=== PATIENT | male | born 1945 | race Caucasian/White ===

== ENCOUNTER 2016-06-10 09:08 | Inpatient (IN) | payer MEDICARE ==
[~2016-06-10] VITALS: Ht 172.7 cm; Wt 71.7 kg
[~2016-06-10 09:08] MED LIST: ADVAIR HFA [SP]12 GM INH; ASPIRIN 81 MG E81 MG PO; ATROVENT 0.02%2.5 ML UPD; DILT-CD180 MG PO; DUONEB 2.5-0.5 M3 ML UPD; ELAVIL25 MG PO; HYDROCODONE-APA1 TAB PO; IBUPROFEN600 MG PO; IMDUR30 MG PO; KLOR-CON 88 MEQ PO; LASIX20 MG PO; LEVAQUIN750 MG PO; LISINOPRIL5 MG PO; MEDROL DOSE PACK4 MG PO; MUCINEX600 MG PO; PERCOCET 5-3251 TAB PO; PLAVIX75 MG PO; PROAIR HFA8.5 GM INH; PROVENTIL HFA6.7 GM INH; SPIRIVA18 MCG INH; STERAPRED DS 1210 MG PO; SYMBICORT 16010.2 GM INH; XANAX0.25 MG OR; XANAX0.25 MG PO; XOPENEX 1.1.25 MG/3 UPD; ZOCOR20 MG PO
[2016-06-10 09:48] LABS: BASOPHILS 0.2 % (0.0-2.0); HEMATOCRIT 53.2 % (42.0-54.0); HEMOGLOBIN 17.9 g/dL (13.5-17.5); IMMATURE GRANULOCYTES 0.1 % (0-5); LYMPHOCYTES 17.3 % (15-50); MCH 31.1 pg (26.0-34.0); MCHC 33.6 g/dL (31.0-37.0); MCV 92.5 fL (80.0-100.0); MEAN PLATELET VOLUME 9.5 fL (7.4-10.4); MONOCYTES 11.4 % (2-11); PLATELET COUNT 178 10x3/uL (130-400); RBC 5.75 10x6/uL (4.20-6.10); RDW 12.9 % (11.5-14.5); WBC 8.1 10x3/uL (4.8-10.8)
[2016-06-10 10:04] LABS: ALBUMIN 3.7 g/dL (3.4-5.0); ALKALINE PHOSPHATASE 56 U/L (46-116); ALT (SGPT) 24 U/L (10-68); BILIRUBIN - TOTAL 0.54 mg/dL (0.2-1.3); CALC OSMOLALITY 272 mosm/kg (275-300); CALCIUM 8.7 mg/dL (8.5-10.1); CARBON DIOXIDE 29.2 mmol/L (21.0-32.0); CHLORIDE - SERUM 98 mmol/L (98-107); CREATININE - SERUM 0.7 mg/dL (0.6-1.3); GLUCOSE 184 mg/dL (74-106); POTASSIUM - SERUM 4.8 mmol/L (3.5-5.1); PROTEIN - SERUM 7.4 g/dL (6.4-8.2); SODIUM 135 mmol/L (136-145); UREA NITROGEN 7 mg/dL (7-18); eGFR NON AFRICAN AMERICAN > 90 mL/min (90-120)
[2016-06-10] MEDS ORDERED: LEVAQUIN750 MG PO (12:23)
[2016-06-10] MEDS ORDERED: ATROVENT HFA12.9 GM INH (12:24)
[2016-06-10] MEDS ORDERED: POT CHLORIDE TAB 8ME PO (12:26)
[2016-06-10] MEDS ORDERED: BREO ELLIPTA 11 EACH INH (12:28)
[2016-06-10] MEDS ORDERED: ELAVIL25 MG PO (12:30)
[2016-06-10] MEDS ORDERED: FUROSEMIDE20 MG PO (12:30)
--- NOTE | 2016-06-10 12:30 | NUR ---
PATIENT IN ROOM WITH NO COMPLAINTS AT THIS TIME. IV INTACT. ANTIBIOTIC INFUSING. SITTING UP IN BED EATING. FAMILY AT BEDSIDE. ERIC;L LIGHT WITHIN REACH.
[2016-06-10 12:49] VITALS: BP 115/59
[2016-06-10 13:18] VITALS: BP 115/59; BMI 24.0
--- NOTE | 2016-06-10 15:00 | NUR ---
PATIENT SITTING UP IN CHAIR AT THIS TIME WITH NO COMPLAINTS OR DISTRESS. IV INTACT. O2 ON. FAMILY AT BEDSIDE. CALL LIGHT WITHIN REACH.
[2016-06-10 16:37] VITALS: BP 149/54
--- NOTE | 2016-06-10 18:55 | NUR ---
PATIENT SITTING UP IN BED WITH IV INTACT. NO COMPLAINTS AT THIS TIME. O2 ON. CALL LIGHT WITHIN REACH. FAMILY AT BEDSIDE.
--- NOTE | 2016-06-10 19:15 | NUR ---
PT SITTING UP IN BED VISITING WITH FAMILY MEMBERS. DENIES ANY NEEDS AT THIS TIME. BED IN LOWEST POSITION, CALL LIGHT IN REACH. ASSESSMENT PER FLOWSHEET.
[2016-06-10 20:00] VITALS: BP 154/67
[2016-06-11] VITALS: BP 106/50
--- NOTE | 2016-06-11 01:08 | NUR ---
PT RESTING QUIETLY WITH EYES CLOSED, BREATHING EVEN AND UNLAORED ON 2L NC. BED IN LOWEST POSITION, CALL LIGHT IN REACH.
[2016-06-11 04:00] VITALS: BP 124/71
--- NOTE | 2016-06-11 04:06 | NUR ---
PATIENT SLEEPING ON HIS SIDE. NO VISIBLE SIGNS OF DISTRESS. PATIENT'S BED IN THE LOWEST POSITION AND CALL LIGHT WITHIN REACH.
--- NOTE | 2016-06-11 05:03 | NUR ---
PULSE OX 89-90%. RT AWARE. ABG'S SHOW O2 CONCENTRATION 87%. PT ON 2L NC. NO VISABLE S/S OF DISTRESS NOTED. PT REPORTS THAT HE FEELS NORMAL AND MAINTAINS ON 2LNC AT HOME. WILL CONTINUE TO MONITOR.
[2016-06-11 06:04] LABS: BASOPHILS 0 % (0.0-2.0); EOSINOPHILS 0 % (0-7); HEMATOCRIT 51.7 % (42.0-54.0); HEMOGLOBIN 17.6 g/dL (13.5-17.5); IMMATURE GRANULOCYTES 0.7 % (0-5); MCH 31.7 pg (26.0-34.0); MEAN PLATELET VOLUME 9.9 fL (7.4-10.4); NEUTROPHILS 79.3 % (40-80); RBC 5.56 10x6/uL (4.20-6.10); RDW 12.8 % (11.5-14.5)
[2016-06-11 06:11] LABS: PLATELET COUNT 133 10x3/uL (130-400); WBC 5.8 10x3/uL (4.8-10.8)
[2016-06-11 06:31] LABS: ALBUMIN 3.7 g/dL (3.4-5.0); ALKALINE PHOSPHATASE 55 U/L (46-116); ALT (SGPT) 22 U/L (10-68); BILIRUBIN - TOTAL 0.24 mg/dL (0.2-1.3); CALCIUM 8.7 mg/dL (8.5-10.1); CARBON DIOXIDE 27.6 mmol/L (21.0-32.0); CHLORIDE - SERUM 100 mmol/L (98-107); PROTEIN - SERUM 7.2 g/dL (6.4-8.2); SODIUM 137 mmol/L (136-145)
[2016-06-11 06:33] LABS: CALC OSMOLALITY 281 mosm/kg (275-300); GLUCOSE 262 mg/dL (74-106); POTASSIUM - SERUM 3.7 mmol/L (3.5-5.1); UREA NITROGEN 11 mg/dL (7-18); eGFR NON AFRICAN AMERICAN 79 mL/min (90-120)
[2016-06-11 08:28] VITALS: BP 146/78
--- NOTE | 2016-06-11 09:00 | NUR ---
ASSESSMEN TPER FLOW SHEET.PT WITHOUT DISTRESS.DENIES NEEDS.CALL LIGHT IN REACH
[2016-06-11 09:08] VITALS: Ht 172.7 cm; Wt 71.7 kg
[2016-06-11 12:00] VITALS: BP 109/62
--- NOTE | 2016-06-11 12:30 | NUR ---
UP IN CHAIR,WITHOUT DISTRESS.CONT TO MONITOR FOR NEEDS
--- NOTE | 2016-06-11 13:49 | NUR ---
RESTING WITHOUT DISTRESS.
[2016-06-11 16:03] VITALS: BP 94/59
--- NOTE | 2016-06-11 17:03 | NUR ---
LYING IN BED,WITHOUT DISTRESS.CALL LIGHT IN REACH
--- NOTE | 2016-06-11 19:30 | NUR ---
PT UP TO CHAIR AT BEDSIDE. AAOX4. BREATHING EVEN AND UNLABORED ON 2L NC. DENIES ANY PAIN OR NEEDS AT THIS TIME. RT AT BEDSIDE TO ADMINISTER BREATHING TX. BED IN LOWEST POSITION, CALL LIGHT IN REACH, ASSESSMENT PER FLOWSHEET.
[2016-06-11 20:00] VITALS: BP 110/52
--- NOTE | 2016-06-11 23:28 | NUR ---
CT CALLED AND WILL BE COMING TO GET PT FOR SCANS IN AM. HE IS NPO UNTIL AFTER THE SCAN.
[2016-06-12] VITALS: BP 107/57; BP 165/84
[2016-06-12 04:00] VITALS: BP 109/59
--- NOTE | 2016-06-12 04:58 | NUR ---
PATIENT SLEEPING IN SEMI-FOWLERS POSITION. NO VISUAL SIGNS OF DISTRESS. PATIENT'S BED IN LOWEST POSITION AND CALL LIGHT WITHIN REACH.
[2016-06-12 05:46] LABS: BASOPHILS 0 % (0.0-2.0); EOSINOPHILS 0 % (0-7); HEMATOCRIT 47.4 % (42.0-54.0); IMMATURE GRANULOCYTES 0.2 % (0-5); MCH 30.9 pg (26.0-34.0); MCHC 33.8 g/dL (31.0-37.0); MCV 91.7 fL (80.0-100.0); MEAN PLATELET VOLUME 9.7 fL (7.4-10.4); MONOCYTES 6.3 % (2-11); NEUTROPHILS 86.5 % (40-80); RBC 5.17 10x6/uL (4.20-6.10); RDW 12.9 % (11.5-14.5)
[2016-06-12 05:54] LABS: PLATELET COUNT 181 10x3/uL (130-400); WBC 14.8 10x3/uL (4.8-10.8)
[2016-06-12 06:12] LABS: ALBUMIN 3.3 g/dL (3.4-5.0); ALKALINE PHOSPHATASE 53 U/L (46-116); ALT (SGPT) 22 U/L (10-68); CALC OSMOLALITY 280 mosm/kg (275-300); CALCIUM 8.4 mg/dL (8.5-10.1); CARBON DIOXIDE 27.9 mmol/L (21.0-32.0); CHLORIDE - SERUM 99 mmol/L (98-107); CREATININE - SERUM 0.9 mg/dL (0.6-1.3); GLUCOSE 287 mg/dL (74-106); POTASSIUM - SERUM 3.8 mmol/L (3.5-5.1); PROTEIN - SERUM 6.7 g/dL (6.4-8.2); SODIUM 135 mmol/L (136-145); eGFR NON AFRICAN AMERICAN 89 mL/min (90-120)
[2016-06-12 06:13] LABS: UREA NITROGEN 16 mg/dL (7-18)
--- NOTE | 2016-06-12 07:20 | NUR ---
ASSESSMENT PER FLOW SHEET.PT WITHOUT DISTRESS.CALL LIGHT IN REACH
[2016-06-12 09:00] VITALS: BP 135/80
[2016-06-12 12:45] VITALS: BP 141/63
--- NOTE | 2016-06-12 14:19 | NUR ---
REMAINS WITHOUT NEEDS,WITHOUT DISTRESS.LARGE BM BROWN IN COLOR.MONITOR
[2016-06-12 16:28] VITALS: BP 132/61
[2016-06-12 19:00] VITALS: BP 105/69
--- NOTE | 2016-06-12 20:50 | NUR ---
PATIENT SITTING UP IN CHAIR IN ROOM. NO SIGNS OF DISTRESS NOTED. SCHEDULED MEDICATIONS GIVEN ORDERED. DENIES ANY NEEDS AT THIS TIME. BED LOW. CALL LIGHT IN REACH
--- NOTE | 2016-06-12 23:12 | NUR ---
PT LAYING IN BED NO DISTRESS OBSERVED CALL LIGHT IN REACH SRX2 BED LOW AND LOCKED WILL MONITOR
[2016-06-13 04:00] VITALS: BP 139/83
[2016-06-13 05:38] LABS: BASOPHILS 0.1 % (0.0-2.0); EOSINOPHILS 0 % (0-7); HEMATOCRIT 46.7 % (42.0-54.0); HEMOGLOBIN 15.6 g/dL (13.5-17.5); IMMATURE GRANULOCYTES 0.3 % (0-5); LYMPHOCYTES 10.9 % (15-50); MCH 30.4 pg (26.0-34.0); MCHC 33.4 g/dL (31.0-37.0); MEAN PLATELET VOLUME 9.8 fL (7.4-10.4); MONOCYTES 9.8 % (2-11); NEUTROPHILS 78.9 % (40-80); PLATELET COUNT 180 10x3/uL (130-400); RBC 5.13 10x6/uL (4.20-6.10); RDW 12.8 % (11.5-14.5); WBC 13.4 10x3/uL (4.8-10.8)
[2016-06-13 06:15] LABS: ALKALINE PHOSPHATASE 47 U/L (46-116); ALT (SGPT) 22 U/L (10-68); CALC OSMOLALITY 281 mosm/kg (275-300); CALCIUM 8.3 mg/dL (8.5-10.1); CARBON DIOXIDE 28.7 mmol/L (21.0-32.0); CHLORIDE - SERUM 101 mmol/L (98-107); CREATININE - SERUM 0.7 mg/dL (0.6-1.3); GLUCOSE 215 mg/dL (74-106); POTASSIUM - SERUM 3.7 mmol/L (3.5-5.1); SODIUM 137 mmol/L (136-145); UREA NITROGEN 18 mg/dL (7-18); eGFR NON AFRICAN AMERICAN > 90 mL/min (90-120)
[2016-06-13 08:59] VITALS: BP 141/71
--- NOTE | 2016-06-13 12:31 | NUR ---
NUTRITION MONITORING & EVAL CHART REVIEWED. PT VISIT. TOLERATING REG DIET. 75% INTAKE MEALS. WILL CONTINUE TO HONOR FOOD PREFERENCES. MONITOR PT PROGRESS. RD FOLLOWING
[2016-06-13 12:32] VITALS: BP 133/70
[2016-06-13 15:49] LABS: CKMB 4.4 U/L (0.0-3.6); CREATINE KINASE 203 UL (21-232)
[2016-06-13 15:52] LABS: TROPONIN-I 0.309 ng/mL (0.000-0.060)
--- NOTE | 2016-06-13 15:54 | NUR ---
CALL TO MED 2 SPOKE WITH FRANK.SHE WILL HAVE CALL ME BACK. ELEVATED TROPONIN OF 0.309
--- NOTE | 2016-06-13 15:57 | NUR ---
ON UNIT TROPIN REPORTED TO HER
[2016-06-13 16:08] VITALS: BP 136/62
--- NOTE | 2016-06-13 16:38 | NUR ---
Patient Name: YUMIKO PADILLA Admission Status: ER Accout number: [id number] Admission Date: 06-10-2016 : 1945 Admission Diagnosis: Attending: JACKIE Current LOS: 3 Anticipated DC Date: 06-17-2016 Planned Disposition: Home Primary Insurance: MEDICARE A & B Discharge Planning Comments: CM MET WITH PATIENTS DAUGHTER (TWAN) AND SON (BHUMIKA) REGARDING DISCHARGE NEEDS AND PLANS. PATIENTS BROTHER WAS AT BEDSIDE. PATIENT LIVES ALONE AND HAS 4 STEPS W/RAILS TO ENTER HOME AND NO STAIRS INSIDE. PATIENT IS INDEPENDENT AT HOME AND HAS OXYGEN AT 2L, NEBULIZER, AND PORTABLE SUPPLIE BY [employer] [facility]. PATIENTS PCP IS DR. BENÍTEZ AND PHARMACY IS [facility]. PATIENT HAS NEVER HAD HOME HEALTH AND IS OPEN TO HAVE THEM IF NEEDED AT DISCHARGE. CM WILL CONTINUE TO FOLLOW PATIENT WITH D/C NEEDS AND PLANS. PCP DR. BENÍTEZ [facility] [employer] [phone] BHUMIKA (SON) [phone] TWAN (DAUGHTER) [phone] Incident Handler: Loida Adrian Is the patient Alert and Oriented? Yes 0 * How many steps to enter\exit or inside your home? 4 W/RAILS 0 * PCP DR. BENÍTEZ 0 * Pharmacy [employer] [facility] 0 * Preadmission Environment Home Alone 0 * ADLs Independent 0 * Equipment Nebulizer Oxygen 0 * Other Equipment PORTABLE O2 SUPPLIED BY [employer] 0 * List name and contact numbers for known caregivers / representatives who currently or will assist patient after discharge: BHUMIKA (SON) [phone] TWAN HENRIQUEZ ([phone]) 0 * Community resources currently utilized None 0 * Additional services required to return to the preadmission environment? Yes 0 * Can the patient safely return to the preadmission environment? Yes 0 * Has this patient been hospitalized within the prior 30 days at any hospital? No 0 Grand Total: 0
--- NOTE | 2016-06-13 19:03 | NUR ---
REMAINS WITHOIUT PAIN.FAMILY AT BEDSIDE.DR. CHAVEZ HAS BEEN HERE TO SEE PT.CONT PLAN OF CARE
--- NOTE | 2016-06-13 20:00 | NUR ---
ASSESSMENT PER FLOWSHEET. IV PATENT LEFT FOREARM SALINE LOCKED AFTER ANTIBIOTIC. TELM. SHOWS SR WITH BIGEMINAL PVC'S HR=82 PER OVERSIZE LOAD PILOT ESCORT. FAMILY MEMBERS AT BEDSIDE.
[2016-06-13 21:00] VITALS: BP 158/88
--- NOTE | 2016-06-13 21:00 | NUR ---
UP WITH HELP TO BSC VOIDS AND HAD A SOFT FORMED BROWN STOOL ASSISTED BACK TO BED SR UP X2 CALL LIGHT WITHIN REACH CONTINUOUS O2 SAT ON. SHOWS 93-95% ON O2 2L/M PER NC. DENIES PAIN OR DISCOMFORT.
--- NOTE | 2016-06-13 21:30 | NUR ---
MEDS GIVEN PER JUL. HXMU=633. REGULAR INSULIN 4 UNITS GIVEN SUBC PER S/S.
--- NOTE | 2016-06-13 21:30 | NUR ---
LAB HERE TO SECOND SET OF CE. RT HERE TO DO SECOND ECG. IN SERIES.
[2016-06-13 22:34] LABS: CKMB 3.8 U/L (0.0-3.6); CREATINE KINASE 214 UL (21-232)
[2016-06-13 22:36] LABS: TROPONIN-I 0.273 ng/mL (0.000-0.060)
[2016-06-14] VITALS (7 sets, daily range): BP systolic 110–147; BP diastolic 65–87
--- NOTE | 2016-06-14 | NUR ---
EYES CLOSED RESPIRATIONS WITH EASE AND UNLABORED DAUGHTER AT BEDSIDE. O2 SAT READING=94%
--- NOTE | 2016-06-14 02:03 | NUR ---
EYES CLOSED RESPIRATIONS WITH EASE AND UNLABORED. NO VOICED COMPLAINTS.
--- NOTE | 2016-06-14 03:45 | NUR ---
UI SOFTWARE ENGINEER HERE BLOOD DRAWN RESTING QUIETLY DENIES PAIN OR DISCOMFORT.
[2016-06-14 04:33] LABS: BASOPHILS 0 % (0.0-2.0); EOSINOPHILS 0 % (0-7); HEMATOCRIT 48.1 % (42.0-54.0); HEMOGLOBIN 16.2 g/dL (13.5-17.5); IMMATURE GRANULOCYTES 0.4 % (0-5); LYMPHOCYTES 11.8 % (15-50); MCH 30.9 pg (26.0-34.0); MCHC 33.7 g/dL (31.0-37.0); MCV 91.8 fL (80.0-100.0); MEAN PLATELET VOLUME 9.9 fL (7.4-10.4); MONOCYTES 8.4 % (2-11); NEUTROPHILS 79.4 % (40-80); PLATELET COUNT 177 10x3/uL (130-400); RBC 5.24 10x6/uL (4.20-6.10); RDW 12.9 % (11.5-14.5); WBC 12.7 10x3/uL (4.8-10.8)
[2016-06-14 05:05] LABS: ALKALINE PHOSPHATASE 44 U/L (46-116); ALT (SGPT) 27 U/L (10-68); CALC OSMOLALITY 281 mosm/kg (275-300); CALCIUM 8.5 mg/dL (8.5-10.1); CARBON DIOXIDE 29.3 mmol/L (21.0-32.0); CHLORIDE - SERUM 101 mmol/L (98-107); CKMB 2.7 U/L (0.0-3.6); CREATINE KINASE 138 UL (21-232); CREATININE - SERUM 0.7 mg/dL (0.6-1.3); GLUCOSE 239 mg/dL (74-106); PROTEIN - SERUM 5.7 g/dL (6.4-8.2); SODIUM 136 mmol/L (136-145); UREA NITROGEN 18 mg/dL (7-18); eGFR NON AFRICAN AMERICAN > 90 mL/min (90-120)
[2016-06-14 05:09] LABS: POTASSIUM - SERUM 4.5 mmol/L (3.5-5.1); TROPONIN-I 0.121 ng/mL (0.000-0.060)
--- NOTE | 2016-06-14 17:28 | NUR ---
STATUS REMAINS UNCHGD AT PRESENT.
--- NOTE | 2016-06-14 21:32 | NUR ---
PATIENT RESTING IN BED. SEVERAL FAMILY MEMBERS PRESENT. NO SIGNS OF DISTRESS NOTED. SCHEDULED MEDICATION GIVEN. DENIES ANY NEEDS AT THIS TIME. BED LOW. CALL LIGHT IN REACH.
--- NOTE | 2016-06-15 04:41 | NUR ---
EYES CLOSED RESPIRATIONS WITH EASE AND UNLABORED. O2 ON SR UP X2 CALL LIGHT WITHIN REACH.
[2016-06-15 05:03] VITALS: BP 142/96
[2016-06-15 05:33] LABS: BASOPHILS 0.1 % (0.0-2.0); EOSINOPHILS 0 % (0-7); HEMATOCRIT 47.7 % (42.0-54.0); HEMOGLOBIN 16.1 g/dL (13.5-17.5); IMMATURE GRANULOCYTES 0.4 % (0-5); LYMPHOCYTES 14.7 % (15-50); MCH 30.6 pg (26.0-34.0); MCHC 33.8 g/dL (31.0-37.0); MCV 90.7 fL (80.0-100.0); MEAN PLATELET VOLUME 9.9 fL (7.4-10.4); MONOCYTES 8.7 % (2-11); NEUTROPHILS 76.1 % (40-80); PLATELET COUNT 185 10x3/uL (130-400); RBC 5.26 10x6/uL (4.20-6.10); RDW 12.7 % (11.5-14.5); WBC 10.9 10x3/uL (4.8-10.8)
[2016-06-15 05:43] LABS: ALBUMIN 2.9 g/dL (3.4-5.0); ALKALINE PHOSPHATASE 45 U/L (46-116); ALT (SGPT) 28 U/L (10-68); CALC OSMOLALITY 276 mosm/kg (275-300); CALCIUM 8.2 mg/dL (8.5-10.1); CARBON DIOXIDE 28.6 mmol/L (21.0-32.0); CHLORIDE - SERUM 101 mmol/L (98-107); CREATININE - SERUM 0.7 mg/dL (0.6-1.3); POTASSIUM - SERUM 4.6 mmol/L (3.5-5.1); PROTEIN - SERUM 5.5 g/dL (6.4-8.2); SODIUM 136 mmol/L (136-145); UREA NITROGEN 17 mg/dL (7-18); eGFR NON AFRICAN AMERICAN > 90 mL/min (90-120)
[2016-06-15 05:52] LABS: GLUCOSE 158 mg/dL (74-106)
--- NOTE | 2016-06-15 08:18 | NUR ---
AWAKE AND ALERT. ORIENTED X3. NO C/O PAIN AT THIS TIME. LUNGS HAVE CRACKLES AND WHEEZES THROUGHOUT LUNG DEVINE. PRODUCTIVE COUGH NOTED. SKIN IS INTACT WITHOUT REDNESS. SL TO LEFT FOREARM IS PATENT WITHOUT REDNESS AT INSERTION SITE. SITTING UP IN BED EATING BREAKFAST. REPORTS LARGE NORMAL STOOL THIS AM. DENIES NEEDS.
[2016-06-15 08:29] VITALS: BP 157/70
--- NOTE | 2016-06-15 08:33 | NUR ---
CM REASSESSMENT NOTE: PATIENT HAS DECIDED ON [facility] AND HAS SIGNED THE [facility] FORM. CM WILL CONTINUE TO FOLLOW PATIENT WITH D/C NEEDS AND PLANS.
--- NOTE | 2016-06-15 09:30 | NUR ---
UP TO CHAIR AT BEDSIDE WITH MIN ASSIST. NO C/O AT THIS TIME.
[2016-06-15 11:08] VITALS: BP 148/84
--- NOTE | 2016-06-15 12:00 | NUR ---
LUNCH SERVED IN ROOM. FEEDS SELF. FSBS 214. GIVEN 8 UNITS REGULAR SUBQ PER SS.
--- NOTE | 2016-06-15 15:00 | NUR ---
RESTING QUIETLY IN BED. VISITORS AT BEDSIDE. DENIES NEEDS.
[2016-06-15 16:45] VITALS: BP 117/70
--- NOTE | 2016-06-15 17:00 | NUR ---
FSBS 122. NO COVERAGE
--- NOTE | 2016-06-15 18:56 | NUR ---
ATE MOST OF SUPPER. FAMILY IN ROOM. NO CHANGES NOTED. DENIES NEEDS.
--- NOTE | 2016-06-15 19:15 | NUR ---
BEDSIDE REPORT RECEIVED AND CARE OF PT ASSUMED. PT SITTING UP IN BED VISITNG WITH FAMILY MEMBERS. OV IN USE VIA NC AT 2L. TELEMETRY IN PLACE AND READING 72 SR AT THIS ASSESSMENT. WILL MONITOR CLOSLEY FOR NEEDS. CALL LIGHT WITHIN REACH.
[2016-06-15 20:50] VITALS: BP 123/79
--- NOTE | 2016-06-15 21:31 | NUR ---
HS MEDICATIONS GIVEN. FSBS 225 AT THIS CHECK REQUIRING COVERAGE WITH 8 UNITS INSULIN PER SLIDING SCALE. WILL CONTINUE TO MONITOR FOR NEEDS.
--- NOTE | 2016-06-15 21:40 | NUR ---
HS SNACK GIVEN: JOSE CRACKERS AND APPLESAUCE. WILL CONTINUE TO MONITOR FOR NEEDS. FAMILY MEMBERS ARE AT BEDSIDE.
[2016-06-15 23:00] VITALS: BP 106/57
--- NOTE | 2016-06-16 01:25 | NUR ---
PT SLEEPING ON RIGHT SIDE WITH UNLABORED BREATHING. O2 IN USE VIA NC AT 2L. WILL CONTINUE TO MONITOR FOR NEEDS.
[2016-06-16 05:00] VITALS: BP 151/86
[2016-06-16 05:27] LABS: BASOPHILS 0.1 % (0.0-2.0); EOSINOPHILS 0 % (0-7); HEMATOCRIT 49.5 % (42.0-54.0); HEMOGLOBIN 16.8 g/dL (13.5-17.5); IMMATURE GRANULOCYTES 0.5 % (0-5); LYMPHOCYTES 11.4 % (15-50); MCH 31.1 pg (26.0-34.0); MCHC 33.9 g/dL (31.0-37.0); MCV 91.5 fL (80.0-100.0); MEAN PLATELET VOLUME 9.6 fL (7.4-10.4); MONOCYTES 7.2 % (2-11); NEUTROPHILS 80.8 % (40-80); PLATELET COUNT 199 10x3/uL (130-400); RBC 5.41 10x6/uL (4.20-6.10); RDW 12.6 % (11.5-14.5); WBC 9.9 10x3/uL (4.8-10.8)
[2016-06-16 05:52] LABS: ALBUMIN 3.2 g/dL (3.4-5.0); ALKALINE PHOSPHATASE 39 U/L (46-116); ALT (SGPT) 29 U/L (10-68); BILIRUBIN - TOTAL 0.45 mg/dL (0.2-1.3); CARBON DIOXIDE 31.8 mmol/L (21.0-32.0); CHLORIDE - SERUM 101 mmol/L (98-107); CREATININE - SERUM 0.7 mg/dL (0.6-1.3); PROTEIN - SERUM 5.7 g/dL (6.4-8.2); SODIUM 137 mmol/L (136-145); UREA NITROGEN 19 mg/dL (7-18); eGFR NON AFRICAN AMERICAN > 90 mL/min (90-120)
[2016-06-16 05:59] LABS: CALC OSMOLALITY 281 mosm/kg (275-300); GLUCOSE 207 mg/dL (74-106); POTASSIUM - SERUM 5.3 mmol/L (3.5-5.1)
[2016-06-16 07:53] VITALS: BP 135/74
--- NOTE | 2016-06-16 08:11 | NUR ---
AWAKE AND ALERT. ORIENTED X3. NO C/O THIS AM. LUNGS ARE DIMINISHED THROUGHOUT AND SOME CRACKLES NOTED. SKIN IS INTACT WITHOUT REDNESS. SITTING UP ON SIDE OF BED EATING BREAKFAST. SL TO LEFT FOREARM PATENT WITHOUT REDNESS AT INSERTION SITE. DENIES NEEDS.
--- NOTE | 2016-06-16 10:00 | NUR ---
AMBULATED IN HALLWAY WITH PT. SOB NOTED WITH EXERTION.
[2016-06-16 11:59] VITALS: BP 115/69
--- NOTE | 2016-06-16 12:00 | NUR ---
FSBS 273. GIVEN 10 UNITS REGULAR SUBQ PER SS.
--- NOTE | 2016-06-16 13:59 | CN ---
PATIENT NAME:YUMIKO PADILLA MEDICAL RECORD: [id number] : [birth year] LOCATION:D.[id number] ADMIT DATE: 06/10/16 ACCOUNT: [id number] CONSULTING PHYSICIAN: PEPE CHAVEZ MD REFERRING PHYSICIAN: DEANA TRAN MD DATE OF CONSULTATION: 06/13/2016 DIAGNOSES: 1. Non-Q-wave myocardial infarction. 2. Frequent premature ventricular contractions -- dysrhythmia. 3. Chronic obstructive pulmonary disease. 4. Bilateral pneumonia. 5. Coronary artery disease. 6. Hypertension. 7. Diabetes. HISTORY OF PRESENT ILLNESS: This is a gentleman who presents with respiratory distress, bilateral pneumonia, found to have frequent PVCs, as well has ruled in for a non-Q-wave myocardial infarction. His EKG is with frequent PVCs in a bigeminal pattern; otherwise, only nonspecific ST-T abnormalities, no acute ST-T changes. He is not having chest pain or chest discomfort. PHYSICAL EXAMINATION: GENERAL APPEARANCE: Well-nourished, well-developed, appears stated age. Level of distress, comfortable. PSYCHIATRIC: Mental status, alert, normal affect. Orientation, oriented to time, place and person. EYES: Lids and conjunctiva, noninjected. No discharge, no pallor. ENT: Lips, teeth, gums, normal dentition. Oropharynx, no cyanosis, no pallor. NECK: Carotid arteries, bilateral normal upstroke, no bruits, no thrills. JUGULAR VEINS: No jugular venous pressure or distention. CERVICAL LYMPH NODES: Nontender, nonenlarged. THYROID: Not enlarged. Nontender. No nodules. LUNGS: Respiratory effort, unlabored. CHEST: Normal curvature. No thoracic deformity. No chest wall tenderness. Percussion, resonant. Auscultation, clear. No wheezes, no rales, no rhonchi. CARDIOVASCULAR: Precordial exam, nondisplaced. No heaves or pericardial thrills. Rate and rhythm, regular. Heart sounds, normal S1, normal S2. No S3, no gallop, no rub. Systolic murmur, not heard. Diastolic murmur, not heard. EXTREMITIES: No cyanosis, no edema. Peripheral pulses, full and equal in all extremities, except as noted. No bruits appreciated. ABDOMEN: Soft, nondistended. Normal aorta. No bruit. Nontender. No masses. Liver, nontender, no hepatomegaly. Spleen, nontender, no splenomegaly. MUSCULOSKELETAL: No joint tenderness. No joint swelling. No erythema. NEUROLOGICAL: Normal gait, normal strength, normal tone. SKIN: Warm and dry. REVIEW OF SYSTEMS: The patient reports easy bruising but reports no swollen glands. The patient reports no fever, no night sweats, no significant weight gain, no significant weight loss. No significant exercise tolerance. The patient reports no dry eyes, no irritation, no vision change. Patient reports no difficulty hearing and no ear pain. Patient reports no frequent nose bleeds or nose and sinus problems. Patient reports on arm pain on exertion. No shortness of breath while lying down. No history of heart murmur. Patient CONSULT REPORT [id number] YUMIKO PADILLA reports no cough, no wheezing or coughing up blood. Patient reports no abdominal pain, no vomiting. Normal appetite. No diarrhea and not vomiting blood. No nausea and no constipation. Patient reports no incontinence. No difficulty urinating. No hematuria. No increased frequency. Patient reports no muscle aches. No weakness, no arthralgias, no back pain. No swelling of the extremities. Patient reports no abnormal mole, no jaundice, no rashes. Reports no loss of consciousness. No weakness and no numbness. No seizures, dizziness, or headaches. The patient reports no depression, no sleep disturbance, feeling safe in a relationship and no alcohol abuse. Patient reports on fatigue. Reports no runny nose or sinus pressure. No itching, no hives and no frequent sneezing. OVERALL IMPRESSION: Non-Q-wave myocardial infarction with frequent premature ventricular contractions. We will start him on Bystolic 5 mg b.i.d. as well as aspirin and Plavix. At this time, his respiratory status is too poor to undergo cardiac catheterization. We will follow him with medical management, perform cardiac catheterization in the future if his respiratory status improves. TRANSINT:[id number] Voice Confirmation ID: [id number] DOCUMENT ID: [id number] PEPE CHAVEZ MD at 1359 CC: [id number] DICTATION DATE: 06/13/16 174 PLANT OPERATOR CONTROL ROOM OPERATOR: 06/13/16 0073 [place] [address]
[2016-06-16 16:14] VITALS: BP 108/64
--- NOTE | 2016-06-16 17:00 | NUR ---
FSBS 102. NO COVERAGE REQUIRED.
--- NOTE | 2016-06-16 18:09 | NUR ---
ATE ALL OF SUPPER. VISITORS AT BEDSIDE. NO CHANGES NOTED. DENIES NEEDS.
[2016-06-16 21:03] VITALS: BP 116/68
--- NOTE | 2016-06-16 22:04 | NUR ---
PATIENT SLEEPING ON RIGHT SIDE. BED IN LOWEST LOCKED POSITION, HOB ELEVATED, CALL LIGHT WITHIN REACH. NO NEEDS NOTED AT THIS TIME.
[2016-06-17] VITALS: BP 113/73
--- NOTE | 2016-06-17 02:03 | NUR ---
PATIENT SIDE SLEEPING. NO VISUAL SIGNS OF DISTRESS. PATIENT'S BED IN LOWEST POSITION AND CALL LIGHT WITHIN REACH.
[2016-06-17 04:00] VITALS: BP 112/67
[2016-06-17 05:11] LABS: BASOPHILS 0 % (0.0-2.0); EOSINOPHILS 0 % (0-7); HEMATOCRIT 48.5 % (42.0-54.0); HEMOGLOBIN 16.4 g/dL (13.5-17.5); IMMATURE GRANULOCYTES 0.5 % (0-5); LYMPHOCYTES 8.7 % (15-50); MCH 30.9 pg (26.0-34.0); MCHC 33.8 g/dL (31.0-37.0); MCV 91.3 fL (80.0-100.0); MEAN PLATELET VOLUME 9.6 fL (7.4-10.4); MONOCYTES 8.6 % (2-11); NEUTROPHILS 82.2 % (40-80); PLATELET COUNT 198 10x3/uL (130-400); RBC 5.31 10x6/uL (4.20-6.10); RDW 12.6 % (11.5-14.5); WBC 12.1 10x3/uL (4.8-10.8)
[2016-06-17 05:32] LABS: ALKALINE PHOSPHATASE 38 U/L (46-116); ALT (SGPT) 29 U/L (10-68); BILIRUBIN - TOTAL 0.47 mg/dL (0.2-1.3); CALC OSMOLALITY 280 mosm/kg (275-300); CALCIUM 8.6 mg/dL (8.5-10.1); CARBON DIOXIDE 33.9 mmol/L (21.0-32.0); CHLORIDE - SERUM 101 mmol/L (98-107); CREATININE - SERUM 0.7 mg/dL (0.6-1.3); GLUCOSE 194 mg/dL (74-106); POTASSIUM - SERUM 4.7 mmol/L (3.5-5.1); PROTEIN - SERUM 5.6 g/dL (6.4-8.2); SODIUM 137 mmol/L (136-145); UREA NITROGEN 17 mg/dL (7-18); eGFR NON AFRICAN AMERICAN > 90 mL/min (90-120)
[2016-06-17 08:44] VITALS: BP 129/70
--- NOTE | 2016-06-17 09:10 | NUR ---
PATIENT SITTING UP IN CHAIR AT BEDSIDE. RESPIRATIONS EVEN AND UNLABORED. CALL LIGHT IN REACH.
[2016-06-17] MEDS ORDERED: NICODERM C1 PATCH .1 TRANSDERM (11:19)
[2016-06-17] MEDS ORDERED: SINGULAIR10 MG PO (11:20)
[2016-06-17] MEDS ORDERED: MUCINEX DM ER1 EAC1 PO (11:20)
[2016-06-17] MEDS ORDERED: TESSALON PERLE100 MG PO (11:20)
[2016-06-17] MEDS ORDERED: FLORAJEN3 CAPS460 MG PO (11:21)
[2016-06-17] MEDS ORDERED: DALIRESP500 MCG PO (11:21)
[2016-06-17] MEDS ORDERED: PROTONIX40 MG PO (11:21)
[2016-06-17] MEDS ORDERED: ASPIRIN81 MG PO (11:22)
[2016-06-17] MEDS ORDERED: BYSTOLIC5 MG PO (11:22)
[2016-06-17] MEDS ORDERED: PREDNISONE10 MG PO (11:23)
[2016-06-17 12:02] VITALS: BP 138/73
--- NOTE | 2016-06-17 12:55 | NUR ---
CM REASSESSMENT NOTE: PATIENT IS DISCHARGING TODAY WITH [facility]. PATIENTS DAUGHTER (TWAN) IS DRIVING HIM TO HER HOME WHERE HE WILL BE STAYING. [facility] IS AWARE OF THIS AND DAUGHTERS PHONE NUMBER WAS CALLED TO TM. CM TRIED CALLING DAUGHTER BUT THERE WAS NO ANSWER-WILL GET ADDRESS WHEN SHE ARRIVES AT HOSPITAL. PATIENT DID NOT KNOW HER ADDRESS.
--- NOTE | 2016-06-17 13:35 | NUR ---
PATIENT LAYING SEMI FOWLERS IN BED. REMOVED SALINE LOCK FROM LEFT FORARM, PT TOLERATED WELL. BED LOCKED AND IN LOWEST POSITION, INSTRUCTED TO CALL IF NEEDED ANYTHING. VERBALIZED UNDERSTANDING.
--- NOTE | 2016-06-17 14:41 | NUR ---
PATIENT LAYING IN BED IN SEMI FOLWERS RESTING. REQUESTED ICE WATER. DENIED ANY PAIN. RESPIRATIONS EVEN AND UNLABORED. INTRUCTED TO CALL IF NEEDED ANYTHING. VERBALIZED UNDERSTANDING.
--- NOTE | 2016-06-17 16:00 | NUR ---
PATIENT WAS WALKING AROUND ROUND PUTTING THINGS AWAY TO BE DISCHARGED. GOT HIM BAGS FOR HIS BELONGINGS AND HELPED HIM PUT HIS THINGS AWAY.
--- NOTE | 2016-06-17 16:23 | NUR ---
PATIENT D/C HOME WITH DAUGHTER. TRANSFERRED DOWNSTAIRS VIA WHEELCHAIR WITH STAFF. D/C TEACHING PROVIDED. STATES UNDERSTANDING.
--- NOTE | 2016-07-01 08:46 | EC ---
PATIENT:YUMIKO PADILLA DATE OF SERVICE: 06/10/16 SEX: M MEDICAL RECORD: [id number] DATE OF : [birth year] LOCATION:D.MS [id number] AGE OF PATIENT: 70 ADMISSION DATE: 06/10/16 REFERRING PHYSICIAN: INTERPRETING PHYSICIAN: PEPE GONZALEZ MD ECHOCARDIOGRAM REPORT ECHO CHARGES 4 ECHO COMPLETE CLINICAL DIAGNOSIS: SOB HX CAD/STENTS/HTN ECHOCARDIOGRAPHIC MEASUREMENTS (adult normal given) AC root (d.<3.7cm) 4.3 LV Septum d (<1.2 cm> 1.4 Valve Excursion 2.2 LV Septum (systole) 1.5 Left Atria (s.<4.0cm> 3.2 LVPW d(<1.2cm) 1.3 RV (d.<2.3cm) 3.3 LVPW (sytole) 1.6 LV diastole(<5.6CM) 4.7 MV E-F(>70mm/sec) LV systole 3.6 LVOT Diameter 1.6 MV exc.(>10mm) Est.ejection fraction (50-75%) Pericardial Effusion N DOPPLER: LVIT A 92.0 E 84.0 LA RVSP 22 LVOT 102 AOP1/2T Asc. Ao 151 RVOT RA PA AV Gradient Peak 9.10 AV Mean 4.61 AV Area 1.3 MV Gradient Peak 4.09 MV Mean 1.8 MV Area COMMENTS: Mrp Controller: Noble LEON Credit Card Clerk:Kayla Gonzalez TAPE# pacs DATE OF SERVICE: 06/14/2016 Echocardiogram FINDINGS: 1. Left ventricular chamber size is within normal limits. Left ventricular systolic function is normal. Overall ejection fraction estimated at 55%. 2. Left atrium is within normal limits at 3.2 cm. Right atrium and right ventricular chamber sizes are mildly dilated. 3. Valvular structures have normal structure and motion. ECHOCARDIOGRAM REPORT [id number] YUMIKO PADILLA 4. Doppler interrogation reveals mild aortic insufficiency, mild mitral regurgitation, mild tricuspid regurgitation, no other valvular insufficiency or stenosis. Pulmonary systolic pressure is normal, estimated 22 mmHg. 5. No evidence of pericardial effusion or left ventricular thrombus. TRANSINT:[id number] Voice Confirmation ID: [id number] DOCUMENT ID: [id number] 06/20/2016 Edited to correct date of service, [email or web address]. PEPE GONZALEZ MD at 0846 CC: [id number] DICTATION DATE: 06/15/16 0927 COLLECTION TELLER: 06/15/16 1403 DIS IN 06/17/16 [id number] [place] [address]
== END 2016-06-17 16:24 | disposition home health service (06) | DRG 189 ==
LOC: D.ER 09:08 → D.MS 11:18
PROVIDERS: Emergency Medicine; ADMIT Family Medicine
DX: J96.22 Acute and chronic respiratory failure with hypercapnia (principal); I21.4 Non-ST elevation (NSTEMI) myocardial infarction; J18.9 Pneumonia, unspecified organism; J44.0 Chronic obstructive pulmonary disease with (acute) lower respiratory infection; F17.203 Nicotine dependence unspecified, with withdrawal; J44.1 Chronic obstructive pulmonary disease with (acute) exacerbation; J98.11 Atelectasis; J96.21 Acute and chronic respiratory failure with hypoxia; Z99.81 Dependence on supplemental oxygen; I11.0 Hypertensive heart disease with heart failure; I50.9 Heart failure, unspecified; I25.10 Atherosclerotic heart disease of native coronary artery without angina pectoris; Z95.5 Presence of coronary angioplasty implant and graft; I49.9 Cardiac arrhythmia, unspecified; E11.9 Type 2 diabetes mellitus without complications

== ENCOUNTER 2016-07-14 17:03 | Observation (INO) | payer MEDICARE ==
[~2016-07-14] VITALS: Ht 172.7 cm; Wt 67.0 kg
--- NOTE | ~2016-07-14 | HEMODYNAMI ---
PATIENT:YUMIKO PADILLA MEDICAL RECORD: [id number] : [birth year] [id number] ADMISSION DATE: 07/14/16 Generatedon:07/15/201613:57 Patient name: YUMIKO PADILLA Patient #: [id number] : 1945 Date of study: 07/15/2016 Page: Of Hemodynamic Procedure Report Patient Data Patient Demographics Procedure consent was obtained First Name: YUMIKO Gender: Male Last Name: VALERIE : 1945 Middle Initial: D Age: 70 year(s) Patient #: [id number] Race: SSN: [id number] Additional ID: [id number] Contact details [address]: [address] [place] [address] TRAIL State: [place] City: [place] Zip code: [address] Past Medical History History of disease Date Diagnosis Comments CAD Allergies Allergen Reaction Date Comments Reported Penicillins 08/25/2014 Admission Admission Data Admission Date: 07/14/2016 Admission Time: 20:07 Arrival Date: 07/14/2016 Arrival Time: 20:07 Admit Source: Other Insurance Payor: Medicare Room #: D.2114 Height (in.): 68 BSA: 1.81 (m2) Height (cm.): 172.72 BMI: 22.81 (kg/m2) Weight (lbs.): 150 Weight (kg.): 68.04 Lab Results Lab Result Date: 07/15/2016 Lab Result Time: 0:00 Biochemistry Name Units Result Min Max BUN mg/dl 7 --(*---)-- 7 18 Creatinine mg/dl 0.6 --(*---)-- 0.6 1.3 CBC Name Units Result Min Max Hemoglobin g/dl 14.3 --(*---)-- 13.5 17.5 Procedure Procedure Types Cath Procedure Diagnostic Procedure LHC LHC w/Coronaries Procedure Description Procedure Date Procedure Date: 07/15/2016 Procedure Start Time: 13:42 Procedure End Time: 13:54 Procedure Staff Name Function Saw Galaviz MD Performing Physician Ashley Streeter RT Scrub Alfreda Mckinley RN Nurse Alicia Mendez RT Monitor Indication Angina Procedure Data Cath Procedure Fluoroscopy Diagnostic fluoroscopy Total fluoroscopy Time: 1.7 time: 1.7 min min Diagnostic fluoroscopy Total fluoroscopy dose: dose: 208.27 mGy 208.27 mGy Contrast Material Contrast Material Type Amount (ml) Isovue 370 69 Entry Location Entry Primary Successful Side Size Upsize Upsize Entry Closure Succes sful Closure Location (Fr) 1 (Fr) 2 (Fr) Remarks Device Remarks Femoral Right 5 Fr Exoseal artery Estimated blood loss: 5 ml Diagnostic catheters Device Type Used For End Catheter Placement Cordis 5Fr JL 4.0 Left Coronary Catheter (MP) Angiography Diagnostic Infinity 5Fr Left Coronary JL 5 catheter Angiography Cordis 5Fr 3DRC Catheter Right Coronary (MP) Angiography Cordis 5Fr Pigtail Multi-vessel Catheter (MP) Angiography Procedure Complications No complications Procedure Medications Medication Administration Route Dosage Fentanyl I.V. 50 mcg Versed I.V. 1 mg Fentanyl I.V. 25 mcg Versed I.V. 0.5 mg Oxygen NC 2 l/min Heparin Flush Bag added to field 2 bags (1000units/500ml NS) Lidocaine 2% added to field 20 Fentanyl I.V. 25 mcg Versed I.V. 0.5 mg Hemodynamics Rest BSA: 1.81 (m2) HGB: 14.3 (g/dl) O2 Consumption: Estimated: 246.16 (ml/min) O2 Co nsumption indexed: Estimated:136 (ml/min/m) Heart Rate: 0 (bpm) Pressure Samples Time Site Value (mmHg) Purpose Heart Use Rate(bpm) 13:50 LV 144/18,26 Snapshot 82 13:51 AO 145/82(101) Pullback 82 Gradients Valve Time Site Site 2 Mean SEP/DFP Peak To Heart Use 1 (mmHg) (sec/min) Peak Rate (mmHg) (bpm) Aortic 13:51 LV AO 20 19 82 145/82(101) Calculations Valve P-P Mean Valve Index Valve Source Name Gradient Area Flow (cm2) Aortic 20 20 Snapshots Pre Cath Intra NCS Post Cath Vital Signs Time Heart Resp SPO2 NIBP (mmHg) Rhythm Pain Sedation Rate (ipm) (%) Status Level (bpm) 13:32:39 73 21 94 138/83(117) NSR 0 (11) 10(A) , No pain 13:36:53 74 24 95 143/78(114) NSR 0 (11) 9(A) , No pain 13:41:12 76 20 93 138/77(112) NSR 0 (11) 9(A) , No pain 13:45:26 81 24 93 137/82(116) NSR 0 (11) 9(A) , No pain 13:49:40 82 18 92 138/82(114) NSR 0 (11) 9(A) , No pain 13:53:56 82 16 94 133/79(112) NSR 0 (11) 9(A) , No pain Medications Time Medication Route Dose Verified Delivered Reason Notes Effec tiveness by by 13:21:07 Lidocaine 2% added 20ml Alfreda Alfreda used for to vial Mckinley Cmkinley procedure field RN RN 13:21:52 Oxygen NC 2 Alfreda Alfreda used for l/min Mckinley Mckinley flying teacher RN 13:21:59 Heparin Flush added 2 Alfreda Alfreda used for Bag to bags Mckinley Mckinley procedure (1000units/500ml field RN RN NS) 13:41:48 Fentanyl I.V. 50 Alfreda Alfreda for mcg Mckinley Mckinley sedation RN RN 13:41:53 Versed I.V. 1 mg Alfreda Alfreda for Mckinley Mckinley sedation RN RN 13:44:38 Fentanyl I.V. 25 Alfreda Alfreda for mcg Mckinley Mckinley sedation RN RN 13:44:43 Versed I.V. 0.5 Alfreda Alfreda for mg Mckinley Mckinley sedation RN RN 13:46:52 Fentanyl I.V. 25 Alfreda Alfreda for mcg Mckinley Mckinley sedation RN RN 13:46:57 Versed I.V. 0.5 Alfreda Alfreda for mg Mckinley Mckinley sedation RN geophysics scientist Log Time Note 13:20:43 Informed consent obtained and on chart 13:20:48 Diagnostic Cath Status : Elective 13:20:56 Ashley Streeter RT(R) sent for patient. Start room use. 13:21:06 Indication : Angina 13:21:07 Lidocaine 2% 20ml vial added to field was given by Alfreda Mckinley RN; used for procedure; 13:21:11 Admit Source: Other 13::17 Arrival Date: 07/14/2016 8:07:00 PM 13::26 Insurance Payor : Medicare 13::52 Oxygen 2 l/min NC was given by Alfreda Mckinley RN; used for procedure; 13::59 Heparin Flush Bag (1000units/500ml NS) 2 bags added to field was given by Alfreda Mckinley RN; used for procedure; 13:: Lab Result : Creatinine 0.6 mg/dl 13:: Lab Result : Hemoglobin 14.3 g/dl 13:: Lab Result : BUN 7 mg/dl 13:23:01 Time tracking: Regular hours 13:23:05 Plan of Care:Hemodynamics will remain stable., Cardiac rhythm will remain stable., Comfort level will be maintained., Respiratory function will remain adequate., Patient/ family verbilizes understanding of procedure., Procedure tolerated without complication., Recovers from procedure without complications.. 13:23:10 Patient received from Med II to CCL 3 Alert and oriented. Tansferred to table in Supine position. 13:23:11 Warm blankets applied, and oren hugger turned on for patient comfort. 13:23:11 Correct patient and procedure confirmed by team. 13:23:12 ECG and BP/O2 sat monitors applied to patient. 13:24:59 Is the patient allergic to Iodine/contrast media? No. 13:25:03 Was the patient premedicated? No 13:25:04 Is patient on blood thinner?Yes 13:25:07 ACC The patient was administered the following blood thiners within the last 24 hours: ACCAspirin, ACCPlavix 13:25:09 Patient diabetic? Yes. 13:25:11 If diabetic: On Metformin? Yes 13:25:17 If on Metformin: Last Dose? 07/14/2016 13:25:24 Previous problem with sedation/anesthesia? No ? 13:25:28 Snore? Unknown 13:25:30 Sleep apnea? No 13:25:37 Dentures? Yes ? 13:25:43 Patient pain scale 0/10 ?. 13:26:09 IV patent on arrival in left hand with 0.9% NaCl at [facility]. 13:26:14 Lab results completed and on chart. 13:26:19 Right Radial & Right Groin area was prepped with chlora-prep and draped in sterile fashion 13::24 Alarms reviewed by R. N. 13::25 Sharps counted by scrub and verified by R.N. 13:26:25 Physician paged 13:27:27 H&P Date Dictated: 07/15/2016 Within 30 days and on chart.. 13:27:29 Pre-procedure instructions explained to patient. 13:27:30 Pre-op teaching completed and patient verbalized understanding. 13:27:32 Family in waiting room. 13:27:36 Vital chart was started 13:27:56 Baseline sample Acquired. 13:28:01 Rhythm: sinus rhythm 13:28:03 Full Disclosure recording started 13:33:14 Physician arrived 13:33:14 --------ALL STOP TIME OUT------ 13:33:14 Final Timeout: patient, procedure, and site verified with staff and physician. All members of the team are in agreement. 13:33:16 Right groin site verified by team. 13:33:19 Physical assessment completed. ASA score P 2 - A patient with mild systemic disease as per Saw Galaviz MD. 13:33:22 Sedation plan: IV Moderate Sedation Versed, Fentanyl 13:34:02 Use device set Femoral Dx 13:34:03 Acist Syringe opened to sterile field. 13:34:03 Bag Decanter opened to sterile field. 13:34:04 Medline Cath Pack opened to sterile field. 13:34:04 Terumo 5Fr [place] Sheath opened to sterile field. 13:34:05 St Ty 260cm J .035 wire opened to sterile field. 13:34:06 Acist Hand Control opened to sterile field. 13:34:06 Acist Manifold opened to sterile field. 13:34:07 Diagnostic Infinity 5Fr Multipack catheter opened to sterile field. 13:34:07 Tegaderm 4 x 4 opened to sterile field. 13:37:51 Patient Height : 172.72 inches 13:37:56 Patient Weight : 68.04 lbs 13:39:22 Baseline sample Acquired. 13:39:55 Procedure started. 13:41:48 Fentanyl 50 mcg I.V. was given by Alfreda Mckinley RN; for sedation; 13:41:53 Versed 1 mg I.V. was given by Alfreda Mckinley RN; for sedation; 13:42:02 Local anesthetic to right femoral artery with Lidocaine 2% by Saw Galaviz MD.INITIAL ACCESS ONLY 13:43:35 Zero performed for pressure channel P1 13:44:10 A 5 Fr sheath was inserted into the Right Femoral artery 13:44:18 A Cordis 5Fr JL 4.0 Catheter (MP) was advanced over the wire and used for Left Coronary Angiography. 13:44:38 Fentanyl 25 mcg I.V. was given by Alfreda Mckinley RN; for sedation; 13:44:43 Versed 0.5 mg I.V. was given by Alfreda Mckinley RN; for sedation; 13:45:01 LCA angiography performed. 13:45:05 Injector settings: Ml/sec: 3, Volume: 6, 13:45:11 Catheter removed. 13:45:58 A Diagnostic Infinity 5Fr JL 5 catheter was advanced over the wire and used for Left Coronary Angiography. 13:46:47 LCA angiography performed. 13:46:49 Injector settings: Ml/sec: 3, Volume: 6, 13:46:52 Fentanyl 25 mcg I.V. was given by Alfreda Mckinley RN; for sedation; 13:46:57 Versed 0.5 mg I.V. was given by Alfreda Mckinley RN; for sedation; 13:48:24 Catheter removed. 13:48:31 A Cordis 5Fr 3DRC Catheter (MP) was advanced over the wire and used for Right Coronary Angiography. 13:48:35 RCA angiography performed. 13:48:39 Injector settings: Ml/sec: 3, Volume: 6, 13:49:51 Catheter removed. 13:50:07 A Cordis 5Fr Pigtail Catheter (MP) was advanced over the wire and used for Multi-vessel Angiography. 13:51:01 LV hemodynamics recorded. 13:51:03 LV gram done using SALCIDO 13:51:07 EF : 55 % 13:51:47 Catheter removed. 13:52:10 Cordis 5Fr Exoseal opened to sterile field. 13:52:49 Sheath removed intact; hemostasis achieved with Exoseal to the Right Femoral artery. 13:52:57 Procedure ended.(Physican Out) 13:53:20 Fluoroscopy time 01.70 minutes. 13:53:29 Flurop Dose total: 208.27 13:53:29 Fluoroscopy dose: 208.27 mGy 13:53:47 Contrast amount:Isovue 370 69ml. 13:53:48 Sharps counted by scrub and verified by R.N. 13:53:49 Insertion/operative site no bleeding no hematoma. 13:53:52 Post-op/insertion site Right Femoral artery dressed using a 4 x 4 and Tegaderm. 13:53:54 Post right femoral artery:stable 13:53:56 Post Procedure Pulses reassessed and unchanged 13:54:01 Post procedure rhythm: sinus rhythm 13:54:04 Estimated blood loss: 5 ml 13:54:05 Post procedure instruction explained to patient.Patient verbalizes understanding. 13:54:06 Patient needs reinforcement of post procedure teaching. 13:54:21 Procedure and supply charges have been captured, reviewed, submitted and are correct. 13:54:33 Procedure Complication : No complications 13:54:36 Vital chart was stopped 13:54:36 See physician's report for complete and final results. 13:54:40 Report given to [facility]. 13:54:42 Patient transfered to [facility] with Stretcher. 13:54:44 Procedure ended. 13:54:44 Full Disclosure recording stopped 13:54:48 End room use (Document Last) Device Usage Item Name Manufacture Quantity Catalog Hospital Part Current Minimal Lo t# / Number Charge Number Stock Stock Serial# Code Acist Acist 1 65660 189615 788134 646515 20 Syringe [employer] Inc Bag Microtek 1 2002S 170789 90884 141385 5 [employer] Medline Cardinal 1 [id number] 559126 41441 685000 5 Cath Pack Health Terumo 5Fr Terumo 1 WAT415 010829 141398 293529 [address] St Ty 1 847718 071410 320063 703962 30 260cm J .035 wire Acist Hand Acist 1 44021 756970 930609 348080 5 Control [employer] Inc Acist Acist 1 87299 458616 891368 598352 5 Manifold [employer] Inc Diagnostic Cardinal 1 [id number] 213034 33222 389486 30 Emailage 5Fr Multipack catheter Tegaderm 4 3M 1 1626W 357778 145109 623127 5 x 4 Cordis 5Fr Cardinal 1 776688 5 JL 4.0 Health Catheter (MP) Diagnostic Cardinal 1 [id number] 707463 624737 633268 5 Infinity Health 5Fr JL 5 catheter Cordis 5Fr Cardinal 1 102594 5 3DRC Health Catheter (MP) Cordis 5Fr Cardinal 1 444408 5 Pigtail Health Catheter (MP) Cordis 5Fr Cardinal 1 EX500 311709 529724 608593 10 [facility] Signature Audit [place] Stage Time Signature Unsigned Intra-Procedure 07/15/2016 Alicia Mendez 1:57:18 PM RT(R) Signatures Monitor : Alicia Mendez RT Signature : Date : Time : [id number] [place] [address]
[~2016-07-14 17:03] MED LIST changes: +ASPIRIN81 MG PO; +ATROVENT HFA12.9 GM INH; +BREO ELLIPTA 11 EACH INH; +BYSTOLIC5 MG PO; +DALIRESP500 MCG PO; +FLORAJEN3 CAPS460 MG PO; +FUROSEMIDE20 MG PO; +MUCINEX DM ER1 EAC1 PO; +NICODERM C1 PATCH .1 TRANSDERM; +POT CHLORIDE TAB 8ME PO; +PREDNISONE10 MG PO; +PROTONIX40 MG PO; +SINGULAIR10 MG PO; +TESSALON PERLE100 MG PO
[2016-07-14 18:11] LABS: BASOPHILS 0.2 % (0.0-2.0); EOSINOPHILS 0.4 % (0-7); HEMATOCRIT 42.4 % (42.0-54.0); HEMOGLOBIN 14.3 g/dL (13.5-17.5); IMMATURE GRANULOCYTES 0.5 % (0-5); LYMPHOCYTES 13.2 % (15-50); MCH 30.5 pg (26.0-34.0); MCHC 33.7 g/dL (31.0-37.0); MCV 90.4 fL (80.0-100.0); MEAN PLATELET VOLUME 8.8 fL (7.4-10.4); MONOCYTES 5.8 % (2-11); NEUTROPHILS 79.9 % (40-80); RBC 4.69 10x6/uL (4.20-6.10); RDW 13.1 % (11.5-14.5); WBC 11.7 10x3/uL (4.8-10.8)
[2016-07-14 18:14] LABS: PLATELET COUNT 271 10x3/uL (130-400)
[2016-07-14 18:27] LABS: ALBUMIN 3.2 g/dL (3.4-5.0); ALKALINE PHOSPHATASE 48 U/L (46-116); ALT (SGPT) 27 U/L (10-68); BILIRUBIN - TOTAL 0.27 mg/dL (0.2-1.3); CALC OSMOLALITY 277 mosm/kg (275-300); CALCIUM 9.1 mg/dL (8.5-10.1); CARBON DIOXIDE 27.4 mmol/L (21.0-32.0); CHLORIDE - SERUM 100 mmol/L (98-107); CREATININE - SERUM 0.7 mg/dL (0.6-1.3); GLUCOSE 194 mg/dL (74-106); PROTEIN - SERUM 6.7 g/dL (6.4-8.2); SODIUM 137 mmol/L (136-145); UREA NITROGEN 9 mg/dL (7-18); eGFR NON AFRICAN AMERICAN > 90 mL/min (90-120)
[2016-07-14 18:33] LABS: PRO BNP 135 pg/mL (0-125)
[2016-07-14 19:10] LABS: CHOL - HDL RATIO 5.1 ratio (2.3-4.9); CHOLESTEROL, TOTAL 152 mg/dL (0-200); CKMB 0.9 U/L (0.0-3.6); CREATINE KINASE 29 UL (21-232); HDL CHOLESTEROL 30 mg/dL (32-96); LDL CHOLESTEROL 102 mg/dL (0-100); LDL-HDL RATIO 3.4 ratio (1.5-3.5); TRIGLYCERIDE 103 mg/dL (30-200)
[2016-07-14 19:12] LABS: TROPONIN-I < 0.017 ng/mL (0.000-0.060)
[2016-07-14 20:00] VITALS: BP 109/62
--- NOTE | 2016-07-14 20:41 | NUR ---
REPORT RECEIVED FROM CAROLYN GRANT.
--- NOTE | 2016-07-14 21:11 | NUR ---
ARRIVED TO FLOOR VIA STRETCHER, ACCOMPANIED BY HOSPITAL STAFF AND FAMILY. ORIENTED TO UNIT AND PLACED ON TELEMETRY 76 SR. PLAN OF CARE DISCUSSED, CALL LIGHT IN REACH. WILL CONTINUE TO MONITOR. SEE NURSE ASSESSMENT.
[2016-07-14 22:59] VITALS: BP 109/62; BMI 22.5
[2016-07-15] VITALS: BP 103/70
--- NOTE | 2016-07-15 03:35 | NUR ---
TECHNOLOGY DEVELOPMENT INTERN AT BEDSIDE TO OBTAIN VITALS, CALL LIGHT IN REACH. WILL CONTINUE WITH PLAN OF CARE.
[2016-07-15 04:00] VITALS: BP 126/77
--- NOTE | 2016-07-15 06:41 | NUR ---
NO CHANGES FROM PREVIOUS ASSESSMENT, NO CHEST PAIN NOTED THROUGHOUT THE NIGHT.
[2016-07-15 08:53] LABS: BASOPHILS 0.1 % (0.0-2.0); EOSINOPHILS 1.2 % (0-7); HEMATOCRIT 42.2 % (42.0-54.0); IMMATURE GRANULOCYTES 0.2 % (0-5); LYMPHOCYTES 27.9 % (15-50); MCH 30.1 pg (26.0-34.0); MCHC 33.2 g/dL (31.0-37.0); MCV 90.8 fL (80.0-100.0); MEAN PLATELET VOLUME 8.6 fL (7.4-10.4); MONOCYTES 10.6 % (2-11); PLATELET COUNT 242 10x3/uL (130-400); RBC 4.65 10x6/uL (4.20-6.10); RDW 13.2 % (11.5-14.5)
[2016-07-15 08:56] LABS: WBC 8.1 10x3/uL (4.8-10.8)
[2016-07-15 09:05] LABS: CALC OSMOLALITY 277 mosm/kg (275-300); CALCIUM 9.1 mg/dL (8.5-10.1); CARBON DIOXIDE 31.7 mmol/L (21.0-32.0); CHLORIDE - SERUM 104 mmol/L (98-107); CREATININE - SERUM 0.6 mg/dL (0.6-1.3); POTASSIUM - SERUM 3.9 mmol/L (3.5-5.1); SODIUM 140 mmol/L (136-145); UREA NITROGEN 7 mg/dL (7-18); eGFR NON AFRICAN AMERICAN > 90 mL/min (90-120)
[2016-07-15 09:08] LABS: GLUCOSE 110 mg/dL (74-106)
[2016-07-15 09:09] VITALS: BP 108/68
--- NOTE | 2016-07-15 09:24 | NUR ---
TELEMETRY SR. CONSENTS SIGNED FOR [facility]. CLEAR LIQ TORDERED. WILL CONT. PLAN OF CARE.
--- NOTE | 2016-07-15 11:22 | NUR ---
RATIONALE FOR SCD'S EXPLAINED. REFUSED SCD'S AT THIS TIME
[2016-07-15 12:38] VITALS: BP 119/70
[2016-07-15 13:12] VITALS: Ht 172.7 cm; Wt 67.0 kg
--- NOTE | 2016-07-15 13:17 | NUR ---
PRE-OPS GIVEN. TO PARTS COUNTER CLERK BY BED.
--- NOTE | 2016-07-15 14:26 | NUR ---
BACK FROM SENIOR CLINICAL RESEARCH ASSOCIATE. VS WNL. RIGHT GROIN STABLE WITHOUT BLEEDING OR HEMATOMA NOTED. WILL MONITOR.
--- NOTE | 2016-07-15 15:18 | NUR ---
Patient Name: YUMIKO PADILLA Admission Status: ER Accout number: [id number] Admission Date: 07-14-2016 : 1945 Admission Diagnosis: Attending: LUIS Current LOS: 1 Anticipated DC Date: Planned Disposition: HOME WITH HOME HEALTH Primary Insurance: MEDICARE A & B PLANNED EXTERNAL PROVIDER: [employer] Discharge Planning Comments: CM RECEIVED CALL FROM DEBBIE OF [employer] [facility] WHO ADVISED PT IS ACTIVE WITH [employer] [facility]. CM TO CALL [employer], , IF PT IS ADMITTED INPATIENT OR DISCHARGED HOME. CM TO FOLLOW AND ASSIST IF NEEDED. [place] Operator: Matt Harman
[2016-07-15 15:45] VITALS: BP 122/82
--- NOTE | 2016-07-15 16:00 | NUR ---
BED REST UP. GROIN STABLE.
--- NOTE | 2016-07-15 17:07 | NUR ---
IV AND TELEMETRY DCD. DC PLANS GIVEN. UNDERSTANDING VOICED. ESCORTED TO CAR BY W/C.
--- NOTE | 2016-07-20 12:18 | OP ---
PATIENT NAME: YUMIKO PADILLA MEDICAL RECORD: [id number] :[birth year] LOCATION:D.M2 D.2114 ADMISSION DATE:07/14/16 SURGEON: GRACE MOORE MD DATE OF OPERATION: 07/15/2016 PROCEDURE: Left heart catheterization, selective coronary angiography, right femoral artery approach. CATHETERS: A 5-Korean sheath, 5/4 left and right Elvira, 5/4 pig. The procedure was well tolerated and the patient returned to the beckwith, sheath removed. ExoSeal device placed. FINDINGS: Left ventriculography in the 30-degree SALCIDO view shows anterior as well as inferior apical hypokinesis. Overall LV function, however, preserved 50%. CORONARY ANATOMY: Left main: Left main is free of disease. LAD: Area of previous stenting is widely patent with no evidence of progression of capitan grande band disease. CIRCUMFLEX: Smallest vessel, free of disease. RIGHT CORONARY ARTERY: Area of previous stenting is widely patent with no evidence of restenosis and no significant progression of capitan grande band disease. TRANSINT:[id number] Voice Confirmation ID: [id number] DOCUMENT ID: [id number] GRACE MOORE MD at 1218 CC: [id number] DICTATION DATE: 07/15/16 1359 NUCLEAR PLANT CONSTRUCTION WORKER: 07/15/161952 DIS IN 07/15/16 [id number] [place] [address]
== END 2016-07-15 17:08 | disposition home or self-care (01) ==
LOC: D.ER 17:03 → D.M2 20:07 → OBSVTIME 21:09 → D.M2 07-15 17:08
PROVIDERS: Emergency Medicine; Internal Medicine Interventional Cardiology; ADMIT Family Medicine Adult Medicine
DX: I22.2 Subsequent non-ST elevation (NSTEMI) myocardial infarction (principal); I21.4 Non-ST elevation (NSTEMI) myocardial infarction; I25.10 Atherosclerotic heart disease of native coronary artery without angina pectoris; Z95.5 Presence of coronary angioplasty implant and graft; J44.9 Chronic obstructive pulmonary disease, unspecified; I11.0 Hypertensive heart disease with heart failure; I50.9 Heart failure, unspecified; E78.5 Hyperlipidemia, unspecified; Z86.73 Personal history of transient ischemic attack (TIA), and cerebral infarction without residual deficits; Z72.0 Tobacco use

== ENCOUNTER 2016-08-02 17:21 | Inpatient (IN) | payer MEDICARE ==
[~2016-08-02] VITALS: Ht 172.7 cm; Wt 69.1 kg
--- NOTE | ~2016-08-02 | HEMODYNAMI ---
PATIENT:YUMIKO PADILLA MEDICAL RECORD: [id number] : 49 LOCATION:[facility] ADMISSION DATE: 08/02/16 Generatedon:08/02/201619:35 Patient name: YUMIKO PADILLA Patient #: [id number] : 1945 Date of study: 08/02/2016 Page: Of Hemodynamic Procedure Report Patient Data Patient Demographics Procedure consent was obtained First Name: YUMIKO Gender: Male Last Name: VALERIE : 1945 Middle Initial: D Age: 70 year(s) Patient #: [id number] Race: SSN: [id number] Additional ID: [id number] Contact details [address]: [address] [place] [address] TRAIL State: [place] City: [place] Zip code: [address] Past Medical History History of disease Date Diagnosis Comments CAD Allergies Allergen Reaction Date Comments Reported Penicillins 08/25/2014 Other allergy 08/02/2016 [facility] Admission Admission Data Admission Date: 08/02/2016 Admission Time: 17:21 Procedure Procedure Types Cath Procedure Diagnostic Procedure [facility] w/Coronaries PCI Procedure Coronary Stent Initial Miscellaneous Procedures Moderate Sedation up to 15 minutes Procedure Description Procedure Date Procedure Date: 08/02/2016 Procedure Start Time: 19:02 Procedure End Time: 19:26 Procedure Staff Name Function Raul Gonzalez MD Performing Physician Melanie Chin RT Scrub Harvey Turpin RN Nurse Dmitri Trent RT Monitor Procedure Data Cath Procedure Fluoroscopy Diagnostic fluoroscopy Total fluoroscopy Time: 3 time: 3 min min Diagnostic fluoroscopy Total fluoroscopy dose: 300 dose: 300 mGy mGy Contrast Material Contrast Material Type Amount (ml) Isovue 300 64 Entry Location Entry Primary Successful Side Size Upsize Upsize Entry Closure Succes sful Closure Location (Fr) 1 (Fr) 2 (Fr) Remarks Device Remarks Femoral Right 6 Fr Exoseal artery Short Estimated blood loss: 10 ml Diagnostic catheters Device Type Used For End Catheter Placement Diagnostic Infinity 5Fr Procedure Pigtail catheter Procedure Complications No complications Procedure Medications Medication Administration Route Dosage Oxygen NC 2 l/min Heparin Flush Bag added to field 2 bags (1000units/500ml NS) 0.9% NaCl I.V. 100 ml/hr Plavix P.O. 75 mg Fentanyl I.V. 50 mcg Versed I.V. 1 mg Heparin Bolus I.V. 5000 units Integrilin (Bolus I.V. 6.2 ml 2mg/ml) Fentanyl I.V. 50 mcg Versed I.V. 1 mg Integrilin Drip I.V. drip 11 ml/hr (75mg/100ml) Hemodynamics Rest Heart Rate: 77 (bpm) Snapshots Pre Cath Intra NCS Post Cath Vital Signs Time Heart Resp SPO2 etCO2 [id number] NIBP (mmHg) Rhythm Pain Sedation Rate (ipm) (%) (mmHg) (mmHg) Status Level (bpm) 18:57:13 77 29 96 0 0 126/81(105) NSR 0 (11) 10(A) , No pain 19:01:21 75 29 96 0 0 126/73(107) NSR 0 (11) 10(A) , No pain 19:05:31 77 25 93 0 0 114/71(95) NSR 0 (11) 10(A) , No pain 19:09:37 75 26 94 0 0 120/71(99) NSR 0 (11) 10(A) , No pain 19:13:40 74 25 96 0 0 125/77(98) NSR 0 (11) 10(A) , No pain 19:17:48 73 22 96 0 0 118/71(94) NSR 0 (11) 10(A) , No pain 19:20:05 74 24 96 0 0 114/72(100) NSR 0 (11) 10(A) , No pain 19:27:46 74 22 96 0 0 112/76(89) NSR 0 (11) 10(A) , No pain Medications Time Medication Route Dose Verified Delivered Reason Notes Effectiveness by by 18:59:17 Oxygen NC 2 Harvey Gabriel Per physician l/min Papi Turpin RN RN 18:59:26 Heparin Flush added 2 Harvey Gabriel used for Bag to bags Papi Turpin finishing technician (1000units/500ml field RN NS) 18:59:36 0.9% NaCl I.V. 100 Harvey Harvey Per physician ml/hr Papi Turpin RN RN 18:59:45 Plavix P.O. 75 mg Harvey Harvey for Papi Turpin RN antiplatelet RN therapy 19:03:42 Fentanyl I.V. 50 Harvey Harvey for sedation mcg Papi Turpin RN RN 19:03:48 Versed I.V. 1 mg Harvey Harvey for sedation Papi Turpin RN RN 19:03:57 Integrilin I.V. 6.2 Harvey Harvey for wasted (Bolus 2mg/ml) ml Papi uTrpin RN antiplatelet 3.8mL of RN therapy integrilin bolus 19:03:58 Heparin Bolus I.V. 5000 Harvey Gabriel for units Papi Turpin RN anticoagulation RN 19:07:21 Fentanyl I.V. 50 Harvey Harvey for sedation mcg Papi Turpin RN RN 19:07:24 Versed I.V. 1 mg Harvey Gabriel for sedation Papi Turpin RN RN 19:19:17 Integrilin Drip I.V. 11 Harvey Gabriel for (75mg/100ml) drip ml/hr Papi Turpin RN antiplatelet RN therapy Procedure Log Time Note 18:43:08 Diagnostic Cath Status : Emergency 18:43:41 Harvey Turpin RN sent for patient. Start room use. 18:43:42 Time tracking: Regular hours 18:43:46 Plan of Care:Hemodynamics will remain stable., Cardiac rhythm will remain stable., Comfort level will be maintained., Respiratory function will remain adequate., Patient/ family verbilizes understanding of procedure., Procedure tolerated without complication., Recovers from procedure without complications.. 18:51:50 Patient arrives emergently. 18:52:03 Patient received from ED to CCL 1 Alert and oriented. Tansferred to table in Supine position. 18:52:04 Warm blankets applied, and oren hugger turned on for patient comfort. 18:52:04 Correct patient and procedure confirmed by team. 18:52:06 Signed procedure consent form obtained from patient. 18:52:07 ECG and BP/O2 sat monitors applied to patient. 18:52:28 H&P Date Dictated: 08/02/2016 ER History on chart., New H&P dictated by physician.. 18:56:05 Vital chart was started 18:58:57 Pre-procedure instructions explained to patient. 18:58:57 Pre-op teaching completed and patient verbalized understanding. 18:58:59 Family in waiting room. 18:59:02 Patient NPO since Lunch. 18:59:09 Patient allergic to Other allergyPCN 18:59:11 Is the patient allergic to Iodine/contrast media? No. 18:59:12 Is patient on blood thinner?Yes 18:59:14 ACC The patient was administered the following blood thiners within the last 24 hours: ACCPlavix 18:59:16 Patient diabetic? No. 18:59:17 Oxygen 2 l/min NC was administered by Harvey Turpin RN; Per physician; 18:59:19 Previous problem with sedation/anesthesia? No ? 18:59:19 Snore? Yes 18:59:21 Sleep apnea? No 18:59:22 Deviated septum? No 18:59:22 Opens mouth fully? Yes 18:59:26 Heparin Flush Bag (1000units/500ml NS) 2 bags added to field was administered by Harvey Turpin RN; used for procedure; 18:59:26 Airway obstruction? Yes copd 18:59:36 0.9% NaCl 100 ml/hr I.V. was administered by Harvey Turpin RN; Per physician; 18:59:45 Plavix 75 mg P.O. was administered by Harvey Turpin RN; for antiplatelet therapy; 19:02:08 Patient pain scale 0/10 ?. 19:02:11 IV patent on arrival in left antecubital with 0.9% NaCl at [facility]. 19:02:14 Lab results completed and on chart. 19:02:17 Right groin area was prepped with chlora-prep and draped in sterile fashion 19:02:18 Alarms reviewed by R. N. 19:02:18 Sharps counted by scrub and verified by R.N. 19:02:19 --------ALL STOP TIME OUT------ 19:02:20 Final Timeout: patient, procedure, and site verified with staff and physician. All members of the team are in agreement. 19:02:22 Right groin site verified by team. 19:02:25 Physical assessment completed. ASA score P 2 - A patient with mild systemic disease as per Raul Gonzalez MD. 19:02:30 Sedation plan: IV Moderate Sedation Versed, Fentanyl 19:02:36 Use device set Femoral PCI 19:02:37 Tegaderm 4 x 4 opened to sterile field. 19:02:38 Merit BasixCompak Inflation Kit opened to sterile field. 19:02:39 Acist Manifold opened to sterile field. 19:02:40 Acist Syringe opened to sterile field. 19:02:40 Acist Hand Control opened to sterile field. 19:02:40 Bag Decanter opened to sterile field. 19:02:41 Medline Cath Pack opened to sterile field. 19:02:41 Terumo 6Fr [place] Sheath opened to sterile field. 19:02:41 St Ty 260cm J .035 wire opened to sterile field. 19:02:45 Procedure started. 19:02:45 Full Disclosure recording started 19:02:47 Local anesthetic to right femoral artery with Lidocaine 2% by Raul Gonzalez MD.INITIAL ACCESS ONLY 19:02:55 A 6 Fr Short sheath was inserted into the Right Femoral artery 19:03:17 SkyTechtronic Launcher 6Fr AR 2.0 guide catheter opened to sterile field. 19:03:20 6 Fr ar 2 guide catheter was inserted over the wire 19:03:27 Terumo 6Fr [place] Sheath opened to sterile field. 19:03:30 RCA angiography performed. 19:03:31 Lezama Whisper J 300cm 0.014 guide wire opened to sterile field. 19:03:42 Fentanyl 50 mcg I.V. was administered by Harvey Turpin RN; for sedation; 19:03:43 Zero performed for pressure channel P1 19:03:48 Versed 1 mg I.V. was administered by Harvey Turpin RN; for sedation; 19:03:54 Baseline sample Acquired. 19:03:57 Integrilin (Bolus 2mg/ml) 6.2 ml I.V. was administered by Harvey Turpin RN; for antiplatelet therapy; wasted 3.8mL of integrilin bolus 19:03:58 Heparin Bolus 5000 units I.V. was administered by Harvey Turpin RN; for anticoagulation; 19:03:59 Rhythm: sinus rhythm , w/ ST elevation 19:05:55 whisper wire advanced. 19:05:56 Wire advanced across lesion. 19:06:22 Inflation number: 1 A [place] eTukTuk [place] 2.5 X 20 balloon was prepped and advanced across the Mid RCA, then inflated to 9 CANDICE for 0:10 (min:sec). 19:06:39 Balloon removed over the wire. 19:07:21 Fentanyl 50 mcg I.V. was administered by Harvey Turpin RN; for sedation; 19:07:24 Versed 1 mg I.V. was administered by Harvey Turpin RN; for sedation; 19:08:17 Inflation Number: 2 A SkyTechtronic Integrity 3.0 X 15 stent was prepped and advanced across the Mid RCA. The stent was deployed at 17 CANDICE for 0:10 (min:sec). 19:08:33 Stent catheter was removed intact over wire. 19:08:51 Wire removed. 19:08:52 Guide catheter removed. 19:09:20 Cordis 6FR XBLAD 3.5 guide catheter opened to sterile field. 19:09:38 6 Fr xblad 3.5 guide catheter was inserted over the wire 19:09:56 LCA angiography performed. 19:11:11 Catheter removed. 19:11:21 A Diagnostic Infinity 5Fr Pigtail catheter was advanced over the wire and used for Procedure. 19:11:26 LV angiography performed. 19:11:27 LV gram done using SALCIDO 19:11:29 Injector settings: Ml/sec: 10, Volume: 20, 19:11:46 EF : 55 % 19:12:24 Catheter removed. 19:13:05 Cordis 6Fr Exoseal opened to sterile field. 19:13:12 Sheath removed intact; hemostasis achieved with Exoseal to the Right Femoral artery. 19:13:14 Procedure ended.(Physican Out) 19:14:29 Fluoroscopy time 03.00 minutes. 19:14:33 Fluoroscopy dose: 300 mGy 19:14:33 Flurop Dose total: 300 19:14:38 Contrast amount:Isovue 300 64ml. 19:14:40 Sharps counted by scrub and verified by R.N. 19:14:43 Insertion/operative site no bleeding no hematoma. 19:14:47 Post-op/insertion site Right Femoral artery dressed using a 4 x 4 and Tegaderm. 19:15:04 Post right femoral artery:stable, soft, clean and dry 19:15:07 Post Procedure Pulses reassessed and unchanged 19:15:09 Post-procedure physical assessment completed. ASA score P 2 - A patient with mild systemic disease as per Raul Gonzalez MD. 19:15:14 Post procedure rhythm: sinus rhythm 19:15:16 Estimated blood loss: 10 ml 19:15:19 Post procedure instruction explained to patient.Patient verbalizes understanding. 19:15:19 Patient needs reinforcement of post procedure teaching. 19:17:26 Procedure type changed to Cath procedure, Diagnostic procedure, LHC, LHC w/Coronaries, PCI procedure, Coronary Stent Initial, Miscellaneous Procedures, Moderate Sedation up to 15 minutes 19:18:48 Procedure and supply charges have been captured, reviewed, submitted and are correct. 19:18:50 Procedure Complication : No complications 19:19:17 Integrilin Drip (75mg/100ml) 11 ml/hr I.V. drip was administered by Harvey Turpin RN; for antiplatelet therapy; 19:26:33 See physician's report for complete and final results. 19:26:36 Report given to CVICU. 19:26:39 Patient transfered to CVICU with Stretcher. 19:26:40 Procedure ended. 19:26:40 Full Disclosure recording stopped 19:26:43 End room use (Document Last) Intervention Summary Intervention Notes Time ActionType Lesion and Equipment Action# Pressure Duration Attributes Used 19:06:22 Inflate Mid RCA [place] 1 9 00:10 balloon Sci [place] 2.5 X 20 balloon 19:08:17 Place stent Mid RCA Medtronic 2 17 00:10 Integrity 3.0 X 15 stent Device Usage Item Name Manufacture Quantity Catalog Number Hospital Part Current [facility] Lot# / Charge Number Stock Stock Serial# Code Tegaderm 4 1 [id number] [id number] 965019 033737 5 x 4 Merit Merit 1 [id number] 271966 649934 160546 15 BasixCompak Medical Inflation Kit Acist Acist 1 68649 472247 074559 256020 5 Manifold Medical Systems Inc Acist Acist 1 84840 508696 090363 391045 20 Syringe Medical Systems Inc Acist Hand Acist 1 62934 268575 450384 906433 5 Control Medical Systems Inc Bag Microtek 1 2002S 480435 79480 027960 5 Aero Glass. Medline Cardinal 1 [id number] 412619 77147 667324 5 Cath Pack Health Terumo 6Fr Terumo 2 [id number] 237761 985845 729851 [address] St Ty 1 043668 015970 038401 076352 30 260cm J .035 wire Medtronic Medtronic 1 [id number] 325537 23679 760244 1 Launcher 6Fr AR 2.0 guide catheter Lezama Lezama 1 [id number] 063212 022145 811824 5 Whisper J Vascular 300cm 0.014 guide wire [place] Sci [place] 1 [id number] 609371 169784 647172 1 [id number] New Planet Technologies 2.5 X 20 balloon Medtronic Medtronic 1 [id number] 500094 651744 720287 9 [id number] Integrity 3.0 X 15 stent Cordis 6FR Cardinal 1 [id number] 563156 872037 389300 10 XBLAD 3.5 Health guide catheter Diagnostic Cardinal 1 [id number] 212557 661549 105325 5 Luminator Technology Group 5Fr Pigtail catheter Cordis 6Fr Cardinal 1 EX600 452954 074478 361080 10 Moto Europa Signature Audit [place] Stage Time Signature Unsigned Intra-Procedure 08/02/2016 Dmitri Trent 7:35:56 PM RT(R) Signatures Monitor : Dmitri Trent RT Signature : Date : Time : [place] [id number] [facility] [place] [address]
[2016-08-02 18:02] LABS: BASOPHILS 0.2 % (0.0-2.0); EOSINOPHILS 1.2 % (0-7); HEMATOCRIT 43.4 % (42.0-54.0); HEMOGLOBIN 14.6 g/dL (13.5-17.5); IMMATURE GRANULOCYTES 0.4 % (0-5); LYMPHOCYTES 25.4 % (15-50); MCH 30.4 pg (26.0-34.0); MCHC 33.6 g/dL (31.0-37.0); MCV 90.4 fL (80.0-100.0); MEAN PLATELET VOLUME 9.1 fL (7.4-10.4); MONOCYTES 13.6 % (2-11); NEUTROPHILS 59.2 % (40-80); PLATELET COUNT 226 10x3/uL (130-400); RDW 13.1 % (11.5-14.5); WBC 13.5 10x3/uL (4.8-10.8)
[2016-08-02 18:12] LABS: ALBUMIN 3.5 g/dL (3.4-5.0); ALKALINE PHOSPHATASE 56 U/L (46-116); ALT (SGPT) 19 U/L (10-68); BILIRUBIN - TOTAL 0.64 mg/dL (0.2-1.3); CALC OSMOLALITY 273 mosm/kg (275-300); CALCIUM 9.1 mg/dL (8.5-10.1); CARBON DIOXIDE 27.2 mmol/L (21.0-32.0); CHLORIDE - SERUM 98 mmol/L (98-107); CREATININE - SERUM 0.9 mg/dL (0.6-1.3); POTASSIUM - SERUM 3.6 mmol/L (3.5-5.1); PROTEIN - SERUM 7.3 g/dL (6.4-8.2); SODIUM 135 mmol/L (136-145); UREA NITROGEN 5 mg/dL (7-18); eGFR NON AFRICAN AMERICAN 89 mL/min (90-120)
[2016-08-02 18:22] LABS: GLUCOSE 232 mg/dL (74-106)
[2016-08-02 18:24] LABS: CKMB 0.4 U/L (0.0-3.6); CREATINE KINASE 30 UL (21-232)
[2016-08-02 18:28] LABS: TROPONIN-I < 0.017 ng/mL (0.000-0.060)
[2016-08-02 19:17] LABS: CHOL - HDL RATIO 2.6 ratio (2.3-4.9); LDL-HDL RATIO 1.3 ratio (1.5-3.5)
[2016-08-02 19:57] VITALS: BP 115/69; Ht 172.7 cm; Wt 69.1 kg
[2016-08-02 20:00] VITALS: BP 113/67; BP 115/69
--- NOTE | 2016-08-02 20:00 | NUR ---
Received patient from bolt labeler via stretcher to CV07, Initial assessment completed per flowsheet. Patient AO x4. Eyes PERRLA @ 3mm with brisk response, sclera white. S1/S2 noted with patient NSR on telemetry, rhythmic and regular with ST elevation noted. Breathing is even and unlabored on 2L via NC, lung sounds clear bilateral upper with diminished lower. Abdomen soft and round, bowel sounds hypoactive x4. Cath site R groin, dressing CDI soft with no bleeding noted. Full ROM upper extremities with limited lower due to cath, all pulses palpable with cap refill <3 sec. Patient family at bedside, all questions answered to family satisfaction. Patient denies pain or other needs at this time, all VSS and will continue to monitor.
[2016-08-02 21:00] VITALS: BP 108/68
--- NOTE | 2016-08-02 21:00 | NUR ---
Patient family at bedside for visitation, HS meds given without difficulty. Patient denies pain or other needs at this time, all VSS and will continue to monitor.
[2016-08-02 22:00] VITALS: BP 109/70
[2016-08-02 23:00] VITALS: BP 110/69
--- NOTE | 2016-08-02 23:00 | NUR ---
Reassessment completed per flowsheet, patient resting in bed with eyes closed. Patient NSR on telemetry with HR 77, rhythmic and regular with ST elevation noted. Breathing is even and unlabored on 2L via NC, O2 sat 97%. Cath dressing CDI, soft with no bleeding noted at site. All pulses palpable, Cap refill <3 sec all extremities. Patient denies pain or other needs at this time, all VSS and will continue to monitor.
[2016-08-03] VITALS (8 sets, daily range): BP systolic 107–143; BP diastolic 61–83
--- NOTE | 2016-08-03 01:00 | NUR ---
Patient repositioned for comfort, Cath dressing CDI. All pulses palpable, patient denies pain or other needs at this time. All VSS and will continue to monitor.
--- NOTE | 2016-08-03 03:00 | NUR ---
Reassessment completed per flowsheet, patient resting in bed with eyes closed. Patient NSR on telemetry, rhythmic and regular with ST elevation noted. Breathing is even and unlabored on 2L via NC, O2 sat 93%. Cath dressing CDI, soft with no bleeding noted. All pulses palpable with cap refill <3 sec all extremities. Patient denies pain or other needs at this time, all VSS and will continue to monitor.
--- NOTE | 2016-08-03 07:00 | NUR ---
REC'D REPORT AND RESUMED CARE, VSS, AAO, DENIES PAIN, ASSESSMENT COMPLETE PER FLOWSHEET, NO NEEDS AT THIS TIME
--- NOTE | 2016-08-03 08:00 | NUR ---
BREAKFAST TO BEDSIDE, INDEPENDENT WITH SET UP AND EATING
--- NOTE | 2016-08-03 09:48 | NUR ---
AM MEDS GIVEN PER MAR FLOWSHEET, HELD IMDUR 30 MG, AND BYSTOLIC 5 MG, SBP 105
--- NOTE | 2016-08-03 09:56 | NUR ---
SPOKE WITH LASHONDA AND ORION IN CASE MANAGEMENT CONCERNING DISCHARGE HOME. ORION STATES SHE IS WORKING ON THIS PT FOR DISCHARGE AND WILL BE OVER TO SEE PT SHORTLY. ASSISTED ALYSSA GRANT WITH DISCHARGE PAPERWORK. CLAY TO REVIEW ALL DC PAPERWORK AND INSTRUCTIONS WITH PT AND FAMILY PRIOR TO DISCHARGE.
--- NOTE | 2016-08-03 10:26 | NUR ---
DISCHARGE INSTRUCTIONS EXPLAINED, NEW SCRIPT GIVEN, FAMILY AT BEDSIDE, STATUS UPDATED, VOICES NO NEEDS AT THIS TIME, LEFT WRIST PIV DC'D WITH CATHETER INTACT, GAUZE DRESSING APPLIED,
--- NOTE | 2016-08-03 11:21 | NUR ---
Patient Name: YUMIKO PADILLA Admission Status: ER Accout number: [id number] Admission Date: 08-02-2016 : 1945 Admission Diagnosis: Attending: ESAU Current LOS: 1 Anticipated DC Date: 08-04-2016 Planned Disposition: Home with Home Health--[facility] Primary Insurance: MEDICARE Is the patient Alert and Oriented? Yes * How many steps to enter\exit or inside your home? FOUR * PCP DR BENÍTEZ * Pharmacy [facility] * Preadmission Environment Home with Family * ADLs Independent * Equipment Nebulizer Other Oxygen Rolling Walker Shower Chair Wheelchair * Other Equipment PT HAS HOME AND PORTABLE OXYGEN ALSO HAS GRAB BARS IN SHOWER AND BY TOILET DME PROVIDER [facility] * List name and contact numbers for known caregivers / representatives who currently or will assist patient after discharge: ANN [place], DTR, CELL BHUMIKA PADILLA, SON, * Community resources currently utilized Home Health * Please name any agencies selected above. [employer] [phone] * Additional services required to return to the preadmission environment? No * Can the patient safely return to the preadmission environment? Yes * Has this patient been hospitalized within the prior 30 days at any hospital? No Discharge Planning Comments: CM MET WITH PATIENT TO ASSESS DC PLAN/NEEDS. PT STATED HE NORMALLY LIVES AT HOME ALONE, BUT WILL DISCHARGE TO HIS DAUGHTER'S HOME TODAY. STATED HE IS CURRENTLY GETTING HH SERVICES WITH [facility] AND WOULD LIKE TO RESUME HH SERVICES AT [place]. STATED HE HAS ALL NEEDED DME EQUIPMENT AT HOME AND THAT HE HAS HIS PORTABLE OXYGEN HERE FOR DC. HIS FAMILY WILL DRIVE HIM HOME TODAY AND IS AT BEDSIDE. HE VOICED NO DME NEEDS. CM PLACED CALL TO [facility] AND SPOKE TO SAIGE TO INFORM OF DC AND RESUMPTION OF HH SERVICES. MARYAM ALSO VERIFIED THAT [facility] HAD ADDRESS TO PT'S DAUGHTER'S HOUSE WHERE HE WILL DC TO FOR HH SERVICES. CM FAXED CLINICAL INFO TO [facility] FOR RESUMPTION OF SERVICES. IMM SIGNED AND PLACED IN CHART. Ore Buyer: Kaykay Serrano RN, MARYAM
--- NOTE | 2016-08-03 11:35 | NUR ---
DISCHARGED VIA WHEELCHAIR TO PERSONAL VEHICLE WITH FAMILY MEMBERS
--- NOTE | 2016-08-04 08:41 | DS ---
PATIENT:YUMIKO PADILLA :[birth year] MEDICAL RECORD: [id number] DISCHARGE SUMMARY ADMISSION DATE: 08/02/16 DISCHARGE DATE: 08/03/16 DISCHARGE DIAGNOSES: 1. Acute inferior myocardial infarction. 2. PTCA stent RCA. 3. Chronic obstructive pulmonary disease. 4. Smoking history. 5. Hypertension. 6. Hyperlipidemia. HOSPITAL COURSE: Mr. Padilla presented with an acute inferior myocardial infarction. He underwent emergent cardiac catheterization, PTCA stent of the RCA, had an uneventful postop course with no dysrhythmias, no further chest pain. He was discharged home to continue his beta-wendy, which is Bystolic. Continue his statin, which is Zocor. Continue his aspirin and Plavix. We will follow up with [facility] in 1 month. TRANSINT:[id number] Voice Confirmation ID: [id number] DOCUMENT ID: [id number] PEPE CHAVEZ MD at 0841 CC: [id number] DICTATION DATE: 08/03/16 0932 DIRECTOR SAFETY: 08/04/16 0157 DIS IN 08/03/16 [facility] [address] [place] [address]
--- NOTE | 2016-08-04 08:41 | OP ---
PATIENT NAME: YUMIKO PADILLA MEDICAL RECORD: [id number] :[birth year] LOCATION:[id number] ADMISSION DATE:08/02/16 SURGEON: PEPE CHAVEZ MD DATE OF OPERATION: 08/02/2016 PROCEDURES: 1. PTCA stent RCA. 2. Left heart catheterization. 3. Selective coronary angiography. 4. Left ventriculogram. INDICATION: Acute inferior myocardial infarction. PROCEDURE IN DETAIL: After informed consent was obtained and after detailed explanation of risks, benefits as well as alternative therapies, the patient with angiogram and angioplasty. The right femoral area was prepped and draped in normal sterile fashion. The right femoral artery was cannulated via modified Seldinger technique with placement of 6-Divehi sheath. All catheters exchanged through this sheath. FINDINGS: The left ventriculogram was performed in the standard 30-degree SALCIDO view, reveals good cardiac wall motion throughout all segments including the inferior segments. Ejection fraction is 60%. SELECTIVE CORONARY ANGIOGRAPHY: 1. Left main showed no significant angiographic disease. 2. Left anterior descending has moderate irregularities, but no flow-limiting stenosis. 3. Left circumflex shows moderate irregularities, but no flow-limiting stenosis. 4. Right coronary has approximately 70% to 80% stenosis after the previously placed stent in the mid vessel, there is flow through the right coronary artery; however, he is patent free now, most likely this is the area of the acute inferior myocardial infarction, we stented this with 3.0 x 15 Integrity stent. Result was 0% residual stenosis. OVERALL IMPRESSION: Successful percutaneous transluminal coronary angioplasty stent of the right coronary artery going from 70% to 80% initial stenosis to 0% residual. TRANSINT:[id number] Voice Confirmation ID: [id number] DOCUMENT ID: [id number] PEPE CHAVEZ MD at 0841 CC: [id number] DICTATION DATE: 08/02/161918 CONSUMER EDUCATOR: 08/02/16 2333 DIS IN 08/03/[address] [facility] [address] [place] [address]
--- NOTE | 2016-08-04 08:41 | HP ---
PATIENT: YUMIKO PADILLA MEDICAL RECORD: [id number] ACCOUNT: [id number] LOCATION:[facility].CV07 : [birth year] ADMISSION DATE: 08/02/16 HISTORY AND PHYSICAL EXAMINATION ADMITTING DIAGNOSES: 1. ST elevation inferior myocardial infarction, acute. 2. Coronary artery disease. 3. Previous percutaneous transluminal coronary angioplasty stent. 4. Hypertension. 5. Hyperlipidemia. HISTORY OF PRESENT ILLNESS: Mr. Padilla presents with chest pain, severe onset today. He has ST elevation inferiorly. He has previous stents in the RCA. He underwent cardiac catheterization July 15 that revealed moderate disease of the LAD and RCA, no intervention was done at that time. PHYSICAL EXAMINATION: GENERAL APPEARANCE: Well-nourished, well-developed, appears stated age. Level of distress, comfortable. PSYCHIATRIC: Mental status, alert, normal affect. Orientation, oriented to time, place and person. EYES: Lids and conjunctiva, noninjected. No discharge, no pallor. ENT: Lips, teeth, gums, normal dentition. Oropharynx, no cyanosis, no pallor. NECK: Carotid arteries, bilateral normal upstroke, no bruits, no thrills. JUGULAR VEINS: No jugular venous pressure or distention. CERVICAL LYMPH NODES: Nontender, nonenlarged. THYROID: Not enlarged. Nontender. No nodules. LUNGS: Respiratory effort, unlabored. CHEST: Normal curvature. No thoracic deformity. No chest wall tenderness. Percussion, resonant. Auscultation, clear. No wheezes, no rales, no rhonchi. CARDIOVASCULAR: Precordial exam, nondisplaced. No heaves or pericardial thrills. Rate and rhythm, regular. Heart sounds, normal S1, normal S2. No S3, no gallop, no rub. Systolic murmur, not heard. Diastolic murmur, not heard. EXTREMITIES: No cyanosis, no edema. Peripheral pulses, full and equal in all extremities, except as noted. No bruits appreciated. ABDOMEN: Soft, nondistended. Normal aorta. No bruit. Nontender. No masses. Liver, nontender, no hepatomegaly. Spleen, nontender, no splenomegaly. MUSCULOSKELETAL: No joint tenderness. No joint swelling. No erythema. NEUROLOGICAL: Normal gait, normal strength, normal tone. SKIN: Warm and dry. REVIEW OF SYSTEMS: The patient reports easy bruising but reports no swollen glands. The patient reports no fever, no night sweats, no significant weight gain, no significant weight loss. No significant exercise tolerance. The patient reports no dry eyes, no irritation, no vision change. Patient reports no difficulty hearing and no ear pain. Patient reports no frequent nose bleeds or nose and sinus problems. Patient reports on arm pain on exertion. No shortness of breath while lying down. No history of heart murmur. Patient reports no cough, no wheezing or coughing up blood. Patient reports no abdominal pain, no vomiting. Normal appetite. No diarrhea and not vomiting blood. No nausea and no constipation. Patient reports no incontinence. No difficulty urinating. No hematuria. No increased frequency. Patient reports no muscle aches. No weakness, no arthralgias, no back pain. No swelling of the extremities. Patient reports no abnormal mole, no jaundice, no rashes. Reports HISTORY AND PHYSICAL [id number] YUMIKO PADILLA no loss of consciousness. No weakness and no numbness. No seizures, dizziness, or headaches. The patient reports no depression, no sleep disturbance, feeling safe in a relationship and no alcohol abuse. Patient reports on fatigue. Reports no runny nose or sinus pressure. No itching, no hives, and no frequent sneezing. OVERALL IMPRESSION: ST segment elevation myocardial infarction. At this time, we will proceed with cardiac catheterization. Further care depends upon findings of the catheterization. TRANSINT:[id number] Voice Confirmation ID: [id number] DOCUMENT ID: [id number] PEPE CHAVEZ MD at 0841 CC: [id number] DICTATION DATE: 08/02/161858 CLASSROOM TEACHER: 08/02/161910 DIS IN 08/03/16 [facility] [address] [place] [address]
== END 2016-08-03 11:25 | disposition home health service (06) | DRG 249 ==
LOC: D.ER 17:21 → D.CATH 17:21 → EDSTATUS 18:54 → D.CVICU 19:40 → D.CATH 19:41 → D.CVICU 08-03 00:23
PROVIDERS: Emergency Medicine; ADMIT Internal Medicine Interventional Cardiology
PROC: B2111ZZ Fluoroscopy of Multiple Coronary Arteries using Low Osmolar Contrast (ICD-10-PCS; 2016-08-02)
PROC: B2151ZZ Fluoroscopy of Left Heart using Low Osmolar Contrast (ICD-10-PCS; 2016-08-02)
PROC: 02703DZ Dilation of Coronary Artery, One Artery with Intraluminal Device, Percutaneous Approach (ICD-10-PCS; principal; 2016-08-02 19:00)
PROC: 4A023N7 Measurement of Cardiac Sampling and Pressure, Left Heart, Percutaneous Approach (ICD-10-PCS; 2016-08-02 19:00)
DX: I21.19 ST elevation (STEMI) myocardial infarction involving other coronary artery of inferior wall (principal); I25.10 Atherosclerotic heart disease of native coronary artery without angina pectoris; Z95.5 Presence of coronary angioplasty implant and graft; J44.9 Chronic obstructive pulmonary disease, unspecified; I10 Essential (primary) hypertension; E78.5 Hyperlipidemia, unspecified; Z87.891 Personal history of nicotine dependence

== ENCOUNTER → 2016-08-23 08:39 | Outpatient (CLI) | payer MEDICARE ==
[2016-08-02 19:57] VITALS: BMI 23.4
== END | disposition home or self-care (01) ==
LOC: D.RT 08:39
DX: J44.9 Chronic obstructive pulmonary disease, unspecified (principal)

== ENCOUNTER 2017-01-17 15:13 | Inpatient (IN) | payer MEDICARE ==
[~2017-01-17] VITALS: Ht 172.7 cm; Wt 70.3 kg
[~2017-01-17 15:13] MED LIST changes: -POT CHLORIDE TAB 8ME PO; +POTASSIUM CHLOR8 ME1 PO
[2017-01-17 16:09] LABS: BASOPHILS 0.2 % (0-2); EOSINOPHILS 1.5 % (0-7); HEMATOCRIT 43.6 % (42.0-54.0); HEMOGLOBIN 14.7 g/dL (13.5-17.5); IMMATURE GRANULOCYTES 0.3 % (0-5); MCH 30.6 pg (26.0-34.0); MCHC 33.7 g/dL (31.0-37.0); MCV 90.8 fL (80.0-100.0); MEAN PLATELET VOLUME 9.3 fL (7.4-10.4); MONOCYTES 10.4 % (2-11); NEUTROPHILS 71.6 % (40-80); PLATELET COUNT 230 10x3/uL (130-400); RDW 13.2 % (11.5-14.5); WBC 11.1 10x3/uL (4.8-10.8)
[2017-01-17 16:28] LABS: ALBUMIN 3.4 g/dL (3.4-5.0); ALKALINE PHOSPHATASE 63 U/L (46-116); ALT (SGPT) 19 U/L (10-68); BILIRUBIN - TOTAL 0.19 mg/dL (0.2-1.3); CALC OSMOLALITY 275 mosm/kg (275-300); CALCIUM 8.8 mg/dL (8.5-10.1); CARBON DIOXIDE 28.7 mmol/L (21.0-32.0); CHLORIDE - SERUM 99 mmol/L (98-107); CREATININE - SERUM 0.8 mg/dL (0.6-1.3); POTASSIUM - SERUM 4.1 mmol/L (3.5-5.1); PROTEIN - SERUM 6.9 g/dL (6.4-8.2); SODIUM 136 mmol/L (136-145); UREA NITROGEN 13 mg/dL (7-18); eGFR NON AFRICAN AMERICAN > 90 mL/min (90-120)
[2017-01-17 16:32] LABS: GLUCOSE 179 mg/dL (74-106)
[2017-01-17 16:37] LABS: PRO BNP 76 pg/mL (0-125)
[2017-01-17 16:42] LABS: TROPONIN-I < 0.017 ng/mL (0.000-0.060)
--- NOTE | 2017-01-17 19:30 | NUR ---
REC'D TO ROOM 2214 PER WC FROM ER DEPT. A 71 Y/O W/M PER SERVICES. /JEYSON WITH DX COPD/LL PNEUMONIA. ALLERGY=PCN, BIAXIN. SALINE LOCK PATENT RT ARM. SITE CLEAR. FAMILY MEMBERS AT BEDSIDE. ASSESSMENT PER ADMIT PACKET. O2 ON 2L/M PER NC.
[2017-01-17 20:00] VITALS: BP 109/48
[2017-01-17] MEDS ORDERED: VALIUM 2 MG TAB2 MG PO (21:04)
[2017-01-17] MEDS ORDERED: GLUCOPHAGE500 MG PO (21:05)
--- NOTE | 2017-01-17 21:45 | NUR ---
MED LIST VERIFIED WITH PT'S DAUGHTER WHO NORMALLY GIVES HIS MEDS. NOTIFIED LUCITA CABEZAS. ORDERS REC'D. MEDS RESUMED.
[2017-01-17] MEDS ORDERED: BYSTOLIC5 MG PO (22:55)
[2017-01-17 23:46] VITALS: BP 109/63; BMI 23.6
--- NOTE | 2017-01-18 | NUR ---
BEDISDE UPDRAFT TX GIVEN PER RT TECH.
--- NOTE | 2017-01-18 03:00 | NUR ---
EYES CLOSED RESPIRATIONS WITH EASE AND UNLABORED.
[2017-01-18 04:00] VITALS: BP 120/80
--- NOTE | 2017-01-18 04:47 | NUR ---
NO CHANGES IN ASSESSMENT.
--- NOTE | 2017-01-18 07:48 | NUR ---
BLOOD SUGAR CHECKED AT THIS TIME. OXYGEN ON 2L VIA NC WITH RESPIRATIONS EVEN AND NON LABORED. DAUGHTER AT BEDSIDE. WILL CONTINUE WITH PLAN OF CARE.
[2017-01-18 08:19] LABS: BASOPHILS 0.1 % (0-2); EOSINOPHILS 0 % (0-7); HEMATOCRIT 46.2 % (42.0-54.0); HEMOGLOBIN 15.6 g/dL (13.5-17.5); IMMATURE GRANULOCYTES 0.2 % (0-5); LYMPHOCYTES 13.6 % (15-50); MCH 30.4 pg (26.0-34.0); MCHC 33.8 g/dL (31.0-37.0); MCV 90.1 fL (80.0-100.0); MEAN PLATELET VOLUME 8.8 fL (7.4-10.4); MONOCYTES 11.4 % (2-11); NEUTROPHILS 74.7 % (40-80); PLATELET COUNT 218 10x3/uL (130-400); RBC 5.13 10x6/uL (4.20-6.10); RDW 13.1 % (11.5-14.5); WBC 10.2 10x3/uL (4.8-10.8)
[2017-01-18 08:37] LABS: ALBUMIN 3.5 g/dL (3.4-5.0); ALKALINE PHOSPHATASE 60 U/L (46-116); ALT (SGPT) 18 U/L (10-68); BILIRUBIN - TOTAL 0.22 mg/dL (0.2-1.3); CALC OSMOLALITY 277 mosm/kg (275-300); CALCIUM 9.3 mg/dL (8.5-10.1); CARBON DIOXIDE 28.7 mmol/L (21.0-32.0); CHLORIDE - SERUM 100 mmol/L (98-107); CREATININE - SERUM 0.9 mg/dL (0.6-1.3); GLUCOSE 153 mg/dL (74-106); POTASSIUM - SERUM 4.1 mmol/L (3.5-5.1); PROTEIN - SERUM 7.3 g/dL (6.4-8.2); SODIUM 138 mmol/L (136-145); UREA NITROGEN 11 mg/dL (7-18); eGFR NON AFRICAN AMERICAN 89 mL/min (90-120)
[2017-01-18 08:38] VITALS: BP 145/76
--- NOTE | 2017-01-18 10:19 | NUR ---
SCHEDULED PROTONIX AND NICOTINE PATCH APPLIED TO LEFT ARM PER ORDERS. DENIES NEEDS OR PAIN AT THIS TIME. WILL CONTINUE WITH PLAN OF CARE.
[2017-01-18 12:07] VITALS: Ht 172.7 cm; Wt 70.3 kg
[2017-01-18 12:47] VITALS: BP 132/68
--- NOTE | 2017-01-18 13:54 | NUR ---
Patient Name: YUMIKO PADILLA Admission Status: ER Accout number: [id number] Admission Date: 01-17-2017 : 1945 Admission Diagnosis: Attending: STEPHANIE QUIÑONES Current LOS: 1 Anticipated DC Date: Planned Disposition: Home Primary Insurance: MEDICARE A & B Discharge Planning Comments: CM met with patient and daughter to assess discharge planning needs. Patient lives independently at home and plans to return there. Patients daughter (Sonali) helps him with his medicines. Amanda (other daughter) will be the one to drive him home when discharge comes. Patient and family states it is safe for him to return home. Neither thought they he would need HH or PT at home. Patient has a glucometer, home o2 from [facility] [employer], walker, wheelchair, shower chair, elevated toilet seat, nebulizer at home and a ramp to enter in home. CM will continue to follow and assist with discharge planning needs. PCP: Jeyson [facility] [employer] [place] Sonali (daughter) [phone] Amanda (Daughter) [phone] Home Care Manager Rn: Sveta Powell * Is the patient Alert and Oriented? Yes 0 * How many steps to enter\exit or inside your home? ramp 0 * PCP JEYSON 0 * [facility] * Preadmission Environment Home Alone 0 * ADLs Independent 0 * Equipment Elevated [place] Seat Glucometer Oxygen Rolling Walker Shower Chair Walker Wheelchair 0 * List name and contact numbers for known caregivers / representatives who currently or will assist patient after discharge: SONALI (DAUGHTER) [phone] AMANDA (DAUGHTER) [phone] * Community resources currently utilized None 0 * Please name any agencies selected above. [facility] [employer] [facility] 0 * Additional services required to return to the preadmission environment? No 0 * Can the patient safely return to the preadmission environment? Yes 0 * Has this patient been hospitalized within the prior 30 days at any hospital? No 0 Grand Total: 0
--- NOTE | 2017-01-18 13:58 | NUR ---
SITTING UP IN BED AT THIS TIME. OXYGEN REMAINS ON 2L VIA NC. VISITORS AT BEDSIDE AND CALL LIGHT IN REACH, WILL CONTINUE WITH PLAN OF CARE.
[2017-01-18 16:24] VITALS: BP 107/71
[2017-01-18 19:00] VITALS: BP 115/73
--- NOTE | 2017-01-19 02:00 | NUR ---
PT IN BED WITH NO DISTRESS. RESPIRATIONS ARE EVEN AND UNLABORED. SIDE RAILS X 2. BED IS LOW. CALL LIGHT IS WITHIN REACH.
[2017-01-19 04:00] VITALS: BP 140/96
[2017-01-19 05:48] LABS: BASOPHILS 0.3 % (0-2); EOSINOPHILS 2.3 % (0-7); HEMATOCRIT 45.3 % (42.0-54.0); HEMOGLOBIN 14.9 g/dL (13.5-17.5); IMMATURE GRANULOCYTES 0.1 % (0-5); LYMPHOCYTES 30.1 % (15-50); MCH 30.2 pg (26.0-34.0); MCHC 32.9 g/dL (31.0-37.0); MCV 91.9 fL (80.0-100.0); MEAN PLATELET VOLUME 9.1 fL (7.4-10.4); NEUTROPHILS 53.2 % (40-80); PLATELET COUNT 233 10x3/uL (130-400); RBC 4.93 10x6/uL (4.20-6.10); RDW 13.5 % (11.5-14.5); WBC 9.9 10x3/uL (4.8-10.8)
[2017-01-19 06:07] LABS: ALBUMIN 3.1 g/dL (3.4-5.0); ALKALINE PHOSPHATASE 53 U/L (46-116); ALT (SGPT) 19 U/L (10-68); BILIRUBIN - TOTAL 0.18 mg/dL (0.2-1.3); CALCIUM 8.6 mg/dL (8.5-10.1); CARBON DIOXIDE 29.7 mmol/L (21.0-32.0); CHLORIDE - SERUM 102 mmol/L (98-107); CREATININE - SERUM 0.8 mg/dL (0.6-1.3); POTASSIUM - SERUM 3.8 mmol/L (3.5-5.1); PROTEIN - SERUM 6.5 g/dL (6.4-8.2); SODIUM 139 mmol/L (136-145); eGFR NON AFRICAN AMERICAN > 90 mL/min (90-120)
[2017-01-19 06:11] LABS: CALC OSMOLALITY 278 mosm/kg (275-300); GLUCOSE 104 mg/dL (74-106); UREA NITROGEN 14 mg/dL (7-18)
--- NOTE | 2017-01-19 07:56 | NUR ---
REC'D IN BED AWAKE AND ALERT. RESP EVEN AND UNLABORED NO DISTRESS NOTED HAS O2 IN USE VIA 2 L/M. CAN EXPRESS NEEDS AND WANTS. NO C/O NOTED OR VOICED AT THIS TIME. ASSESSMENT COMPLETED. C/L IN REACH AT BEDSIDE.
[2017-01-19 08:29] VITALS: BP 145/80
[2017-01-19 11:43] VITALS: BP 128/80
--- NOTE | 2017-01-19 15:53 | NUR ---
NO CHANGES NOTED AT THIS TIME. CONTINUE TO BE RESTING WELL. NO C/O NOTE OR VOICED. AT BEDSIDE. C/L IN REACH AT BEDSIDE.
[2017-01-19 15:54] VITALS: BP 133/68
[2017-01-19 20:00] VITALS: BP 157/78
[2017-01-20 00:17] VITALS: BP 99/66
[2017-01-20 04:00] VITALS: BP 120/64
--- NOTE | 2017-01-20 05:05 | NUR ---
ASSESSED, NO DISTRESS NOTED, GOOD RESPIRATIONS. FAMILY IS AT THE BEDSIDE. AND BOTH ARE ASLEEP. THE BED IS LOW, RAILS UP X'S 2 WITH THE CALL LIGHT AT HAND.
[2017-01-20 05:28] LABS: BASOPHILS 0 % (0-2); EOSINOPHILS 0 % (0-7); HEMATOCRIT 45.1 % (42.0-54.0); HEMOGLOBIN 14.9 g/dL (13.5-17.5); IMMATURE GRANULOCYTES 0.3 % (0-5); LYMPHOCYTES 10.6 % (15-50); MCV 90.9 fL (80.0-100.0); MEAN PLATELET VOLUME 8.9 fL (7.4-10.4); MONOCYTES 7.5 % (2-11); NEUTROPHILS 81.6 % (40-80); PLATELET COUNT 238 10x3/uL (130-400); RBC 4.96 10x6/uL (4.20-6.10); RDW 13.1 % (11.5-14.5); WBC 11.5 10x3/uL (4.8-10.8)
[2017-01-20 05:50] LABS: ALBUMIN 3.3 g/dL (3.4-5.0); CALC OSMOLALITY 278 mosm/kg (275-300); CALCIUM 9.1 mg/dL (8.5-10.1); CARBON DIOXIDE 29.2 mmol/L (21.0-32.0); CHLORIDE - SERUM 100 mmol/L (98-107); CREATININE - SERUM 0.8 mg/dL (0.6-1.3); POTASSIUM - SERUM 4.3 mmol/L (3.5-5.1); SODIUM 136 mmol/L (136-145); UREA NITROGEN 15 mg/dL (7-18); eGFR NON AFRICAN AMERICAN > 90 mL/min (90-120)
[2017-01-20 05:54] LABS: GLUCOSE 204 mg/dL (74-106)
[2017-01-20 06:32] LABS: ALKALINE PHOSPHATASE 62 U/L (46-116); BILIRUBIN - TOTAL 0.21 mg/dL (0.2-1.3); PROTEIN - SERUM 6.7 g/dL (6.4-8.2)
[2017-01-20 06:35] LABS: ALT (SGPT) 25 U/L (10-68)
--- NOTE | 2017-01-20 07:10 | NUR ---
REPORT RECEIVED FROM SENIOR IT RECRUITER NURSE. CALL LIGHT IN REACH.
--- NOTE | 2017-01-20 07:45 | NUR ---
PATIENT ALERT IN BED WITH FAMILY PRESENT. NO SIGNS OF DISTRESS NOTED. SIDE RAILS UP X2. BED IN LOW POSITION. CALL LIGHT IN REACH.
[2017-01-20 08:33] VITALS: BP 144/92
--- NOTE | 2017-01-20 09:30 | NUR ---
ASSESSMENT COMPLETED. AM MEDS ADMINISTERED. REFUSES SCDs. INCENTIVE SPIROMETER GIVEN TO PATIENT AND EXPLAINED USE WITH RETURN DEMONSTRATION. DAUGHTER IN ROOM. CALL LIGHT IN REACH. PASSWORD REVIEWED. WILL CONTINUE WITH PLAN OF CARE.
--- NOTE | 2017-01-20 09:41 | NUR ---
SPUTUM CUP GIVEN TO PATIENT FOR SAMPLE.
--- NOTE | 2017-01-20 11:10 | NUR ---
NUTRITION F/U CHART REVIEWED. PT VISIT. TOLERATING ADA DIET WITH 100% INTAKE BREAKFAST. WILL CONTINUE TO PROVIDE DIET, MONITOR PO INTAKE. RD FOLLOWING
--- NOTE | 2017-01-20 11:13 | NUR ---
ALINA PO. CEFEPIME IVPB. CALL LIGHT IN REACH.
[2017-01-20 12:48] VITALS: BP 178/81
[2017-01-20 17:18] VITALS: BP 139/75
[2017-01-20 20:00] VITALS: BP 147/68
[2017-01-21] VITALS: BP 144/80
[2017-01-21 04:00] VITALS: BP 127/55
[2017-01-21 04:50] LABS: BASOPHILS 0 % (0-2); EOSINOPHILS 0 % (0-7); HEMATOCRIT 44.5 % (42.0-54.0); HEMOGLOBIN 14.8 g/dL (13.5-17.5); IMMATURE GRANULOCYTES 0.2 % (0-5); LYMPHOCYTES 10.4 % (15-50); MCH 30.3 pg (26.0-34.0); MCHC 33.3 g/dL (31.0-37.0); MCV 91.2 fL (80.0-100.0); MONOCYTES 6.6 % (2-11); NEUTROPHILS 82.8 % (40-80); PLATELET COUNT 250 10x3/uL (130-400); RBC 4.88 10x6/uL (4.20-6.10); RDW 13.3 % (11.5-14.5); WBC 12.5 10x3/uL (4.8-10.8)
[2017-01-21 05:07] LABS: ALBUMIN 3.1 g/dL (3.4-5.0); ALKALINE PHOSPHATASE 57 U/L (46-116); ALT (SGPT) 22 U/L (10-68); BILIRUBIN - TOTAL 0.24 mg/dL (0.2-1.3); CALC OSMOLALITY 282 mosm/kg (275-300); CALCIUM 8.9 mg/dL (8.5-10.1); CHLORIDE - SERUM 102 mmol/L (98-107); CREATININE - SERUM 0.8 mg/dL (0.6-1.3); GLUCOSE 211 mg/dL (74-106); POTASSIUM - SERUM 4.5 mmol/L (3.5-5.1); PROTEIN - SERUM 6.3 g/dL (6.4-8.2); SODIUM 138 mmol/L (136-145); UREA NITROGEN 16 mg/dL (7-18); eGFR NON AFRICAN AMERICAN > 90 mL/min (90-120)
--- NOTE | 2017-01-21 07:15 | NUR ---
REPORT RECEIVED FROM SAUSAGE COOKER NURSE. CALL LIGHT IN REACH.
--- NOTE | 2017-01-21 09:00 | NUR ---
ASSESSMENT COMPLETED. REFUSES SCDs. CALL LIGHT IN REACH. WILL CONTINUE WITH PLAN OF CARE.
[2017-01-21 09:45] VITALS: BP 157/89
--- NOTE | 2017-01-21 11:02 | NUR ---
SITTING UP AT BEDSIDE WITH RESPIRATIONS EVEN AND NON LABORED. OXYGEN ON 2L VIA NC. DENIES NEEDS AT PRESENT TIME. IV TO RIGHT HAND PATENT. CALL LIGHT IN REACH, WILL CONTINUE WITH PLAN OF CARE.
--- NOTE | 2017-01-21 11:18 | NUR ---
AM MEDS ADMINISTERED. CALL LIGHT IN REACH
--- NOTE | 2017-01-21 12:06 | NUR ---
VIBRAMCYIN IVPB. FSBS 191. HUMALOG 2 UNITS SUBQ TO LEFT ARM. CALL LIGHT IN REACH.
[2017-01-21 13:04] VITALS: BP 160/88
--- NOTE | 2017-01-21 14:30 | NUR ---
RESPIRATORY THERAPY IN ROOM TO DO BREATHING TREATMENT. DAUGHTER AT BEDSIDE. CALL LIGHT IN REACH.
--- NOTE | 2017-01-21 15:20 | NUR ---
NO DISTRESS NOTED OR NEEDS VOICED. CALL LIGHT IN REACH.
[2017-01-21 16:32] VITALS: BP 143/77
--- NOTE | 2017-01-21 17:03 | NUR ---
MACO PAYAN PO 4 UNITS SUBQ TO LEFT ARM D/T FSBS OF 217. DAUGHTER IN ROOM. CALL LIGHT IN REACH.
--- NOTE | 2017-01-21 18:03 | NUR ---
CEFEPIME IVPB. NO CHANGES IN INITIAL ASSESSMENT. CALL LIGHT IN REACH. WILL CONTINUE WITH PLAN OF CARE.
[2017-01-21 20:00] VITALS: BP 154/80
[2017-01-22] VITALS: BP 119/63
[2017-01-22 04:00] VITALS: BP 140/74
[2017-01-22 05:21] LABS: BASOPHILS 0.2 % (0-2); EOSINOPHILS 0.5 % (0-7); HEMATOCRIT 43.6 % (42.0-54.0); HEMOGLOBIN 14.5 g/dL (13.5-17.5); IMMATURE GRANULOCYTES 0.4 % (0-5); LYMPHOCYTES 26.3 % (15-50); MCH 30.3 pg (26.0-34.0); MCHC 33.3 g/dL (31.0-37.0); MEAN PLATELET VOLUME 8.9 fL (7.4-10.4); MONOCYTES 12.3 % (2-11); NEUTROPHILS 60.3 % (40-80); PLATELET COUNT 247 10x3/uL (130-400); RBC 4.79 10x6/uL (4.20-6.10); RDW 13.3 % (11.5-14.5); WBC 12.9 10x3/uL (4.8-10.8)
[2017-01-22 05:44] LABS: ALKALINE PHOSPHATASE 48 U/L (46-116); BILIRUBIN - TOTAL 0.22 mg/dL (0.2-1.3); CALCIUM 8.5 mg/dL (8.5-10.1); CARBON DIOXIDE 30.8 mmol/L (21.0-32.0); CHLORIDE - SERUM 102 mmol/L (98-107); CREATININE - SERUM 0.7 mg/dL (0.6-1.3); PROTEIN - SERUM 5.9 g/dL (6.4-8.2); SODIUM 140 mmol/L (136-145); UREA NITROGEN 15 mg/dL (7-18); eGFR NON AFRICAN AMERICAN > 90 mL/min (90-120)
[2017-01-22 05:45] LABS: ALT (SGPT) 29 U/L (10-68); CALC OSMOLALITY 279 mosm/kg (275-300); GLUCOSE 100 mg/dL (74-106); POTASSIUM - SERUM 3.6 mmol/L (3.5-5.1)
--- NOTE | 2017-01-22 07:30 | NUR ---
RECIEVED PT DURING WALKING ROUNDS, PT SITTING UP IN CHAIR WITH NO COMPLAINTS OF PAIN OR DISCOMFORT AT THIS TIME. ASSESSMENT DONE PER FLOWSHEET. BED IN LOW POSITION AND CALL LIGHT WITHIN REACH. WILL CONTINUE TO MONITOR.
[2017-01-22 09:42] VITALS: BP 164/65
[2017-01-22 11:55] VITALS: BP 144/93
[2017-01-22] MEDS ORDERED: OMNICEF300 MG PO (12:43)
[2017-01-22] MEDS ORDERED: VIBRAMYCIN 100100 MG PO (12:43)
[2017-01-22] MEDS ORDERED: PREDNISONE20 MG PO (12:44)
[2017-01-22] MEDS ORDERED: FLUTICASONE PRO16 GM NASAL (12:44)
[2017-01-22] MEDS ORDERED: PULMICORT0.5 MG/21 UPD (12:44)
[2017-01-22] MEDS ORDERED: FLORAJEN3 CAPS460 MG PO (12:44)
[2017-01-22] MEDS ORDERED: PREDNISONE10 MG PO (14:35)
--- NOTE | 2017-01-22 15:47 | NUR ---
MEDICATION GIVEN TO PT PER CASE MANAGEMENT FOR EVENING DOSE. IV REMOVED, CATH INTACT. DISCHARGE INSTRUCTIONS AND PT DISCHARGED VIA WHEELCHAIR TO HOME WITH A FAMILY MEMBER.
== END 2017-01-22 15:49 | disposition home or self-care (01) | DRG 189 ==
LOC: D.ER 15:13 → D.MS 18:21
PROVIDERS: Physician Assistant; ADMIT Family Medicine Adult Medicine
DX: J96.21 Acute and chronic respiratory failure with hypoxia (principal); J18.1 Lobar pneumonia, unspecified organism; J44.0 Chronic obstructive pulmonary disease with (acute) lower respiratory infection; I13.0 Hypertensive heart and chronic kidney disease with heart failure and stage 1 through stage 4 chronic kidney disease, or unspecified chronic kidney disease; N18.4 Chronic kidney disease, stage 4 (severe); I50.32 Chronic diastolic (congestive) heart failure; F17.203 Nicotine dependence unspecified, with withdrawal; J44.1 Chronic obstructive pulmonary disease with (acute) exacerbation; E78.5 Hyperlipidemia, unspecified; F32.9 Major depressive disorder, single episode, unspecified

== ENCOUNTER 2017-05-13 15:06 | Emergency (ER) | payer MEDICARE ==
[2017-01-18 12:07] VITALS: BMI 23.5
[~2017-05-13 15:06] MED LIST changes: +FLUTICASONE PRO16 GM NASAL; +GLUCOPHAGE500 MG PO; +OMNICEF300 MG PO; +PREDNISONE20 MG PO; +PULMICORT0.5 MG/21 UPD; +VALIUM 2 MG TAB2 MG PO; +VIBRAMYCIN 100100 MG PO
[2017-05-13 16:14] LABS: BASOPHILS 0.3 % (0-2); EOSINOPHILS 1.8 % (0-7); HEMOGLOBIN 15.5 g/dL (13.5-17.5); IMMATURE GRANULOCYTES 0.2 % (0-5); LYMPHOCYTES 23.6 % (15-50); MCH 30.9 pg (26.0-34.0); MCHC 33.7 g/dL (31.0-37.0); MCV 91.6 fL (80.0-100.0); MEAN PLATELET VOLUME 9.1 fL (7.4-10.4); MONOCYTES 9.3 % (2-11); NEUTROPHILS 64.8 % (40-80); PLATELET COUNT 230 10x3/uL (130-400); RBC 5.02 10x6/uL (4.20-6.10); WBC 12.8 10x3/uL (4.8-10.8)
[2017-05-13 16:33] LABS: ALBUMIN 3.9 g/dL (3.4-5.0); ALKALINE PHOSPHATASE 66 U/L (46-116); ALT (SGPT) 20 U/L (10-68); BILIRUBIN - TOTAL 0.22 mg/dL (0.2-1.3); CALC OSMOLALITY 279 mosm/kg (275-300); CALCIUM 9.7 mg/dL (8.5-10.1); CARBON DIOXIDE 32.6 mmol/L (21.0-32.0); CHLORIDE - SERUM 100 mmol/L (98-107); CREATININE - SERUM 0.9 mg/dL (0.6-1.3); GLUCOSE 138 mg/dL (74-106); POTASSIUM - SERUM 3.8 mmol/L (3.5-5.1); PROTEIN - SERUM 7.1 g/dL (6.4-8.2); SODIUM 140 mmol/L (136-145); UREA NITROGEN 10 mg/dL (7-18); eGFR NON AFRICAN AMERICAN 89 mL/min (90-120)
== END 2017-05-13 18:17 | disposition home or self-care (01) ==
LOC: D.ER 15:06
PROVIDERS: Emergency Medicine
DX: J20.9 Acute bronchitis, unspecified (principal); J44.9 Chronic obstructive pulmonary disease, unspecified; I50.9 Heart failure, unspecified; I25.10 Atherosclerotic heart disease of native coronary artery without angina pectoris; F17.200 Nicotine dependence, unspecified, uncomplicated

== ENCOUNTER 2018-06-03 09:58 | Inpatient (IN) | payer MEDICARE, MEDICAID ==
[~2018-06-03] VITALS: Ht 172.7 cm; Wt 75.9 kg
[2018-06-03] MEDS ORDERED: ZYRTEC10 MG PO (10:19)
[2018-06-03] MEDS ORDERED: VALIUM 2 MG TAB2 MG PO (10:20)
[2018-06-03] MEDS ORDERED: PLAVIX75 MG PO (10:20)
[2018-06-03] MEDS ORDERED: MUCUS RELIEF400 MG PO (10:21)
[2018-06-03] MEDS ORDERED: GLIMEPIRIDE4 MG PO (10:21)
[2018-06-03] MEDS ORDERED: BREO ELLIPTA 11 EACH INH (10:21)
[2018-06-03] MEDS ORDERED: FUROSEMIDE20 MG PO (10:21)
[2018-06-03] MEDS ORDERED: ATROVENT 0.02%2.5 ML UPD (10:22)
[2018-06-03] MEDS ORDERED: GLUCOPHAGE500 MG PO (10:22)
[2018-06-03] MEDS ORDERED: ISOSORBIDE MONO30 M1 PO (10:22)
[2018-06-03] MEDS ORDERED: LISINOPRIL5 MG PO (10:22)
[2018-06-03] MEDS ORDERED: PROTONIX40 MG PO (10:23)
[2018-06-03] MEDS ORDERED: SINGULAIR10 MG PO (10:23)
[2018-06-03] MEDS ORDERED: BYSTOLIC10 MG PO ×2 (10:23→13:45)
[2018-06-03] MEDS ORDERED: KLOR-CON8 MEQ PO (10:24)
[2018-06-03] MEDS ORDERED: ZOCOR20 MG PO (10:24)
[2018-06-03] MEDS ORDERED: DALIRESP500 MCG PO ×2 (10:24→13:45)
[2018-06-03 10:41] LABS: BASOPHILS 0.3 % (0-2); EOSINOPHILS 1.4 % (0-7); HEMOGLOBIN 14.4 g/dL (13.5-17.5); IMMATURE GRANULOCYTES 0.4 % (0-5); LYMPHOCYTES 15.5 % (15-50); MCH 28.2 pg (26.0-34.0); MCV 88.2 fL (80.0-100.0); MEAN PLATELET VOLUME 9.1 fL (7.4-10.4); MONOCYTES 8.7 % (2-11); NEUTROPHILS 73.7 % (40-80); PLATELET COUNT 237 10x3/uL (130-400); RDW 14.1 % (11.5-14.5); WBC 15.1 10x3/uL (4.8-10.8)
[2018-06-03 10:49] LABS: APTT 26.7 SECONDS (22.8-39.4); INR 0.99 (0.85-1.17); PROTIME 12.6 SECONDS (11.6-15.0)
[2018-06-03 10:53] LABS: ALBUMIN 3.5 g/dL (3.4-5.0); ALKALINE PHOSPHATASE 56 U/L (46-116); ALT (SGPT) 19 U/L (10-68); BILIRUBIN - TOTAL 0.33 mg/dL (0.2-1.3); CALC OSMOLALITY 277 mosm/kg (275-300); CALCIUM 8.7 mg/dL (8.5-10.1); CARBON DIOXIDE 29.9 mmol/L (21.0-32.0); CHLORIDE - SERUM 101 mmol/L (98-107); CREATININE - SERUM 0.9 mg/dL (0.6-1.3); GLUCOSE 152 mg/dL (74-106); POTASSIUM - SERUM 4.2 mmol/L (3.5-5.1); PROTEIN - SERUM 7.1 g/dL (6.4-8.2); SODIUM 138 mmol/L (136-145); UREA NITROGEN 10 mg/dL (7-18); eGFR NON AFRICAN AMERICAN 89 mL/min (90-120)
[2018-06-03 11:04] LABS: CREATINE KINASE 90 UL (21-232); PRO BNP 91 pg/mL (0-125)
[2018-06-03 11:05] LABS: TROPONIN-I < 0.017 ng/mL (0.000-0.060)
[2018-06-03 11:48] VITALS: BP 114/61
--- NOTE | 2018-06-03 11:49 | NUR ---
PATIENT SITTING ON THE SIDE OF THE BED DUE TO COUGHING UP PHLEM. HE IS AWAKE AND ALERT, COLOR WNL FOR RACE. RESPIRATIONS EVEN AND UNLABORED. BLANKET GIVEN. UPDATED ON PLAN OF CARE AND DELAYS IN CARE. WILL CONTINUE TO MONITOR.
--- NOTE | 2018-06-03 13:50 | NUR ---
PT RECIEVED TO FLOOR VIA STRETCHER. DAUGHTER AT BEDSIDE. PT C/O L CHEST CHEST PAIN THAT RADIATES TOWARDS BACK. HX COPD. SEE ASSESSMENT FLOWSHEET FOR FURTHER DETAILS.
[2018-06-03 15:53] VITALS: BP 117/62; Ht 172.7 cm; Wt 75.9 kg
[2018-06-03 16:00] VITALS: BP 133/65
--- NOTE | 2018-06-03 19:55 | NUR ---
PATIENT RESTING IN BED AND DENIES NEEDS AT THIS TIME. NO S/S OF DISTRESS. BED IN LOWEST POSITION AND CALL LIGHT WITHIN REACH. ENCOURAGED THE PATIENT TO CALL IF HE HAS NEEDS. WILL CONTINUE TO MONITOR.
[2018-06-03 20:00] VITALS: BP 119/59
--- NOTE | 2018-06-03 23:45 | NUR ---
CALLED FOR HEART MONITOR, NO MONITOR AVAILABLE AT THIS TIME. PATIENT ADDED TO WAIT LIST.
[2018-06-04 04:00] VITALS: BP 145/80
[2018-06-04 04:51] LABS: BASOPHILS 0.1 % (0-2); EOSINOPHILS 0 % (0-7); HEMOGLOBIN 13.6 g/dL (13.5-17.5); IMMATURE GRANULOCYTES 0.4 % (0-5); LYMPHOCYTES 11.8 % (15-50); MCH 27.7 pg (26.0-34.0); MCHC 31.6 g/dL (31.0-37.0); MCV 87.6 fL (80.0-100.0); MEAN PLATELET VOLUME 9.7 fL (7.4-10.4); MONOCYTES 3.6 % (2-11); NEUTROPHILS 84.1 % (40-80); PLATELET COUNT 254 10x3/uL (130-400); RBC 4.91 10x6/uL (4.20-6.10); RDW 14.2 % (11.5-14.5)
[2018-06-04 05:00] LABS: WBC 10.5 10x3/uL (4.8-10.8)
[2018-06-04 05:14] LABS: ALBUMIN 3.3 g/dL (3.4-5.0); ALKALINE PHOSPHATASE 51 U/L (46-116); ALT (SGPT) 19 U/L (10-68); BILIRUBIN - TOTAL 0.19 mg/dL (0.2-1.3); CALCIUM 8.5 mg/dL (8.5-10.1); CARBON DIOXIDE 27.4 mmol/L (21.0-32.0); CHLORIDE - SERUM 102 mmol/L (98-107); CREATININE - SERUM 0.9 mg/dL (0.6-1.3); MAGNESIUM - SERUM 2.1 mg/dL (1.8-2.4); POTASSIUM - SERUM 4.2 mmol/L (3.5-5.1); PROTEIN - SERUM 6.9 g/dL (6.4-8.2); SODIUM 140 mmol/L (136-145); eGFR NON AFRICAN AMERICAN 89 mL/min (90-120)
[2018-06-04 05:15] LABS: CALC OSMOLALITY 286 mosm/kg (275-300); GLUCOSE 217 mg/dL (74-106); UREA NITROGEN 14 mg/dL (7-18)
[2018-06-04 08:53] VITALS: BP 143/84
--- NOTE | 2018-06-04 09:25 | NUR ---
PATIENT IN BED WITH EYES CLOSED RESTING QUIETLY AT THIS TIME. IV INTACT. NO COMPLAINTS, CALL LIGHT WITHIN REACH.
[2018-06-04 13:25] VITALS: BP 108/87
[2018-06-04 17:26] VITALS: BP 144/76
[2018-06-04 20:00] VITALS: BP 148/66
[2018-06-05 04:00] VITALS: BP 153/88
[2018-06-05 04:51] LABS: BASOPHILS 0 % (0-2); EOSINOPHILS 0 % (0-7); HEMATOCRIT 41.5 % (42.0-54.0); HEMOGLOBIN 13.1 g/dL (13.5-17.5); IMMATURE GRANULOCYTES 0.3 % (0-5); LYMPHOCYTES 7.3 % (15-50); MCH 27.8 pg (26.0-34.0); MCHC 31.6 g/dL (31.0-37.0); MCV 87.9 fL (80.0-100.0); MEAN PLATELET VOLUME 9.6 fL (7.4-10.4); MONOCYTES 6.9 % (2-11); NEUTROPHILS 85.5 % (40-80); PLATELET COUNT 250 10x3/uL (130-400); RBC 4.72 10x6/uL (4.20-6.10); RDW 14.3 % (11.5-14.5)
[2018-06-05 05:03] LABS: WBC 17.9 10x3/uL (4.8-10.8)
[2018-06-05 05:23] LABS: ALBUMIN 3.2 g/dL (3.4-5.0); ALKALINE PHOSPHATASE 49 U/L (46-116); ALT (SGPT) 21 U/L (10-68); CALC OSMOLALITY 284 mosm/kg (275-300); CARBON DIOXIDE 28.1 mmol/L (21.0-32.0); CHLORIDE - SERUM 100 mmol/L (98-107); GLUCOSE 231 mg/dL (74-106); MAGNESIUM - SERUM 2.2 mg/dL (1.8-2.4); POTASSIUM - SERUM 4.4 mmol/L (3.5-5.1); PROTEIN - SERUM 6.7 g/dL (6.4-8.2); SODIUM 137 mmol/L (136-145); UREA NITROGEN 24 mg/dL (7-18); eGFR NON AFRICAN AMERICAN 78 mL/min (90-120)
--- NOTE | 2018-06-05 08:01 | NUR ---
PT ALERT X 4. INSPIRATORY WHEEZE TO LEFT LOWER LOBE, 2L O2 PER NC. IV TO RIGHT FOREARM, PATENT, DRESSING CLEAN DRY AND INTACT. PT STATES NO PAIN AT THIS TIME. BED LOW, CALL LIGHT IN REACH. NO OTHER NEEDS AT THIS TIME.
[2018-06-05 08:37] VITALS: BP 150/86
[2018-06-05 11:58] VITALS: BP 140/80
[2018-06-05 12:15] VITALS: BP 117/56
[2018-06-05 12:42] LABS: APPEARANCE CLEAR (CLEAR); BILIRUBIN NEGATIVE (NEGATIVE); COLOR YELLOW (YELLOW); GLUCOSE 1000 mg/dL (NEGATIVE); KETONE NEGATIVE (NEGATIVE); NITRITE NEGATIVE (NEGATIVE); PROTEIN NEGATIVE (NEGATIVE); SPECIFIC GRAVITY 1.015 (1.005-1.020); UROBILINOGEN NORMAL (NORMAL)
--- NOTE | 2018-06-05 14:54 | MORECARE ---
CASE MANAGEMENT DISCHARGE SUMMARY PATIENT: YUMIKO PADILLA UNIT: [id number] ADM DATE: 06/03/18 AGE: 72 : [birth year] SEX: M ROOM/BED: D.2205 AUTHOR: DRU YAO PHYSICIAN: REFERRING PHYSICIAN: SOHAN DARLING MD DATE OF SERVICE: 06/05/18 Discharge Plan Patient Name: YUMIKO PADILLA [facility] [facility] 1945 Planned Disposition: Home Anticipated Discharge Date: Discharge Date: Expected LOS: Initial Reviewer: [email or web address] Initial Review Date: 06/03/2018 Generated: 06/05/18 3:54 pm DCPIA - Discharge Planning Initial Assessment Updated by [email or web address]: Sveta Powell on 06/05/18 2:52 pm * Is the patient Alert and Oriented? Yes * How many steps to enter\exit or inside your home? 4 with lugo * PCP Esteban * Pharmacy [facility] 1 * Preadmission Environment Home with Family * ADLs Independent * Equipment Cane Nebulizer Oxygen * Other Equipment Portable O2 * List name and contact numbers for known caregivers / representatives who currently or will assist patient after discharge: Sonali [phone] * Verbal permission to speak to the caregivers and representatives has been obtained from the patient. N/A * Community resources currently utilized None * Additional services required to return to the preadmission environment? No * Can the patient safely return to the preadmission environment? Yes * Has this patient been hospitalized within the prior 30 days at any hospital? No Patient Name: YUMIKO PADILLA Page [id number] at 1454 All edits/amendments must be made on the electronic document DICTATION DATE: 06/05/18 145 JIGGER MACHINE OPERATOR: DELIA 06/05/18 145 RPT#: [id number] DC DATE: STATUS: ADM IN [facility] [address] [place] [address] END OF REPORT
--- NOTE | 2018-06-05 15:04 | MORECARE ---
CASE MANAGEMENT DISCHARGE SUMMARY PATIENT: YUMIKO PADILLA UNIT: [id number] ADM DATE: 06/03/18 AGE: 72 : [birth year] SEX: M ROOM/BED: D.2205 AUTHOR: NAJMA,DOC PHYSICIAN: REFERRING PHYSICIAN: SOHAN DARLING MD DATE OF SERVICE: 06/05/18 Discharge Plan Patient Name: YUMIKO PADILLA Facility: [facility]:[place] : 1945 Planned Disposition: Home Anticipated Discharge Date: Discharge Date: Expected LOS: Initial Reviewer: [email or web address] Initial Review Date: 06/03/2018 Generated: 06/05/18 4:04 pm Comments DCP- Discharge Planning Updated by [email or web address]: Sveta Powell on 06/05/18 1:[address] Patient Name: YUMIKO PADILLA Admission Status: ER Accout number: [id number] Admission Date: 06-03-2018 : 1945 Admission Diagnosis: Attending: SOHAN DARLING Current LOS: 2 Anticipated DC Date: Planned Disposition: Home Primary Insurance: [employer] MEDICARE ADV Discharge Planning Comments: CM met with patient to assess discharge planning needs. Patient lives independently at home where his granddaughter lives behind him if he needs something. He stated that when he is not feeling well he will go stay with his daughter who also lives close. He has home O2 with portability, Nebulizer, cane and walker at home. He gets his home O2 from [facility]. He stated that his daughter will be the one to drive him home. He has 4 steps to his home with a rail. He feels safe to go home. He does not want home health at this time, because he can go stay with his daughter if he needs too. CM will continue to follow and assist with DC planning as needed Drum Drier Operator: Sveta Powell DCPIA - Discharge Planning Initial Assessment Updated by [email or web address]: Sveta Powell on 06/05/18 2:52 pm * Is the patient Alert and Oriented? Yes * How many steps to enter\exit or inside your home? 4 with lugo * PCP Esteban * Pharmacy [facility] 1 * Preadmission Environment Home with Family * ADLs Independent * Equipment Cane Nebulizer Oxygen * Other Equipment Portable O2 * List name and contact numbers for known caregivers / representatives who currently or will assist patient after discharge: Sonali [phone] * Verbal permission to speak to the caregivers and representatives has been obtained from the patient. N/A * Community resources currently utilized None * Additional services required to return to the preadmission environment? No * Can the patient safely return to the preadmission environment? Yes * Has this patient been hospitalized within the prior 30 days at any hospital? No Last DP export: 06/05/18 1:54 p Patient Name: YUMIKO PADILLA Page [id number] at 1504 All edits/amendments must be made on the electronic document DICTATION DATE: 06/05/181503 SANDBLAST OPERATOR: DELIA 06/05/181503 RPT#: [id number] DC DATE: STATUS: ADM IN [facility] [address] [place] [address] END OF REPORT
[2018-06-05 17:25] VITALS: BP 123/75
[2018-06-05 20:00] VITALS: BP 131/71
--- NOTE | 2018-06-05 20:00 | NUR ---
PT SITTING UP IN BED, NO SIGNS OF DISTRESS. ALERT AND ORIENTED. PT STATES NO NEEDS OR COMPLAINTS AT THIS TIME. BS 276, GAVE INSULIN ORDERED. IV RIGHT FA SL. NO REDNESS OR SWELLING AT INSERTION SITE, DRESSING CDI. REFUSES SCDS. CL IN REACH, WILL CONTINUE TO MONITOR
[2018-06-06 04:00] VITALS: BP 150/83
[2018-06-06 05:18] LABS: BASOPHILS 0.1 % (0-2); EOSINOPHILS 0 % (0-7); HEMATOCRIT 40.8 % (42.0-54.0); HEMOGLOBIN 12.9 g/dL (13.5-17.5); IMMATURE GRANULOCYTES 0.3 % (0-5); LYMPHOCYTES 9.6 % (15-50); MCH 27.9 pg (26.0-34.0); MCHC 31.6 g/dL (31.0-37.0); MCV 88.1 fL (80.0-100.0); MEAN PLATELET VOLUME 9.4 fL (7.4-10.4); MONOCYTES 6.4 % (2-11); NEUTROPHILS 83.6 % (40-80); PLATELET COUNT 263 10x3/uL (130-400); RBC 4.63 10x6/uL (4.20-6.10); RDW 14.3 % (11.5-14.5); WBC 14.5 10x3/uL (4.8-10.8)
[2018-06-06 05:42] LABS: ALBUMIN 3.1 g/dL (3.4-5.0); ALKALINE PHOSPHATASE 44 U/L (46-116); ALT (SGPT) 20 U/L (10-68); BILIRUBIN - TOTAL 0.22 mg/dL (0.2-1.3); CALCIUM 8.5 mg/dL (8.5-10.1); CARBON DIOXIDE 30.8 mmol/L (21.0-32.0); CHLORIDE - SERUM 103 mmol/L (98-107); CREATININE - SERUM 0.9 mg/dL (0.6-1.3); MAGNESIUM - SERUM 2.3 mg/dL (1.8-2.4); POTASSIUM - SERUM 4.7 mmol/L (3.5-5.1); PROTEIN - SERUM 6.3 g/dL (6.4-8.2); SODIUM 139 mmol/L (136-145); UREA NITROGEN 21 mg/dL (7-18); eGFR NON AFRICAN AMERICAN 89 mL/min (90-120)
[2018-06-06 05:43] LABS: CALC OSMOLALITY 285 mosm/kg (275-300); GLUCOSE 183 mg/dL (74-106)
--- NOTE | 2018-06-06 07:15 | NUR ---
MORNING ASSESSMENT COMPLETE. SEE ASSESSMENT FLOWSHEET FOR FURTHER DETAILS. PT LYING IN BED AAO X4 TO PERSON, PLACE, TIME AND SITUATION. PT SATS WITHIN NORMAL RANGE ON 2L O2 PER NC. R FA SL- C/D/I; PATENT. DENIES NEEDS AT THIS TIME. CL IN REACH.
[2018-06-06 08:30] VITALS: BP 165/85
[2018-06-06] MEDS ORDERED: LEVAQUIN750 MG PO (11:30)
[2018-06-06] MEDS ORDERED: PREDNISONE10 MG PO (11:35)
--- NOTE | 2018-06-06 12:55 | MORECARE ---
CASE MANAGEMENT DISCHARGE SUMMARY PATIENT: YUMIKO PADILLA UNIT: [id number] ADM DATE: 06/03/18 AGE: 72 : 47 SEX: M ROOM/BED: D.2205 AUTHOR: [email or web address] PHYSICIAN: REFERRING PHYSICIAN: SOHAN DARLING MD DATE OF SERVICE: 06/06/18 Discharge Plan Patient Name: YUMIKO PADILLA Facility: [facility]:[place] : 1945 Planned Disposition: Home Anticipated Discharge Date: Discharge Date: Expected LOS: Initial Reviewer: [email or web address] Initial Review Date: 06/03/2018 Generated: 06/06/18 1:55 pm Comments DCP- Discharge Planning Updated by [email or web address]: Sveta Powell on 06/06/18 11:[address] Patient discharging home today, denies any needs like HH. 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 IMM served and explained. CM to follow and assist as needed DCP- Discharge Planning Updated by [email or web address]: Sveta Powell on 06/05/18 1:[address] Patient Name: YUMIKO PADILLA Admission Status: ER Accout number: [id number] Admission Date: 06-03-2018 : 1945 Admission Diagnosis: Attending: SOHAN DARLING Current LOS: 2 Anticipated DC Date: Planned Disposition: Home Primary Insurance: WE[employer] MEDICARE ADV Discharge Planning Comments: CM met with patient to assess discharge planning needs. Patient lives independently at home where his granddaughter lives behind him if he needs something. He stated that when he is not feeling well he will go stay with his daughter who also lives close. He has home O2 with portability, Nebulizer, cane and walker at home. He gets his home O2 from [facility]. He stated that his daughter will be the one to drive him home. He has 4 steps to his home with a rail. He feels safe to go home. He does not want home health at this time, because he can go stay with his daughter if he needs too. CM will continue to follow and assist with DC planning as needed Backup Engineer: Sveta Powell DCPIA - Discharge Planning Initial Assessment Updated by [email or web address]: Sveta Powell on 06/05/18 2:52 pm * Is the patient Alert and Oriented? Yes * How many steps to enter\exit or inside your home? 4 with lugo * PCP Esteban * Pharmacy [facility] 1 * Preadmission Environment Home with Family * ADLs Independent * Equipment Cane Nebulizer Oxygen * Other Equipment Portable O2 * List name and contact numbers for known caregivers / representatives who currently or will assist patient after discharge: Sonali [phone] * Verbal permission to speak to the caregivers and representatives has been obtained from the patient. N/A * Community resources currently utilized None * Additional services required to return to the preadmission environment? No * Can the patient safely return to the preadmission environment? Yes * Has this patient been hospitalized within the prior 30 days at any hospital? No Coverage Notice Reviewer: [email or web address] - Sveta Powell Notice Issued Date-Time: 06/06/2018 12:45 Notice Type: IM Discharge Notice Notice Delivered To: Patient Relationship to Patient: Window Unit Air Conditioning Mechanic Name: Delivery Method: HAND - Hand Delivered Maddison Days: Prior Verbal Notification: Recipient Understood Notice: Yes Recipient Signature: Yes Med Rec Note Co-signed by Attending: Coverage Notice Comment: Last DP export: 06/05/18 2:04 p Patient Name: YUMIKO PADILLA Page [id number] at 1255 All edits/amendments must be made on the electronic document DICTATION DATE: 06/06/18 1254 IRONING PLEATER: DELIA 06/06/18 1254 RPT#: [id number] DC DATE: STATUS: ADM IN [facility] [address] [place] [address] END OF REPORT
[2018-06-06 13:02] VITALS: BP 115/63
--- NOTE | 2018-06-11 09:59 | MORECARE ---
CASE MANAGEMENT DISCHARGE SUMMARY PATIENT: YUMIKO PADILLA UNIT: [id number] ADM DATE: 06/03/18 AGE: 72 : [birth year] SEX: M ROOM/BED: D.2205 AUTHOR: NAJMADOC PHYSICIAN: REFERRING PHYSICIAN: SOHAN DARLING MD DATE OF SERVICE: 06/11/18 Discharge Plan Patient Name: YUMIKO PADILLA Facility: [facility]:[place] : 1945 Planned Disposition: Home Anticipated Discharge Date: Discharge Date: 06/06/2018 Expected LOS: 0 Initial Reviewer: [email or web address] Initial Review Date: 06/03/2018 Generated: 06/11/18 10:59 am Comments DCP- Discharge Planning Updated by [email or web address]: Sveta Powell on 06/06/18 11:[address] Patient discharging home today, denies any needs like HH. 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 IMM served and explained. CM to follow and assist as needed DCP- Discharge Planning Updated by [email or web address]: Sveta Powell on 06/05/18 1:[address] Patient Name: YUMIKO PADILLA Admission Status: ER Accout number: [id number] Admission Date: 06-03-2018 : 1945 Admission Diagnosis: Attending: SOHAN DARLING Current LOS: 2 Anticipated DC Date: Planned Disposition: Home Primary Insurance: [employer] ADV Discharge Planning Comments: CM met with patient to assess discharge planning needs. Patient lives independently at home where his granddaughter lives behind him if he needs something. He stated that when he is not feeling well he will go stay with his daughter who also lives close. He has home O2 with portability, Nebulizer, cane and walker at home. He gets his home O2 from [facility] in [facility]. He stated that his daughter will be the one to drive him home. He has 4 steps to his home with a rail. He feels safe to go home. He does not want home health at this time, because he can go stay with his daughter if he needs too. CM will continue to follow and assist with DC planning as needed Gut Puller: Sveta Powell DCPIA - Discharge Planning Initial Assessment Updated by [email or web address]: Sveta Powell on 06/05/18 2:52 pm * Is the patient Alert and Oriented? Yes * How many steps to enter\exit or inside your home? 4 with lugo * PCP Esteban * Pharmacy [facility] * Preadmission Environment Home with Family * ADLs Independent * Equipment Cane Nebulizer Oxygen * Other Equipment Portable O2 * List name and contact numbers for known caregivers / representatives who currently or will assist patient after discharge: Sonali [phone] * Verbal permission to speak to the caregivers and representatives has been obtained from the patient. N/A * Community resources currently utilized None * Additional services required to return to the preadmission environment? No * Can the patient safely return to the preadmission environment? Yes * Has this patient been hospitalized within the prior 30 days at any hospital? No Coverage Notice Reviewer: [email or web address] - Sveta Powell Notice Issued Date-Time: 06/06/2018 12:45 Notice Type: IM Discharge Notice Notice Delivered To: Patient Relationship to Patient: Nutritional Services Host Name: Delivery Method: HAND - Hand Delivered Maddison Days: Prior Verbal Notification: Recipient Understood Notice: Yes Recipient Signature: Yes Med Rec Note Co-signed by Attending: Coverage Notice Comment: Last DP export: 06/06/18 11:55 a Patient Name: YUMIKO PADILLA Page 51630 at 0959 All edits/amendments must be made on the electronic document DICTATION DATE: 06/11/18958 FIRER PORTABLE BOILER: DELIA 06/11/18958 RPT#: [id number] DC DATE:06/06/18 STATUS: DIS IN [facility] [address] [place] [address] END OF REPORT
== END 2018-06-06 17:11 | disposition home or self-care (01) | DRG 202 ==
LOC: D.ER 09:58 → D.EDHOLD 12:24 → D.MS 12:24
PROVIDERS: Family Medicine; ADMIT Internal Medicine Nephrology
DX: J20.9 Acute bronchitis, unspecified (principal); J44.1 Chronic obstructive pulmonary disease with (acute) exacerbation; I50.32 Chronic diastolic (congestive) heart failure; F17.213 Nicotine dependence, cigarettes, with withdrawal; J96.11 Chronic respiratory failure with hypoxia; J44.0 Chronic obstructive pulmonary disease with (acute) lower respiratory infection; I11.0 Hypertensive heart disease with heart failure; E11.9 Type 2 diabetes mellitus without complications

== ENCOUNTER 2018-07-15 09:20 | Inpatient (IN) | payer MEDICARE, MEDICAID ==
[~2018-07-15] VITALS: Ht 172.7 cm; Wt 73.9 kg
--- NOTE | ~2018-07-15 | HEMODYNAMI ---
PATIENT:YUMIKO PADILLA MEDICAL RECORD: [id number] : [birth year] [id number] ADMISSION DATE: 07/15/18 Generatedon:07/16/201814:44 Patient name: YUMIKO PADILLA Patient #: [id number] : 1945 Date of study: 07/16/2018 Page: Of Hemodynamic Procedure Report Patient Data Patient Demographics Procedure consent was obtained First Name: YUMIKO Gender: Male Last Name: VALERIE : 1945 [facility] Initial: D Age: 72 year(s) Patient #: [id number] Race: SSN: [id number] Additional ID: [id number] Contact details Address: [address] [place] [address] TRAIL State: [place] City: [place] Zip code: [address] Past Medical History History of disease Date Diagnosis Comments CAD Allergies Allergen Reaction Date Comments Reported Penicillins 08/25/2014 Other allergy 08/02/2016 [facility] Admission Admission Data Admission Date: 07/15/2018 Admission Time: 11:23 Room #: D.2124 Lab Results Lab Result Date: 07/16/2018 Lab Result Time: 0:00 Biochemistry Name Units Result Min Max BUN mg/dl 10 --(-*--)-- 7 18 Creatinine mg/dl 1 --(--*-)-- 0.6 1.3 CBC Name Units Result Min Max Hemoglobin g/dl 14.1 --(*---)-- 13.5 17.5 Procedure Procedure Types Cath Procedure Diagnostic Procedure LHC LHC w/Coronaries FFR/IVUS Intra-Coronary IVUS Initial PCI Procedure Coronary Stent Coronary Stent Initial x2 Procedure Description Procedure Date Procedure Date: 07/16/2018 Procedure Start Time: 14:21 Procedure End Time: 14:42 Procedure Staff Name Function Raul Gonzalez MD Performing Physician Jared Roberson RT Monitor Barbie Martines RN Nurse Melanie Chin RT Scrub Procedure Data Cath Procedure Fluoroscopy Diagnostic fluoroscopy Total fluoroscopy Time: 4.4 time: 4.4 min min Diagnostic fluoroscopy Total fluoroscopy dose: 543 dose: 543 mGy mGy Contrast Material Contrast Material Type Amount (ml) Isovue 300 90 Entry Location Entry Primary Successful Side Size Upsize Upsize Entry Closure Succes sful Closure Location (Fr) 1 (Fr) 2 (Fr) Remarks Device Remarks Femoral Right 5 Fr 6 Fr Exoseal artery Short Estimated blood loss: 20 ml Diagnostic catheters Device Type Used For End Catheter Placement MULTIPACK Pigtail 5 Fr Ventriculography catheter MULTIPACK JL 4.0 5Fr Procedure catheter MULTIPACK 3DRC 5Fr Procedure catheter Procedure Medications Medication Administration Route Dosage Oxygen etCO2 Nasal cannula 3 l/min Lidocaine 2% added to field 20 Heparin Flush Bag added to field 2 bags (1000units/500ml NS) 0.9% NaCl I.V. 100 ml/hr Versed I.V. 1 mg Fentanyl I.V. 50 mcg Versed I.V. 1 mg Fentanyl I.V. 50 mcg Heparin Bolus I.V. 4000 units Hemodynamics Rest HGB: 14.1 (g/dl) Heart Rate: 69 (bpm) Pressure Samples Time Site Value (mmHg) Purpose Heart Use Rate(bpm) 14:22 LV 104/6,7 Snapshot 67 Snapshots Pre Cath Intra NCS Post Cath Vital Signs Time Heart Resp SPO2 etCO2 NIBP Rhythm Pain Sedation Rate (ipm) (%) (mmHg) (mmHg) Status Level (bpm) 14:09:41 69 25 89 116/67(86) NSR 0 (11) 10(A) , No pain 14:13:51 69 25 91 27.2 109/70(85) NSR 0 (11) 10(A) , No pain 14:17:59 70 24 90 9 113/70(82) NSR 0 (11) 10(A) , No pain 14:22:11 70 14 92 37 116/62(88) NSR 0 (11) 9(A) , No pain 14:26:23 70 13 92 14.3 115/66(87) NSR 0 (11) 9(A) , No pain 14:30:34 72 15 93 20 107/62(82) NSR 0 (11) 9(A) , No pain 14:34:42 74 18 93 18.9 105/67(80) NSR 0 (11) 9(A) , No pain 14:38:38 76 20 92 24.9 110/64(85) NSR 0 (11) 10(A) , No pain Medications Time Medication Route Dose Verified Delivered Reason Notes Effectiveness by by 14:13:55 Oxygen etCO2 3 Raul Buffie used for Nasal l/min Carlos Martines RN procedure cannula 14:14:01 Lidocaine 2% added 20ml Raul Raul for local to vial Carlos Gonzalez MD anesthetic field 14:14:07 Heparin Flush added 2 Raul Raul used for Bag to bags Carlos Gonzalez MD procedure (1000units/500ml field NS) 14:16:08 0.9% NaCl I.V. 100 Raul Buffie Per physician ml/hr Carlos Martines RN 14:18:52 Versed I.V. 1 mg Raul Buffie for sedation Carlos Martines RN 14:18:57 Fentanyl I.V. 50 Raul Buffie for sedation mcg Carlos Martines RN 14:22:25 Versed I.V. 1 mg Raul Buffie for sedation Carlos Mratines RN 14:22:28 Fentanyl I.V. 50 Raul Buffie for sedation mcg Carlos Martines RN 14:27:34 Heparin Bolus I.V. 4000 Raulchaitanya Gavinie for verif ied units Carlos Martines RN anticoagulation with dr gonzalez Procedure Log Time Note 13:37:10 Jared Roberson RT(R) (CV) sent for patient. Start room use. 13:37:31 Time tracking: Regular hours (M-F 7:00 - 5:00) 13:37:35 Plan of Care:Hemodynamics will remain stable., Cardiac rhythm will remain stable., Comfort level will be maintained., Respiratory function will remain adequate., Patient/ family verbilizes understanding of procedure., Procedure tolerated without complication., Recovers from procedure without complications.. 14:08:28 Patient received from PCU to CCL 1 Alert and oriented. Tansferred to table in Supine position. 14:08:29 Warm blankets applied, and oren hugger turned on for patient comfort. 14:08:30 Correct patient and procedure confirmed by team. 14:08:31 Signed procedure consent form obtained from patient. 14:08:32 ECG and BP/O2 sat monitors applied to patient. 14:08:32 Vital chart was started 14:08:39 Rhythm: sinus rhythm 14:11:49 Baseline sample Acquired. 14:12:21 H&P Date Dictated: 07/15/2018 Greater than 30 days; new H&P dictated by physician. Or brief H&P completed., Emergent; H&P N/A, Within 30 days and on chart., H&P Addendum completed by physician on day of procedure. (MUST COMPLETE FOR ALL OUTPATIENTS), ER History on chart., New H&P dictated by physician.. 14:12:43 Pre-procedure instructions explained to patient. 14:12:44 Pre-op teaching completed and patient verbalized understanding. 14:12:55 Family in waiting room. 14:13:00 Patient NPO since Midnight. 14:13:35 ALLERGY: PCN, CLARITHROMYCIN 14:13:55 Oxygen 3 l/min etCO2 Nasal cannula was administered by Barbie Martines RN; used for procedure; 14:13:58 Is the patient allergic to Iodine/contrast media? No. 14:14:01 Lidocaine 2% 20ml vial added to field was administered by Raul Gonzalez MD; for local anesthetic; 14:14:01 Is patient on blood thinner?Yes 14:14:04 ACC The patient was administered the following blood thiners within the last 24 hours: ACCPlavix 14:14:07 Heparin Flush Bag (1000units/500ml NS) 2 bags added to field was administered by Raul Gonzalez MD; used for procedure; 14:14:15 Patient diabetic? Yes. 14:14:17 If diabetic: On Metformin? Yes 14:14:22 If on Metformin: Last Dose? 07/15/2018 14:14:41 ----Pre-sedation anethsthesia assessment.---- 14:14:46 Previous problem with sedation/anesthesia? No ? 14:14:49 Snore? Yes 14:14:50 Sleep apnea? No 14:14:52 Deviated septum? No 14:14:53 Opens mouth fully? Yes 14:14:55 Sticks out tongue? Yes 14:15:00 Airway obstruction? No ? 14:15:15 BOTH HEARING AIDS IN 14:15:25 Pre procedure: right dorsailis pedis pulse 1+ Palpable, but thready & weak; easily obliterated 14:15:30 Patient pain scale 0/10 ?. 14:15:42 IV patent on arrival in left hand with 0.9% NaCl at O. 14:16:08 0.9% NaCl 100 ml/hr I.V. was administered by Barbie Martines RN; Per physician; 14:16:12 Lab Result : Creatinine 1 mg/dl 14:16:12 Lab Result : BUN 10 mg/dl 14:16:12 Lab Result : Hemoglobin 14.1 g/dl 14:16:16 Lab results completed and on chart. 14:16:21 Right groin area was prepped with chlora-prep and draped in sterile fashion 14:16:23 Alarms reviewed by R. N. 14:16:24 Sharps counted by scrub and verified by R.N. 14:16:26 Physician arrived 14:16:26 --------ALL STOP TIME OUT------ 14:16:29 Final Timeout: patient, procedure, and site verified with staff and physician. All members of the team are in agreement. 14:16:32 Right groin site verified by team. 14:16:41 Maximum allowable Isovue 300 dose 300ml. Physician notified. (300ml for normal creatinines. For patients with creatinine of 1.7 or higher multiply weight(kg) x 5 divided by creatinine.) 14:16:56 Fire Safety Assessment: A--An alcohol-based skin anteseptic being used preoperatively., C--Open oxygen or nitrous oxide is being used., D--An ESU, laser, or fiber-optic light is being used. 14:17:01 Physical assessment completed. ASA score P 2 - A patient with mild systemic disease as per Raul Gonzalez MD. 14:17:08 Sedation plan: IV Moderate Sedation Medication:Versed, Fentanyl 14:17:19 Use device set Femoral Dx 14:17:21 ACIST Syringe (03080) opened to sterile field. 14:17:22 Bag Decanter (2002S) opened to sterile field. 14:17:22 Medline Cath Pack ([id number]) opened to sterile field. 14:17:23 DIAGNOSTIC WIRE .035 260cm J wire (990016) opened to sterile field. 14:17:25 ACIST Hand Control (08103) opened to sterile field. 14:17:26 ACIST Manifold (99702) opened to sterile field. 14:17:26 DIAGNOSTIC Multipack 5Fr catheter set (EH4939) opened to sterile field. 14:17:29 Tegaderm 4 x 4 (1626W) opened to sterile field. 14:17:32 SHEATH 5FR [place] (JRN201) opened to sterile field. 14:18:52 Versed 1 mg I.V. was administered by Barbie Martines RN; for sedation; 14:18:57 Fentanyl 50 mcg I.V. was administered by Barbie Martines RN; for sedation; 14:21:07 Procedure started. 14:21:11 Local anesthetic to right femoral artery with Lidocaine 2% by Raul Gonzalez MD.INITIAL ACCESS ONLY 14:21:38 A 5 Fr sheath was inserted into the Right Femoral artery 14:21:51 A MULTIPACK Pigtail 5 Fr catheter was advanced over the wire and used for Ventriculography. 14:22:16 Zero performed for pressure channel P1 14:22:25 Versed 1 mg I.V. was administered by Barbie Martines RN; for sedation; 14:22:28 Fentanyl 50 mcg I.V. was administered by Barbie Martines RN; for sedation; 14:22:49 LV gram done using SALCIDO 14:22:55 EF : 60 % 14:22:56 LV hemodynamics recorded. 14:22:58 Catheter removed. 14:23:05 A MULTIPACK JL 4.0 5Fr catheter was advanced over the wire and used for Procedure. 14:23:40 LCA angiography performed. 14:24:25 Catheter removed. 14:24:32 A MULTIPACK 3DRC 5Fr catheter was advanced over the wire and used for Procedure. 14:25:09 RCA angiography performed. 14:25:43 Catheter removed. 14:25:44 Proceeding to intervention. 14:26:26 GUIDE 6FR AR 2.0 catheter (XX1JH61) opened to sterile field. 14:26:38 Jesup Haworth Eagleye IVUS Catheter (85454L) opened to sterile field. 14:26:42 CHOICE PT Extra Support 182cm wire (1398948N5) opened to sterile field. 14:26:43 INFLATOR Merit BasixCompak (XX4610) opened to sterile field. 14:26:44 SHEATH 6FR [place] (MMW044) opened to sterile field. 14:27:01 Sheath upsized to a 6 Fr Short. 14:27:07 6 Fr AR 2 guide catheter was inserted over the wire 14:27:21 CHOICE wire advanced. 14:27:34 Heparin Bolus 4000 units I.V. was administered by Barbie Martines RN; for anticoagulation; verified with dr gonzalez 14:31:25 IVUS catheter advanced over wire. 14:31:28 IVUS pass to RCA lesion performed. 14:31:30 IVUS catheter removed over wire. 14:31:40 75.8% 14:32:28 Place stent Inflation Number: 1 A LOUIS RX 3.5 x 15 stent ([id number]) was prepped and advanced across the Mid RCA. The stent was deployed at 21 CANDICE for 0:10 (min:sec). 14:32:54 Stent catheter was removed intact over wire. 14:32:55 Wire removed. 14:33:08 Guide catheter removed. 14:33:25 GUIDE 6FR XBLAD 3.5 catheter ([id number]) opened to sterile field. 14:33:44 6 Fr XBLAD 3.5 guide catheter was inserted over the wire 14:34:12 CHOICE wire advanced. 14:34:18 LAD 14:34:53 Place stent Inflation Number: 1 A LOUIS RX 2.5 x 15 stent ([id number]) was prepped and advanced across the Mid LAD. The stent was deployed at 17 CANDICE for 0:10 (min:sec). 14:35:27 Stent catheter was removed intact over wire. 14:35:29 Wire removed. 14:35:30 Guide catheter removed. 14:38:26 EXOSEAL 6Fr (EX600) opened to sterile field. 14:38:27 Sheath removed intact; hemostasis achieved with Exoseal to the Right Femoral artery. 14:38:34 Procedure ended.(Physican Out) 14:38:42 Fluoroscopy time 04.40 minutes. 14:38:50 Flurop Dose total: 543 14:38:50 Fluoroscopy dose: 543 mGy 14:38:56 Contrast amount:Isovue 300 90ml. 14:38:58 Sharps counted by scrub and verified by R.N. 14:39:43 Insertion/operative site no bleeding no hematoma. 14:39:47 Post-op/insertion site Right Femoral artery dressed using a 4 x 4 and Tegaderm. 14:39:52 Post right femoral artery:stable 14:39:56 Post Procedure Pulses reassessed and unchanged 14:40:06 Post-procedure physical assessment completed. ASA score P 2 - A patient with mild systemic disease as per Raul Gonzalez MD. 14:40:15 Post procedure rhythm: unchanged., sinus rhythm 14:40:23 Estimated blood loss: 20 ml 14:40:39 Patient needs reinforcement of post procedure teaching. 14:41:12 Procedure type changed to Cath procedure, Diagnostic procedure, LHC, LHC w/Coronaries, FFR/IVUS, Intra-Coronary IVUS Initial, PCI procedure, Coronary Stent, Coronary Stent Initial x2 14:41:53 Procedure and supply charges have been captured, reviewed, submitted and are correct. 14:41:54 Vital chart was stopped 14:41:55 See physician's report for complete and final results. 14:41:59 Report given to PCU. 14:42:04 Patient transfered to PCU with Bed. 14:42:10 Procedure ended. 14:42:10 Full Disclosure recording stopped 14:42:35 End room use (Document Last) Intervention Summary Intervention Notes Time ActionType Lesion and Equipment Used Action# Pressure Duration Attributes 14:32:28 Place stent Mid RCA LOUIS RX 3.5 x 1 21 00:10 15 stent ([id number]) 14:34:53 Place stent Mid LAD LOUIS RX 2.5 x 1 17 00:10 15 stent ([id number]) Device Usage Item Name Manufacture Quantity Catalog Number Hospital Part Current M inimal Lot# / Charge Number Stock Stock Serial# Code ACIST Syringe Acist 1 62000 964303 768713 301383 2 0 (20977) Medical Systems Inc Bag Decanter Microtek 1 527007 14048 885740 5 () Medical Inc. Medline Cath Medline 1 [id number] 051507 15678 709995 5 Pack ([id number]) DIAGNOSTIC St Ty 1 707361 060210 438749 961558 3 0 WIRE .035 260cm J wire (355101) ACIST Hand Acist 1 19395 296236 181058 547893 5 Control Medical (17472) Systems Inc ACIST Manifold Acist 1 30424 547278 213889 770059 5 (87798) Medical Systems Inc DIAGNOSTIC Cardinal 1 SS1967 007089 93410 975266 3 0 Multipack 5Fr Health catheter set (RK4844) Tegaderm 4 x 4 3M 1 1626W 469762 418449 236522 5 (1626W) SHEATH 5FR Terumo 1 BAQ023 798207 149584 582017 5 [place] (PHK125) MULTIPACK Cardinal 1 641368 5 Pigtail 5 Fr Health catheter MULTIPACK JL Cardinal 1 919719 5 4.0 5Fr Health catheter MULTIPACK 3DRC Cardinal 1 693917 5 5Fr catheter Health GUIDE 6FR AR Medtronic 1 [id number] 789115 54221 617438 1 2.0 catheter ([id number]) Jesup Jesup 1 38471P 876702 918052 229393 8 Haworth Eagleye IVUS Catheter (89846X) CHOICE PT [place] 1 [id number] 028795 803741 179656 5 Extra Support Scientific 182cm wire ([id number]) INFLATOR Merit Merit 1 FC1938 179265 438877 144264 1 5 Dental Corp Medical (IF0559) SHEATH 6FR Terumo 1 DWV219 779025 750090 700910 4 0 [place] (QOE826) LOUIS RX 3.5 x Medtronic 1 [id number] 635008 6748307 393138 5 [id number] 15 stent ([id number]) LOUIS RX 2.5 x Medtronic 1 [id number] 040148 6036557 289684 5 [id number] 15 stent ([id number]) GUIDE 6FR Cardinal 1 [id number] 514667 870120 004023 1 0 XBLAD 3.5 Health catheter (46786822) EXOSEAL 6Fr Cardinal 1 EX600 159692 443312 783304 1 0 (EX600) Health Signature Audit [place] Stage Time Signature Unsigned Intra-Procedure 07/16/2018 Jared Roberson 2:44:31 PM RT(R) (CV) Signatures Monitor : Jared Roberson RT Signature : Date : Time : [facility] [address] [place] [address]
--- NOTE | ~2018-07-15 | OP ---
PATIENT NAME: YUMIKO PADILLA MEDICAL RECORD: [id number] :49 LOCATION:D.M2 D.2124 ADMISSION DATE:07/15/18 SURGEON: PEPE CHAVEZ MD DATE OF OPERATION: 07/16/2018 PROCEDURES: 1. PTCA and stent of LAD. 2. PTCA and stent of RCA. 3. Left heart catheterization. 4. Selective coronary angiography. 5. Left ventriculogram. 6. Intravascular ultrasound. INDICATION: Angina and coronary artery disease. PROCEDURE IN DETAIL: After informed consent was obtained and after a detailed description of the risks, benefits as well as alternative therapies, the patient elected to proceed with angiogram and angioplasty. The right femoral area was prepped and draped in normal sterile fashion. Right femoral artery was cannulated via modified Seldinger technique with the placement of 6-Jordanian sheath. All catheters exchanged through this sheath. FINDINGS: Left ventriculogram was performed in standard 30-degree SALCIDO view, reveals good cardiac wall motion, ejection fraction is 60%. SELECTIVE CORONARY ANGIOGRAPHY: 1. Left main is with no significant angiographic disease. 2. Left anterior descending has previously placed stents, these are widely patent; however, there is 75% stenosis after the previously placed stents. 3. The left circumflex has mild irregularities, but no flow-limiting stenosis. 4. The right coronary has previously placed stents. Intravascular ultrasound reveals there is greater than 75% in-stent restenosis at one point of these previously placed stents. PTCA AND STENT OF THE RCA: The stent used was a 3.5 x 15 mm [place]. Result was 0% residual stenosis. PTCA AND STENT OF THE LAD: The stent used was a 2.5 x 15 mm [place]. Result was 0% residual stenosis. OVERALL IMPRESSION: Successful PTCA and stent of the LAD and RCA, both going from 75% to 80% initial stenosis to 0% residual. TRANSINT:[id number] Voice Confirmation ID: [id number] DOCUMENT ID: [id number] PEPE CHAVEZ MD CC: [id number] DICTATION DATE: 07/16/18 1442 CONTACT LENS BLOCKER AND CUTTER: 07/16/18 1603 ADM IN [place] [address] [place] [address]
--- NOTE | ~2018-07-15 | EC ---
PATIENT:YUMIKO PADILLA DATE OF SERVICE: 07/15/18 SEX: M MEDICAL RECORD: [id number] DATE OF : [birth year] LOCATION:D.M2 D.212 AGE OF PATIENT: 72 ADMISSION DATE: 07/15/18 REFERRING PHYSICIAN: INTERPRETING PHYSICIAN: PEPE GONZALEZ MD ECHOCARDIOGRAM REPORT ECHO CHARGES 5 ECHO LIMITED Date: 07/15/18 CLINICAL DIAGNOSIS: SOB ECHOCARDIOGRAPHIC MEASUREMENTS (adult normal given) AC root (d.<3.7cm) 0 cm LV Septum d (<1.2 cm> 0 cm Valve Excursion 0 cm LV Septum (systole) 0 cm Left Atria (s.<4.0cm> 0 cm LVPW d(<1.2cm) 0 cm RV (d.<2.3cm) 0 cm LVPW (sytole) 0 cm LV diastole(<5.6CM) 0 cm MV E-F(>70mm/sec) 0 cm LV systole 0 cm LVOT Diameter 0 cm MV exc.(>10mm) 0 cm Est.ejection fraction (50-75%) % DOPPLER: LVIT cm/sec A 0 cm/sec E 0 cm/sec LA 0 cm/sec RVSP 17.0 mmHg LVOT 0 cm/sec AOP1/2T m/s Asc. Ao 0 cm/sec RVOT 0 cm/sec RA 0 cm/sec PA 0 cm/sec AV Gradient Peak 0 mmHg AV Mean 0 mmHg AV Area 0 cm MV Gradient Peak 0 mmHg MV Mean 0 mmHg MV Area 0 cm COMMENTS: Mortgage Analyst: Girish FALK Application Support Administrator: 1 Dr. Gonzalez TAPE# PACS Pericardial Effusion N DATE OF SERVICE: PROCEDURE: Limited echocardiogram. FINDINGS: Left ventricular chamber size is within normal limits. Left ventricular systolic function is preserved at 60%. TRANSINT:[id number] Voice Confirmation ID: [id number] DOCUMENT ID: [id number] ECHOCARDIOGRAM REPORT [id number] VALERIEYUMIKO Efrain PEPE GONZALEZ MD CC: [id number] DICTATION DATE: 07/16/18 1139 STAFF ANTISUBMARINE OFFICER: 07/16/18 1227 ADM IN [place] [id number] [place] [address]
[~2018-07-15 09:20] MED LIST changes: +BYSTOLIC10 MG PO; +GLIMEPIRIDE4 MG PO; +ISOSORBIDE MONO30 M1 PO; +KLOR-CON8 MEQ PO; +MUCUS RELIEF400 MG PO; +ZYRTEC10 MG PO
[2018-07-15 09:34] LABS: BASOPHILS 0.4 % (0-2); EOSINOPHILS 1.2 % (0-7); HEMATOCRIT 44.2 % (42.0-54.0); HEMOGLOBIN 14.1 g/dL (13.5-17.5); IMMATURE GRANULOCYTES 0.3 % (0-5); LYMPHOCYTES 25.3 % (15-50); MCH 28.1 pg (26.0-34.0); MCHC 31.9 g/dL (31.0-37.0); MCV 88.2 fL (80.0-100.0); MEAN PLATELET VOLUME 9.2 fL (7.4-10.4); MONOCYTES 8.8 % (2-11); PLATELET COUNT 284 10x3/uL (130-400); RBC 5.01 10x6/uL (4.20-6.10); RDW 14.2 % (11.5-14.5); WBC 12.5 10x3/uL (4.8-10.8)
[2018-07-15 09:50] LABS: ALBUMIN 3.3 g/dL (3.4-5.0); ALKALINE PHOSPHATASE 68 U/L (46-116); ALT (SGPT) 12 U/L (10-68); BILIRUBIN - TOTAL 0.25 mg/dL (0.2-1.3); CALC OSMOLALITY 281 mosm/kg (275-300); CALCIUM 8.8 mg/dL (8.5-10.1); CHLORIDE - SERUM 101 mmol/L (98-107); GLUCOSE 192 mg/dL (74-106); POTASSIUM - SERUM 4.2 mmol/L (3.5-5.1); PROTEIN - SERUM 6.9 g/dL (6.4-8.2); SODIUM 139 mmol/L (136-145); UREA NITROGEN 10 mg/dL (7-18); eGFR NON AFRICAN AMERICAN 78 mL/min (90-120)
[2018-07-15 10:00] LABS: CKMB 1.4 U/L (0.0-3.6); CREATINE KINASE 46 UL (21-232); MAGNESIUM - SERUM 1.6 mg/dL (1.8-2.4); TROPONIN-I 0.019 ng/mL (0.000-0.060)
--- NOTE | 2018-07-15 10:05 | NUR ---
PAIN UNRELIEVED WITH NTG
[2018-07-15 10:28] VITALS: BP 103/66
[2018-07-15 11:28] VITALS: BP 106/64
--- NOTE | 2018-07-15 12:25 | NUR ---
PT PROVIDED WITH LUNCH TRAY.
[2018-07-15 12:28] VITALS: BP 108/70
[2018-07-15 13:30] VITALS: BP 96/64
--- NOTE | 2018-07-15 13:44 | MORECARE ---
CASE MANAGEMENT DISCHARGE SUMMARY PATIENT: YUMIKO PADILLA UNIT: [id number] ADM DATE: 07/15/18 AGE: 72 : [birth year] SEX: M ROOM/BED: D.E14 AUTHOR: DRU YAO PHYSICIAN: REFERRING PHYSICIAN: SOHAN DARLING MD DATE OF SERVICE: 07/15/18 Discharge Plan Patient Name: YUMIKO PADILLA [facility] [facility] 1945 Planned Disposition: Anticipated Discharge Date: Discharge Date: Expected LOS: Initial Reviewer: [email or web address] Initial Review Date: 07/15/2018 Generated: 07/15/18 2:44 pm Patient Name: YUMIKO PADILLA Page 13406 at 1344 All edits/amendments must be made on the electronic document DICTATION DATE: 07/15/18 1344 FLATWORK CATCHER: DELIA 07/15/18 1344 RPT#: [id number] DC DATE: STATUS: ADM IN [facility] [address] [place] [address] END OF REPORT
--- NOTE | 2018-07-15 17:52 | NUR ---
ASSESSMENT COMPLETE AT THIS TIME AAOX4 RESP UNLABORED SKIN W/D TELEMETRY SHOWS SR RATE 72 LT HAND SALINE LOCK INTACT WITH OCCLUSIVE DRSG SITE FREE OF REDNESS OR EDEMA DENIES ANY NEEDS OR DISCOMFORT AT THIS TIME
[2018-07-15 19:55] VITALS: BP 110/57
--- NOTE | 2018-07-15 20:01 | NUR ---
NICOTINE PATCH 14 MG PLACED TO LEFT UPPER ARM.
--- NOTE | 2018-07-16 02:30 | NUR ---
I have reviewed this patient and I concur with the Shift Assessment completed by the Licensed Practical Nurse today this shift.
[2018-07-16 03:50] VITALS: BP 103/59
--- NOTE | 2018-07-16 07:18 | NUR ---
ROUNDING DONE WITH PATIENT BEING NPO FOR HEART CATH TODAY. PERMITS SIGNED. ON HEART MONITOR SHOWING SR, HR 65. ON 2L PER NC. LEFT HAND PIV SEEN WITH SALINE LOCK. PATIENT IS HARD OF HEARING BUT HAS HEARING AIDS. DENIES CHEST PAIN AT PRESENT TIME.
[2018-07-16 08:01] LABS: BASOPHILS 0.3 % (0-2); EOSINOPHILS 1.6 % (0-7); HEMATOCRIT 45.6 % (42.0-54.0); HEMOGLOBIN 14.6 g/dL (13.5-17.5); IMMATURE GRANULOCYTES 0.2 % (0-5); LYMPHOCYTES 24.1 % (15-50); MCH 28.1 pg (26.0-34.0); MCV 87.7 fL (80.0-100.0); MEAN PLATELET VOLUME 9.6 fL (7.4-10.4); MONOCYTES 10.8 % (2-11); PLATELET COUNT 294 10x3/uL (130-400); RDW 14.4 % (11.5-14.5); WBC 11.7 10x3/uL (4.8-10.8)
[2018-07-16 08:13] LABS: ALBUMIN 3.3 g/dL (3.4-5.0); ALKALINE PHOSPHATASE 52 U/L (46-116); BILIRUBIN - TOTAL 0.24 mg/dL (0.2-1.3); CALCIUM 9.1 mg/dL (8.5-10.1); CARBON DIOXIDE 33.6 mmol/L (21.0-32.0); CHLORIDE - SERUM 100 mmol/L (98-107); CREATININE - SERUM 0.8 mg/dL (0.6-1.3); POTASSIUM - SERUM 3.9 mmol/L (3.5-5.1); PROTEIN - SERUM 6.7 g/dL (6.4-8.2); SODIUM 140 mmol/L (136-145); eGFR NON AFRICAN AMERICAN > 90 mL/min (90-120)
[2018-07-16 08:14] LABS: ALT (SGPT) 18 U/L (10-68); CALC OSMOLALITY 281 mosm/kg (275-300); GLUCOSE 136 mg/dL (74-106); MAGNESIUM - SERUM 2.1 mg/dL (1.8-2.4); UREA NITROGEN 14 mg/dL (7-18)
[2018-07-16 08:28] VITALS: BP 117/68
--- NOTE | 2018-07-16 10:39 | NUR ---
STILL NPO AT THIS TIME FOR HEART CATH. DENIES ANY NEEDS AT THIS TIME.
--- NOTE | 2018-07-16 10:54 | HP ---
PATIENT: YUMIKO PADILLA MEDICAL RECORD: [id number] ACCOUNT: [id number] LOCATION:[address] : [birth year] ADMISSION DATE: 07/15/18 PCP: MASON BENÍTEZ MD HISTORY AND PHYSICAL EXAMINATION DIAGNOSES: 1. Unstable angina. 2. Coronary artery disease. 3. Previous PTCA and stent. 4. COPD. 5. Smoking history. 6. Noninsulin-dependent diabetes. 7. Hypertension. 8. Hyperlipidemia. HISTORY: Mr. Padilla presents with unstable anginal symptomatology. This has been going on for the past 3 days. Last cardiac stent was 2 years ago. He has risk factors as above. REVIEW OF SYSTEMS: The patient reports easy bruising but reports no swollen glands. The patient reports no fever, no night sweats, no significant weight gain, no significant weight loss. No significant exercise tolerance. The patient reports no dry eyes, no irritation, no vision change. Patient reports no difficulty hearing and no ear pain. Patient reports no frequent nose bleeds or nose and sinus problems. Patient reports on arm pain on exertion. No shortness of breath while lying down. No history of heart murmur. Patient reports no cough, no wheezing or coughing up blood. Patient reports no abdominal pain, no vomiting. Normal appetite. No diarrhea and not vomiting blood. No nausea and no constipation. Patient reports no incontinence. No difficulty urinating. No hematuria. No increased frequency. Patient reports no muscle aches. No weakness, no arthralgias, no back pain. No swelling of the extremities. Patient reports no abnormal mole, no jaundice, no rashes. Reports no loss of consciousness. No weakness and no numbness. No seizures, dizziness, or headaches. The patient reports no depression, no sleep disturbance, feeling safe in a relationship and no alcohol abuse. Patient reports on fatigue. Reports no runny nose or sinus pressure. No itching, no hives, and no frequent sneezing. PHYSICAL EXAMINATION: GENERAL APPEARANCE: Well-nourished, well-developed, appears stated age. Level of distress, comfortable. PSYCHIATRIC: Mental status, alert, normal affect. Orientation, oriented to time, place and person. EYES: Lids and conjunctiva, noninjected. No discharge, no pallor. ENT: Lips, teeth, gums, normal dentition. Oropharynx, no cyanosis, no pallor. NECK: Carotid arteries, bilateral normal upstroke, no bruits, no thrills. JUGULAR VEINS: No jugular venous pressure or distention. CERVICAL LYMPH NODES: Nontender, nonenlarged. THYROID: Not enlarged. Nontender. No nodules. LUNGS: Respiratory effort, unlabored. CHEST: Normal curvature. No thoracic deformity. No chest wall tenderness. Percussion, resonant. Auscultation, clear. No wheezes, no rales, no rhonchi. CARDIOVASCULAR: Precordial exam, nondisplaced. No heaves or pericardial thrills. Rate and rhythm, regular. Heart sounds, normal S1, normal S2. No S3, no gallop, no rub. Systolic murmur, not heard. Diastolic murmur, not heard. HISTORY AND PHYSICAL [id number] YUMIKO PADILLA EXTREMITIES: No cyanosis, no edema. Peripheral pulses, full and equal in all extremities, except as noted. No bruits appreciated. ABDOMEN: Soft, nondistended. Normal aorta. No bruit. Nontender. No masses. Liver, nontender, no hepatomegaly. Spleen, nontender, no splenomegaly. MUSCULOSKELETAL: No joint tenderness. No joint swelling. No erythema. NEUROLOGICAL: Normal gait, normal strength, normal tone. SKIN: Warm and dry. OVERALL IMPRESSION: Unstable angina in a patient with past history of coronary artery disease, previous myocardial infarction, and multiple risk factors. Most likely, he has recurrent hemodynamically significant coronary artery disease. We will proceed with coronary angiography in the a.m. Further care depends upon findings of the angiography. TRANSINT:[id number] Voice Confirmation ID: [id number] DOCUMENT ID: [id number] PEPE CHAVEZ MD at 1054 CC: [id number] DICTATION DATE: 07/15/18 1133 STAFF CYTOTECHNOLOGIST: 07/15/18 1147 ADM IN [place] [id number] [place] [address]
[2018-07-16 11:40] VITALS: BP 120/71
--- NOTE | 2018-07-16 12:06 | NUR ---
STILL AWAITING HEART CATH, NPO.
[2018-07-16 13:18] VITALS: Ht 172.7 cm; Wt 73.9 kg
--- NOTE | 2018-07-16 13:42 | NUR ---
PATIENT IS PRE-OP FOR HEART CATH.
--- NOTE | 2018-07-16 13:59 | NUR ---
TO SUPERVISOR WATER SOFTENER SERVICE VIA BED.
[2018-07-16 15:00] VITALS: BP 99/61
--- NOTE | 2018-07-16 15:01 | NUR ---
RETURNS FROM PROFESSOR/NURSE ANESTHETIST RECOVERY LAYING FLAT WITH C/D/I DRESSING TO RIGHT GROIN. DAUGHTER IS AT BEDSIDE. TO LAY FLAT X 4 HOURS. WILL MONITOR.
--- NOTE | 2018-07-16 15:37 | NUR ---
B/P TRENDING DOWN SOME. 250 CC FLUID BOLUS GIVEN. WILL RE-CHECK BLOOD PRESSURE OFTEN.
--- NOTE | 2018-07-16 17:04 | MORECARE ---
CASE MANAGEMENT DISCHARGE SUMMARY PATIENT: YUMIKO PADILLA UNIT: [id number] ADM DATE: 07/15/18 AGE: 72 : [birth year] SEX: M ROOM/BED: D.2124 AUTHOR: DRU YAO PHYSICIAN: REFERRING PHYSICIAN: SOHAN DARLING MD DATE OF SERVICE: 07/16/18 Discharge Plan Patient Name: YUMIKO PADILLA [facility] : 1945 Planned Disposition: Anticipated Discharge Date: Discharge Date: Expected LOS: Initial Reviewer: [id number] Initial Review Date: 07/15/2018 Generated: 07/16/18 6:04 pm External Providers External Provider: [facility] Next Contact Date: 07/16/2018 Service Request Date: Service Type: Resolution: Reviewer: Comments: External Provider: [facility] Next Contact Date: 07/16/2018 Service Request Date: Service Type: Resolution: Reviewer: Comments: Last DP export: 07/15/18 12:44 p Patient Name: YUMIKO PADILLA Page [phone] at 1704 All edits/amendments must be made on the electronic document DICTATION DATE: 07/16/181703 SLEEP MANAGER: DELIA 07/16/181703 RPT#: [id number] DC DATE: STATUS: ADM IN [facility] [address] [place] [address] END OF REPORT
--- NOTE | 2018-07-16 17:13 | MORECARE ---
CASE MANAGEMENT DISCHARGE SUMMARY PATIENT: YUMIKO PADILLA UNIT: [id number] ADM DATE: 07/15/18 AGE: 72 : 47 SEX: M ROOM/BED: D.2124 AUTHOR: DRU YAO PHYSICIAN: REFERRING PHYSICIAN: SOHAN DARLING MD DATE OF SERVICE: 07/16/18 Discharge Plan Patient Name: YUMIKO PADILLA [facility] : 1945 Planned Disposition: Home with Home Health Anticipated Discharge Date: 07/16/18 Discharge Date: Expected LOS: 1 Initial Reviewer: [email or web address] Initial Review Date: 07/15/2018 Generated: 07/16/18 6:13 pm Last DP export: 07/16/18 4:04 p Patient Name: YUMIKO PADILLA Page [phone] at 1713 All edits/amendments must be made on the electronic document DICTATION DATE: 07/16/181711 BOOTS AND SHOES SUPERVISOR: DELIA 07/16/181711 RPT#: [id number] DC DATE: STATUS: ADM IN [facility] [address] [place] [address] END OF REPORT
--- NOTE | 2018-07-16 17:20 | MORECARE ---
CASE MANAGEMENT DISCHARGE SUMMARY PATIENT: YUMIKO PADILLA UNIT: [id number] ADM DATE: 07/15/18 AGE: 72 : [birth year] SEX: M ROOM/BED: D.2124 AUTHOR: DRU YAO PHYSICIAN: REFERRING PHYSICIAN: SOHAN DARLING MD DATE OF SERVICE: 07/16/18 Discharge Plan Patient Name: YUMIKO PADILLA [facility] [facility] 1945 Planned Disposition: Home with Home Health Anticipated Discharge Date: 07/16/18 Discharge Date: Expected LOS: 1 Initial Reviewer: [email or web address] Initial Review Date: 07/15/2018 Generated: 07/16/18 6:19 pm DCPIA - Discharge Planning Initial Assessment Updated by [email or web address]: Matt Harman on 07/16/18 5:14 pm * Is the patient Alert and Oriented? Yes * How many steps to enter\exit or inside your home? NONE * PCP DR. BENÍTEZ * Pharmacy [facility] * Preadmission Environment Home with Family * ADLs Partial Dependent * Partial ADLs (Assistance needed) Medication Management * Equipment Nebulizer Oxygen * Other Equipment HOME AND PORTABLE OXYGEN [facility] - PROVIDER * List name and contact numbers for known caregivers / representatives who currently or will assist patient after discharge: TWAN HENRIQUEZ, DTR, * Verbal permission to speak to the caregivers and representatives has been obtained from the patient. Yes * Community resources currently utilized None * Please name any agencies selected above. NONE * Additional services required to return to the preadmission environment? No * Can the patient safely return to the preadmission environment? Yes * Has this patient been hospitalized within the prior 30 days at any hospital? No Last DP export: 07/16/18 4:13 p Patient Name: YUMIKO PADILLA Page [phone] at 1720 All edits/amendments must be made on the electronic document DICTATION DATE: 07/16/181718 QUALITY TESTER: DELIA 07/16/181718 RPT#: [id number] DC DATE: STATUS: ADM IN [facility] [address] [place] [address] END OF REPORT
--- NOTE | 2018-07-16 17:28 | MORECARE ---
CASE MANAGEMENT DISCHARGE SUMMARY PATIENT: YUMIKO PADILLA UNIT: [id number] ADM DATE: 07/15/18 AGE: 72 : 47 SEX: M ROOM/BED: D.4928 AUTHOR: NAJMA,DOC PHYSICIAN: REFERRING PHYSICIAN: SOHAN DARLING MD DATE OF SERVICE: 07/16/18 Discharge Plan Patient Name: YUMIKO PADILLA Facility: [facility]:[place] : 1945 Planned Disposition: Home with Home Health Anticipated Discharge Date: 07/16/18 Discharge Date: Expected LOS: 1 Initial Reviewer: [email or web address] Initial Review Date: 07/15/2018 Generated: 07/16/18 6:27 pm Comments DCP- Discharge Planning Updated by [email or web address]: Matt Lemons on 07/16/18 4:[address] Patient Name: YUMIKO PADILLA Admission Status: ER Accout number: [id number] Admission Date: 07-15-2018 : 1945 Admission Diagnosis: Attending: SOHAN DARLING Current LOS: 1 Anticipated DC Date: 07-16-2018 Planned Disposition: Home with Home Health Primary Insurance: [employer]ARE ADV PLANNED EXTERNAL PROVIDER: [facility] Discharge Planning Comments: CM MET WITH PT AND DAUGHTER TWAN IN ROOM TO DISCUSS DISCHARGE PLANNING AND NEEDS. YUMIKO PADILLA provided verbal consent to discuss current and ongoing needs with/in the presence of: DAUGHTERTWAN. PT REPORTS LIVING AT HOME INDEPENDENTLY WITH HIS ADULT DAUGHTER WHO ONLY ASSISTS WITH MEDICATIONS. PT HAS HOME AND PORTABLE OXYGEN WELL NEBULIZER FROM [facility]. CM DISCUSSED AVAILABILITY OF HOME HEALTH, REHAB SERVICES AND MEDICAL EQUIPMENT. PT WANTS HOME HEALTH. LISTING PROVIDED, PT CHOSE [facility]. CHOICE SIGNED. PT'S DAUGHER WANTS WALKER WITH WHEELS SEAT AND BRAKES FROM [facility]. CM EXPLAINED THAT THERE WILL BE COPAY, PT'S DAUGHTER REPORTS SHE KNOWS, THEY GOT ONE FOR ANOTHER FAMILY MEMBER ALREADY. PT'S DAUGHTER WILL TRASPORT HOME AT DISCHARGE. CM CALLED [facility], , SPOKE TO SOLEDAD WHO TOOK REFERRAL INFORMATION AND WILL PLACE PT BACK ON SCHEDULE FOR HOME HEALTH CARE. CM FAXED DISCHARGE INFORMATION TO [facility] AT [phone]. CM CALLED [facility], , SPOKE TO DIGNA WHO TOOK WALKER ORDER. CM FAXED WALKER ORDERS TO [facility] AT [phone]. [facility] TO ARRANGE HOME DELIVERY OR STORE CLOCK AND WATCH HANDS PAINTER WITH PT'S DAUGHTER, TWAN. Weigher Packing: Matt Lemons Appended by Matt Lemons on 07/16/2018 17:24 CDT: DISCHARGE ADDRESS WITH DAUGHTER, TWAN HENRIQUEZ IS [address] [place] [id number]. LASHONDA LEMONS, CASE MANAGEMENT DCPIA - Discharge Planning Initial Assessment Updated by [email or web address]: Matt Lemons on 07/16/18 5:14 pm * Is the patient Alert and Oriented? Yes * How many steps to enter\exit or inside your home? NONE * PCP DR. BENÍTEZ * Pharmacy [facility] * Preadmission Environment Home with Family * ADLs Partial Dependent * Partial ADLs (Assistance needed) Medication Management * Equipment Nebulizer Oxygen * Other Equipment HOME AND PORTABLE OXYGEN [facility] - PROVIDER * List name and contact numbers for known caregivers / representatives who currently or will assist patient after discharge: TWAN HENRIQUEZ, DTR, * Verbal permission to speak to the caregivers and representatives has been obtained from the patient. Yes * Community resources currently utilized None * Please name any agencies selected above. NONE * Additional services required to return to the preadmission environment? No * Can the patient safely return to the preadmission environment? Yes * Has this patient been hospitalized within the prior 30 days at any hospital? No Coverage Notice Reviewer: [id number] - Matt Lemons Notice Issued Date-Time: 07/16/2018 16:25 Notice Type: Patient Choice Letter Notice Delivered To: Family Member Relationship to Patient: Daughter Telecom Manager Name: TWAN Delivery Method: HAND - Hand Delivered Maddison Days: Prior Verbal Notification: Recipient Understood Notice: Yes Recipient Signature: Yes Med Rec Note Co-signed by Attending: Coverage Notice Comment: IRAJ Dey DP export: 07/16/18 4:20 p Patient Name: YUMIKO PADILLA Page [phone] at 9320 All edits/amendments must be made on the electronic document DICTATION DATE: 07/16/181726 MERCHANT SEAMAN: DELIA 07/16/181726 RPT#: [id number] DC DATE: STATUS: ADM IN [facility] [address] [place] [address] END OF REPORT
--- NOTE | 2018-07-16 19:31 | NUR ---
RESUMED CAER OF PT LYING IN BED RESPIRAITONS EVEN AND UNLABORED ON 2LPM VIA NC. RIGHT GROIN WNL. 74 SR TELEMETRY. LEFT HAND SALINE LOCKED. CALL LIGHT IN REACH. SEE NURSE ASSESSMENT.
--- NOTE | 2018-07-16 19:59 | NUR ---
LEFT HAND IV REMOVED WITH TIP INTACT.
--- NOTE | 2018-07-16 21:00 | NUR ---
FAMILY ARRIVED TO FIGURE SKATER PT, DISCHARGE INSTRUCTIONS SIGNED. WHEELED OUT TO CAR.
== END 2018-07-16 21:01 | disposition home health service (06) | DRG 246 ==
LOC: D.ER 09:20 → D.M2 11:23 → D.EDHOLD 11:23 → D.M2 15:07
PROVIDERS: Emergency Medicine; Family Medicine; Internal Medicine Interventional Cardiology; ADMIT Internal Medicine Nephrology; ATTEND Internal Medicine Nephrology
PROC: 4A023N7 Measurement of Cardiac Sampling and Pressure, Left Heart, Percutaneous Approach (ICD-10-PCS; 2018-07-16)
PROC: B2111ZZ Fluoroscopy of Multiple Coronary Arteries using Low Osmolar Contrast (ICD-10-PCS; 2018-07-16)
PROC: B2151ZZ Fluoroscopy of Left Heart using Low Osmolar Contrast (ICD-10-PCS; 2018-07-16)
PROC: 027135Z Dilation of Coronary Artery, Two Arteries with Two Drug-eluting Intraluminal Devices, Percutaneous Approach (ICD-10-PCS; principal; 2018-07-16 13:37)
PROC: B240ZZ3 Ultrasonography of Single Coronary Artery, Intravascular (ICD-10-PCS; 2018-07-16 13:37)
DX: I25.110 Atherosclerotic heart disease of native coronary artery with unstable angina pectoris (principal); J96.21 Acute and chronic respiratory failure with hypoxia; F17.213 Nicotine dependence, cigarettes, with withdrawal; I50.32 Chronic diastolic (congestive) heart failure; Z95.5 Presence of coronary angioplasty implant and graft; J44.9 Chronic obstructive pulmonary disease, unspecified; E11.9 Type 2 diabetes mellitus without complications; E78.5 Hyperlipidemia, unspecified; I11.0 Hypertensive heart disease with heart failure; E83.42 Hypomagnesemia

== ENCOUNTER 2018-08-02 12:33 | Inpatient (IN) | payer MEDICARE, MEDICAID ==
[~2018-08-02] VITALS: Ht 172.7 cm; Wt 77.6 kg
[2018-08-02 13:54] LABS: BASOPHILS 0.5 % (0-2); EOSINOPHILS 2.9 % (0-7); HEMATOCRIT 42.8 % (42.0-54.0); HEMOGLOBIN 13.6 g/dL (13.5-17.5); IMMATURE GRANULOCYTES 0.2 % (0-5); LYMPHOCYTES 32.5 % (15-50); MCH 28.1 pg (26.0-34.0); MCHC 31.8 g/dL (31.0-37.0); MCV 88.4 fL (80.0-100.0); MEAN PLATELET VOLUME 9.1 fL (7.4-10.4); MONOCYTES 11.1 % (2-11); NEUTROPHILS 52.8 % (40-80); PLATELET COUNT 254 10x3/uL (130-400); RBC 4.84 10x6/uL (4.20-6.10); RDW 14.4 % (11.5-14.5); WBC 10.8 10x3/uL (4.8-10.8)
[2018-08-02 13:59] LABS: ALBUMIN 3.5 g/dL (3.4-5.0); ALKALINE PHOSPHATASE 46 U/L (46-116); ALT (SGPT) 19 U/L (10-68); BILIRUBIN - TOTAL 0.25 mg/dL (0.2-1.3); CALC OSMOLALITY 279 mosm/kg (275-300); CALCIUM 8.9 mg/dL (8.5-10.1); CARBON DIOXIDE 31.5 mmol/L (21.0-32.0); CHLORIDE - SERUM 102 mmol/L (98-107); CREATININE - SERUM 0.9 mg/dL (0.6-1.3); GLUCOSE 70 mg/dL (74-106); POTASSIUM - SERUM 4.1 mmol/L (3.5-5.1); PROTEIN - SERUM 7.1 g/dL (6.4-8.2); SODIUM 142 mmol/L (136-145); UREA NITROGEN 9 mg/dL (7-18); eGFR NON AFRICAN AMERICAN 89 mL/min (90-120)
[2018-08-02 14:00] VITALS: BP 110/58
[2018-08-02 14:09] LABS: CKMB 1.1 U/L (0.0-3.6); CREATINE KINASE 51 UL (21-232); PRO BNP 229 pg/mL (0-125)
[2018-08-02 14:11] LABS: TROPONIN-I < 0.017 ng/mL (0.000-0.060)
[2018-08-02 14:30] VITALS: BP 113/64
[2018-08-02 14:35] LABS: APTT 27.6 SECONDS (22.8-39.4); INR 1.1 (0.85-1.17); PROTIME 13.7 SECONDS (11.6-15.0)
[2018-08-02 15:00] VITALS: BP 118/64
--- NOTE | 2018-08-02 15:51 | NUR ---
MANUSCRIPTS ARCHIVISTJUANITA DELACRUZ CALLED REPORT.
--- NOTE | 2018-08-02 16:10 | NUR ---
PT TO FLOOR VIA WHEEL CHAIR. FAMILY AT BEDSIDE MADALYN GRANT DOING ADMISSION ASSESEMENT. PT STATES NO NEEDS AT THIS TIME CALL LIGHT WITHIN REACH. BED IN LOWEST POSITION.
--- NOTE | 2018-08-02 16:27 | MORECARE ---
CASE MANAGEMENT DISCHARGE SUMMARY PATIENT: YUMIKO PADILLA UNIT: [id number] ADM DATE: 08/02/18 AGE: 72 : [birth year] SEX: M ROOM/BED: D.2132 AUTHOR: DRU YAO PHYSICIAN: REFERRING PHYSICIAN: SOHAN DARLING MD DATE OF SERVICE: 08/02/18 Discharge Plan Patient Name: YUMIKO PADILLA Facility: [facility]:[place] : 1945 Planned Disposition: Anticipated Discharge Date: Discharge Date: Expected LOS: Initial Reviewer: [email or web address] Initial Review Date: 08/02/2018 Generated: 08/02/18 5:26 pm DCP- Discharge Planning Updated by [email or web address]: Shelia Lancaster on 08/02/18 3:[address] CM met with patient and daughter, Sonali Kendall (dtr) regarding dc needs/plans. alert/oriented, gives permission to discuss dc needs with family in room. CM Patient lives with his daughter, Sonali, is independent with ADL's. PCP: Dr. Esteban. Pharmacy: [facility]. DME: O2, portable O2, Nebulizer, RW, Shower chair, w/c, grab bars by toilet. Medical equipment provided by [facility]. HHS: [facility] to resume care upon discharge. Patient Choice for HHS signed per daughterSonali. Emergency contact: Sonali Kendall (c) [phone]. Daughter will drive patient home upon discharge. CM will follow and assist with dc needs/plans PRN. Shelia Lancaster RN CM Coverage Notice Reviewer: [id number] - Shelia Lancaster Notice Issued Date-Time: 08/02/2018 16:19 Notice Type: Patient Choice Letter Notice Delivered To: Family Member Relationship to Patient: Daughter Living Coach Name: Sonali Kendall Delivery Method: HAND - Hand Delivered Maddison Days: Prior Verbal Notification: Recipient Understood Notice: Recipient Signature: Med Rec Note Co-signed by Attending: Coverage Notice Comment: Patient Choice for HHS Patient Name: YUMIKO PADILLA Page 43883 at 1627 All edits/amendments must be made on the electronic document DICTATION DATE: 08/02/181625 OPERATIONS ASSOCIATE: DELIA 08/02/181625 RPT#: [id number] DC DATE: STATUS: ADM IN [facility] [address] [place] [address] END OF REPORT
--- NOTE | 2018-08-02 16:37 | MORECARE ---
CASE MANAGEMENT DISCHARGE SUMMARY PATIENT: YUMIKO PADILLA UNIT: [id number] ADM DATE: 08/02/18 AGE: 72 : [birth year] SEX: M ROOM/BED: D.2132 AUTHOR: NAJMA,DOC PHYSICIAN: REFERRING PHYSICIAN: SOHAN DARLING MD DATE OF SERVICE: 08/02/18 Discharge Plan Patient Name: YUMIKO PADILLA Facility: [facility]:[place] : 1945 Planned Disposition: Anticipated Discharge Date: Discharge Date: Expected LOS: Initial Reviewer: [email or web address] Initial Review Date: 08/02/2018 Generated: 08/02/18 5:36 pm DCP- Discharge Planning Updated by [email or web address]: Shelia Lancaster on 08/02/18 3:[address] CM met with patient and daughter, Sonali Kendall (dtr) regarding dc needs/plans. alert/oriented, gives permission to discuss dc needs with family in room. CM Patient lives with his daughter, Sonali, is independent with ADL's. PCP: Dr. Esteban. Pharmacy: [facility]. DME: O2, portable O2, Nebulizer, RW, Shower chair, w/c, grab bars by toilet. Medical equipment provided by [facility]. HHS: [facility] to resume care upon discharge. Patient Choice for HHS signed per daughter, Sonali. Emergency contact: Sonali Triplettinger (c) [phone]. Daughter will drive patient home upon discharge. CM will follow and assist with dc needs/plans PRN. Shelia Lancaster RN CM DCPIA - Discharge Planning Initial Assessment Updated by [email or web address]: Shelia Lancaster on 08/02/18 4:28 pm * Is the patient Alert and Oriented? Yes * How many steps to enter\exit or inside your home? Ramps w/ra * PCP Dr. Esteban * Pharmacy [facility] * Preadmission Environment Home with Family * ADLs Independent * Equipment Grab Bars Nebulizer Oxygen Rolling Walker Tub Bench * Other Equipment Portable O2 * List name and contact numbers for known caregivers / representatives who currently or will assist patient after discharge: Sonaliesperanza TriplettEnoch (dtr) [phone] * Verbal permission to speak to the caregivers and representatives has been obtained from the patient. Yes * Community resources currently utilized Home Health * Please name any agencies selected above. [facility] * Additional services required to return to the preadmission environment? No * Can the patient safely return to the preadmission environment? Yes * Has this patient been hospitalized within the prior 30 days at any hospital? No Coverage Notice Reviewer: [id number] Moses Lancaster Notice Issued Date-Time: 08/02/2018 16:19 Notice Type: Patient Choice Letter Notice Delivered To: Family Member Relationship to Patient: Daughter [place] Adviser Name: Sonali Kendall Delivery Method: HAND - Hand Delivered Maddison Days: Prior Verbal Notification: Recipient Understood Notice: Recipient Signature: Med Rec Note Co-signed by Attending: Coverage Notice Comment: Patient Choice for [facility] Last DP export: 08/02/18 3:27 p Patient Name: YUMIKO PADILLA Page [phone] at 1637 All edits/amendments must be made on the electronic document DICTATION DATE: 08/02/18 1636 PUFFER TENDER: DELIA 08/02/18 1636 RPT#: [id number] DC DATE: STATUS: ADM IN [facility] [address] [place] [address] END OF REPORT
[2018-08-02 16:59] VITALS: BMI 25.7
--- NOTE | 2018-08-02 17:07 | NUR ---
ARRIVED FROM ER. SOB NOTED. WHEEZING IN PABLO LUNGS ALL LOBES. PT IS VERY [place]. O2 @ 2L NC. FAMILY WITH PT. SEE ADMISSION ASSESSMENT.
[2018-08-02 17:34] VITALS: BP 124/64
--- NOTE | 2018-08-02 18:54 | NUR ---
PT LAYINGIN BED, SON AT BEDSIDE. PT STATES NO NEEDS AT THIS TIME CALL LIGHT WITHIN REACH
--- NOTE | 2018-08-02 22:34 | NUR ---
PT RESTING IN BED ALERT AND ORIENTED. PT HARD OF HEARING. NO S/S OF DISTRESS. DENIES ANY PAIN OR NEEDS AT THIS TIME. WILL CONTINUE TO MONITOR.
--- NOTE | 2018-08-03 02:02 | NUR ---
PT RESTING IN BED ALERT AND ORIENTED. PT DENIES ANY PAIN OR NEEDS AT THIS TIME. RR EVEN AND UNLABORED. BED LOW CALL LIGHT WITHIN REACH. WILL CONTINUE TO MONITOR.
--- NOTE | 2018-08-03 03:17 | NUR ---
I have reviewed this patient and I concur with the Shift Assessment completed by the Licensed Practical Nurse today this shift.
[2018-08-03 04:00] VITALS: BP 129/73
[2018-08-03 05:51] LABS: BASOPHILS 0 % (0-2); EOSINOPHILS 0 % (0-7); HEMATOCRIT 40.5 % (42.0-54.0); HEMOGLOBIN 13.1 g/dL (13.5-17.5); IMMATURE GRANULOCYTES 0.1 % (0-5); MCH 27.8 pg (26.0-34.0); MCHC 32.3 g/dL (31.0-37.0); MEAN PLATELET VOLUME 9.4 fL (7.4-10.4); MONOCYTES 2.3 % (2-11); NEUTROPHILS 84.6 % (40-80); PLATELET COUNT 258 10x3/uL (130-400); RBC 4.71 10x6/uL (4.20-6.10); RDW 14.1 % (11.5-14.5)
[2018-08-03 05:52] LABS: WBC 7.5 10x3/uL (4.8-10.8)
[2018-08-03 06:10] LABS: ALBUMIN 3.3 g/dL (3.4-5.0); ALKALINE PHOSPHATASE 45 U/L (46-116); ALT (SGPT) 20 U/L (10-68); BILIRUBIN - TOTAL 0.17 mg/dL (0.2-1.3); CALC OSMOLALITY 280 mosm/kg (275-300); CALCIUM 8.6 mg/dL (8.5-10.1); CARBON DIOXIDE 27.6 mmol/L (21.0-32.0); CHLORIDE - SERUM 102 mmol/L (98-107); CREATININE - SERUM 0.8 mg/dL (0.6-1.3); PROTEIN - SERUM 6.7 g/dL (6.4-8.2); SODIUM 138 mmol/L (136-145); UREA NITROGEN 10 mg/dL (7-18); eGFR NON AFRICAN AMERICAN > 90 mL/min (90-120)
[2018-08-03 06:11] LABS: GLUCOSE 211 mg/dL (74-106)
--- NOTE | 2018-08-03 08:05 | NUR ---
ROUNDING DONE WITH PATIENT RECEIVING UPDRAFT TREATMENT. GLASSES ON, HARD OF HEARING, HAS HEARING AIDS IN. ON HEART MONITOR SHOWING SR, HR 82. ON 2L PER NC. LEFT FA PIV SEEN WITH SALINE LOCK. DENIES NEEDS AT THIS TIME.
[2018-08-03 08:25] VITALS: BP 133/65
[2018-08-03 12:08] VITALS: BP 132/62
--- NOTE | 2018-08-03 13:23 | NUR ---
ASSSITED TO CHAIR FOR IV ANTIBIOTIC INFUSION WHILE WATCHING TV.
[2018-08-03 13:57] VITALS: Ht 172.7 cm; Wt 77.6 kg
--- NOTE | 2018-08-03 14:48 | NUR ---
SITTING IN CHAIR WITH LEVAQUIN DONE INFUSING. FLUSHED SALINE LOCK WELL AND ORANGE CAP PLACED ON IT.
[2018-08-03 16:06] VITALS: BP 122/64
--- NOTE | 2018-08-03 16:44 | NUR ---
SCD'S REFUSED PATIENT IS ON LASIX AND UP AND DOWN TO RESTROOM.
--- NOTE | 2018-08-03 19:38 | NUR ---
EVENING ROUNDS COMPLETED. REPORT RECEIVED. PT SITTING UP IN BEDSIDE CHAIR WITH EYES OPEN, RR EVEN AND UNLABORED. OXYGEN AT 2 LITERS BY NASAL CANNULA. BED IN LOW POSITION. NO S/S OF DISTRESS NOTED. INTRODUCED SELF TO PT. PT DENIES FURTHER NEEDS AT THIS TIME. CALL LIGHT IN REACH. WILL CTM.
[2018-08-03 19:54] VITALS: BP 116/57
[2018-08-03 23:55] VITALS: BP 111/53
--- NOTE | 2018-08-04 02:49 | NUR ---
I have reviewed this patient and I concur with the Shift Assessment completed by the Licensed Practical Nurse today this shift.
[2018-08-04 03:55] VITALS: BP 110/63
[2018-08-04 05:35] LABS: BASOPHILS 0 % (0-2); EOSINOPHILS 0 % (0-7); HEMATOCRIT 38.9 % (42.0-54.0); HEMOGLOBIN 12.3 g/dL (13.5-17.5); IMMATURE GRANULOCYTES 0.2 % (0-5); LYMPHOCYTES 6.5 % (15-50); MCH 27.5 pg (26.0-34.0); MCHC 31.6 g/dL (31.0-37.0); MCV 86.8 fL (80.0-100.0); MEAN PLATELET VOLUME 9.1 fL (7.4-10.4); MONOCYTES 5.2 % (2-11); NEUTROPHILS 88.1 % (40-80); PLATELET COUNT 286 10x3/uL (130-400); RBC 4.48 10x6/uL (4.20-6.10); RDW 14.6 % (11.5-14.5)
[2018-08-04 05:41] LABS: ALBUMIN 3.2 g/dL (3.4-5.0); ALKALINE PHOSPHATASE 45 U/L (46-116); ALT (SGPT) 18 U/L (10-68); BILIRUBIN - TOTAL 0.19 mg/dL (0.2-1.3); CALCIUM 8.7 mg/dL (8.5-10.1); CARBON DIOXIDE 29.2 mmol/L (21.0-32.0); CHLORIDE - SERUM 102 mmol/L (98-107); CREATININE - SERUM 0.9 mg/dL (0.6-1.3); GLUCOSE 204 mg/dL (74-106); POTASSIUM - SERUM 4.1 mmol/L (3.5-5.1); PROTEIN - SERUM 6.6 g/dL (6.4-8.2); SODIUM 139 mmol/L (136-145); eGFR NON AFRICAN AMERICAN 89 mL/min (90-120)
[2018-08-04 05:43] LABS: WBC 13.9 10x3/uL (4.8-10.8)
[2018-08-04 05:48] LABS: CALC OSMOLALITY 285 mosm/kg (275-300); UREA NITROGEN 19 mg/dL (7-18)
[2018-08-04 08:18] VITALS: BP 124/60
--- NOTE | 2018-08-04 08:43 | NUR ---
RECIEVED REPORT. PATIENT IS AWAKE AND ALERT AND DENIES ANY NEEDS AT THIS TIME.
--- NOTE | 2018-08-04 11:39 | NUR ---
I have reviewed this patient and I concur with the Shift Assessment completed by the Licensed Practical Nurse today this shift.
--- NOTE | 2018-08-04 11:48 | NUR ---
TOOK PATIENT OFF O2 . AFTER 15 MINUTES HIS RESTING O2 WAS 89 PERCENT. AFTER SEVERAL DEEP BREATHS IT IS UP TO 90 PERCENT.
[2018-08-04 12:08] VITALS: BP 122/61
[2018-08-04 17:05] VITALS: BP 108/54
--- NOTE | 2018-08-04 18:15 | NUR ---
IV REMOVED FROM LEFT FOREARM IT WAS INFILTRATED. CATHETER INTACT. NEW IV STARTED IN THE RIGHT HAND. 22G TWO STICKS. PATIENT TOLERATED.
--- NOTE | 2018-08-04 19:25 | NUR ---
INITIAL ROUNDS COMPLETED AT 1915HRS. PT SITTING UP IN RECLINER. DENIES ANY DISCOMFORT. CALL LIGHT WITHIN REACH.
[2018-08-04 19:44] VITALS: BP 124/71
--- NOTE | 2018-08-04 21:55 | NUR ---
ASSESSMENT COMPLETED AT 1950 HRS. VSS. SR PER CM HR 82. ALERT AND ORIENTED TO PERSON, PLACE AND TIME. ABDALLA. LUNGS DIMINISHED IN BASES BILAT. PALPABLE PERIPHERAL PULSES. IV TO R HAND SL. FSBS 138. NO COVERAGE NEEDED. PM MEDS GIVEN. PT CURRENTLY WATCHING TV IN THE RECLINER. NO DISTRESS NOTED. CALL LIGHT WITHIN REACH.
[2018-08-04 23:50] VITALS: BP 134/73
--- NOTE | 2018-08-04 23:56 | NUR ---
PT RESTING WITH EYES CLOSED. RESP EVEN AND REGULAR. SR UP X2, CALL LIGHT WITHIN REACH.
--- NOTE | 2018-08-05 01:50 | NUR ---
PT RESTING WITH EYES CLOSED. RESP EVEN AND REGULAR. SR UP X2, CALL LIGHT WITHIN REACH.
[2018-08-05 03:55] VITALS: BP 146/75
--- NOTE | 2018-08-05 04:21 | NUR ---
PT RESTING WITH EYES CLOSED. RESP EVEN AND REGULAR. SR UP X2,CALL LIGHT WITHIN REACH.
[2018-08-05 05:25] LABS: BASOPHILS 0 % (0-2); EOSINOPHILS 0 % (0-7); HEMATOCRIT 39.1 % (42.0-54.0); HEMOGLOBIN 12.3 g/dL (13.5-17.5); IMMATURE GRANULOCYTES 0.3 % (0-5); LYMPHOCYTES 6.5 % (15-50); MCH 27.6 pg (26.0-34.0); MCHC 31.5 g/dL (31.0-37.0); MCV 87.7 fL (80.0-100.0); MEAN PLATELET VOLUME 9.5 fL (7.4-10.4); MONOCYTES 5.7 % (2-11); NEUTROPHILS 87.5 % (40-80); PLATELET COUNT 298 10x3/uL (130-400); RBC 4.46 10x6/uL (4.20-6.10); RDW 14.7 % (11.5-14.5); WBC 14.7 10x3/uL (4.8-10.8)
[2018-08-05 05:56] LABS: ALBUMIN 3.1 g/dL (3.4-5.0); ALKALINE PHOSPHATASE 43 U/L (46-116); ALT (SGPT) 17 U/L (10-68); CALC OSMOLALITY 288 mosm/kg (275-300); CALCIUM 8.7 mg/dL (8.5-10.1); CARBON DIOXIDE 30.4 mmol/L (21.0-32.0); CHLORIDE - SERUM 103 mmol/L (98-107); CREATININE - SERUM 0.9 mg/dL (0.6-1.3); GLUCOSE 202 mg/dL (74-106); POTASSIUM - SERUM 4.4 mmol/L (3.5-5.1); PROTEIN - SERUM 6.3 g/dL (6.4-8.2); SODIUM 141 mmol/L (136-145); UREA NITROGEN 19 mg/dL (7-18); eGFR NON AFRICAN AMERICAN 89 mL/min (90-120)
--- NOTE | 2018-08-05 06:19 | NUR ---
VSS THROUGHOUT NIGHT. SR PER CM. PT DENIED ANY DISCOMFORT. AM FSBS 202. 4 UNITS HUMALOG GIVEN SUB-Q TO UPPER L ARM. NEEDS MET;WILL CONTINUE TO MONITOR.
--- NOTE | 2018-08-05 07:41 | NUR ---
REPORT RECIEVED AND ROUNDING COMPLETE. PT SITTING UP IN CHAIR. PT WEARING NC AT 2L. PT STATES NO NEEDS AT THIS TIME. PT IS HAPPY TO BE GOING HOME TODAY. NO NEEDS AT THIS TIME. CALL LIGHT WITHIN REACH AND BED IN LOWEST POSITION.
[2018-08-05 08:34] VITALS: BP 140/67
[2018-08-05] MEDS ORDERED: LEVAQUIN750 MG PO (10:18)
[2018-08-05] MEDS ORDERED: STERAPRED DS 1010 MG PO (10:18)
--- NOTE | 2018-08-05 13:19 | NUR ---
PT IS DISCAHRGED. REVIEWED DISCHARGE INSTRUCTIONS WITH PT AND FAMILY. PT AND FAMILY BOTH STATED THEY UNDERSTOOD AND PT SIGNED PAPERWOORK. REMOVED PT'S PIV FROM RIGHT HAND. NO BLEEDING NOTED. WHEELED PT DOWN TO FRONT DOOR VIA WHEELCHAIR. NO OTHER NEEDS.
--- NOTE | 2018-08-06 09:41 | MORECARE ---
CASE MANAGEMENT DISCHARGE SUMMARY PATIENT: YUMIKO PADILLA UNIT: [id number] ADM DATE: 08/02/18 AGE: 72 : [birth year] SEX: M ROOM/BED: D.2132 AUTHOR: NAJMA,DOC PHYSICIAN: REFERRING PHYSICIAN: SOHAN DARLING MD DATE OF SERVICE: 08/06/18 Discharge Plan Patient Name: YUMIKO PADILLA Facility: [facility]:[place] : 1945 Planned Disposition: Home Anticipated Discharge Date: 08/05/18 Discharge Date: 08/05/2018 Expected LOS: 3 Initial Reviewer: [email or web address] Initial Review Date: 08/02/2018 Generated: 08/06/18 10:41 am DCP- Discharge Planning Updated by [email or web address]: Shelia Lancaster on 08/02/18 3:[address] CM met with patient and daughter, Sonali Kendall (dtr) regarding dc needs/plans. alert/oriented, gives permission to discuss dc needs with family in room. CM Patient lives with his daughter, Sonali, is independent with ADL's. PCP: Dr. Esteban. Pharmacy: [facility]. DME: O2, portable O2, Nebulizer, RW, Shower chair, w/c, grab bars by toilet. Medical equipment provided by [facility]. HHS: [facility] to resume care upon discharge. Patient Choice for HHS signed per daughter, Sonali. Emergency contact: Sonali Enoch (c) [phone]. Daughter will drive patient home upon discharge. CM will follow and assist with dc needs/plans PRN. Shelia Lancaster RN, CM DCPIA - Discharge Planning Initial Assessment Updated by [email or web address]: Shelia Lancaster on 08/02/18 4:28 pm * Is the patient Alert and Oriented? Yes * How many steps to enter\exit or inside your home? Ramps w/ra * PCP Dr. Esteban * Pharmacy [facility] * Preadmission Environment Home with Family * ADLs Independent * Equipment Grab Bars Nebulizer Oxygen Rolling Walker Tub Bench * Other Equipment Portable O2 * List name and contact numbers for known caregivers / representatives who currently or will assist patient after discharge: Sonali Kendall (dtr) [phone] * Verbal permission to speak to the caregivers and representatives has been obtained from the patient. Yes * Community resources currently utilized Home Health * Please name any agencies selected above. [facility] * Additional services required to return to the preadmission environment? No * Can the patient safely return to the preadmission environment? Yes * Has this patient been hospitalized within the prior 30 days at any hospital? No Coverage Notice Reviewer: [id number] Moses Lancaster Notice Issued Date-Time: 08/02/2018 16:19 Notice Type: Patient Choice Letter Notice Delivered To: Family Member Relationship to Patient: Daughter Manager Sql Name: Sonali Kendall Delivery Method: HAND - Hand Delivered Maddison Days: Prior Verbal Notification: Recipient Understood Notice: Recipient Signature: Med Rec Note Co-signed by Attending: Coverage Notice Comment: Patient Choice for [facility] Last DP export: 08/02/18 3:36 p Patient Name: YUMIKO PADILLA Page [phone] at 0941 All edits/amendments must be made on the electronic document DICTATION DATE: 08/06/18940 MASTER BARBER: DELIA 08/06/18940 RPT#: [id number] DC DATE:08/05/18 STATUS: DIS IN [facility] [address] [place] [address] END OF REPORT
== END 2018-08-05 13:31 | disposition home health service (06) | DRG 189 ==
LOC: D.ER 12:33 → D.M2 15:22
PROVIDERS: Family Medicine; ADMIT Internal Medicine Nephrology; ATTEND Internal Medicine Nephrology
DX: J96.21 Acute and chronic respiratory failure with hypoxia (principal); J44.1 Chronic obstructive pulmonary disease with (acute) exacerbation; I50.32 Chronic diastolic (congestive) heart failure; F17.213 Nicotine dependence, cigarettes, with withdrawal; I11.0 Hypertensive heart disease with heart failure; E78.5 Hyperlipidemia, unspecified; I25.10 Atherosclerotic heart disease of native coronary artery without angina pectoris; E11.65 Type 2 diabetes mellitus with hyperglycemia

== ENCOUNTER 2018-09-13 08:24 | Emergency (ER) | payer MEDICARE, MEDICAID ==
[~2018-09-13] VITALS: Ht 172.7 cm; Wt 75.5 kg
[~2018-09-13 08:24] MED LIST changes: +STERAPRED DS 1010 MG PO
[2018-09-13 08:26] VITALS: Ht 172.7 cm; Wt 75.5 kg
[2018-09-13 08:43] LABS: BASOPHILS 0.4 % (0-2); EOSINOPHILS 1.4 % (0-7); HEMATOCRIT 40.6 % (42.0-54.0); HEMOGLOBIN 12.9 g/dL (13.5-17.5); IMMATURE GRANULOCYTES 0.3 % (0-5); LYMPHOCYTES 23.5 % (15-50); MCHC 31.8 g/dL (31.0-37.0); MCV 88.1 fL (80.0-100.0); MEAN PLATELET VOLUME 9.1 fL (7.4-10.4); MONOCYTES 9.5 % (2-11); NEUTROPHILS 64.9 % (40-80); PLATELET COUNT 254 10x3/uL (130-400); RBC 4.61 10x6/uL (4.20-6.10); RDW 14.5 % (11.5-14.5)
[2018-09-13 08:59] LABS: ALBUMIN 3.3 g/dL (3.4-5.0); ALKALINE PHOSPHATASE 49 U/L (46-116); ALT (SGPT) 19 U/L (10-68); BILIRUBIN - TOTAL 0.24 mg/dL (0.2-1.3); CALC OSMOLALITY 282 mosm/kg (275-300); CALCIUM 8.9 mg/dL (8.5-10.1); CARBON DIOXIDE 33.8 mmol/L (21.0-32.0); CHLORIDE - SERUM 105 mmol/L (98-107); CREATININE - SERUM 0.8 mg/dL (0.6-1.3); GLUCOSE 123 mg/dL (74-106); POTASSIUM - SERUM 4.2 mmol/L (3.5-5.1); PROTEIN - SERUM 6.6 g/dL (6.4-8.2); SODIUM 142 mmol/L (136-145); UREA NITROGEN 9 mg/dL (7-18); eGFR NON AFRICAN AMERICAN > 90 mL/min (90-120)
[2018-09-13 09:01] LABS: APTT 26.4 SECONDS (22.8-39.4); INR 0.99 (0.85-1.17); PROTIME 12.6 SECONDS (11.6-15.0)
[2018-09-13 09:09] LABS: CKMB 1.1 U/L (0.0-3.6); CREATINE KINASE 37 UL (21-232); MAGNESIUM - SERUM 1.9 mg/dL (1.8-2.4); TROPONIN-I 0.016 ng/mL (0.000-0.060)
[2018-09-13 12:54] VITALS: BP 159/74
== END 2018-09-13 12:53 | disposition home or self-care (01) ==
LOC: D.ER 08:24
PROVIDERS: Family Medicine
DX: R07.9 Chest pain, unspecified (principal)

== ENCOUNTER → 2018-09-24 14:47 | Outpatient (CLI) | payer MEDICARE, MEDICAID ==
[2018-09-13 08:26] VITALS: BMI 25.2
== END | disposition home or self-care (01) ==
LOC: D.US 14:30
PROVIDERS: ATTEND Internal Medicine Interventional Cardiology
DX: R42 Dizziness and giddiness (principal); R55 Syncope and collapse

== ENCOUNTER 2018-10-25 09:36 | Inpatient (IN) | payer MEDICARE, MEDICAID ==
[~2018-10-25] VITALS: Ht 152.4 cm; Wt 71.7 kg
[2018-10-25 10:08] LABS: BASOPHILS 0.3 % (0-2); EOSINOPHILS 2.6 % (0-7); HEMATOCRIT 40.4 % (42.0-54.0); HEMOGLOBIN 12.8 g/dL (13.5-17.5); IMMATURE GRANULOCYTES 0.3 % (0-5); LYMPHOCYTES 23.2 % (15-50); MCH 27.4 pg (26.0-34.0); MCHC 31.7 g/dL (31.0-37.0); MCV 86.3 fL (80.0-100.0); MEAN PLATELET VOLUME 9.2 fL (7.4-10.4); MONOCYTES 9.5 % (2-11); NEUTROPHILS 64.1 % (40-80); PLATELET COUNT 244 10x3/uL (130-400); RBC 4.68 10x6/uL (4.20-6.10); RDW 14.2 % (11.5-14.5); WBC 9.1 10x3/uL (4.8-10.8)
[2018-10-25 10:12] LABS: APTT 25.5 SECONDS (22.8-39.4); INR 1.01 (0.85-1.17); PROTIME 12.8 SECONDS (11.6-15.0)
[2018-10-25 10:22] LABS: ALBUMIN 3.3 g/dL (3.4-5.0); ALKALINE PHOSPHATASE 44 U/L (46-116); ALT (SGPT) 16 U/L (10-68); BILIRUBIN - TOTAL 0.35 mg/dL (0.2-1.3); CALC OSMOLALITY 282 mosm/kg (275-300); CALCIUM 8.7 mg/dL (8.5-10.1); CARBON DIOXIDE 32.1 mmol/L (21.0-32.0); CHLORIDE - SERUM 102 mmol/L (98-107); CREATININE - SERUM 0.8 mg/dL (0.6-1.3); POTASSIUM - SERUM 4.2 mmol/L (3.5-5.1); PROTEIN - SERUM 6.6 g/dL (6.4-8.2); SODIUM 140 mmol/L (136-145); UREA NITROGEN 9 mg/dL (7-18); eGFR NON AFRICAN AMERICAN > 90 mL/min (90-120)
[2018-10-25 10:23] LABS: GLUCOSE 192 mg/dL (74-106)
[2018-10-25 10:34] LABS: CKMB 1.2 U/L (0.0-3.6); CREATINE KINASE 45 UL (21-232); PRO BNP 236 pg/mL (0-125); TROPONIN-I < 0.017 ng/mL (0.000-0.060)
[2018-10-25 11:50] VITALS: BP 124/73
[2018-10-25 13:17] VITALS: BP 118/69
[2018-10-25] MEDS ORDERED: VALIUM 2 MG TAB2 MG PO (14:19)
[2018-10-25 15:51] LABS: % SATURATION 11 % (15-55); IRON 44 ug/dl (35-150); TOTAL IRON BIND CAPACITY 387 ug/dl (260-445); UNSAT IRON BIND CAPACITY 343 ug/dl (150-375)
--- NOTE | 2018-10-25 16:22 | NUR ---
PT AND FAMILY WISHES ARE FOR A MED CODE ONLY. DR DARILNG MAKING ROUNDS AND AGREES. DNR FORM SIGNED BY DR. DARLING. ORDER PLACED IN CHART.
[2018-10-25 17:28] VITALS: BP 123/69
[2018-10-25 18:45] VITALS: BP 116/68
--- NOTE | 2018-10-25 19:17 | NUR ---
AWKE AND ALERT IN BED THAT IS LOW AND LOCKED WITH SR X2....CALL LIGHT IN PT HAND AND DENIES NEEDS AT THIS TIME. LUNGS ARE DEMINISHED SKIN WARM AND DRY BOWEL SOUNDS X4
[2018-10-25 19:36] LABS: APPEARANCE CLEAR (CLEAR); BILIRUBIN NEGATIVE (NEGATIVE); COLOR STRAW (YELLOW); GLUCOSE 250 mg/dL (NEGATIVE); KETONE NEGATIVE (NEGATIVE); NITRITE NEGATIVE (NEGATIVE); PROTEIN NEGATIVE (NEGATIVE); SPECIFIC GRAVITY 1.005 (1.005-1.020); UROBILINOGEN NORMAL (NORMAL)
[2018-10-25 20:00] VITALS: BP 124/64
[2018-10-25 23:34] VITALS: BP 128/65
[2018-10-26 04:03] VITALS: BP 101/43
[2018-10-26 06:36] LABS: BASOPHILS 0.1 % (0-2); EOSINOPHILS 0.1 % (0-7); HEMATOCRIT 36.7 % (42.0-54.0); HEMOGLOBIN 11.7 g/dL (13.5-17.5); IMMATURE GRANULOCYTES 0.3 % (0-5); LYMPHOCYTES 14.4 % (15-50); MCH 27.2 pg (26.0-34.0); MCHC 31.9 g/dL (31.0-37.0); MCV 85.3 fL (80.0-100.0); MEAN PLATELET VOLUME 9.4 fL (7.4-10.4); MONOCYTES 11.1 % (2-11); PLATELET COUNT 257 10x3/uL (130-400); RDW 14.2 % (11.5-14.5); WBC 10.5 10x3/uL (4.8-10.8)
[2018-10-26 06:55] LABS: ALBUMIN 3.2 g/dL (3.4-5.0); ALKALINE PHOSPHATASE 45 U/L (46-116); ALT (SGPT) 16 U/L (10-68); BILIRUBIN - TOTAL 0.23 mg/dL (0.2-1.3); CALC OSMOLALITY 281 mosm/kg (275-300); CALCIUM 8.9 mg/dL (8.5-10.1); CARBON DIOXIDE 30.7 mmol/L (21.0-32.0); CHLORIDE - SERUM 103 mmol/L (98-107); CREATININE - SERUM 0.8 mg/dL (0.6-1.3); GLUCOSE 145 mg/dL (74-106); PROTEIN - SERUM 6.3 g/dL (6.4-8.2); SODIUM 139 mmol/L (136-145); eGFR NON AFRICAN AMERICAN > 90 mL/min (90-120)
[2018-10-26 06:59] LABS: UREA NITROGEN 15 mg/dL (7-18)
--- NOTE | 2018-10-26 07:45 | NUR ---
PT SITTING ON SIDE OF BED, DENIES ANY NEEDS AT THIS TIME, SHIFT ASSESSMENT PERFORMED. WILL CONT TO FOLLOW POC
[2018-10-26 08:54] VITALS: BP 125/74
[2018-10-26 10:15] LABS: FOLATE (FOLIC ACID) - SERUM >20.0 ng/mL (>3.0)
[2018-10-26 12:12] VITALS: BP 135/68
--- NOTE | 2018-10-26 12:20 | NUR ---
PT SITTING ON SIDE OF BED EATING LUNCH. DENIES ANY NEEDS AT THIS TIME, WILL CONT TO FOLLOW POC
[2018-10-26 13:21] VITALS: Ht 152.4 cm; Wt 71.7 kg
[2018-10-26 16:15] VITALS: BP 128/74
--- NOTE | 2018-10-26 18:07 | NUR ---
SITTING ON THE SIDE OF BED WITH FAMILY PRESENT. DENIES ANY NEEDS AT THIS TIME, WILL CONT TO FOLLOW POC
--- NOTE | 2018-10-26 19:10 | NUR ---
AWAKE AND UP IN CHAIR ROSAMARIATA SLTY DEMINISHED IN LOWER BASES PT HAS FAMILY PRESENT AND SEEMS IN GOOD SPIRITS. SKIN WARM AND DRY AND O2 IS AT 4.5 LITERS HIGH FLOW. DENIES OTHER NEEDS AT THIS TIME.
[2018-10-26 20:21] VITALS: BP 134/75
[2018-10-27] VITALS (7 sets, daily range): BP systolic 124–159; BP diastolic 60–78
--- NOTE | 2018-10-27 02:15 | NUR ---
I have reviewed this patient and I concur with the Shift Assessment completed by the Licensed Practical Nurse today this shift.
--- NOTE | 2018-10-27 03:31 | NUR ---
MED GIVEN AND TURNED O2 DOWN TO 4L/HF
--- NOTE | 2018-10-27 04:39 | NUR ---
TURNED O2 DOWN TO 3.5
--- NOTE | 2018-10-27 07:30 | NUR ---
A/A/OX4. UP AND ABOUT IN ROOM WITH NO COMPLAINTS AND VOICES NO REQUESTS. 02 REMAINS ON AT 3.5 L/M PER HIGH FLOW WITH SPO2 OF 94%. DENIES ANY SOB AND NO DISTRESS NOTED. ASSESSMENT COMPLETED AND WILL CONTINUE POC. CALL LIGHT IN REACH.
--- NOTE | 2018-10-27 10:00 | NUR ---
PER ORDER DR. CRUMP, 02 DOWN TO 2L/M. TITRATE TO KEEP SPO2 AT 92% OR ABOVE.
[2018-10-27 10:16] LABS: CALC OSMOLALITY 289 mosm/kg (275-300); CALCIUM 8.9 mg/dL (8.5-10.1); CARBON DIOXIDE 30.6 mmol/L (21.0-32.0); CHLORIDE - SERUM 100 mmol/L (98-107); CREATININE - SERUM 0.9 mg/dL (0.6-1.3); POTASSIUM - SERUM 4.3 mmol/L (3.5-5.1); SODIUM 139 mmol/L (136-145); UREA NITROGEN 17 mg/dL (7-18); eGFR NON AFRICAN AMERICAN 89 mL/min (90-120)
[2018-10-27 10:19] LABS: GLUCOSE 285 mg/dL (74-106)
--- NOTE | 2018-10-27 12:11 | NUR ---
I have reviewed this patient and I concur with the Shift Assessment completed by the Licensed Practical Nurse today this shift.
--- NOTE | 2018-10-27 19:44 | NUR ---
EVENING ROUNDS COMPLETED. REPORT RECEIVED. PT SITTING UP IN BED WITH EYES OPEN, RR EVEN AND UNLABORED. RESPIRATORY THERAPIST IN ROOM TEACHING PT ABOUT INCENTIVE SPIROMETER. NO S/S OF DISTRESS NOTED. INTRODUCED SELF TO PT. EDUCATED PT REGARDING USE OF ORDERED TELEMETRY AND PROPER APPLICATION, PT STATES UNDERSTANDING. PT DENIES FURTHER NEEDS AT THIS TIME. BED IN LOW POSITION, CALL LIGHT IN REACH. WILL CTM.
[2018-10-28 03:55] VITALS: BP 134/69
--- NOTE | 2018-10-28 05:14 | NUR ---
PT SITTING UP IN BED WITH EYES OPEN, RR EVEN AND UNLABORED. NO S/S OF DISTRESS NOTED. BED IN LOW POSITION. MORNING MEDICATIONS ADMINISTERED. PT DENIES FURTHER NEEDS AT THIS TIME. CALL LIGHT IN REACH. WILL CTM.
--- NOTE | 2018-10-28 07:56 | NUR ---
RECEIVED REPORT. ASSUMED CARE OF PATIENT. PATIENT SITTING TO SIDE OF BED. RESP EVEN AND UNLABORED. CALL LIGHT WITHIN REACH. DENIES NEEDS AT THIS TIME. DENIES PAIN. NO DISTRESS. PATIENT STATES HE FEELS GOOD THIS MORNING.
[2018-10-28 08:02] VITALS: BP 122/74
--- NOTE | 2018-10-28 09:01 | NUR ---
AWAITING FLAKO FROM PHARMACY. SPOKE TO BOTH GAIL AND THOMAS ABOUT NOT HAVING THE MEDICATION AVAILABLE. GAIL REFRESHED THE MEDS IN THE [facility] BUT IT DID NOT POPULATE THE MEDICATION ON THE PATIENT PROFILE. NICOTINE PATCH APPLIED TO LEFT DELTOID AREA.
--- NOTE | 2018-10-28 09:52 | NUR ---
CALLED AND SPOKE TO DEBI IN THE PHARMACY. STILL HAVE NO ACCESS TO AMARYL IN THE PYXIS AND A UNIT DOSE HAS NOT BEEN BROUGHT TO THE UNIT. AWAITING TO ADMINISTER MEDICATION
--- NOTE | 2018-10-28 10:15 | NUR ---
O2 SAT CHECKED PER PATIENT REQUEST. 95% ON 3L HIGH FLOW CANNULA. FAMILY AT BEDSIDE. NO DISTRESS.
[2018-10-28] MEDS ORDERED: OMNICEF300 MG PO (11:41)
--- NOTE | 2018-10-28 11:47 | NUR ---
1135 AMBULATED PATIENT 250 FT. RESTING O2 SAT ON 3L IS 95%. AT THE END OF 250 FT WALK, O2 INCREASED TO 5 LITERS PER HIGH FLOW NASAL CANULA TO KEEP O2 SAT AT 90%. ONCE SEATED AND RESTING WITH O2 AT 3L/NC, PATIENT O2 SAT RETURNED TO 95% PER , PATIENT INSTRUCTED THAT WHEN AMBULATING, HE WILL NEED TO INCREASE HIS OXYGEN TO 5 LITERS. PATIENT VERBALIZED UNDERSTANDING. GAVE ORDERS FROM HIS STANDPOINT HE IS OKAY TO DISCHARGE TO HOME. GIANA GAYTAN NOTIFIED.
[2018-10-28 11:50] VITALS: BP 131/80
--- NOTE | 2018-10-28 12:09 | NUR ---
FSBS 262. 6 UNITS HUMULIN ADMINISTERED PER SLIDING SCALE. NO DISTRESS. FAMILY AT BEDSIDE.
--- NOTE | 2018-10-28 14:00 | NUR ---
1235 20 GAUGE IV REMOVED FROM LEFT WRIST. CATHETER TIP INTACT. NO BLEEDING FROM SITE. 2X2 GAUZE APPLIED AND SECURED WITH BANDAID. 1245 DISCHARGE INSTRUCTIONS PROVIDED TO PATIENT AND BOTH OF HIS DAUGHTERS. PATIENT AND FAMILY VERBALIZED UNDERSTANDING OF DISCHARGE INSTRUCTIONS. 1255 PATIENT LEFT UNIT VIA WHEELCHAIR WITH PERSONAL HOME PORTABLE OXYGEN CONCENTRATOR. PATIENT LEFT UNIT WITH ALL PERSONAL BELONGINGS. PATIENT DISCHARGED TO HOME IN NO DISTRESS WITH HIS DAUGHTER.
--- NOTE | 2018-10-29 09:07 | MORECARE ---
CASE MANAGEMENT DISCHARGE SUMMARY PATIENT: YUMIKO PADILLA UNIT: [id number] ADM DATE: 10/25/18 AGE: 72 : [birth year] SEX: M ROOM/BED: D.2106 AUTHOR: DRU YAO PHYSICIAN: REFERRING PHYSICIAN: SOHAN DARLING MD DATE OF SERVICE: 10/29/18 Discharge Plan Patient Name: YUMIKO PADILLA [facility] [facility] 1945 Planned Disposition: Home Anticipated Discharge Date: 10/28/18 Discharge Date: 10/28/2018 Expected LOS: 3 Initial Reviewer: [email or web address] Initial Review Date: 10/29/2018 Generated: 10/29/18 10:07 am Coverage Notice Reviewer: [id number] Moses Gray Notice Issued Date-Time: 10/28/2018 11:00 Notice Type: IM Discharge Notice Notice Delivered To: Patient Relationship to Patient: Self Bridge Ironworker Name: Delivery Method: HAND - Hand Delivered Maddison Days: Prior Verbal Notification: Recipient Understood Notice: Yes Recipient Signature: Yes Med Rec Note Co-signed by Attending: Coverage Notice Comment: Patient Name: YUMIKO PADILLA Page [phone] at 0907 All edits/amendments must be made on the electronic document DICTATION DATE: 10/29/18905 PSYCH TECH: DELIA 10/29/18905 RPT#: [id number] DC DATE:10/28/18 STATUS: DIS IN [facility] [address] [place] [address] END OF REPORT
== END 2018-10-28 13:00 | disposition home or self-care (01) | DRG 189 ==
LOC: D.ER 09:36 → D.M2 12:59 → D.EDHOLD 12:59 → D.M2 13:07
PROVIDERS: Family Medicine; ADMIT Internal Medicine Nephrology; ATTEND Internal Medicine Nephrology
DX: J96.22 Acute and chronic respiratory failure with hypercapnia (principal); J44.1 Chronic obstructive pulmonary disease with (acute) exacerbation; I50.32 Chronic diastolic (congestive) heart failure; I13.0 Hypertensive heart and chronic kidney disease with heart failure and stage 1 through stage 4 chronic kidney disease, or unspecified chronic kidney disease; N18.4 Chronic kidney disease, stage 4 (severe); F17.213 Nicotine dependence, cigarettes, with withdrawal; J96.21 Acute and chronic respiratory failure with hypoxia; D64.9 Anemia, unspecified; E78.5 Hyperlipidemia, unspecified; I25.10 Atherosclerotic heart disease of native coronary artery without angina pectoris; Z86.73 Personal history of transient ischemic attack (TIA), and cerebral infarction without residual deficits; E11.22 Type 2 diabetes mellitus with diabetic chronic kidney disease

== ENCOUNTER 2018-12-19 18:39 | Inpatient (IN) | payer MEDICARE, MEDICAID ==
[~2018-12-19] VITALS: Ht 152.4 cm; Wt 74.1 kg
[2018-12-19] MEDS ORDERED: ZYRTEC10 MG PO (19:03)
[2018-12-19] MEDS ORDERED: BREO ELLIPTA 11 EACH INH (19:04)
[2018-12-19] MEDS ORDERED: BYSTOLIC10 MG PO (19:04)
[2018-12-19 19:29] LABS: BASOPHILS 0.3 % (0-2); EOSINOPHILS 3.9 % (0-7); HEMATOCRIT 39.7 % (42.0-54.0); HEMOGLOBIN 12.7 g/dL (13.5-17.5); IMMATURE GRANULOCYTES 0.2 % (0-5); LYMPHOCYTES 26.5 % (15-50); MCH 26.4 pg (26.0-34.0); MCV 82.5 fL (80.0-100.0); MONOCYTES 12.7 % (2-11); NEUTROPHILS 56.4 % (40-80); PLATELET COUNT 227 10x3/uL (130-400); RBC 4.81 10x6/uL (4.20-6.10); RDW 14.3 % (11.5-14.5); WBC 12.4 10x3/uL (4.8-10.8)
[2018-12-19 19:38] LABS: APTT 26.7 SECONDS (22.8-39.4); INR 1.01 (0.85-1.17); PROTIME 12.8 SECONDS (11.6-15.0)
[2018-12-19 19:44] LABS: ALBUMIN 3.5 g/dL (3.4-5.0); ALKALINE PHOSPHATASE 69 U/L (46-116); ALT (SGPT) 12 U/L (10-68); BILIRUBIN - TOTAL 0.18 mg/dL (0.2-1.3); CALC OSMOLALITY 286 mosm/kg (275-300); CALCIUM 8.7 mg/dL (8.5-10.1); CARBON DIOXIDE 30.4 mmol/L (21.0-32.0); CHLORIDE - SERUM 104 mmol/L (98-107); CREATININE - SERUM 0.9 mg/dL (0.6-1.3); POTASSIUM - SERUM 3.7 mmol/L (3.5-5.1); PROTEIN - SERUM 6.8 g/dL (6.4-8.2); SODIUM 143 mmol/L (136-145); UREA NITROGEN 10 mg/dL (7-18); eGFR NON AFRICAN AMERICAN 88 mL/min (90-120)
[2018-12-19 19:48] LABS: GLUCOSE 161 mg/dL (74-106)
[2018-12-19 19:56] LABS: CKMB 1.2 U/L (0.0-3.6); CREATINE KINASE 63 UL (21-232); PRO BNP 186 pg/mL (0-125)
[2018-12-19 19:59] LABS: TROPONIN-I < 0.017 ng/mL (0.000-0.060)
[2018-12-19 22:03] VITALS: BP 133/66; BMI 32.8
[2018-12-20 04:00] VITALS: BP 132/59
[2018-12-20 05:41] LABS: BASOPHILS 0.1 % (0-2); EOSINOPHILS 0 % (0-7); HEMATOCRIT 39.3 % (42.0-54.0); HEMOGLOBIN 12.8 g/dL (13.5-17.5); IMMATURE GRANULOCYTES 0.1 % (0-5); LYMPHOCYTES 11.6 % (15-50); MCH 27.1 pg (26.0-34.0); MCHC 32.6 g/dL (31.0-37.0); MCV 83.1 fL (80.0-100.0); MEAN PLATELET VOLUME 9.2 fL (7.4-10.4); NEUTROPHILS 87.2 % (40-80); PLATELET COUNT 240 10x3/uL (130-400); RBC 4.73 10x6/uL (4.20-6.10); RDW 14.5 % (11.5-14.5)
[2018-12-20 06:02] LABS: ALBUMIN 3.3 g/dL (3.4-5.0); ALKALINE PHOSPHATASE 56 U/L (46-116); ALT (SGPT) 11 U/L (10-68); BILIRUBIN - TOTAL 0.22 mg/dL (0.2-1.3); CALC OSMOLALITY 283 mosm/kg (275-300); CALCIUM 8.8 mg/dL (8.5-10.1); CARBON DIOXIDE 28.7 mmol/L (21.0-32.0); CHLORIDE - SERUM 105 mmol/L (98-107); CREATININE - SERUM 0.8 mg/dL (0.6-1.3); GLUCOSE 173 mg/dL (74-106); MAGNESIUM - SERUM 1.9 mg/dL (1.8-2.4); PROTEIN - SERUM 6.7 g/dL (6.4-8.2); SODIUM 141 mmol/L (136-145); UREA NITROGEN 10 mg/dL (7-18); eGFR NON AFRICAN AMERICAN > 90 mL/min (90-120)
[2018-12-20 06:13] LABS: POTASSIUM - SERUM 4.7 mmol/L (3.5-5.1); TROPONIN-I < 0.017 ng/mL (0.000-0.060)
--- NOTE | 2018-12-20 07:00 | NUR ---
REPORT RECEIVED. ALERT ABLE TO VOICE NEEDS. RESP EVEN WITHOUT LABOR O2 ON AT 4L/M PER N/C. SALINE LOCK INTACT. BED IN LOWEST POSITION AND LOCKED. CAREPLAN REVIEW DONE AND SAFETY PRECAUTIONS IN PLACE. CL IN REACH
[2018-12-20 09:23] VITALS: BP 141/75
--- NOTE | 2018-12-20 10:30 | NUR ---
RESTING WITH EASE. RESP EVEN WITHOUT LABOR
[2018-12-20 12:20] VITALS: BMI 32.8
[2018-12-20 13:30] VITALS: BP 124/88
--- NOTE | 2018-12-20 13:45 | NUR ---
MEDS GIVEN PER ORDERS. HE HAS NO C/O AT THIS TIME. RESP EVEN WITHOUT LABOR. HE DOES GET OUT OF BREATH WHEN HE GOES TO THE BATHROOM BUT AFTER GETTING BACK IN THE BED HE CALMS DOWN
[2018-12-20 13:57] VITALS: Ht 152.4 cm; Wt 74.1 kg
[2018-12-20 14:51] LABS: FERRITIN 21 ng/mL (3-244)
[2018-12-20 15:34] LABS: % SATURATION 8 % (15-55); IRON 34 ug/dl (35-150); TOTAL IRON BIND CAPACITY 404 ug/dl (260-445); UNSAT IRON BIND CAPACITY 370 ug/dl (150-375)
[2018-12-20 17:29] VITALS: BP 137/67
--- NOTE | 2018-12-20 18:41 | NUR ---
URINE SPECIMEN COLLECTED AT THIS TIME AND TOOK TO LAB
[2018-12-20 18:50] LABS: APPEARANCE CLEAR (CLEAR); BILIRUBIN NEGATIVE (NEGATIVE); COLOR YELLOW (YELLOW); GLUCOSE 250 mg/dL (NEGATIVE); KETONE NEGATIVE (NEGATIVE); NITRITE NEGATIVE (NEGATIVE); PROTEIN NEGATIVE (NEGATIVE); UROBILINOGEN NORMAL (NORMAL)
[2018-12-20 20:00] VITALS: BP 115/60
--- NOTE | 2018-12-20 20:00 | NUR ---
EVENING ROUNDS COMPLETED. VSS, AAOX3. NO S/S OF RESPIRATORY DISTRESS. PT CURRENTLY ON 3.5L OF O2. FAMILY AT BEDSIDE. PT DENIES ANY FURTHER NEEDS AT THIS TIME. WILL CTM. CL WITHIN REACH.
[2018-12-21] VITALS: BP 113/52
[2018-12-21 04:00] VITALS: BP 100/48
[2018-12-21 05:27] LABS: BASOPHILS 0 % (0-2); EOSINOPHILS 0 % (0-7); HEMATOCRIT 35.9 % (42.0-54.0); HEMOGLOBIN 11.2 g/dL (13.5-17.5); IMMATURE GRANULOCYTES 0.1 % (0-5); LYMPHOCYTES 11.3 % (15-50); MCH 25.8 pg (26.0-34.0); MCHC 31.2 g/dL (31.0-37.0); MCV 82.7 fL (80.0-100.0); MEAN PLATELET VOLUME 9.4 fL (7.4-10.4); MONOCYTES 8.3 % (2-11); NEUTROPHILS 80.3 % (40-80); PLATELET COUNT 255 10x3/uL (130-400); RBC 4.34 10x6/uL (4.20-6.10); RDW 14.1 % (11.5-14.5)
[2018-12-21 05:42] LABS: WBC 13.7 10x3/uL (4.8-10.8)
[2018-12-21 05:49] LABS: CALC OSMOLALITY 283 mosm/kg (275-300); CALCIUM 8.9 mg/dL (8.5-10.1); CARBON DIOXIDE 29.2 mmol/L (21.0-32.0); CHLORIDE - SERUM 103 mmol/L (98-107); CREATININE - SERUM 0.9 mg/dL (0.6-1.3); GLUCOSE 162 mg/dL (74-106); POTASSIUM - SERUM 4.2 mmol/L (3.5-5.1); SODIUM 140 mmol/L (136-145); eGFR NON AFRICAN AMERICAN 88 mL/min (90-120)
[2018-12-21 05:52] LABS: UREA NITROGEN 14 mg/dL (7-18)
--- NOTE | 2018-12-21 06:50 | NUR ---
REPORT RECEIVED. ALERT ABLE TO VOICE NEEDS. RESP EVEN WITHOUT LABOR. RIGHT FOREARM SALINE LOCK INTACT. O2 ON AT 3 L/M PER N/C. HE IS LESS SHORT OF BREATH TODAY. STATES HE FEELS BETTER. CL IN REACH. CAREPLAN REVIEW DONE WITH SAFETY PRECAUTIONS IN PLACE. BED LOCKED AND IN LOWEST POSITION.
[2018-12-21 09:58] VITALS: BP 131/61
--- NOTE | 2018-12-21 13:37 | NUR ---
IV WAS LEAKING AT SITE. D/C WITH CATH INTACT AND MINIMAL BLEEDING. IV RESTARTED X1 STICK 22 GUAGE, PRIMITIVO WELL. HE DID CUT UNDER HIS LIP SHAVING SELF BLEEDING CONTROLLED WITH SOME PRESSURE AND THEN IT SCABBED OVER.
[2018-12-21 13:46] VITALS: BP 119/62
--- NOTE | 2018-12-21 17:45 | NUR ---
DAUGHTER CAME OUT TO DESK AND SAID HIS HEAD WAS BLEEDING. HE HAD FOUR SMALL AREAS OF OPEN SKIN THAT WAS BLEEDING. PRESSURE HELD. DR DARLING CAME BY AT THAT TIME AND HE CAME IN AND STATED IT WAS DUE TO STEROID USE MAKING HIS SKIN THIN, AND HE IS ON BLOOD THINNERS. HE HAD USED A PROVIDED COMB TO COMB THROUGH HIS HAIR. IT WAS THROWN AWAY AND SOFT BRISSLE BRUSH WAS PROVIDED.
[2018-12-21 17:59] VITALS: BP 129/66
[2018-12-21 20:00] VITALS: BP 136/66
--- NOTE | 2018-12-21 21:34 | NUR ---
EVENING ROUNDS COMPLETED. VSS, AAOX3, NO S/S OF RESP DISTRESS. FAMILY AT BEDSIDE. FSBS 263, WILL ADMINISTER INSULIN PER SLIDING SCALE. PT HAS BEEN REQUESTING FOR ICECREAM AND SODA'S ALL NIGHT, ONLY DIET COKE GIVEN AT THIS TIME. EDUCATE PT ON THE NEED TO AVOID SUGAR DO TO HX OF DIABETES. PT VOICED THANKS. WILL CPOC. CL WITHIN REACH.
[2018-12-22] VITALS: BP 134/73
[2018-12-22 04:00] VITALS: BP 128/65
[2018-12-22 05:04] LABS: BASOPHILS 0 % (0-2); EOSINOPHILS 0.1 % (0-7); HEMATOCRIT 37.8 % (42.0-54.0); IMMATURE GRANULOCYTES 0.2 % (0-5); LYMPHOCYTES 9.8 % (15-50); MCH 26.3 pg (26.0-34.0); MCHC 31.7 g/dL (31.0-37.0); MCV 82.7 fL (80.0-100.0); MEAN PLATELET VOLUME 9.1 fL (7.4-10.4); MONOCYTES 5.7 % (2-11); NEUTROPHILS 84.2 % (40-80); PLATELET COUNT 271 10x3/uL (130-400); RBC 4.57 10x6/uL (4.20-6.10); RDW 14.4 % (11.5-14.5); WBC 12.4 10x3/uL (4.8-10.8)
[2018-12-22 05:21] LABS: CALC OSMOLALITY 289 mosm/kg (275-300); CARBON DIOXIDE 31.6 mmol/L (21.0-32.0); CHLORIDE - SERUM 105 mmol/L (98-107); CREATININE - SERUM 0.9 mg/dL (0.6-1.3); GLUCOSE 182 mg/dL (74-106); POTASSIUM - SERUM 4.3 mmol/L (3.5-5.1); SODIUM 142 mmol/L (136-145); eGFR NON AFRICAN AMERICAN 88 mL/min (90-120)
[2018-12-22 05:24] LABS: UREA NITROGEN 18 mg/dL (7-18)
[2018-12-22 09:58] VITALS: BP 149/69
[2018-12-22 14:51] VITALS: BP 134/65
[2018-12-22 17:15] VITALS: BP 116/72
[2018-12-22 20:00] VITALS: BP 140/73
--- NOTE | 2018-12-22 21:36 | NUR ---
REST IN BED AND WATCHING TV.
[2018-12-23] VITALS: BP 130/60
--- NOTE | 2018-12-23 01:47 | NUR ---
REST QUIETLY IN BED. RESP EVEN, NO S/S DISTRESS.
[2018-12-23 03:40] LABS: BASOPHILS 0 % (0-2); EOSINOPHILS 0 % (0-7); HEMATOCRIT 38.3 % (42.0-54.0); IMMATURE GRANULOCYTES 0.3 % (0-5); LYMPHOCYTES 11.8 % (15-50); MCHC 31.3 g/dL (31.0-37.0); MCV 83.1 fL (80.0-100.0); MEAN PLATELET VOLUME 9.2 fL (7.4-10.4); NEUTROPHILS 80.9 % (40-80); PLATELET COUNT 265 10x3/uL (130-400); RBC 4.61 10x6/uL (4.20-6.10); RDW 14.5 % (11.5-14.5); WBC 11.7 10x3/uL (4.8-10.8)
[2018-12-23 03:44] LABS: CALC OSMOLALITY 281 mosm/kg (275-300); CALCIUM 8.7 mg/dL (8.5-10.1); CARBON DIOXIDE 31.5 mmol/L (21.0-32.0); CHLORIDE - SERUM 101 mmol/L (98-107); CREATININE - SERUM 0.9 mg/dL (0.6-1.3); GLUCOSE 153 mg/dL (74-106); POTASSIUM - SERUM 4.4 mmol/L (3.5-5.1); SODIUM 139 mmol/L (136-145); UREA NITROGEN 16 mg/dL (7-18); eGFR NON AFRICAN AMERICAN 88 mL/min (90-120)
[2018-12-23 04:00] VITALS: BP 158/79
--- NOTE | 2018-12-23 04:06 | NUR ---
I have reviewed this patient and I concur with the Shift Assessment completed by the Licensed Practical Nurse today this shift.
--- NOTE | 2018-12-23 04:21 | NUR ---
PT REST IN BED. CALL LIGHT IN REACH.
[2018-12-23 08:47] VITALS: BP 137/83
[2018-12-23 12:20] VITALS: BP 126/81
--- NOTE | 2018-12-23 17:09 | NUR ---
ALERT AND ORIENTED X4. SITTING UP IN CHAIR. FAMILY AT BEDSIDE. O2 AT 5LNC SAT 92%. DENIES PAIN. DENIES ANY NEEDS. FAMILY EXPRESSES CONCERNS WITH OXYGEN INCREASE. EXPLAIN O2 SAT DROP REASON FOR MORE OXYGEN REQUIRED. CONTINUE PLAN OF CARE AND SAFETY PRECAUTIONS.
[2018-12-23 17:33] VITALS: BP 152/83
--- NOTE | 2018-12-23 19:20 | NUR ---
AWAKE AND ALERT UP TO CHAIR AND DENIES NEEDS DAUGHTER IS WITH PT AT THIS TIME BED IS LOW AND LOCKED AND CALL LIGHT IS WITH PT LCTA BUT VERY LITTLE AIR FLOW HEARD SKIN WARM AND DRY
[2018-12-23 20:00] VITALS: BP 135/68
[2018-12-24] VITALS: BP 133/75
[2018-12-24 04:00] VITALS: BP 126/64
--- NOTE | 2018-12-24 04:41 | NUR ---
I have reviewed this patient and I concur with the Shift Assessment completed by the Licensed Practical Nurse today this shift.
[2018-12-24 04:53] LABS: CALC OSMOLALITY 284 mosm/kg (275-300); CALCIUM 8.8 mg/dL (8.5-10.1); CARBON DIOXIDE 33.4 mmol/L (21.0-32.0); CHLORIDE - SERUM 101 mmol/L (98-107); CREATININE - SERUM 0.8 mg/dL (0.6-1.3); GLUCOSE 177 mg/dL (74-106); POTASSIUM - SERUM 4.8 mmol/L (3.5-5.1); SODIUM 139 mmol/L (136-145); UREA NITROGEN 20 mg/dL (7-18); eGFR NON AFRICAN AMERICAN > 90 mL/min (90-120)
[2018-12-24 04:55] LABS: BASOPHILS 0.1 % (0-2); EOSINOPHILS 0 % (0-7); HEMATOCRIT 39.8 % (42.0-54.0); HEMOGLOBIN 12.5 g/dL (13.5-17.5); IMMATURE GRANULOCYTES 0.3 % (0-5); LYMPHOCYTES 15.5 % (15-50); MCHC 31.4 g/dL (31.0-37.0); MCV 82.9 fL (80.0-100.0); MEAN PLATELET VOLUME 9.3 fL (7.4-10.4); NEUTROPHILS 75.1 % (40-80); PLATELET COUNT 285 10x3/uL (130-400); RDW 14.4 % (11.5-14.5); WBC 11.3 10x3/uL (4.8-10.8)
[2018-12-24 08:44] VITALS: BP 163/77
[2018-12-24 13:50] VITALS: BP 127/67
--- NOTE | 2018-12-24 14:14 | NUR ---
Nutrition Follow-up: Pt continues to report good appetite/PO intake. Diet: Diabetic PO intake: 96% avg over last 7 meals Wt: 163# Last BM: 12/24 Labs reviewed Meds reviewed Rec continue current diet as tolerated. [place] food preferences within diet restrictions. RD following.
[2018-12-24 17:54] VITALS: BP 125/68
--- NOTE | 2018-12-24 18:27 | NUR ---
ALERT AND ORIENTED X4. SITTING UP IN CHAIR. FAMILY AT BEDSIDE. NO CHANGE. CONTINUE PLAN OF CARE AND SAFETY PRECAUTIONS.
--- NOTE | 2018-12-24 19:10 | NUR ---
UP TO CHAIR O2 AT 2L AND TOLERATING WELL LCTA DEMINISHED LOWER BASSES SKIN WARM AND DRY AND PT DENIES NEEDS AT THIS TIME
[2018-12-24 20:00] VITALS: BP 133/74
[2018-12-25 00:10] VITALS: BP 126/68
[2018-12-25 04:00] VITALS: BP 161/93
[2018-12-25 06:28] LABS: BASOPHILS 0 % (0-2); EOSINOPHILS 0.2 % (0-7); HEMATOCRIT 40.7 % (42.0-54.0); HEMOGLOBIN 12.9 g/dL (13.5-17.5); IMMATURE GRANULOCYTES 0.3 % (0-5); LYMPHOCYTES 23.3 % (15-50); MCHC 31.7 g/dL (31.0-37.0); MCV 81.9 fL (80.0-100.0); MEAN PLATELET VOLUME 9.2 fL (7.4-10.4); NEUTROPHILS 64.2 % (40-80); PLATELET COUNT 284 10x3/uL (130-400); RBC 4.97 10x6/uL (4.20-6.10); RDW 14.2 % (11.5-14.5); WBC 12.7 10x3/uL (4.8-10.8)
[2018-12-25 06:45] LABS: CALC OSMOLALITY 282 mosm/kg (275-300); CALCIUM 8.9 mg/dL (8.5-10.1); CARBON DIOXIDE 33.2 mmol/L (21.0-32.0); CHLORIDE - SERUM 102 mmol/L (98-107); CREATININE - SERUM 0.8 mg/dL (0.6-1.3); GLUCOSE 83 mg/dL (74-106); POTASSIUM - SERUM 4.1 mmol/L (3.5-5.1); SODIUM 141 mmol/L (136-145); UREA NITROGEN 20 mg/dL (7-18); eGFR NON AFRICAN AMERICAN > 90 mL/min (90-120)
[2018-12-25 09:21] VITALS: BP 139/68
[2018-12-25] MEDS ORDERED: PREDNISONE20 MG PO (11:23)
--- NOTE | 2018-12-25 15:18 | NUR ---
ALERT AND ORIENTED X4. SITTING UP IN CHAIR. FAMILY AT BEDSIDE. DC LT HAND IV TIP INTACT. DISCHARGE INSTRUCTIONS. GIVEN VERBALLY AND WRITTEN. DISCHARGE PAPERS SIGNED ON CHART. ESCORT TO RIDE VIA WHEELCHAIR. REMAINS FREE FROM INJURY.
--- NOTE | 2018-12-26 07:42 | MORECARE ---
CASE MANAGEMENT DISCHARGE SUMMARY PATIENT: YUMIKO PADILLA UNIT: [id number] ADM DATE: 12/19/18 AGE: 73 : [birth year] SEX: M ROOM/BED: D.2108 AUTHOR: DRU YAO PHYSICIAN: REFERRING PHYSICIAN: SOHAN DARLING MD DATE OF SERVICE: 12/26/18 Discharge Plan Patient Name: YUMIKO PADILLA [facility] [facility] 1945 Planned Disposition: Home Anticipated Discharge Date: 12/25/18 Discharge Date: 12/25/2018 Expected LOS: 6 Initial Reviewer: [email or web address] Initial Review Date: 12/26/2018 Generated: 12/26/18 8:41 am Patient Name: YUMIKO PADILLA Page [phone] at 0742 All edits/amendments must be made on the electronic document DICTATION DATE: 12/26/18740 DATE NIGHT SITTER: DELIA 12/26/1841 RPT#: [id number] DC DATE:12/25/18 STATUS: DIS IN [facility] [address] [place] [address] END OF REPORT
== END 2018-12-25 16:02 | disposition home or self-care (01) | DRG 189 ==
LOC: D.ER 18:39 → D.M2 19:58
PROVIDERS: Family Medicine; ADMIT Internal Medicine Nephrology; ATTEND Internal Medicine Nephrology
DX: J96.22 Acute and chronic respiratory failure with hypercapnia (principal); I13.0 Hypertensive heart and chronic kidney disease with heart failure and stage 1 through stage 4 chronic kidney disease, or unspecified chronic kidney disease; I50.32 Chronic diastolic (congestive) heart failure; N18.4 Chronic kidney disease, stage 4 (severe); F17.213 Nicotine dependence, cigarettes, with withdrawal; J98.11 Atelectasis; J96.21 Acute and chronic respiratory failure with hypoxia; D64.9 Anemia, unspecified; E11.22 Type 2 diabetes mellitus with diabetic chronic kidney disease; I25.10 Atherosclerotic heart disease of native coronary artery without angina pectoris; E78.5 Hyperlipidemia, unspecified; K75.9 Inflammatory liver disease, unspecified; J43.9 Emphysema, unspecified; J47.9 Bronchiectasis, uncomplicated; Z86.73 Personal history of transient ischemic attack (TIA), and cerebral infarction without residual deficits

== ENCOUNTER 2019-01-13 00:58 | Inpatient (IN) | payer MEDICARE, MEDICAID ==
[~2019-01-13] VITALS: Ht 172.7 cm; Wt 81.8 kg
[2019-01-13 01:54] LABS: HEMATOCRIT 31.7 % (42.0-54.0); HEMOGLOBIN 10.5 g/dL (13.5-17.5); MCH 27.7 pg (26.0-34.0); MCHC 33.1 g/dL (31.0-37.0); MCV 83.6 fL (80.0-100.0); MEAN PLATELET VOLUME 9.7 fL (7.4-10.4); PLATELET COUNT 161 10x3/uL (130-400); RBC 3.79 10x6/uL (4.20-6.10); RDW 15.1 % (11.5-14.5); WBC 12.3 10x3/uL (4.8-10.8)
[2019-01-13 01:57] LABS: ALKALINE PHOSPHATASE 60 U/L (46-116); ALT (SGPT) 21 U/L (10-68); BILIRUBIN - TOTAL 0.14 mg/dL (0.2-1.3); CALC OSMOLALITY 282 mosm/kg (275-300); CALCIUM 8.7 mg/dL (8.5-10.1); CARBON DIOXIDE 30.4 mmol/L (21.0-32.0); CHLORIDE - SERUM 101 mmol/L (98-107); CREATININE - SERUM 0.9 mg/dL (0.6-1.3); POTASSIUM - SERUM 4.2 mmol/L (3.5-5.1); SODIUM 141 mmol/L (136-145); UREA NITROGEN 12 mg/dL (7-18); eGFR NON AFRICAN AMERICAN 88 mL/min (90-120)
[2019-01-13 01:58] LABS: GLUCOSE 139 mg/dL (74-106)
[2019-01-13 02:05] LABS: MAGNESIUM - SERUM 1.7 mg/dL (1.8-2.4); TROPONIN-I < 0.017 ng/mL (0.000-0.060)
[2019-01-13 02:19] LABS: EOSINOPHILS 2 % (0-7); LYMPHOCYTES 16 % (15-50); MONOCYTES 4 % (2-11); NEUTROPHILS 78 % (40-80)
[2019-01-13 02:21] LABS: PLATELET ESTIMATE NORMAL
[2019-01-13 02:25] LABS: PRO BNP 149 pg/mL (0-125)
[2019-01-13 03:54] VITALS: Ht 172.7 cm; Wt 81.8 kg
--- NOTE | 2019-01-13 04:55 | NUR ---
I have reviewed this patient and I concur with the Shift Assessment completed by the Licensed Practical Nurse today this shift.
--- NOTE | 2019-01-13 04:56 | NUR ---
ADMISSION ASSESSMENT COMPLETED.
--- NOTE | 2019-01-13 07:21 | NUR ---
PT AWAKE AND ORIENTED, AT BEDSIDE. ALL QUESTIONS ANSWERED, NO COMPLAINTS OR CONCERNS VOICED AT THIS TIME. CL INR EACH, SRX2.
[2019-01-13 09:05] VITALS: BP 153/81
[2019-01-13 12:31] VITALS: BP 131/64
[2019-01-13 13:07] LABS: % SATURATION 9 % (15-55); IRON 28 ug/dl (35-150); TOTAL IRON BIND CAPACITY 305 ug/dl (260-445); UNSAT IRON BIND CAPACITY 277 ug/dl (150-375)
[2019-01-13 13:48] LABS: CKMB 1.3 U/L (0.0-3.6); CREATINE KINASE 54 UL (21-232)
[2019-01-13 13:49] LABS: TROPONIN-I < 0.017 ng/mL (0.000-0.060)
--- NOTE | 2019-01-13 16:41 | NUR ---
I have reviewed this patient and I concur with the Shift Assessment completed by the Licensed Practical Nurse today this shift.
[2019-01-13 17:41] VITALS: BP 125/66
--- NOTE | 2019-01-13 17:54 | NUR ---
PT AWAKE AND ORIENTED, CONSULTED DR. LOWRY PER DR. DARLING. NO COMPLAINTS OR CONCERNS VOICED AT THIS TIME. CL IN REACH, SRX2.
[2019-01-13 19:32] LABS: CKMB 1.6 U/L (0.0-3.6); CREATINE KINASE 84 UL (21-232); TROPONIN-I < 0.017 ng/mL (0.000-0.060)
--- NOTE | 2019-01-13 19:45 | NUR ---
PT ALERT AND ORIENTED X4 SITTING UP ON THE SIDE OF BED. RR EVEN AND UNLABORED. PT DENIES ANY PAIN OR FURTHER NEEDS AT THIS TIME. VITALS STABLE. BED LOW CALL LIGHT WITHIN REACH. WILL CONTINUE TO MONITOR.
[2019-01-13 20:00] VITALS: BP 108/92
[2019-01-14 00:01] VITALS: BP 110/50
[2019-01-14 01:28] LABS: CKMB 1.6 U/L (0.0-3.6); CREATINE KINASE 57 UL (21-232); TROPONIN-I < 0.017 ng/mL (0.000-0.060)
--- NOTE | 2019-01-14 02:12 | NUR ---
PT RESTING IN BED WITH EYES CLOSED RR EVEN AND UNLABORED. NO S/S OF DISTRESS AT THIS TIME. VITALS STABLE. BED LOW CALL LIGHT WITHIN REACH. WILL CONTINUE TO MONITOR.
[2019-01-14 04:00] VITALS: BP 132/72
--- NOTE | 2019-01-14 05:48 | NUR ---
URINE SAMPLE COLLECTED AND SENT TO LAB. WILL CONTINUE TO MONITOR.
--- NOTE | 2019-01-14 05:49 | NUR ---
I have reviewed this patient and I concur with the Shift Assessment completed by the Licensed Practical Nurse today this shift.
[2019-01-14 06:03] LABS: APPEARANCE CLEAR (CLEAR); BILIRUBIN NEGATIVE (NEGATIVE); COLOR YELLOW (YELLOW); GLUCOSE 1000 mg/dL (NEGATIVE); KETONE NEGATIVE (NEGATIVE); NITRITE NEGATIVE (NEGATIVE); PROTEIN NEGATIVE (NEGATIVE); SPECIFIC GRAVITY 1.015 (1.005-1.020); UROBILINOGEN NORMAL (NORMAL)
[2019-01-14 06:47] LABS: BASOPHILS 0.1 % (0-2); EOSINOPHILS 0 % (0-7); HEMATOCRIT 36.1 % (42.0-54.0); HEMOGLOBIN 11.5 g/dL (13.5-17.5); IMMATURE GRANULOCYTES 0.3 % (0-5); LYMPHOCYTES 12.7 % (15-50); MCH 26.1 pg (26.0-34.0); MCHC 31.9 g/dL (31.0-37.0); MCV 81.9 fL (80.0-100.0); MEAN PLATELET VOLUME 9.2 fL (7.4-10.4); MONOCYTES 8.9 % (2-11); RBC 4.41 10x6/uL (4.20-6.10); RDW 15.5 % (11.5-14.5); WBC 11.9 10x3/uL (4.8-10.8)
[2019-01-14 06:50] LABS: PLATELET COUNT 207 10x3/uL (130-400)
--- NOTE | 2019-01-14 07:19 | NUR ---
PT AWAKE AND ORIENTED, SITTING ON SIDE OF BED DRINKING COFFEE. NO COMPLAINTS OR CONCERNS VOICED, STATES HE SLEPT VERY WELL LAST NIGHT AND IS FEELING A LOT BETTER. HOPEFULL TO GO HOME TODAY, BUT WANTS TO MAKE SURE HE SEES PULMINOLOGIST FIRST. NO FAMILY PRESENT AT BEDSIDE. FAY ANG, SRX2.
[2019-01-14 07:34] LABS: ALBUMIN 2.7 g/dL (3.4-5.0); ALKALINE PHOSPHATASE 62 U/L (46-116); ALT (SGPT) 21 U/L (10-68); BILIRUBIN - TOTAL 0.21 mg/dL (0.2-1.3); CALC OSMOLALITY 283 mosm/kg (275-300); CALCIUM 8.9 mg/dL (8.5-10.1); CARBON DIOXIDE 31.1 mmol/L (21.0-32.0); CHLORIDE - SERUM 101 mmol/L (98-107); CREATININE - SERUM 0.9 mg/dL (0.6-1.3); POTASSIUM - SERUM 4.4 mmol/L (3.5-5.1); PROTEIN - SERUM 6.1 g/dL (6.4-8.2); SODIUM 139 mmol/L (136-145); TROPONIN-I < 0.017 ng/mL (0.000-0.060); UREA NITROGEN 15 mg/dL (7-18); eGFR NON AFRICAN AMERICAN 88 mL/min (90-120)
[2019-01-14 07:36] LABS: GLUCOSE 196 mg/dL (74-106)
[2019-01-14 08:47] VITALS: BP 140/60
[2019-01-14 12:05] VITALS: BP 119/62
[2019-01-14] MEDS ORDERED: MUCINEX600 MG PO (14:34)
[2019-01-14] MEDS ORDERED: STERAPRED DS 1010 MG PO (14:35)
[2019-01-14 16:10] VITALS: BP 134/67
--- NOTE | 2019-01-14 16:48 | NUR ---
PT ESCORTED OUT VIA WHEELCHAIR TO [facility] POV. NO COMPLAINTS OR CONCERNS VOICED, THANKED ALL STAFF FOR HIS CARE.
--- NOTE | 2019-01-15 07:48 | MORECARE ---
CASE MANAGEMENT DISCHARGE SUMMARY PATIENT: YUMIKO PADILLA UNIT: [id number] ADM DATE: 01/13/19 AGE: 73 : [birth year] SEX: M ROOM/BED: D.2112 AUTHOR: DRU YAO PHYSICIAN: REFERRING PHYSICIAN: SOHAN DARLING MD DATE OF SERVICE: 01/15/19 Discharge Plan Patient Name: YUMIKO PADILLA [facility] [facility] 1945 Planned Disposition: Home Anticipated Discharge Date: 01/14/19 Discharge Date: 01/14/2019 Expected LOS: 1 Initial Reviewer: [email or web address] Initial Review Date: 01/15/2019 Generated: 01/15/19 8:47 am Patient Name: YUMIKO PADILLA Page [phone] at 0748 All edits/amendments must be made on the electronic document DICTATION DATE: 1945 MIDDLE SCHOOL PROFESSIONAL: DELIA 1945 RPT#: [id number] DC DATE:01/14/19 STATUS: DIS IN [facility] [address] [place] [address] END OF REPORT
== END 2019-01-14 16:48 | disposition home or self-care (01) | DRG 189 ==
LOC: D.ER 00:58 → D.M2 02:23 → OBSVTIME 02:23 → D.M2 16:54
PROVIDERS: Family Medicine; ADMIT Internal Medicine Nephrology; ATTEND Internal Medicine Nephrology
DX: J96.22 Acute and chronic respiratory failure with hypercapnia (principal); J44.1 Chronic obstructive pulmonary disease with (acute) exacerbation; I13.0 Hypertensive heart and chronic kidney disease with heart failure and stage 1 through stage 4 chronic kidney disease, or unspecified chronic kidney disease; N18.4 Chronic kidney disease, stage 4 (severe); F17.213 Nicotine dependence, cigarettes, with withdrawal; J96.21 Acute and chronic respiratory failure with hypoxia; D64.9 Anemia, unspecified; I50.9 Heart failure, unspecified; E11.22 Type 2 diabetes mellitus with diabetic chronic kidney disease; I25.10 Atherosclerotic heart disease of native coronary artery without angina pectoris; E78.5 Hyperlipidemia, unspecified; K75.9 Inflammatory liver disease, unspecified; Z86.73 Personal history of transient ischemic attack (TIA), and cerebral infarction without residual deficits

== ENCOUNTER 2019-03-11 20:43 | Inpatient (IN) | payer MEDICARE, MEDICAID ==
[~2019-03-11] VITALS: Ht 172.7 cm; Wt 77.5 kg
[2019-03-11 21:31] VITALS: BP 120/70
[2019-03-11 22:00] LABS: APTT 25.7 SECONDS (22.8-39.4); INR 0.94 (0.85-1.17); PROTIME 12.1 SECONDS (11.6-15.0)
[2019-03-11 22:02] LABS: D-DIMER-QUANTITATIVE 0.36 ug/mLFEU (0.20-0.54)
[2019-03-11 22:07] LABS: CALC OSMOLALITY 280 mosm/kg (275-300); CALCIUM 8.9 mg/dL (8.5-10.1); CARBON DIOXIDE 33.4 mmol/L (21.0-32.0); CHLORIDE - SERUM 104 mmol/L (98-107); CREATININE - SERUM 1.1 mg/dL (0.6-1.3); POTASSIUM - SERUM 3.9 mmol/L (3.5-5.1); SODIUM 142 mmol/L (136-145); UREA NITROGEN 10 mg/dL (7-18); eGFR NON AFRICAN AMERICAN 70 mL/min (90-120)
[2019-03-11 22:08] LABS: GLUCOSE 78 mg/dL (74-106)
[2019-03-11 22:09] LABS: BASOPHILS 0.5 % (0-2); EOSINOPHILS 5.1 % (0-7); HEMATOCRIT 40.9 % (42.0-54.0); HEMOGLOBIN 12.5 g/dL (13.5-17.5); IMMATURE GRANULOCYTES 0.1 % (0-5); LYMPHOCYTES 32.9 % (15-50); MCH 26.4 pg (26.0-34.0); MCHC 30.6 g/dL (31.0-37.0); MCV 86.5 fL (80.0-100.0); MONOCYTES 12.7 % (2-11); NEUTROPHILS 48.7 % (40-80); RBC 4.73 10x6/uL (4.20-6.10); RDW 15.3 % (11.5-14.5); WBC 11.3 10x3/uL (4.8-10.8)
[2019-03-11 22:13] LABS: PLATELET COUNT 316 10x3/uL (130-400)
[2019-03-11 22:24] LABS: ALBUMIN 3.6 g/dL (3.4-5.0); ALKALINE PHOSPHATASE 68 U/L (46-116); ALT (SGPT) 18 U/L (10-68); BILIRUBIN - TOTAL 0.15 mg/dL (0.2-1.3); CREATINE KINASE 61 UL (21-232); PRO BNP 139 pg/mL (0-125); PROTEIN - SERUM 7.5 g/dL (6.4-8.2)
[2019-03-11 22:25] LABS: TROPONIN-I < 0.017 ng/mL (0.000-0.060)
[2019-03-11 22:30] VITALS: BP 117/68
--- NOTE | 2019-03-11 23:50 | NUR ---
PT ARRIVED TO FLOOR VIA STRETCHER, AOX4. AMBULATED FROM STRETCHER TO BED WITHOUT DIFFICULTY. DAUGHTER AT BEDSIDE. ASSISTED PT IN CHANGING TO YELLOW GOWN, NON SLIP SOCKS. MANJULA ALARM ON. ENCOURAGED PT TO CALL FOR ASSISTANCE TO BATHROOM. PROVIDED WITH URINAL. O2 2L/NC. VSS. IV RIGHT FA INFUSING NS @ 75. PT SAMISH, WEARS HEARING AIDS BUT STATES ONE OF THEM DOES NOT WORK. PT IS SOB WITH EXERTION. EXP WHEEZES HEARD IN UPPER LOBE, DIMINISHED IN LOWER. DENIES NEEDS AT THIS TIME. CL IN REACH, WILL CTM
[2019-03-12 00:30] VITALS: BP 124/58
[2019-03-12 04:30] VITALS: BP 131/60
[2019-03-12 08:27] VITALS: BP 152/77
[2019-03-12 08:31] LABS: BASOPHILS 0.1 % (0-2); EOSINOPHILS 0 % (0-7); HEMATOCRIT 39.8 % (42.0-54.0); HEMOGLOBIN 11.9 g/dL (13.5-17.5); IMMATURE GRANULOCYTES 0.1 % (0-5); LYMPHOCYTES 11.3 % (15-50); MCH 25.6 pg (26.0-34.0); MCHC 29.9 g/dL (31.0-37.0); MCV 85.8 fL (80.0-100.0); MEAN PLATELET VOLUME 9.2 fL (7.4-10.4); MONOCYTES 1.1 % (2-11); NEUTROPHILS 87.4 % (40-80); PLATELET COUNT 294 10x3/uL (130-400); RBC 4.64 10x6/uL (4.20-6.10); RDW 15.2 % (11.5-14.5)
[2019-03-12 08:41] LABS: WBC 7.5 10x3/uL (4.8-10.8)
--- NOTE | 2019-03-12 09:00 | NUR ---
ASSESSMENT PER FLOW SHEET. PT IS WITHOUT DISTRESS.MONITOR FOR NEEDS.CALL LIGHT IN REACH
[2019-03-12 09:11] LABS: ALBUMIN 3.4 g/dL (3.4-5.0); ALKALINE PHOSPHATASE 54 U/L (46-116); ALT (SGPT) 16 U/L (10-68); BILIRUBIN - TOTAL 0.25 mg/dL (0.2-1.3); CALC OSMOLALITY 282 mosm/kg (275-300); CALCIUM 8.8 mg/dL (8.5-10.1); CARBON DIOXIDE 28.2 mmol/L (21.0-32.0); CHLORIDE - SERUM 102 mmol/L (98-107); CREATININE - SERUM 0.9 mg/dL (0.6-1.3); GLUCOSE 183 mg/dL (74-106); MAGNESIUM - SERUM 1.9 mg/dL (1.8-2.4); PHOSPHOROUS 3.4 mg/dL (2.5-4.9); POTASSIUM - SERUM 4.4 mmol/L (3.5-5.1); PRO BNP 88 pg/mL (0-125); SODIUM 139 mmol/L (136-145); UREA NITROGEN 12 mg/dL (7-18); eGFR NON AFRICAN AMERICAN 88 mL/min (90-120)
[2019-03-12 12:18] VITALS: BP 139/79
[2019-03-12 12:27] LABS: APPEARANCE CLEAR (CLEAR); BILIRUBIN NEGATIVE (NEGATIVE); COLOR YELLOW (YELLOW); GLUCOSE 1000 mg/dL (NEGATIVE); KETONE NEGATIVE (NEGATIVE); NITRITE NEGATIVE (NEGATIVE); PROTEIN NEGATIVE (NEGATIVE); SPECIFIC GRAVITY 1.015 (1.005-1.020); UROBILINOGEN NORMAL (NORMAL)
[2019-03-12 17:14] VITALS: BP 146/73
--- NOTE | 2019-03-12 19:32 | NUR ---
REMAINS WITHOUT CHANGE.CONT PLAN OF CARE
[2019-03-12 20:24] VITALS: BP 150/70
--- NOTE | 2019-03-12 21:35 | NUR ---
LYING IN BED. ALERT AND ORIENTED X4. LOWER ELWHA. RESP IRREG. PROD COUGH NOTED WITH YELLOW SPUTUM. O2@ 2L/NC. TELEMETRY SHOWS SR WITH RATE OF 68. NS @ 30 ML/HR INFUSING IN RT FOREARM WITHOUT DIFF. BRUISES NOTED TO BUE. LIKES TO SIT UP ON SIDE OF BED. MANJULA ALARM IN USE FOR PT SAFETY. SR ELEVATED X2. CL IN REACH. DENIES PAIN.
[2019-03-13 01:07] VITALS: BP 150/70
--- NOTE | 2019-03-13 01:53 | NUR ---
LYING ON LT SIDE IN BED WITH EYES CLOSED. RESP EVEN AND NONLABORED. MANJULA ALARM ON. NO DISTRESS. CL IN REACH.
[2019-03-13 05:09] VITALS: BP 148/76
[2019-03-13 06:14] LABS: BASOPHILS 0.1 % (0-2); EOSINOPHILS 0 % (0-7); HEMATOCRIT 37.7 % (42.0-54.0); HEMOGLOBIN 11.3 g/dL (13.5-17.5); IMMATURE GRANULOCYTES 0.2 % (0-5); LYMPHOCYTES 11.5 % (15-50); MCH 25.8 pg (26.0-34.0); MCV 86.1 fL (80.0-100.0); MEAN PLATELET VOLUME 9.4 fL (7.4-10.4); MONOCYTES 7.7 % (2-11); NEUTROPHILS 80.5 % (40-80); PLATELET COUNT 266 10x3/uL (130-400); RBC 4.38 10x6/uL (4.20-6.10)
[2019-03-13 06:38] LABS: WBC 12.4 10x3/uL (4.8-10.8)
[2019-03-13 06:40] LABS: CALC OSMOLALITY 286 mosm/kg (275-300); CALCIUM 8.8 mg/dL (8.5-10.1); CARBON DIOXIDE 28.8 mmol/L (21.0-32.0); CHLORIDE - SERUM 106 mmol/L (98-107); CREATININE - SERUM 0.7 mg/dL (0.6-1.3); GLUCOSE 178 mg/dL (74-106); MAGNESIUM - SERUM 2.1 mg/dL (1.8-2.4); PHOSPHOROUS 3.4 mg/dL (2.5-4.9); POTASSIUM - SERUM 4.6 mmol/L (3.5-5.1); SODIUM 141 mmol/L (136-145); eGFR NON AFRICAN AMERICAN > 90 mL/min (90-120)
[2019-03-13 06:42] LABS: UREA NITROGEN 19 mg/dL (7-18)
[2019-03-13 07:59] VITALS: BP 138/70
--- NOTE | 2019-03-13 08:45 | NUR ---
PATIENT IN BED WITH IV INTACT. NO COMPLAINTS OR SIGNS OF DISTRESS. O2 ON. CALL LIGHT WITHIN REACH.
[2019-03-13 11:37] VITALS: BP 160/57
--- NOTE | 2019-03-13 14:49 | MORECARE ---
CASE MANAGEMENT DISCHARGE SUMMARY PATIENT: YUMIKO PADILLA UNIT: [id number] ADM DATE: 03/11/19 AGE: 73 : [birth year] SEX: M ROOM/BED: D.2227 AUTHOR: NAJMA,DOC PHYSICIAN: REFERRING PHYSICIAN: SOHAN DARLING MD DATE OF SERVICE: 03/13/19 Discharge Plan Patient Name: YUMIKO PADILLA Facility: [facility]:[place] : 1945 Planned Disposition: Home Anticipated Discharge Date: Discharge Date: Expected LOS: Initial Reviewer: [email or web address] Initial Review Date: 03/13/2019 Generated: 03/13/19 3:48 pm Comments DCP- Discharge Planning Updated by [email or web address]: Swapna Palacios on 03/13/19 1:[address] Patient Name: YUMIKO PADILLA Admission Status: ER Accout number: [id number] Admission Date: 03-11-2019 : 1945 Admission Diagnosis: Attending: SOHAN DARLING Current LOS: 2 Anticipated DC Date: Planned Disposition: Home Primary Insurance: [employer] ADV Discharge Planning Comments: CM met with patient to complete initial dc planning assessment. CM educated patient on the CM role and verbal consent given by patient to complete assessment. Patient lives at home with his daughter (Jacki). At discharge patient plans to return and feels this is a safe discharge. CM discussed availability of home health, rehab services, and medical equipment. Patient denied known discharge needs at this time. He states he will use [facility] if needed for [employer] company. He states he is independent except his daughter sets up his medication for him. CM will continue to follow and will assist as needed with dc plans/needs. Strip Machine Tender: Swapna Palacios DCPIA - Discharge Planning Initial Assessment Updated by [email or web address]: Swapna Palacios on 03/13/19 2:43 pm * Is the patient Alert and Oriented? Yes * How many steps to enter\exit or inside your home? Ramp/0 * PCP Dr. Esteban * Pharmacy [facility] * Preadmission Environment Home with Family * ADLs Partial Dependent * Partial ADLs (Assistance needed) Ambulation Medication Management * Equipment Grab Bars Nebulizer Other Oxygen Rolling Walker Shower Chair Wheelchair * Other Equipment Portable oxygen * List name and contact numbers for known caregivers / representatives who currently or will assist patient after discharge: Jacki Kendall - DTR - [phone] * Verbal permission to speak to the caregivers and representatives has been obtained from the patient. Yes * Community resources currently utilized Me[facility] on Wheels * Please name any agencies selected above. DME is [facility] * Additional services required to return to the preadmission environment? No * Can the patient safely return to the preadmission environment? Yes * Has this patient been hospitalized within the prior 30 days at any hospital? No Patient Name: YUMIKO PADILLA Page [phone] at 1449 All edits/amendments must be made on the electronic document DICTATION DATE: 03/13/191447 ENGINE CLEANER: DELIA 03/13/191447 RPT#: [id number] DC DATE: STATUS: ADM IN [facility] [address] [place] [address] END OF REPORT
[2019-03-13 17:01] VITALS: BP 119/57
--- NOTE | 2019-03-13 18:55 | NUR ---
PATIENT IN BED WITH IV INTACT. NO COMPLAINTS OR SIGNS OF DISTRESS. CALL LIGHT WITHIN REACH.
[2019-03-13 21:00] VITALS: BP 120/63
--- NOTE | 2019-03-13 21:52 | NUR ---
Alert and orented able to voice needs and wants to staff. O2 at 2L via n/c. IV to right FA with ns at 30ml/hr. no redness or pain at site. Telemetry in place. fall precations in place. call light in reach
[2019-03-14 01:18] VITALS: BP 128/60
[2019-03-14 04:22] VITALS: BP 125/60
[2019-03-14 06:33] LABS: BASOPHILS 0 % (0-2); EOSINOPHILS 0 % (0-7); HEMATOCRIT 36.2 % (42.0-54.0); HEMOGLOBIN 10.8 g/dL (13.5-17.5); IMMATURE GRANULOCYTES 0.2 % (0-5); LYMPHOCYTES 12.3 % (15-50); MCH 25.4 pg (26.0-34.0); MCHC 29.8 g/dL (31.0-37.0); MEAN PLATELET VOLUME 9.1 fL (7.4-10.4); MONOCYTES 7.4 % (2-11); NEUTROPHILS 80.1 % (40-80); PLATELET COUNT 270 10x3/uL (130-400); RBC 4.26 10x6/uL (4.20-6.10); RDW 15.1 % (11.5-14.5); WBC 11.4 10x3/uL (4.8-10.8)
[2019-03-14 07:24] LABS: CALC OSMOLALITY 283 mosm/kg (275-300); CARBON DIOXIDE 31.8 mmol/L (21.0-32.0); CHLORIDE - SERUM 104 mmol/L (98-107); CREATININE - SERUM 0.7 mg/dL (0.6-1.3); GLUCOSE 142 mg/dL (74-106); MAGNESIUM - SERUM 2.3 mg/dL (1.8-2.4); PHOSPHOROUS 4.2 mg/dL (2.5-4.9); POTASSIUM - SERUM 4.1 mmol/L (3.5-5.1); SODIUM 140 mmol/L (136-145); UREA NITROGEN 21 mg/dL (7-18); eGFR NON AFRICAN AMERICAN > 90 mL/min (90-120)
[2019-03-14 09:22] VITALS: BP 157/78
[2019-03-14 10:11] LABS: IMMUNOGLOBULIN A 98 mg/dL (61-437); IMMUNOGLOBULIN G 664 mg/dL (700-1600)
--- NOTE | 2019-03-14 11:18 | MORECARE ---
CASE MANAGEMENT DISCHARGE SUMMARY PATIENT: YUMIKO PADILLA UNIT: [id number] ADM DATE: 03/11/19 AGE: 73 : [birth year] SEX: M ROOM/BED: D.2227 AUTHOR: NAJMA,DOC PHYSICIAN: REFERRING PHYSICIAN: SOHAN DARLING MD DATE OF SERVICE: 03/14/19 Discharge Plan Patient Name: YUMIKO PADILLA Facility: [facility]:[place] : 1945 Planned Disposition: Home Anticipated Discharge Date: Discharge Date: Expected LOS: Initial Reviewer: [email or web address] Initial Review Date: 03/13/2019 Generated: 03/14/19 12:17 pm Comments DCP- Discharge Planning Updated by [email or web address]: Swapna Palacios on 03/14/19 10:[address] I spoke with Dr. Enrique about a possible trilogy for the patient. Dr. Enrique asked if he wore his BIPAP last night. I asked the patient and he said "a little". States he did not like it. I asked if he would wear a trilogy and he said "probably not." Dr. Enrique does not want me to order a trilogy at this time for the patient. CM will continue to follow and assist with discharge planning/needs. DCP- Discharge Planning Updated by [email or web address]: Swapna Palacios on 03/13/19 1:[address] Patient Name: YUMIKO PADILLA Admission Status: ER Accout number: [id number] Admission Date: 03-11-2019 : 1945 Admission Diagnosis: Attending: SOHAN DARLING Current LOS: 2 Anticipated DC Date: Planned Disposition: Home Primary Insurance: [employer] MEDICARE ADV Discharge Planning Comments: CM met with patient to complete initial dc planning assessment. CM educated patient on the CM role and verbal consent given by patient to complete assessment. Patient lives at home with his daughter (Jacki). At discharge patient plans to return and feels this is a safe discharge. CM discussed availability of home health, rehab services, and medical equipment. Patient denied known discharge needs at this time. He states he will use [facility] if needed for [place]. He states he is independent except his daughter sets up his medication for him. CM will continue to follow and will assist as needed with dc plans/needs. Vitreo Retinal Surgeon: Swapna Palacios DCPIA - Discharge Planning Initial Assessment Updated by [email or web address]: Swapna Palacios on 03/13/19 2:43 pm * Is the patient Alert and Oriented? Yes * How many steps to enter\\exit or inside your home? Ramp/0 * PCP Dr. Esteban * Pharmacy [facility] [place] [facility] * Preadmission Environment Home with Family * ADLs Partial Dependent * Partial ADLs (Assistance needed) Ambulation Medication Management * Equipment Grab Bars Nebulizer Other Oxygen Rolling Walker Shower Chair Wheelchair * Other Equipment Portable oxygen * List name and contact numbers for known caregivers / representatives who currently or will assist patient after discharge: [facility]all [facility] - [phone] * Verbal permission to speak to the caregivers and representatives has been obtained from the patient. Yes * Community resources currently utilized Meals on Wheels * Please name any agencies selected above. DME is [facility] [place] [facility] * Additional services required to return to the preadmission environment? No * Can the patient safely return to the preadmission environment? Yes * Has this patient been hospitalized within the prior 30 days at any hospital? No Last DP export: 03/13/19 1:49 p Patient Name: YUMIKO PADILLA Page 73869 at 1118 All edits/amendments must be made on the electronic document DICTATION DATE: 03/14/191116 SECOND VP HR ASSESSMENT: DELIA 03/14/191116 RPT#: [id number] DC DATE: STATUS: ADM IN [facility] [address] [place] [address] END OF REPORT
[2019-03-14 12:28] VITALS: BP 149/73
[2019-03-14 14:08] VITALS: Ht 172.7 cm; Wt 77.5 kg
[2019-03-14 16:29] VITALS: BP 135/73
--- NOTE | 2019-03-14 18:55 | NUR ---
PATIENT IN BED WITH IV INTACT. NO COMPLAINTS OR SIGNS OF DISTRESS. FAMILY AT BEDSIDE. CALL LIGHT WITHIN REACH.
[2019-03-14 20:14] VITALS: BP 164/75
--- NOTE | 2019-03-14 21:39 | NUR ---
PATIENT IS ALERT AND ORENTED ABLE TO VOICE NEEDS AND WANTS TO STAFF. IV TO RIGHT FA. WITH NO REDNESS NOTED NO PAIN REPOTRED AT SITE, NS AT 302ML/HR . FALL PRECATIONS IN PLACE. FLUTER VALVE AND INCENTIVE SPIROMETER IN REACH. CALL LIGHT AND WATER IN REACH. NO NEEDS AT THIS TIME.
[2019-03-15 00:37] VITALS: BP 169/70
[2019-03-15 04:48] VITALS: BP 160/74
[2019-03-15 06:33] LABS: BASOPHILS 0 % (0-2); EOSINOPHILS 0 % (0-7); HEMATOCRIT 37.1 % (42.0-54.0); HEMOGLOBIN 11.4 g/dL (13.5-17.5); IMMATURE GRANULOCYTES 0.2 % (0-5); LYMPHOCYTES 11.9 % (15-50); MCHC 30.7 g/dL (31.0-37.0); MCV 84.5 fL (80.0-100.0); MEAN PLATELET VOLUME 8.9 fL (7.4-10.4); MONOCYTES 6.1 % (2-11); NEUTROPHILS 81.8 % (40-80); PLATELET COUNT 282 10x3/uL (130-400); RBC 4.39 10x6/uL (4.20-6.10); RDW 14.8 % (11.5-14.5); WBC 10.6 10x3/uL (4.8-10.8)
[2019-03-15 06:52] LABS: CALC OSMOLALITY 281 mosm/kg (275-300); CALCIUM 8.3 mg/dL (8.5-10.1); CARBON DIOXIDE 29.7 mmol/L (21.0-32.0); CHLORIDE - SERUM 103 mmol/L (98-107); CREATININE - SERUM 0.7 mg/dL (0.6-1.3); GLUCOSE 151 mg/dL (74-106); MAGNESIUM - SERUM 2.1 mg/dL (1.8-2.4); PHOSPHOROUS 4.2 mg/dL (2.5-4.9); POTASSIUM - SERUM 4.2 mmol/L (3.5-5.1); SODIUM 138 mmol/L (136-145); UREA NITROGEN 20 mg/dL (7-18); eGFR NON AFRICAN AMERICAN > 90 mL/min (90-120)
--- NOTE | 2019-03-15 07:41 | NUR ---
AWAKE AND ALERT. ORIENTED X3. NO C/O AT THIS TIME. LUNGS ARE CLEAR BILATERALLY BUT DIMINISHED SLIGHTLY. REPORTED PRODUCTIVE COUGH IN PM. SKIN IS INTACT WITHOUT REDNESS. IV TO RIGHT FOREARM IS PATENT WITHOUT REDNESS AT INSERTION SITE. DENIES NEEDS.
[2019-03-15 08:06] VITALS: BP 136/85
--- NOTE | 2019-03-15 09:00 | NUR ---
INCONTINENT OF URINE. SKIN CARE PER SELF. LINENS CHANGED PER STAFF.
--- NOTE | 2019-03-15 10:00 | NUR ---
ATE ALL OF BREAKFAST WITHOUT DIFFICULTY. TOOK AM MEDS WITHOUT DIFFICULTY. DENIES NEEDS.
[2019-03-15 12:44] VITALS: BP 151/74
[2019-03-15] MEDS ORDERED: FEXOFENADINE HC60 MG PO (13:04)
[2019-03-15] MEDS ORDERED: LEVAQUIN750 MG PO (13:05)
[2019-03-15] MEDS ORDERED: BREO ELLIPTA 21 EACH INH (13:07)
[2019-03-15] MEDS ORDERED: PREDNISONE10 MG PO (13:14)
[2019-03-15] MEDS ORDERED: IPRAT-ALBUT 0.5-3 ML UPD (13:14)
[2019-03-15] MEDS ORDERED: FLUTICASONE PRO16 GM NASAL (13:14)
[2019-03-15] MEDS ORDERED: DALIRESP500 MCG PO (13:14)
[2019-03-15] MEDS ORDERED: TESSALON PERLE100 MG PO (13:14)
--- NOTE | 2019-03-15 14:18 | MORECARE ---
CASE MANAGEMENT DISCHARGE SUMMARY PATIENT: YUMIKO PADILLA UNIT: [id number] ADM DATE: 03/11/19 AGE: 73 : [birth year] SEX: M ROOM/BED: D.2227 AUTHOR: NAJMA,DOC PHYSICIAN: REFERRING PHYSICIAN: SOHAN DARLING MD DATE OF SERVICE: 03/15/19 Discharge Plan Patient Name: YUMIKO PADILLA Facility: [facility]:[place] : 1945 Planned Disposition: Home Anticipated Discharge Date: Discharge Date: Expected LOS: Initial Reviewer: [email or web address] Initial Review Date: 03/13/2019 Generated: 03/15/19 3:17 pm Comments DCP- Discharge Planning Updated by [email or web address]: Swapna Palacios on 03/15/19 1:[address] Patient Name: YUMIKO PADILLA Encounter No: [id number] : 1945 Primary Insurance: [employer] MEDICARE ADV Anticipated DC Date: Planned Disposition: Home External Planned Provider: : DCP follow-up note: Patient and family in agreement with discharge plan. No changes to plan. States his family will be here at 4 to pick him up. Case management will follow and assist as needed. Swapna Palacios DCP- Discharge Planning Updated by [id number]: Swapna Palacios on 03/14/19 10:[address] I spoke with Dr. Enrique about a possible trilogy for the patient. Dr. Enrique asked if he wore his BIPAP last night. I asked the patient and he said "a little". States he did not like it. I asked if he would wear a trilogy and he said "probably not." Dr. Enrique does not want me to order a trilogy at this time for the patient. CM will continue to follow and assist with discharge planning/needs. DCP- Discharge Planning Updated by [email or web address]: Swapna Palacios on 03/13/19 1:[address] Patient Name: YUMIKO PADILLA Admission Status: ER Accout number: [id number] Admission Date: 03-11-2019 : 1945 Admission Diagnosis: Attending: SOHAN DARLING Current LOS: 2 Anticipated DC Date: Planned Disposition: Home Primary Insurance: [employer] MEDICARE ADV Discharge Planning Comments: CM met with patient to complete initial dc planning assessment. CM educated patient on the CM role and verbal consent given by patient to complete assessment. Patient lives at home with his daughter (Jacki). At discharge patient plans to return and feels this is a safe discharge. CM discussed availability of home health, rehab services, and medical equipment. Patient denied known discharge needs at this time. 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 He states he is independent except his daughter sets up his medication for him. CM will continue to follow and will assist as needed with dc plans/needs. Grain Elevator Man: Swapna Palacios DCPIA - Discharge Planning Initial Assessment Updated by [email or web address]: Swapna Palacios on 03/13/19 2:43 pm * Is the patient Alert and Oriented? Yes * How many steps to enter\\exit or inside your home? Ramp/0 * PCP Dr. Esteban * Pharmacy [facility] * Preadmission Environment Home with Family * ADLs Partial Dependent * Partial ADLs (Assistance needed) Ambulation Medication Management * Equipment Grab Bars Nebulizer Other Oxygen Rolling Walker Shower Chair Wheelchair * Other Equipment Portable oxygen * List name and contact numbers for known caregivers / representatives who currently or will assist patient after discharge: Jacki Kendall - DTR - [phone] * Verbal permission to speak to the caregivers and representatives has been obtained from the patient. Yes * Community resources currently utilized Meals on Wheels * Please name any agencies selected above. DME is [facility] * Additional services required to return to the preadmission environment? No * Can the patient safely return to the preadmission environment? Yes * Has this patient been hospitalized within the prior 30 days at any hospital? No Coverage Notice Reviewer: [email or web address] - Swapna Palacios Notice Issued Date-Time: 03/15/2019 14:13 Notice Type: IM Discharge Notice Notice Delivered To: Patient Relationship to Patient: Self Host/Hostess Restaurant Name: Delivery Method: HAND - Hand Delivered Maddison Days: Prior Verbal Notification: Recipient Understood Notice: Yes Recipient Signature: Yes Med Rec Note Co-signed by Attending: Coverage Notice Comment: IMM explained, signed, given, copy placed in MR Last DP export: 03/14/19 10:18 a Patient Name: YUMIKO PADILLA Page [id number] at 1418 All edits/amendments must be made on the electronic document DICTATION DATE: 03/15/191416 CHIEF SERVICE OBSERVER: DELIA 03/15/191416 RPT#: [id number] DC DATE: STATUS: ADM IN [facility] [address] [place] [address] END OF REPORT
--- NOTE | 2019-03-15 16:20 | NUR ---
DISCHARGED TO HOME AMBULATORY. DISCHARGE INSTRUCTIONS GIVEN BOTH VERBALLY AND WRITTEN. ALL QUESTIONS ANSWERED. PATIENT VERBALIZED UNDERSTANDING OF SAME. IV TO RIGHT FOREARM D/C WITH CATHETER INTACT. WAITING ON RIDE TO D/C HOME .
[2019-03-15] MEDS ORDERED: COMBIVENT RESPIM4 GM INH (16:34)
[2019-03-15 16:44] VITALS: BP 145/75
--- NOTE | 2019-03-15 16:58 | NUR ---
DAUGHTER HERE TO TAKE PATIENT HOME. ALL QUESTIONS ANSWERED. ALL BELONGINGS WTIH PATIENT.
--- NOTE | 2019-03-15 17:35 | MORECARE ---
CASE MANAGEMENT DISCHARGE SUMMARY PATIENT: YUMIKO PADILLA UNIT: [id number] ADM DATE: 03/11/19 AGE: 73 : [birth year] SEX: M ROOM/BED: D.2227 AUTHOR: NAJMA,DOC PHYSICIAN: REFERRING PHYSICIAN: SOHAN DARLING MD DATE OF SERVICE: 03/15/19 Discharge Plan Patient Name: YUMIKO PADILLA Facility: [facility]:[place] : 1945 Planned Disposition: Home Anticipated Discharge Date: Discharge Date: 03/15/2019 Expected LOS: Initial Reviewer: [id number] Initial Review Date: 03/13/2019 Generated: 03/15/19 6:34 pm Comments DCP- Discharge Planning Updated by [id number]: Swapna Palacios on 03/15/19 1:[address] Patient Name: YUMIKO PADILLA Encounter No: [id number] : 1945 Primary Insurance: [employer]ICARE ADV Anticipated DC Date: Planned Disposition: Home External Planned Provider: : DCP follow-up note: Patient and family in agreement with discharge plan. No changes to plan. States his family will be here at 4 to pick him up. Case management will follow and assist as needed. Swapna Palacios DCP- Discharge Planning Updated by [email or web address]: Swapna Palacios on 03/14/19 10:[address] I spoke with Dr. Enrique about a possible trilogy for the patient. Dr. Enrique asked if he wore his BIPAP last night. I asked the patient and he said "a little". States he did not like it. I asked if he would wear a trilogy and he said "probably not." Dr. Enrique does not want me to order a trilogy at this time for the patient. CM will continue to follow and assist with discharge planning/needs. DCP- Discharge Planning Updated by [email or web address]: Swapna Palacios on 03/13/19 1:[address] Patient Name: YUMIKO PADILLA Admission Status: ER Accout number: [id number] Admission Date: 03-11-2019 : 1945 Admission Diagnosis: Attending: SOHAN DARLING Current LOS: 2 Anticipated DC Date: Planned Disposition: Home Primary Insurance: [employer] MED[employer]ARE ADV Discharge Planning Comments: CM met with patient to complete initial dc planning assessment. CM educated patient on the CM role and verbal consent given by patient to complete assessment. Patient lives at home with his daughter (Jacki). At discharge patient plans to return and feels this is a safe discharge. CM discussed availability of home health, rehab services, and medical equipment. Patient denied known discharge needs at this time. He states he will use [facility] if needed for DME company. He states he is independent except his daughter sets up his medication for him. CM will continue to follow and will assist as needed with dc plans/needs. Commercial Engineer: Swapna Palacios DCPIA - Discharge Planning Initial Assessment Updated by [email or web address]: Swapna Palacios on 03/13/19 2:43 pm * Is the patient Alert and Oriented? Yes * How many steps to enter\\exit or inside your home? Ramp/0 * PCP Dr. Esteban * Pharmacy [facility] * Preadmission Environment Home with Family * ADLs Partial Dependent * Partial ADLs (Assistance needed) Ambulation Medication Management * Equipment Grab Bars Nebulizer Other Oxygen Rolling Walker Shower Chair Wheelchair * Other Equipment Portable oxygen * List name and contact numbers for known caregivers / representatives who currently or will assist patient after discharge: Jacki Kendall - DTR - [phone] * Verbal permission to speak to the caregivers and representatives has been obtained from the patient. Yes * Community resources currently utilized Meals [employer] Wheels * Please name any agencies selected above. DME is [facility] * Additional services required to return to the preadmission environment? No * Can the patient safely return to the preadmission environment? Yes * Has this patient been hospitalized within the prior 30 days at any hospital? No Coverage Notice Reviewer: [id number] - Swapna Palacios Notice Issued Date-Time: 03/15/2019 14:13 Notice Type: IM Discharge Notice Notice Delivered To: Patient Relationship to Patient: Self Racetrack Steward Name: Delivery Method: HAND - Hand Delivered Maddison Days: Prior Verbal Notification: Recipient Understood Notice: Yes Recipient Signature: Yes Med Rec Note Co-signed by Attending: Coverage Notice Comment: IMM explained, signed, given, copy placed in MR Last DP export: 03/15/19 1:18 p Patient Name: YUMIKO PADILLA Page [phone] at 1735 All edits/amendments must be made on the electronic document DICTATION DATE: 03/15/191733 POCKET MARKER: DELIA 03/15/191733 RPT#: [id number] MI DATE:03/15/19 STATUS: DIS IN [facility] [address] [place] [address] END OF REPORT
[2019-03-16 11:09] LABS: IMMUNOGLOBULIN E 72 IU/mL (6-495)
== END 2019-03-15 16:59 | disposition home or self-care (01) | DRG 189 ==
LOC: D.ER 20:43 → D.MS 22:46
PROVIDERS: Family Medicine; Internal Medicine Pulmonary Disease; ADMIT Internal Medicine Nephrology; ATTEND Internal Medicine Nephrology
DX: J96.21 Acute and chronic respiratory failure with hypoxia (principal); J44.0 Chronic obstructive pulmonary disease with (acute) lower respiratory infection; J44.1 Chronic obstructive pulmonary disease with (acute) exacerbation; F17.203 Nicotine dependence unspecified, with withdrawal; J20.9 Acute bronchitis, unspecified; J96.02 Acute respiratory failure with hypercapnia; D64.9 Anemia, unspecified; E11.9 Type 2 diabetes mellitus without complications; I25.10 Atherosclerotic heart disease of native coronary artery without angina pectoris; E78.5 Hyperlipidemia, unspecified; I10 Essential (primary) hypertension; Z86.73 Personal history of transient ischemic attack (TIA), and cerebral infarction without residual deficits; I50.9 Heart failure, unspecified; Z99.81 Dependence on supplemental oxygen; J30.9 Allergic rhinitis, unspecified

== ENCOUNTER 2019-04-05 13:03 | Inpatient (IN) | payer MEDICARE, MEDICAID ==
[~2019-04-05] VITALS: Ht 172.7 cm; Wt 77.2 kg
[~2019-04-05 13:03] MED LIST changes: +BREO ELLIPTA 21 EACH INH; +COMBIVENT RESPIM4 GM INH; +FEXOFENADINE HC60 MG PO; +IPRAT-ALBUT 0.5-3 ML UPD
[2019-04-05 13:29] LABS: BASOPHILS 0.5 % (0-2); HEMATOCRIT 41.4 % (42.0-54.0); HEMOGLOBIN 12.9 g/dL (13.5-17.5); IMMATURE GRANULOCYTES 0.1 % (0-5); MCH 26.2 pg (26.0-34.0); MCHC 31.2 g/dL (31.0-37.0); MEAN PLATELET VOLUME 8.5 fL (7.4-10.4); MONOCYTES 11.2 % (2-11); NEUTROPHILS 58.2 % (40-80); PLATELET COUNT 263 10x3/uL (130-400); RBC 4.93 10x6/uL (4.20-6.10); RDW 15.4 % (11.5-14.5)
[2019-04-05 13:39] LABS: APTT 26.1 SECONDS (22.8-39.4); CALC OSMOLALITY 274 mosm/kg (275-300); CALCIUM 9.7 mg/dL (8.5-10.1); CARBON DIOXIDE 31.7 mmol/L (21.0-32.0); CHLORIDE - SERUM 101 mmol/L (98-107); GLUCOSE 60 mg/dL (74-106); INR 1.08 (0.85-1.17); PROTIME 13.5 SECONDS (11.6-15.0); SODIUM 140 mmol/L (136-145); UREA NITROGEN 8 mg/dL (7-18); eGFR NON AFRICAN AMERICAN 78 mL/min (90-120)
[2019-04-05 13:42] VITALS: BP 105/66; BP 110/60
[2019-04-05 13:52] LABS: ALBUMIN 3.2 g/dL (3.4-5.0); ALKALINE PHOSPHATASE 54 U/L (46-116); ALT (SGPT) 25 U/L (10-68); CKMB 0.9 U/L (0.0-3.6); CREATINE KINASE 44 UL (21-232); PRO BNP 136 pg/mL (0-125); PROTEIN - SERUM 7.4 g/dL (6.4-8.2)
[2019-04-05 13:54] LABS: TROPONIN-I < 0.017 ng/mL (0.000-0.060)
--- NOTE | 2019-04-05 14:36 | NUR ---
LAB AT FOR BCX2 THEN ABXS INITIATED
[2019-04-05 14:49] VITALS: BP 105/66
--- NOTE | 2019-04-05 15:35 | NUR ---
REPORT TO JUVE PATEL
[2019-04-05 15:39] VITALS: BP 105/66
--- NOTE | 2019-04-05 15:51 | NUR ---
PT ARRIVED TO FLOOR VIA WC ACCOMPANIED BY EX- AND DAUGHTER AND HOSPITAL STAFF. PT TRANSFERED SELF TO BED. PT IS ALERT AND ORIENTED AND ON O2 AT 2L VIA NC. URINAL GIVEN TO PT. TELEMETRY PLACED ON PT AND HE IS RUNNING 82 SR. RN TO DO ADMISSION ASSESSMENT. BED LOW. CL IN REACH. WILL CONTINUE TO MONITOR.
--- NOTE | 2019-04-05 16:22 | NUR ---
PT'S FAMILY WANTING DR. CHAVEZ AND DR. LOWRY CONSULTED. CALLED AND SPOKE WITH MYLA MARCIAL AND SHE STATES SHE WILL CONSULT THEM.
[2019-04-05 16:30] VITALS: BP 116/43; BMI 25.1
--- NOTE | 2019-04-05 17:39 | NUR ---
SPECIMEN CUP FOR UA COLLECTION AND RESPIRATORY COLLECTION CUP GIVEN TO PT. EXPLAIEND TO PT ON HOW TO COLELCT AND HE VERBALIZED UNDERSTANDING.
--- NOTE | 2019-04-05 17:53 | NUR ---
PT'S LOUISE AND FERNANDO TRENT WANTS TO SET UP PASSWORD: PREACHER.
[2019-04-05 18:26] VITALS: BP 116/43
--- NOTE | 2019-04-05 18:28 | NUR ---
I CONCUR WITH ACDS BLOCK 1 OPERATOR ASSESMENT OF THIS PATIENT.
[2019-04-05 19:26] LABS: APPEARANCE CLEAR (CLEAR); BACTERIA FEW /hpf (NEGATIVE); BILIRUBIN NEGATIVE (NEGATIVE); COLOR YELLOW (YELLOW); GLUCOSE NEGATIVE (NEGATIVE); KETONE NEGATIVE (NEGATIVE); NITRITE NEGATIVE (NEGATIVE); PROTEIN NEGATIVE (NEGATIVE); RED CELLS - URINE OCC /hpf (0-5); SPECIFIC GRAVITY 1.025 (1.005-1.020); UROBILINOGEN NORMAL (NORMAL)
--- NOTE | 2019-04-05 19:50 | NUR ---
REPORT RECEIVED. PT RESTING IN BED WATCHING TV. RR EVEN AND UNLABORED. DENIES NEEDS AT THIS TIME. NO S/S OF DISTRESS NOTED. SR X2, CALL LIGHT IN REACH. WILL CTM.
[2019-04-05 20:00] VITALS: BP 125/72
[2019-04-05 20:03] LABS: CKMB 0.9 U/L (0.0-3.6); CREATINE KINASE 47 UL (21-232); TROPONIN-I 0.021 ng/mL (0.000-0.060)
[2019-04-06] VITALS: BP 108/60
[2019-04-06 04:14] LABS: BASOPHILS 0 % (0-2); EOSINOPHILS 0 % (0-7); HEMATOCRIT 39.6 % (42.0-54.0); HEMOGLOBIN 12.2 g/dL (13.5-17.5); IMMATURE GRANULOCYTES 0.2 % (0-5); LYMPHOCYTES 15.2 % (15-50); MCH 25.6 pg (26.0-34.0); MCHC 30.8 g/dL (31.0-37.0); MCV 83.2 fL (80.0-100.0); MEAN PLATELET VOLUME 8.7 fL (7.4-10.4); MONOCYTES 6.6 % (2-11); PLATELET COUNT 246 10x3/uL (130-400); RBC 4.76 10x6/uL (4.20-6.10); RDW 15.1 % (11.5-14.5); WBC 5.3 10x3/uL (4.8-10.8)
[2019-04-06 04:30] VITALS: BP 119/69
[2019-04-06 04:39] LABS: ALKALINE PHOSPHATASE 45 U/L (46-116); ALT (SGPT) 20 U/L (10-68); BILIRUBIN - TOTAL 0.23 mg/dL (0.2-1.3); CALC OSMOLALITY 275 mosm/kg (275-300); CALCIUM 9.1 mg/dL (8.5-10.1); CARBON DIOXIDE 28.2 mmol/L (21.0-32.0); CHLORIDE - SERUM 101 mmol/L (98-107); CKMB 0.9 U/L (0.0-3.6); CREATINE KINASE 51 UL (21-232); CREATININE - SERUM 0.9 mg/dL (0.6-1.3); POTASSIUM - SERUM 4.2 mmol/L (3.5-5.1); PROTEIN - SERUM 6.8 g/dL (6.4-8.2); SODIUM 137 mmol/L (136-145); TROPONIN-I < 0.017 ng/mL (0.000-0.060); UREA NITROGEN 10 mg/dL (7-18); eGFR NON AFRICAN AMERICAN 88 mL/min (90-120)
[2019-04-06 04:40] LABS: GLUCOSE 159 mg/dL (74-106)
--- NOTE | 2019-04-06 07:20 | NUR ---
RECEIVED REPORT. ASSUMED CARE OF PATIENT. CALL LIGHT WITHIN REACH. NO DISTRESS. SITTING UP IN BED WITH EYES OPEN. PATIENT STATES HE FEEL OKAY THIS AM. DENIES NEEDS.
[2019-04-06 08:36] VITALS: BP 156/80
--- NOTE | 2019-04-06 11:49 | NUR ---
FSBS 164. 2 UNITS HUMULIN ADMINISTERED PER SLIDING SCALE.
[2019-04-06 12:30] VITALS: BP 114/63
--- NOTE | 2019-04-06 12:40 | CN ---
PATIENT NAME:YUMIKO PADILLA MEDICAL RECORD: [id number] : [birth year] LOCATION:[facility].2135 ADMIT DATE: 04/05/19 ACCOUNT: [id number] CONSULTING PHYSICIAN: PEPE CHAVEZ MD REFERRING PHYSICIAN: BOB LING MD DATE OF CONSULTATION: 04/06/2019 CARDIOLOGY CONSULTATION DIAGNOSES: 1. Shortness of breath, dyspnea on exertion. 2. Pneumonia. 3. Chronic obstructive pulmonary disease. 4. Chest pain. 5. Coronary artery disease. 6. Previous cardiac stenting. 7. Smoking history. 8. Hypertension. 9. Hyperlipidemia. HISTORY OF PRESENT ILLNESS: Mr. Padilla is known to us with a past history of coronary artery disease. He presents with shortness of breath, cough, sputum production. Chest x-ray is compatible with multifocal pneumonia. He has been treating for this. He was recently hospitalized for COPD and pneumonia as well. He did develop an episode of chest pain requiring sublingual nitro and this resolved. The chest pain was actually not like his previous angina pain. It was associated with coughing. His EKG is normal. Troponin is normal. He has had no further episodes of the chest pain. Last cardiac intervention was in July. PHYSICAL EXAMINATION: CONSTITUTIONAL/GENERAL APPEARANCE: Well nourished, well developed, appears stated age. EYES: Lids and conjunctivae noninjected. No discharge. No pallor. ENT: Lips within normal limit. No cyanosis. No pallor. NECK: Carotid arteries, bilateral normal upstroke. No bruits. No thrills. No jugular venous pressure or distention. CERVICAL LYMPH NODES: Nontender. Nonenlarged. THYROID: Not enlarged. No nodules. CARDIOVASCULAR: Precordial exam, nondisplaced. No heaves or pericardial thrills. Rate and rhythm, regular. Heart sounds, normal S1, normal S2. No S3, no gallop, no rub. Systolic murmur, not heard. Diastolic murmur, not heard. RESPIRATORY: Respiratory effort, unlabored. Normal curvature. No thoracic deformity. No chest wall tenderness. Percussion, resonant. Auscultation, clear. No wheezes, no rales, no rhonchi. ABDOMEN: Soft, nondistended, nontender. No abdominal pain, no vomiting and normal appetite. MUSCULOSKELETAL: No joint tenderness, normal gait, normal tone. SKIN: Warm and dry. OVERALL IMPRESSION: Chest pain, atypical for his angina, relieved with nitro, normal EKG, normal troponin and the chest pain was associated with coughing. He does have a pneumonia for which he is being treated. At this time, no other cardiac workup or treatment is necessary. Continue his current cardiac medications. Treat for the pneumonia. CONSULT REPORT [id number] YUMIKO PADILLA TRANSINT:[id number] Voice Confirmation ID: [id number] DOCUMENT ID: [id number] PEPE CHAVEZ MD at 1240 CC: [id number] DICTATION DATE: 04/06/19 1050 DRY HOUSE WORKER: 04/06/19 1154 ADM IN [place] [id number] [place] [id number]
[2019-04-06 13:41] VITALS: Ht 172.7 cm; Wt 77.2 kg
--- NOTE | 2019-04-06 15:21 | NUR ---
PATIENT SITTING UP IN BED, TOLERATING IV LEVAQUIN WELL. FAMILY AT BEDSIDE HAS LEFT FOR THE DAY. CALL LIGHT WITHIN REACH. NO DISTRESS.
[2019-04-06 16:07] VITALS: BP 109/67
--- NOTE | 2019-04-06 19:10 | NUR ---
REPORT RECEIVED. PT UP IN BED WATCHING TV. RR EVEN AND UNLABORED ON 2L NC. NO S/S OF DISTESS NOTED. PT DENIES NEEDS. SRX2, CALL LIGHT IN REACH WILL CTM.
[2019-04-06 20:03] VITALS: BP 120/70
[2019-04-07 00:30] VITALS: BP 102/58
--- NOTE | 2019-04-07 02:25 | NUR ---
PT RESTING QUIETLY DURING THE NIGHT. NO NEEDS EXPRESSED. CALL LIGHT IN REACH.
[2019-04-07 04:46] VITALS: BP 131/73
[2019-04-07 06:39] LABS: BASOPHILS 0 % (0-2); EOSINOPHILS 0 % (0-7); HEMOGLOBIN 11.8 g/dL (13.5-17.5); IMMATURE GRANULOCYTES 0.4 % (0-5); MCH 25.9 pg (26.0-34.0); MCHC 31.1 g/dL (31.0-37.0); MCV 83.5 fL (80.0-100.0); MONOCYTES 8.7 % (2-11); NEUTROPHILS 79.9 % (40-80); PLATELET COUNT 248 10x3/uL (130-400); RBC 4.55 10x6/uL (4.20-6.10); RDW 15.1 % (11.5-14.5)
[2019-04-07 06:41] LABS: WBC 12.8 10x3/uL (4.8-10.8)
--- NOTE | 2019-04-07 07:00 | NUR ---
RECEIVED REPORT. ASSUMED CARE OF PATIENT. CALL LIGHT WITHIN REACH. PATIENT SITTING TO SIDE OF BED. RESP EVEN AND UNLABORED. PATIENT STATES HE FEELS GOOD THIS MORNING AND HE HAS BEEN UP AND COMPLETED HIS ADLs. PATIENT REQUESTING COFFEE AT THIS TIME. NO DISTRESS.
[2019-04-07 07:04] LABS: ALBUMIN 2.9 g/dL (3.4-5.0); ALKALINE PHOSPHATASE 43 U/L (46-116); ALT (SGPT) 20 U/L (10-68); BILIRUBIN - TOTAL 0.27 mg/dL (0.2-1.3); CALCIUM 9.1 mg/dL (8.5-10.1); CARBON DIOXIDE 29.5 mmol/L (21.0-32.0); CHLORIDE - SERUM 103 mmol/L (98-107); CREATININE - SERUM 0.8 mg/dL (0.6-1.3); GLUCOSE 150 mg/dL (74-106); MAGNESIUM - SERUM 2.3 mg/dL (1.8-2.4); POTASSIUM - SERUM 4.4 mmol/L (3.5-5.1); PROTEIN - SERUM 6.5 g/dL (6.4-8.2); SODIUM 137 mmol/L (136-145); eGFR NON AFRICAN AMERICAN > 90 mL/min (90-120)
[2019-04-07 07:05] LABS: CALC OSMOLALITY 277 mosm/kg (275-300); UREA NITROGEN 16 mg/dL (7-18)
--- NOTE | 2019-04-07 07:15 | NUR ---
FRESH COFFEE PROVIDED UPON REQUEST. NO DISTRESS.
[2019-04-07 08:00] VITALS: BP 137/80
--- NOTE | 2019-04-07 11:54 | NUR ---
FSBS 174. 2 UNITS HUMULIN INSULIN ADMINISTERED PER SLIDING SCALE.
[2019-04-07 12:00] VITALS: BP 128/74
--- NOTE | 2019-04-07 15:54 | MORECARE ---
CASE MANAGEMENT DISCHARGE SUMMARY PATIENT: YUMIKO PADILLA UNIT: [id number] ADM DATE: 04/05/19 AGE: 73 : [birth year] SEX: M ROOM/BED: D.2135 AUTHOR: DRU YAO PHYSICIAN: REFERRING PHYSICIAN: BOB LING MD DATE OF SERVICE: 04/07/19 Discharge Plan Patient Name: YUMIKO PADILLA [facility] [facility] 1945 Planned Disposition: Anticipated Discharge Date: Discharge Date: Expected LOS: Initial Reviewer: [email or web address] Initial Review Date: 04/07/2019 Generated: 04/07/19 4:54 pm DCPIA - Discharge Planning Initial Assessment Updated by [email or web address]: Kiley Cid on 04/07/19 3:53 pm * Is the patient Alert and Oriented? Yes * PCP BENÍTEZ * Pharmacy [facility] * Preadmission Environment Home with Family * ADLs Independent * Other Equipment 02, PORT, [facility] * List name and contact numbers for known caregivers / representatives who currently or will assist patient after discharge: LON TRENT, * Community resources currently utilized None * Please name any agencies selected above. [facility] * Additional services required to return to the preadmission environment? No * Can the patient safely return to the preadmission environment? Yes * Has this patient been hospitalized within the prior 30 days at any hospital? No Patient Name: YUMIKO PADILLA Page [id number] at 1554 All edits/amendments must be made on the electronic document DICTATION DATE: 04/07/19 155 AIRCRAFT FUELER: DELIA 04/07/19 1554 RPT#: [id number] DC DATE: STATUS: ADM IN [facility] [address] [place] [address] END OF REPORT
[2019-04-07 16:00] VITALS: BP 116/64
--- NOTE | 2019-04-07 16:03 | MORECARE ---
CASE MANAGEMENT DISCHARGE SUMMARY PATIENT: YUMIKO PADILLA UNIT: [id number] ADM DATE: 04/05/19 AGE: 73 : [birth year] SEX: M ROOM/BED: D.2135 AUTHOR: DRU YAO PHYSICIAN: REFERRING PHYSICIAN: BOB LING MD DATE OF SERVICE: 04/07/19 Discharge Plan Patient Name: YUMIKO PADILLA Facility: [facility]:[place] : 1945 Planned Disposition: Anticipated Discharge Date: Discharge Date: Expected LOS: Initial Reviewer: [email or web address] Initial Review Date: 04/07/2019 Generated: 04/07/19 5:02 pm Comments DCP- Discharge Planning Updated by [email or web address]: Kiley Cid on 04/07/19 3:[address] Patient Name: YUMIKO PADILLA Admission Status: ER Accout number: [id number] Admission Date: 04-05-2019 : 1945 Admission Diagnosis: Attending: GILDA Current LOS: 2 Anticipated DC Date: Planned Disposition: Primary Insurance: [employer] ADV Discharge Planning Comments: CM met with patient at bedside after explaining CM role and obtaining verbal consent. CM discussed availability / needs of home health, REHAB and medical equipment. PATIENT DENIES ANY DISCHARGE NEEDS. Associate Property Manager: Kiley Cid DCPIA - Discharge Planning Initial Assessment Updated by [id number]: Kiley Cid on 04/07/19 3:53 pm * Is the patient Alert and Oriented? Yes * PCP BENÍTEZ * Pharmacy [facility] * Preadmission Environment Home with Family * ADLs Independent * Other Equipment 02, PORT, [facility] * List name and contact numbers for known caregivers / representatives who currently or will assist patient after discharge: LON TRENT, * Community resources currently utilized None * Please name any agencies selected above. [facility] * Additional services required to return to the preadmission environment? No * Can the patient safely return to the preadmission environment? Yes * Has this patient been hospitalized within the prior 30 days at any hospital? No Last DP export: 04/07/19 2:54 p Patient Name: YUMIKO PADILLA Page 53212 at 1603 All edits/amendments must be made on the electronic document DICTATION DATE: 04/07/191601 CHIEF COMPRESSOR STATION ENGINEER: DELIA 04/07/191601 RPT#: [id number] DC DATE: STATUS: ADM IN [facility] [address] [place] [address] END OF REPORT
--- NOTE | 2019-04-07 16:12 | NUR ---
FSBS 133. NO INSULIN COVERAGE PER SLIDING SCALE.
--- NOTE | 2019-04-07 19:27 | NUR ---
AWAKE AND SITTING ON BEDSIDE DENIES NEEDS AT THIS TIME BED LOW AND LOCKED CALL LIGHT IS WITH PT
[2019-04-07 20:30] VITALS: BP 134/62
[2019-04-08 00:13] VITALS: BP 119/68
[2019-04-08 04:26] VITALS: BP 135/85
[2019-04-08 06:33] LABS: ALBUMIN 2.9 g/dL (3.4-5.0); ALKALINE PHOSPHATASE 45 U/L (46-116); ALT (SGPT) 21 U/L (10-68); BILIRUBIN - TOTAL 0.24 mg/dL (0.2-1.3); CALC OSMOLALITY 280 mosm/kg (275-300); CALCIUM 9.1 mg/dL (8.5-10.1); CARBON DIOXIDE 31.6 mmol/L (21.0-32.0); CHLORIDE - SERUM 102 mmol/L (98-107); CREATININE - SERUM 0.9 mg/dL (0.6-1.3); GLUCOSE 168 mg/dL (74-106); MAGNESIUM - SERUM 2.2 mg/dL (1.8-2.4); POTASSIUM - SERUM 4.4 mmol/L (3.5-5.1); PROTEIN - SERUM 6.4 g/dL (6.4-8.2); SODIUM 137 mmol/L (136-145); eGFR NON AFRICAN AMERICAN 88 mL/min (90-120)
[2019-04-08 06:34] LABS: UREA NITROGEN 21 mg/dL (7-18)
[2019-04-08 06:35] LABS: BASOPHILS 0 % (0-2); EOSINOPHILS 0 % (0-7); HEMATOCRIT 38.8 % (42.0-54.0); HEMOGLOBIN 11.8 g/dL (13.5-17.5); IMMATURE GRANULOCYTES 0.2 % (0-5); MCH 25.7 pg (26.0-34.0); MCHC 30.4 g/dL (31.0-37.0); MCV 84.5 fL (80.0-100.0); MEAN PLATELET VOLUME 8.9 fL (7.4-10.4); MONOCYTES 5.4 % (2-11); NEUTROPHILS 82.4 % (40-80); PLATELET COUNT 255 10x3/uL (130-400); RBC 4.59 10x6/uL (4.20-6.10); RDW 15.1 % (11.5-14.5); WBC 10.2 10x3/uL (4.8-10.8)
--- NOTE | 2019-04-08 07:10 | NUR ---
PT RESTING IN BED. NO SIGNS OF DISTRESS. IV TO RIGHT FORARM PATENT NO REDNESS OR TENDERNESS. ON 2L NC. ON TELEMTRY 74 SR. DENIES ANY FURTHER NEED AT THIS TIME. CALL LIGHT IN REACH. BED LOW POSITION. NO FAMILY AT BEDSIDE AT THIS TIME.
[2019-04-08 10:42] VITALS: BP 131/56
--- NOTE | 2019-04-08 12:36 | NUR ---
I have reviewed this patient and I concur with the Shift Assessment completed by the Licensed Practical Nurse today this shift.
[2019-04-08 13:34] VITALS: BP 109/59
[2019-04-08 20:35] VITALS: BP 106/66
[2019-04-09 00:30] VITALS: BP 123/67
[2019-04-09 04:30] VITALS: BP 146/76
[2019-04-09 06:56] LABS: ALBUMIN 2.7 g/dL (3.4-5.0); ALKALINE PHOSPHATASE 44 U/L (46-116); ALT (SGPT) 19 U/L (10-68); BASOPHILS 0.1 % (0-2); BILIRUBIN - TOTAL 0.23 mg/dL (0.2-1.3); CALC OSMOLALITY 282 mosm/kg (275-300); CALCIUM 8.9 mg/dL (8.5-10.1); CARBON DIOXIDE 34.6 mmol/L (21.0-32.0); CHLORIDE - SERUM 103 mmol/L (98-107); CREATININE - SERUM 0.8 mg/dL (0.6-1.3); EOSINOPHILS 1.9 % (0-7); GLUCOSE 104 mg/dL (74-106); HEMATOCRIT 38.5 % (42.0-54.0); HEMOGLOBIN 11.5 g/dL (13.5-17.5); IMMATURE GRANULOCYTES 0.2 % (0-5); LYMPHOCYTES 36.8 % (15-50); MAGNESIUM - SERUM 2.1 mg/dL (1.8-2.4); MCH 25.5 pg (26.0-34.0); MCHC 29.9 g/dL (31.0-37.0); MCV 85.4 fL (80.0-100.0); MEAN PLATELET VOLUME 8.9 fL (7.4-10.4); MONOCYTES 10.6 % (2-11); NEUTROPHILS 50.4 % (40-80); PLATELET COUNT 243 10x3/uL (130-400); POTASSIUM - SERUM 4.2 mmol/L (3.5-5.1); PROTEIN - SERUM 5.8 g/dL (6.4-8.2); RBC 4.51 10x6/uL (4.20-6.10); SODIUM 141 mmol/L (136-145); UREA NITROGEN 19 mg/dL (7-18); WBC 9.5 10x3/uL (4.8-10.8); eGFR NON AFRICAN AMERICAN > 90 mL/min (90-120)
--- NOTE | 2019-04-09 07:17 | NUR ---
REPORT RECEIVED. WILL CONTINUE WITH POC. PT CURRENTLY LYING SEMI FOWLERS. CALL LIGHT W/I REACH. PT IS AAO AND UP AD DAMON. RR EVEN AND UNLABORED ON 2L 02. R.FOR PIV IS SALINE LOCKED. NO S/S OF DISTRESS NOTED. PT DENIES ANY NEEDS. WILL CTM.
[2019-04-09 09:24] VITALS: BP 111/64
--- NOTE | 2019-04-09 12:41 | NUR ---
I have reviewed this patient and I concur with the Shift Assessment completed by the Licensed Practical Nurse today this shift.
[2019-04-09] MEDS ORDERED: STERAPRED DS 1010 MG PO (12:42)
--- NOTE | 2019-04-09 13:25 | MORECARE ---
CASE MANAGEMENT DISCHARGE SUMMARY PATIENT: YUMIKO PADILLA UNIT: [id number] ADM DATE: 04/05/19 AGE: 73 : 47 SEX: M ROOM/BED: D.2130 AUTHOR: NAJMA,DOC PHYSICIAN: REFERRING PHYSICIAN: BOB LING MD DATE OF SERVICE: 04/09/19 Discharge Plan Patient Name: YUMIKO PADILLA Facility: [facility]:[place] : 1945 Planned Disposition: Home with Home Health Anticipated Discharge Date: 04/09/19 Discharge Date: Expected LOS: 4 Initial Reviewer: [email or web address] Initial Review Date: 04/07/2019 Generated: 04/09/19 2:25 pm DCP- Discharge Planning Updated by [email or web address]: Kiley Cid on 04/07/19 3:[address] Patient Name: YUMIKO PADILLA Admission Status: ER Accout number: [id number] Admission Date: 04-05-2019 : 1945 Admission Diagnosis: Attending: GILDA Current LOS: 2 Anticipated DC Date: Planned Disposition: [facility] ADV Discharge Planning Comments: CM met with patient at bedside after explaining CM role and obtaining verbal consent. CM discussed availability / needs of home health, REHAB and medical equipment. PATIENT DENIES ANY DISCHARGE NEEDS. Dietitian Teaching: Kiley Cid DCPIA - Discharge Planning Initial Assessment Updated by [email or web address]: Kiley Cid on 04/07/19 3:53 pm * Is the patient Alert and Oriented? Yes * PCP BENÍTEZ * Pharmacy [facility] * Preadmission Environment Home with Family * ADLs Independent * Other Equipment 02, PORT, NEBS * List name and contact numbers for known caregivers / representatives who currently or will assist patient after discharge: LON TRENT, * Community resources currently utilized None * Please name any agencies selected above. [facility] * Additional services required to return to the preadmission environment? No * Can the patient safely return to the preadmission environment? Yes * Has this patient been hospitalized within the prior 30 days at any hospital? No External Providers External Provider: [email or web address] Next Contact Date: 04/09/2019 Service Request Date: Service Type: Resolution: Reviewer: Comments: Coverage Notice Reviewer: [id number] Moses Harman Notice Issued Date-Time: 04/09/2019 13:05 Notice Type: IM Discharge Notice Notice Delivered To: Patient Relationship to Patient: Apparel Stock Checker Name: Delivery Method: HAND - Hand Delivered Maddison Days: Prior Verbal Notification: Recipient Understood Notice: Yes Recipient Signature: Yes Med Rec Note Co-signed by Attending: Coverage Notice Comment: Reviewer: [id number] Moses Harman Notice Issued Date-Time: 04/09/2019 13:05 Notice Type: Patient Choice Letter Notice Delivered To: Patient Relationship to Patient: Apparel Stock Checker Name: Delivery Method: HAND - Hand Delivered Maddison Days: Prior Verbal Notification: Recipient Understood Notice: Yes Recipient Signature: Yes Med Rec Note Co-signed by Attending: Coverage Notice Comment: [facility] Last DP export: 04/07/19 3:03 p Patient Name: YUMIKO PADILLA Page [id number] at 1325 All edits/amendments must be made on the electronic document DICTATION DATE: 04/09/19 1325 ELEVATOR OPERATOR FREIGHT: DELIA 04/09/19 1325 RPT#: [id number] DC DATE: STATUS: ADM IN [facility] [address] [place] [address] END OF REPORT
--- NOTE | 2019-04-09 13:35 | MORECARE ---
CASE MANAGEMENT DISCHARGE SUMMARY PATIENT: YUMIKO PADILLA UNIT: [id number] ADM DATE: 04/05/19 AGE: 73 : 47 SEX: M ROOM/BED: D.2135 AUTHOR: NAJMA,DOC PHYSICIAN: REFERRING PHYSICIAN: BOB LING MD DATE OF SERVICE: 04/09/19 Discharge Plan Patient Name: YUMIKO PADILLA Facility: [facility]:[place] : 1945 Planned Disposition: Home with Home Health Anticipated Discharge Date: 04/09/19 Discharge Date: Expected LOS: 4 Initial Reviewer: [email or web address] Initial Review Date: 04/07/2019 Generated: 04/09/19 2:35 pm Comments DCP- Discharge Planning Updated by [email or web address]: Matt Harman on 04/09/19 12:[address] Patient Name: YUMIKO PADILLA Encounter No: [id number] : 1945 Primary Insurance: [employer] MEDICARE ADV Anticipated DC Date: 04-09-2019 Planned Disposition: Home with Home Health External Planned Provider: [facility] DCP follow-up note: CM RECEIVED DISCHARGE ORDER AND HOME HEALTH ORDER. CM MET WITH PT IN ROOM TO DISCUSS DISCHARGE NEEDS AND PLANNING. CM DISCUSSED AVAILABILITY OF HOME HEALTH, REHAB SERVICES AND MEDICAL EQUIPMENT. PT DENIES DISCHARGE NEEDS AND WILL ACCEPT HOUSE CALLS AND HOME HEALTH. PROVIDER LISTING GIVEN. PT HAS USED [facility] AND [facility] IN THE PAST AND WOULD LIKE [facility] FIRST CHOICE, [facility] SECOND. CHOICE SIGNED. IMPORTANT MESSAGE FROM MEDICARE PROVIDED AND EXPLAINED. DAUGHTER TO TRANSPORT HOME AT DISCHARGE. CM CALLED [employer] [facility], , SPOKE TO [place], REFERRAL PROVIDED, PT PLACED ON SCHEDULE FOR MONDAY. CM FAXED REFERRAL AND DISCHARGE INFORMATION TO [facility] AT [phone]. PLASTERER TENDER NURSE NOTIFIED. JOLIE Hale WYTERESO DCP- Discharge Planning Updated by [id number]: Kiley Cid on 04/07/19 3:[address] Patient Name: YUMIKO PADILLA Admission Status: ER Accout number: [id number] Admission Date: 04-05-2019 : 1945 Admission Diagnosis: Attending: GILDA Current LOS: 2 Anticipated DC Date: Planned Disposition: Primary Insurance: [employer] MEDICARE ADV Discharge Planning Comments: CM met with patient at bedside after explaining CM role and obtaining verbal consent. CM discussed availability / needs of home health, REHAB and medical equipment. PATIENT DENIES ANY DISCHARGE NEEDS. [employer] History Teacher: Kiley Palak DCPIA - Discharge Planning Initial Assessment Updated by [id number]: Kiley Cid on 04/07/19 3:53 pm * Is the patient Alert and Oriented? Yes * PCP BENÍTEZ * Pharmacy [facility] * Preadmission Environment Home with Family * ADLs Independent * Other Equipment 02, PORT, NEBS * List name and contact numbers for known caregivers / representatives who currently or will assist patient after discharge: LON TRENT, * Community resources currently utilized None * Please name any agencies selected above. [facility] * Additional services required to return to the preadmission environment? No * Can the patient safely return to the preadmission environment? Yes * Has this patient been hospitalized within the prior 30 days at any hospital? No Coverage Notice Reviewer: MIYA Harman Notice Issued Date-Time: 04/09/2019 13:05 Notice Type: IM Discharge Notice Notice Delivered To: Patient Relationship to Patient: Other Spatial Scientist Name: Delivery Method: HAND - Hand Delivered Maddison Days: Prior Verbal Notification: Recipient Understood Notice: Yes Recipient Signature: Yes Med Rec Note Co-signed by Attending: Coverage Notice Comment: Reviewer: MIYA Harman Notice Issued Date-Time: 04/09/2019 13:05 Notice Type: Patient Choice Letter Notice Delivered To: Patient Relationship to Patient: Other Spatial Scientist Name: Delivery Method: HAND - Hand Delivered Maddison Days: Prior Verbal Notification: Recipient Understood Notice: Yes Recipient Signature: Yes Med Rec Note Co-signed by Attending: Coverage Notice Comment: [facility] Last DP export: 04/09/19 12:25 p Patient Name: YUMIKO PADILLA Page [id number] at 1335 All edits/amendments must be made on the electronic document DICTATION DATE: 04/09/19 1335 NUTRITION SPECIALIST: DELIA 04/09/19 1335 RPT#: [id number] DC DATE: STATUS: ADM IN [facility] [address] [place] [address] END OF REPORT
[2019-04-09 13:56] VITALS: BP 114/57
--- NOTE | 2019-04-09 15:32 | NUR ---
PT DISCHARGED HOME VIA WHEELCHAIR WITH FAMILY. TELEMETRY REMOVED AND RETURNED. PIV REMOVED WITH CATHETER TIP FULLY INTACT. PT SIGNED PROPER DISCHARGE INSTRUCTIONS AND REMOVED ALL VALUABLES FROM THE ROOM.
== END 2019-04-09 15:33 | disposition home health service (06) | DRG 193 ==
LOC: D.ER 13:03 → D.M2 15:34
PROVIDERS: Family Medicine; ADMIT Family Medicine; ATTEND Family Medicine
DX: J18.9 Pneumonia, unspecified organism (principal); J96.21 Acute and chronic respiratory failure with hypoxia; J44.0 Chronic obstructive pulmonary disease with (acute) lower respiratory infection; J44.1 Chronic obstructive pulmonary disease with (acute) exacerbation; F17.213 Nicotine dependence, cigarettes, with withdrawal; Y95 Nosocomial condition; D64.9 Anemia, unspecified; E78.5 Hyperlipidemia, unspecified; E11.69 Type 2 diabetes mellitus with other specified complication; I11.0 Hypertensive heart disease with heart failure; I50.9 Heart failure, unspecified; J20.9 Acute bronchitis, unspecified; J30.9 Allergic rhinitis, unspecified; I25.119 Atherosclerotic heart disease of native coronary artery with unspecified angina pectoris; Z86.73 Personal history of transient ischemic attack (TIA), and cerebral infarction without residual deficits

== ENCOUNTER 2019-04-21 12:08 | Inpatient (IN) | payer MEDICARE, MEDICAID ==
[~2019-04-21] VITALS: Ht 172.7 cm; Wt 71.7 kg
[2019-04-21 13:11] LABS: CALC OSMOLALITY 272 mosm/kg (275-300); CALCIUM 9.3 mg/dL (8.5-10.1); CARBON DIOXIDE 25.9 mmol/L (21.0-32.0); CHLORIDE - SERUM 102 mmol/L (98-107); CREATININE - SERUM 0.8 mg/dL (0.6-1.3); GLUCOSE 97 mg/dL (74-106); POTASSIUM - SERUM 3.9 mmol/L (3.5-5.1); SODIUM 137 mmol/L (136-145); UREA NITROGEN 9 mg/dL (7-18); eGFR NON AFRICAN AMERICAN > 90 mL/min (90-120)
[2019-04-21 13:30] LABS: APTT 26.5 SECONDS (22.8-39.4); INR 1.07 (0.85-1.17); PROTIME 13.4 SECONDS (11.6-15.0)
[2019-04-21 13:32] LABS: ALBUMIN 3.1 g/dL (3.4-5.0); ALKALINE PHOSPHATASE 43 U/L (46-116); ALT (SGPT) 20 U/L (10-68); CKMB 1.4 U/L (0.0-3.6); CREATINE KINASE 26 UL (21-232); PRO BNP 133 pg/mL (0-125); PROTEIN - SERUM 6.8 g/dL (6.4-8.2)
[2019-04-21 13:34] LABS: TROPONIN-I < 0.017 ng/mL (0.000-0.060)
[2019-04-21 13:56] LABS: BASOPHILS 0.1 % (0-2); EOSINOPHILS 0.2 % (0-7); HEMATOCRIT 39.9 % (42.0-54.0); HEMOGLOBIN 12.6 g/dL (13.5-17.5); IMMATURE GRANULOCYTES 0.3 % (0-5); MCH 26.2 pg (26.0-34.0); MCHC 31.6 g/dL (31.0-37.0); MEAN PLATELET VOLUME 8.7 fL (7.4-10.4); MONOCYTES 10.2 % (2-11); NEUTROPHILS 83.2 % (40-80); PLATELET COUNT 327 10x3/uL (130-400); RBC 4.81 10x6/uL (4.20-6.10); RDW 15.4 % (11.5-14.5); WBC 25.8 10x3/uL (4.8-10.8)
--- NOTE | 2019-04-21 15:53 | MORECARE ---
CASE MANAGEMENT DISCHARGE SUMMARY PATIENT: YUMIKO PADILLA UNIT: [id number] ADM DATE: 04/21/19 AGE: 73 : 47 SEX: M ROOM/BED: D.2237 AUTHOR: DRU YAO PHYSICIAN: REFERRING PHYSICIAN: SOHAN DARLING MD DATE OF SERVICE: 04/21/19 Discharge Plan Patient Name: YUMIKO PADILLA [facility] [facility] 1945 Planned Disposition: Anticipated Discharge Date: Discharge Date: Expected LOS: Initial Reviewer: [email or web address] Initial Review Date: 04/21/2019 Generated: 04/21/19 4:53 pm DCPIA - Discharge Planning Initial Assessment Updated by [email or web address]: Shelia Lancaster on 04/21/19 3:53 pm * Is the patient Alert and Oriented? Yes * How many steps to enter\exit or inside your home? Ramp * PCP Dr. Esteban * Pharmacy [facility] * Preadmission Environment Home with Family * ADLs Independent * Equipment Glucometer Nebulizer Oxygen * List name and contact numbers for known caregivers / representatives who currently or will assist patient after discharge: Sonali Bunn [phone] * Verbal permission to speak to the caregivers and representatives has been obtained from the patient. Yes * Community resources currently utilized Home Health * Please name any agencies selected above. [facility] * Additional services required to return to the preadmission environment? Yes * Can the patient safely return to the preadmission environment? Yes * Has this patient been hospitalized within the prior 30 days at any hospital? Yes Patient Name: YUMIKO PADILLA Page [id number] at 1553 All edits/amendments must be made on the electronic document DICTATION DATE: 04/21/19 1553 FLESHING MACHINE OPERATOR: DELIA 04/21/19 155 RPT#: [id number] DC DATE: STATUS: ADM IN [facility] [address] [place] [address] END OF REPORT
--- NOTE | 2019-04-21 16:01 | MORECARE ---
CASE MANAGEMENT DISCHARGE SUMMARY PATIENT: YUMIKO PADILLA UNIT: [id number] ADM DATE: 04/21/19 AGE: 73 : [birth year] SEX: M ROOM/BED: D.2237 AUTHOR: NAJMA,DOC PHYSICIAN: REFERRING PHYSICIAN: SOHAN DARLING MD DATE OF SERVICE: 04/21/19 Discharge Plan Patient Name: YUMIKO PADILLA Facility: [facility]:[place] : 1945 Planned Disposition: Anticipated Discharge Date: Discharge Date: Expected LOS: Initial Reviewer: [email or web address] Initial Review Date: 04/21/2019 Generated: 04/21/19 5:01 pm Comments DCP- Discharge Planning Updated by [email or web address]: Shelia Lancaster on 04/21/19 3:[address] CM met with patient to discuss initial discharge planning. Patient is in agreement to proceed with assessment with Sonali Bunn (dtr) present. Patient is alert/oriented. Stairs/steps: Ramp. PCP: Dr. Esteban. Pharmacy: [facility], [facility]. HHS: [facility] #[id number], nursing visit. DME: Home O2, Nebulizer, Glucometer. Patient gives permission to speak with family members/care givers. Emergency contact: Sonali Bunn (dtr) [phone], Loraine (dtr) [phone]. Independent ADL's: Yes. Daughter sets up a medication box. CM discussed the availability of HH, Rehab, DME services. Patient denies the need for additional services at this time and feels safe returning to previous environment. An order for [facility] will be required to resume services. Patient he has been hospitalized within the past 30 days. 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 Transportation at time of discharge: Sonali Bunn. CM will follow and assist with DC needs PRN. DCPIA - Discharge Planning Initial Assessment Updated by [email or web address]: Shelia Lancaster on 04/21/19 3:53 pm * Is the patient Alert and Oriented? Yes * How many steps to enter\exit or inside your home? Ramp * PCP Dr. Esteban * Pharmacy [facility] * Preadmission Environment Home with Family * ADLs Independent * Equipment Glucometer Nebulizer Oxygen * List name and contact numbers for known caregivers / representatives who currently or will assist patient after discharge: Sonali Bunn [phone] * Verbal permission to speak to the caregivers and representatives has been obtained from the patient. Yes * Community resources currently utilized Home Health * Please name any agencies selected above. [facility] * Additional services required to return to the preadmission environment? Yes * Can the patient safely return to the preadmission environment? Yes * Has this patient been hospitalized within the prior 30 days at any hospital? Yes Last DP export: 04/21/19 2:53 Patient Name: YUMIKO PADILLA Page [id number] at 1601 All edits/amendments must be made on the electronic document DICTATION DATE: 04/21/191600 OVEN TENDER: DELIA 04/21/191600 RPT#: [id number] DC DATE: STATUS: ADM IN [facility] [address] [place] [address] END OF REPORT
[2019-04-21 16:03] VITALS: BP 124/64; BMI 24.0
--- NOTE | 2019-04-21 16:18 | NUR ---
PATIENT ADMITTED TO ROOM 2237. LUNGS DIMINISHED BILATERALLY WITH BILATERAL EXPIRATORY WHEEZES THROUGHOUT. O2 IN PLACE AT 2L NC. HEART SOUNDS S1 AND S2 HEARD IN ALL DEVINE. BOWEL SOUNDS ACTIVE X 4. SKIN INTACT WITHOUT REDNESS. IV TO LEFT WRIST PATENT WITHOUT REDNESS. REQUESTED AND GIVEN ICE WATER. DENIES FURTHER NEEDS. BED LOW. CALL JACK AND PERSONAL ITEMS IN REACH. DAUGHTER AT BEDSIDE. WILL CONTINUE TO MONITOR.
--- NOTE | 2019-04-21 16:30 | NUR ---
SPOKE WITH MADALYN AT [facility] TO GET TELEMETRY FOR PATIENT. STATES WILL CALL WHEN TELEMETRY READY.
--- NOTE | 2019-04-21 16:47 | NUR ---
RESTING IN BED. FAMILY AT BEDSIDE. DENIES NEEDS. WILL CONTINUE TO MONITOR.
--- NOTE | 2019-04-21 17:27 | NUR ---
EDUCATION PROVIDED ON NEED FOR URINE SAMPLE. VERBALIZED UNDERSTANDING. COLLECTION CUP IN ROOM.
--- NOTE | 2019-04-21 18:05 | NUR ---
RESTING IN BED. DENIES NEEDS. BED LOW. CALL JACK AND PERSONAL ITEMS IN REACH.
[2019-04-21 18:14] LABS: APPEARANCE CLEAR (CLEAR); BILIRUBIN NEGATIVE (NEGATIVE); COLOR YELLOW (YELLOW); GLUCOSE NEGATIVE (NEGATIVE); KETONE SMALL mg/dL (NEGATIVE); NITRITE NEGATIVE (NEGATIVE); PROTEIN TRACE mg/dL (NEGATIVE); UROBILINOGEN NORMAL (NORMAL)
--- NOTE | 2019-04-21 19:00 | NUR ---
BEDSIDE REPORT RECEIVED AND CARE OF PT ASSUMED. PT SITTING UP IN BED WATCHING TV. IV TO LEFT WRIST SALINE LOCKED. TELEMETRY IN PLACE PER ORDER. O2 IN USE VIA NC AT 2L. WILL MONITOR FOR NEEDS.
--- NOTE | 2019-04-21 20:44 | NUR ---
HS MEDICATIONS GIVEN. FSBS 139 REQUIRING NO COVERAGE PER [employer]IDING [employer].
[2019-04-21 20:54] VITALS: BP 100/57
[2019-04-22 00:27] VITALS: BP 118/74
[2019-04-22 04:27] VITALS: BP 121/73
[2019-04-22 05:06] LABS: BASOPHILS 0 % (0-2); EOSINOPHILS 0.1 % (0-7); HEMOGLOBIN 11.4 g/dL (13.5-17.5); IMMATURE GRANULOCYTES 0.3 % (0-5); LYMPHOCYTES 8.1 % (15-50); MCH 26.2 pg (26.0-34.0); MCHC 31.7 g/dL (31.0-37.0); MCV 82.8 fL (80.0-100.0); MEAN PLATELET VOLUME 8.7 fL (7.4-10.4); MONOCYTES 2.3 % (2-11); NEUTROPHILS 89.2 % (40-80); PLATELET COUNT 285 10x3/uL (130-400); RBC 4.35 10x6/uL (4.20-6.10); RDW 15.5 % (11.5-14.5)
[2019-04-22 05:20] LABS: WBC 9.4 10x3/uL (4.8-10.8)
[2019-04-22 05:47] LABS: ALBUMIN 2.8 g/dL (3.4-5.0); ALKALINE PHOSPHATASE 36 U/L (46-116); ALT (SGPT) 17 U/L (10-68); BILIRUBIN - TOTAL 0.29 mg/dL (0.2-1.3); CALCIUM 8.9 mg/dL (8.5-10.1); CARBON DIOXIDE 26.3 mmol/L (21.0-32.0); CHLORIDE - SERUM 102 mmol/L (98-107); CKMB 1.1 U/L (0.0-3.6); CREATINE KINASE 29 UL (21-232); CREATININE - SERUM 0.7 mg/dL (0.6-1.3); MAGNESIUM - SERUM 1.7 mg/dL (1.8-2.4); POTASSIUM - SERUM 4.4 mmol/L (3.5-5.1); PROTEIN - SERUM 5.7 g/dL (6.4-8.2); SODIUM 138 mmol/L (136-145); eGFR NON AFRICAN AMERICAN > 90 mL/min (90-120)
[2019-04-22 05:59] LABS: CALC OSMOLALITY 280 mosm/kg (275-300); GLUCOSE 182 mg/dL (74-106); TROPONIN-I < 0.017 ng/mL (0.000-0.060); UREA NITROGEN 13 mg/dL (7-18)
--- NOTE | 2019-04-22 07:40 | NUR ---
PT SITTING UP ON SIDE OF BED, RESP EVEN AND UNLABORED. PT DENIES PAIN AT THIS TIME. SALINE LOCK TO LEFT HAND, SITE WITHOUT REDNESS OR EDEMA. DENIES FURTHER NEEDS AT THIS TIME. CL WITHIN REACH. ENCOURAGED TO CALL WITH NEEDS. CONTINUE POC
[2019-04-22 08:36] VITALS: BP 127/73; BP 140/90
[2019-04-22 13:24] VITALS: BP 160/76
[2019-04-22 14:59] VITALS: Ht 172.7 cm; Wt 71.7 kg
--- NOTE | 2019-04-22 15:59 | NUR ---
OT NOTE: PT COMPLETED EOB SITTING BALANCE WITH CGA. PT COMPLETED BED MOB WITH SIDE RAILS WITH SBA. PT COMPLETED UE AROM AXS. PT COMPLETED HYGIENE TASKS WITH SET UP. THANK YOU, NIC ADAMS
[2019-04-22 16:56] VITALS: BP 137/64
--- NOTE | 2019-04-22 19:50 | NUR ---
A&O X 4, SITTING UP ON SIDE OF BED. DENIES SOB/DYSPNEA. 2L O2 IN USE, DENIES NEEDS AT THIS TIME, WILL CONTINUE TO MONITOR
[2019-04-22 20:50] VITALS: BP 140/72
[2019-04-23 00:59] VITALS: BP 113/63
[2019-04-23 04:06] VITALS: BP 117/54
--- NOTE | 2019-04-23 04:17 | NUR ---
I have reviewed this patient and I concur with the Shift Assessment completed by the Licensed Practical Nurse today this shift.
[2019-04-23 06:51] LABS: BASOPHILS 0 % (0-2); EOSINOPHILS 0 % (0-7); HEMATOCRIT 35.5 % (42.0-54.0); HEMOGLOBIN 11.1 g/dL (13.5-17.5); IMMATURE GRANULOCYTES 0.3 % (0-5); LYMPHOCYTES 6.4 % (15-50); MCH 25.7 pg (26.0-34.0); MCHC 31.3 g/dL (31.0-37.0); MCV 82.2 fL (80.0-100.0); MEAN PLATELET VOLUME 8.8 fL (7.4-10.4); MONOCYTES 5.6 % (2-11); NEUTROPHILS 87.7 % (40-80); PLATELET COUNT 310 10x3/uL (130-400); RBC 4.32 10x6/uL (4.20-6.10); RDW 15.3 % (11.5-14.5)
[2019-04-23 06:52] LABS: WBC 13.4 10x3/uL (4.8-10.8)
[2019-04-23 07:00] LABS: CALC OSMOLALITY 282 mosm/kg (275-300); CHLORIDE - SERUM 102 mmol/L (98-107); CREATININE - SERUM 0.8 mg/dL (0.6-1.3); GLUCOSE 181 mg/dL (74-106); MAGNESIUM - SERUM 1.8 mg/dL (1.8-2.4); POTASSIUM - SERUM 4.4 mmol/L (3.5-5.1); SODIUM 138 mmol/L (136-145); UREA NITROGEN 17 mg/dL (7-18); eGFR NON AFRICAN AMERICAN > 90 mL/min (90-120)
[2019-04-23 09:24] VITALS: BP 129/68
[2019-04-23 13:14] VITALS: BP 152/80
--- NOTE | 2019-04-23 15:59 | NUR ---
PATIENT AMBULATORY IN ROOM. 02 2L/NC. PATIENT ALERT AND ORIENTED, DENIES NEEDS
[2019-04-23 16:27] VITALS: BP 138/70
--- NOTE | 2019-04-23 18:23 | NUR ---
OT NOTE: PT SITTING AT EOB WITH MOD I. PT COMPLETED BUE AROM EXS NOT [id number] DEGREES OF FLEXION. PT COMPLETED TOILETING TASKS WITH SPV/MOD I. PT DOING WELL WITH FUNCTIONAL TASKS. THANK YOU,NIC ADAMS
--- NOTE | 2019-04-23 20:00 | NUR ---
ALERT SITTING UP IN BED,DENIES PAIN OR NEEDS AT THIS TIME, SEE SHIFT ASSESSMENT, CALL LIGHT IN REACH
[2019-04-23 20:40] VITALS: BP 154/89
[2019-04-24 01:00] VITALS: BP 140/70
[2019-04-24 04:47] VITALS: BP 140/80
[2019-04-24 06:38] LABS: BASOPHILS 0.1 % (0-2); EOSINOPHILS 0 % (0-7); HEMATOCRIT 37.5 % (42.0-54.0); HEMOGLOBIN 11.6 g/dL (13.5-17.5); IMMATURE GRANULOCYTES 0.3 % (0-5); LYMPHOCYTES 6.8 % (15-50); MCH 25.6 pg (26.0-34.0); MCHC 30.9 g/dL (31.0-37.0); MCV 82.6 fL (80.0-100.0); MEAN PLATELET VOLUME 8.8 fL (7.4-10.4); MONOCYTES 6.3 % (2-11); NEUTROPHILS 86.5 % (40-80); PLATELET COUNT 292 10x3/uL (130-400); RBC 4.54 10x6/uL (4.20-6.10); RDW 15.5 % (11.5-14.5); WBC 14.7 10x3/uL (4.8-10.8)
[2019-04-24 06:55] LABS: CALC OSMOLALITY 274 mosm/kg (275-300); CALCIUM 8.7 mg/dL (8.5-10.1); CARBON DIOXIDE 28.4 mmol/L (21.0-32.0); CHLORIDE - SERUM 100 mmol/L (98-107); CREATININE - SERUM 0.9 mg/dL (0.6-1.3); GLUCOSE 176 mg/dL (74-106); MAGNESIUM - SERUM 1.9 mg/dL (1.8-2.4); POTASSIUM - SERUM 4.5 mmol/L (3.5-5.1); SODIUM 134 mmol/L (136-145); UREA NITROGEN 20 mg/dL (7-18); eGFR NON AFRICAN AMERICAN 88 mL/min (90-120)
--- NOTE | 2019-04-24 07:11 | NUR ---
PT IS RESTING IN BED WITH EYES OPEN. RESPIRATIONS ARE SHALLOW AND LABORED ON EXERTION. AUDIBLE EXPIRATORY WHEEZE NOTED. PT REPORTS A COUGH THAT IS OCCASIONAL AND PRODUCTIVE. O2 VIA NC @ 2L. PT DENIES PRESENCE OF PAIN/N/V/. PT DENIES PRESENCE OF DYSPNEA. BED IS IN THE LOWEST POSITION. CALL LIGHT AND BEDSIDE TABLE ARE WITHIN REACH. SIDE RAILS X 2. PT DENIES FURTHER NEEDS. WILL CONT TO MONITOR.
[2019-04-24 09:02] VITALS: BP 144/64
[2019-04-24 12:55] VITALS: BP 151/87
--- NOTE | 2019-04-24 13:50 | NUR ---
OT NOTE: PT DOING VERY WELL. AMB TO BATHROOM WITHOUT AD WITH SPV; AMB IN ROOM AND PERFORMED SINK HYGIENE WITH SPV. ABLE TO WOODY/DOFF SOCKS WITH SET UP; AMB INTO HALLWAY WITH WALKER AND 02 WITH SBA X 250 FT. ONLY MINIMAL SOB NOTED FOLLOWING WALK. KEATON STUART, OTR/L
--- NOTE | 2019-04-24 14:45 | NUR ---
NUTRITION F//U PT TOLERATING DIABETIC DIET WITH 75 TO 100% INTAKE RECENT MEALS. PT VOICES NO COMPLAINTS. RD FOLLOWING
[2019-04-24 16:38] VITALS: BP 153/73
[2019-04-24 20:35] VITALS: BP 88/65
--- NOTE | 2019-04-25 01:09 | NUR ---
ALERT AND ORENTED ABLE TO VOICE NEEDS AND WANTS TO STAFF HARD OF HEARING WITH HEARING AIDS. IV TO LEFT HAND WITH NS AT 100ML/HR.TELEMETRY IN PLACE RUNNING 73 SR. FSBS 122. RESTING RESPRATIONS ARE EVEN AND UNLABORED CALL LIGHT AND WATER IN REACH.
[2019-04-25 01:26] VITALS: BP 154/66
[2019-04-25 05:20] VITALS: BP 135/62
--- NOTE | 2019-04-25 07:32 | NUR ---
PT IS SITTING IN BEDSIDE CHAIR. RESPIRATIONS ARE EVEN AND UNLABORED. O2 VIA NC @ 2L. PT DENIES PRESENCE OF DYSPNEA/PAIN/N/V. EXPIRATORY WHEEZE AUDIBLE TO BILATERAL LOWER LOBES. BED IS IN THE LOWEST POSITION. CALL LIGHT AND BEDSIDE TABLE ARE WITHIN REACH. SIDE RAILS X 2. PT DENIES FURTHER NEEDS. WILL CONT TO MONITOR.
[2019-04-25 07:34] LABS: BASOPHILS 0 % (0-2); EOSINOPHILS 0 % (0-7); HEMATOCRIT 37.4 % (42.0-54.0); HEMOGLOBIN 11.9 g/dL (13.5-17.5); IMMATURE GRANULOCYTES 0.3 % (0-5); LYMPHOCYTES 11.9 % (15-50); MCHC 31.8 g/dL (31.0-37.0); MCV 81.8 fL (80.0-100.0); MEAN PLATELET VOLUME 8.7 fL (7.4-10.4); MONOCYTES 9.4 % (2-11); NEUTROPHILS 78.4 % (40-80); PLATELET COUNT 314 10x3/uL (130-400); RBC 4.57 10x6/uL (4.20-6.10); RDW 15.2 % (11.5-14.5); WBC 13.6 10x3/uL (4.8-10.8)
[2019-04-25 07:43] LABS: CALC OSMOLALITY 271 mosm/kg (275-300); CALCIUM 8.9 mg/dL (8.5-10.1); CHLORIDE - SERUM 98 mmol/L (98-107); CREATININE - SERUM 0.8 mg/dL (0.6-1.3); GLUCOSE 174 mg/dL (74-106); MAGNESIUM - SERUM 1.9 mg/dL (1.8-2.4); POTASSIUM - SERUM 4.5 mmol/L (3.5-5.1); SODIUM 132 mmol/L (136-145); UREA NITROGEN 22 mg/dL (7-18); eGFR NON AFRICAN AMERICAN > 90 mL/min (90-120)
[2019-04-25 10:53] VITALS: BP 152/74
[2019-04-25 12:45] VITALS: BP 119/90
[2019-04-25] MEDS ORDERED: PREDNISONE10 MG PO (14:16)
--- NOTE | 2019-04-25 14:37 | MORECARE ---
CASE MANAGEMENT DISCHARGE SUMMARY PATIENT: YUMIKO PADILLA UNIT: [id number] ADM DATE: 04/21/19 AGE: 73 : 47 SEX: M ROOM/BED: D.2237 AUTHOR: NAJMA,DOC PHYSICIAN: REFERRING PHYSICIAN: SOHAN DARLING MD DATE OF SERVICE: 04/25/19 Discharge Plan Patient Name: YUMIKO PADILLA Facility: [facility]:[place] : 1945 Planned Disposition: Anticipated Discharge Date: Discharge Date: Expected LOS: Initial Reviewer: [email or web address] Initial Review Date: 04/21/2019 Generated: 04/25/19 3:36 pm DCP- Discharge Planning Updated by [email or web address]: Shelia Lancaster on 04/21/19 3:[address] CM met with patient to discuss initial discharge planning. Patient is in agreement to proceed with assessment with Sonali Bunn (dtr) present. Patient is alert/oriented. Stairs/steps: Ramp. PCP: Dr. Esteban. Pharmacy: [facility], [facility]. [facility]: [facility] #[phone], nursing visit. DME: Home O2, Nebulizer, Glucometer. Patient gives permission to speak with family members/care givers. Emergency contact: Sonali Bunn (dtr) [phone], Loraine (dtr) [phone]. Independent ADL's: Yes. Daughter sets up a medication box. CM discussed the availability of HH, Rehab, DME services. Patient denies the need for additional services at this time and feels safe returning to previous environment. An order for [facility] will be required to resume services. Patient he has been hospitalized within the past 30 days. 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 Transportation at time of discharge: Sonali Bunn. CM will follow and assist with DC needs PRN. DCPIA - Discharge Planning Initial Assessment Updated by [email or web address]: Shelia Lancaster on 04/21/19 3:53 pm * Is the patient Alert and Oriented? Yes * How many steps to enter\exit or inside your home? Ramp * PCP Dr. Esteban * Pharmacy [facility] * Preadmission Environment Home with Family * ADLs Independent * Equipment Glucometer Nebulizer Oxygen * List name and contact numbers for known caregivers / representatives who currently or will assist patient after discharge: Sonali Bunn [phone] * Verbal permission to speak to the caregivers and representatives has been obtained from the patient. Yes * Community resources currently utilized Home Health * Please name any agencies selected above. [facility] * Additional services required to return to the preadmission environment? Yes * Can the patient safely return to the preadmission environment? Yes * Has this patient been hospitalized within the prior 30 days at any hospital? Yes External Providers External Provider: Jorge I AM AT Next Contact Date: Service Request Date: Service Type: Resolution: Reviewer: Comments: Coverage Notice Reviewer: [id number] Moses Palacios Notice Issued Date-Time: 04/25/2019 14:02 Notice Type: Patient Choice Letter Notice Delivered To: Patient Relationship to Patient: Self Orthopedic Cast Specialist Name: Delivery Method: HAND - Hand Delivered Maddison Days: Prior Verbal Notification: Recipient Understood Notice: Yes Recipient Signature: Yes Med Rec Note Co-signed by Attending: Coverage Notice Comment[facility] Reviewer: [id number] Palacios Notice Issued Date-Time: 04/25/2019 14:02 Notice Type: IM Discharge Notice Notice Delivered To: Patient Relationship to Patient: Self Orthopedic Cast Specialist Name: Delivery Method: HAND - Hand Delivered Maddison Days: Prior Verbal Notification: Recipient Understood Notice: Yes Recipient Signature: Yes Med Rec Note Co-signed by Attending: Coverage Notice Comment: IMM EXPLAINED, SIGNED, GIVEN, COPY PLACED IN MR Last DP export: 04/21/19 3:01 Patient Name: YUMIKO PADILLA Page [id number] at 1437 All edits/amendments must be made on the electronic document DICTATION DATE: 04/25/196 SPANISH SPEAKING NANNY: DELIA 04/25/19 143 RPT#: [id number] DC DATE: STATUS: ADM IN [facility] [address] [place] [address] END OF REPORT
--- NOTE | 2019-04-25 14:49 | MORECARE ---
CASE MANAGEMENT DISCHARGE SUMMARY PATIENT: YUMIKO PADILLA UNIT: [id number] ADM DATE: 04/21/19 AGE: 73 : 47 SEX: M ROOM/BED: D.2237 AUTHOR: DRU AYO PHYSICIAN: REFERRING PHYSICIAN: SOHAN DARLING MD DATE OF SERVICE: 04/25/19 Discharge Plan Patient Name: YUMIKO PADILLA Facility: [facility]:[place] : 1945 Planned Disposition: Anticipated Discharge Date: Discharge Date: Expected LOS: Initial Reviewer: [id number] Initial Review Date: 04/21/2019 Generated: 04/25/19 3:49 pm Comments DCP- Discharge Planning Updated by [email or web address]: Swapna Palacios on 04/25/19 1:[address] Patient Name: YUMIKO PADILLA Encounter No: [id number] : 1945 Primary Insurance: [employer] MEDICARE ADV Anticipated DC Date: Planned Disposition: External Planned Provider: : DCP follow-up note: Patient in agreement with discharge plan. No changes to plan. States his daughter will pick him up. He would like to resume [facility]. I called and spoke with Cecilialeena at [facility] and they will resume care. Case management will follow and assist as needed. Swapna Palacios DCP- Discharge Planning Updated by [email or web address]: Shelia Lancaster on 04/21/19 3:[address] CM met with patient to discuss initial discharge planning. Patient is in agreement to proceed with assessment with Sonali Bunn (dtr) present. Patient is alert/oriented. Stairs/steps: Ramp. PCP: Dr. Esteban. Pharmacy: [facility], [facility]. HHS: [facility][phone], nursing visit. DME: Home O2, Nebulizer, Glucometer. Patient gives permission to speak with family members/care givers. Emergency contact: Sonali Bunn (dtr) [phone], Loraine (dtr) [phone]. Independent ADL's: Yes. Daughter sets up a medication box. CM discussed the availability of HH, Rehab, DME services. Patient denies the need for additional services at this time and feels safe returning to previous environment. An order for [facility] will be required to resume services. Patient he has been hospitalized within the past 30 days. 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 Transportation at time of discharge: Sonali Bunn. CM will follow and assist with DC needs PRN. DCPIA - Discharge Planning Initial Assessment Updated by [email or web address]: Shelia Lancaster on 04/21/19 3:53 pm * Is the patient Alert and Oriented? Yes * How many steps to enter\exit or inside your home? Ramp * PCP Dr. Esteban * Pharmacy [facility] * Preadmission Environment Home with Family * ADLs Independent * Equipment Glucometer Nebulizer Oxygen * List name and contact numbers for known caregivers / representatives who currently or will assist patient after discharge: Sonali Bunn [phone] * Verbal permission to speak to the caregivers and representatives has been obtained from the patient. Yes * Community resources currently utilized Home Health * Please name any agencies selected above. [facility] * Additional services required to return to the preadmission environment? Yes * Can the patient safely return to the preadmission environment? Yes * Has this patient been hospitalized within the prior 30 days at any hospital? Yes Coverage Notice Reviewer: [id number] Moses Palacios Notice Issued Date-Time: 04/25/2019 14:02 Notice Type: Patient Choice Letter Notice Delivered To: Patient Relationship to Patient: Self Arch Cushion Press Operator Name: Delivery Method: HAND - Hand Delivered Maddison Days: Prior Verbal Notification: Recipient Understood Notice: Yes Recipient Signature: Yes Med Rec Note Co-signed by Attending: Coverage Notice Comment: [facility] Reviewer: [id number] Moses Palacios Notice Issued Date-Time: 04/25/2019 14:02 Notice Type: IM Discharge Notice Notice Delivered To: Patient Relationship to Patient: Self Arch Cushion Press Operator Name: Delivery Method: HAND - Hand Delivered Maddison Days: Prior Verbal Notification: Recipient Understood Notice: Yes Recipient Signature: Yes Med Rec Note Co-signed by Attending: Coverage Notice Comment: IMM EXPLAINED, SIGNED, GIVEN, COPY PLACED IN MR Last DP export: 04/25/19 1:37 Patient Name: YUMIKO PADILLA Page [id number] at 1449 All edits/amendments must be made on the electronic document DICTATION DATE: 04/25/191448 BLACK OXIDE COATING EQUIPMENT TENDER: DM 04/25/191448 RPT#: [id number] DC DATE: STATUS: ADM IN [facility] [address] [place] [address] END OF REPORT
--- NOTE | 2019-04-25 14:52 | NUR ---
OT NOTE: DOS 04/24/19 PT COMPLETED ADL MOB WITH RW WITH CGA. PT COMPLETED EOB SITTING WITH SPV. PT COMPLETED UE AROM EX. PT COMPLETED FACE WASH AT SINK WITH SBA. THANK YOU,NIC ADAMS
--- NOTE | 2019-04-25 15:39 | NUR ---
ALL DISCHARGE INSTRUCTIONS COVERED WITH PT AND PT DAUGHTER. ALL DISCHARGE PAPERS SIGNED. PT DENIES FURTHER QUESTIONS/CONCERNS/NEEDS. PIV REMOVED FROM LEFT WRIST. DRESSING APPLIED.
--- NOTE | 2019-04-25 16:02 | NUR ---
PT TRANSPORTED OUT OF ROOM VIA WHEELCHAIR FOR TRANSPROTATION HOME. DAUGHTER AT BEDSIDE. PT DENIES FURTHER QUESTIONS/CONCERNS/NEEDS AT THIS TIME.
--- NOTE | 2019-04-26 14:15 | MORECARE ---
CASE MANAGEMENT DISCHARGE SUMMARY PATIENT: YUMIKO PADILLA UNIT: [id number] ADM DATE: 04/21/19 AGE: 73 : 47 SEX: M ROOM/BED: D.2237 AUTHOR: NAJMA,DOC PHYSICIAN: REFERRING PHYSICIAN: SOHAN DARLING MD DATE OF SERVICE: 04/26/19 Discharge Plan Patient Name: YUMIKO PADILLA Facility: [facility]:[place] : 1945 Planned Disposition: Home with Home Health Anticipated Discharge Date: Discharge Date: 04/25/2019 Expected LOS: 0 Initial Reviewer: [email or web address] Initial Review Date: 04/21/2019 Generated: 04/26/19 3:14 pm Comments DCP- Discharge Planning Updated by [email or web address]: Swapna Palacios on 04/25/19 1:[address] Patient Name: YUMIKO PADILLA Encounter No: [id number] : 1945 Primary Insurance: [employer] MEDICARE ADV Anticipated DC Date: Planned Disposition: External Planned Provider: : DCP follow-up note: Patient in agreement with discharge plan. No changes to plan. States his daughter will pick him up. He would like to resume [facility]. I called and spoke with Tania at [facility] and they will resume care. Case management will follow and assist as needed. Swapan Palacios DCP- Discharge Planning Updated by [email or web address]: Shelia Lancaster on 04/21/19 3:[address] CM met with patient to discuss initial discharge planning. Patient is in agreement to proceed with assessment with Sonali Bunn (dtr) present. Patient is alert/oriented. Stairs/steps: Ramp. PCP: Dr. Esteban. Pharmacy: [facility], [facility]. HHS: [facility][phone], nursing visit. DME: Home O2, Nebulizer, Glucometer. Patient gives permission to speak with family members/care givers. Emergency contact: Sonali Bunn (dtr) [phone], Loraine (dtr) [phone]. Independent ADL's: Yes. Daughter sets up a medication box. CM discussed the availability of HH, Rehab, DME services. Patient denies the need for additional services at this time and feels safe returning to previous environment. An order for [facility] will be required to resume services. Patient he has been hospitalized within the past 30 days. 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 Transportation at time of discharge: Sonali Bunn. CM will follow and assist with DC needs PRN. DCPIA - Discharge Planning Initial Assessment Updated by [email or web address]: Shelia Lancaster on 04/21/19 3:53 pm * Is the patient Alert and Oriented? Yes * How many steps to enter\exit or inside your home? Ramp * PCP Dr. Esteban * Pharmacy [facility] * Preadmission Environment Home with Family * ADLs Independent * Equipment Glucometer Nebulizer Oxygen * List name and contact numbers for known caregivers / representatives who currently or will assist patient after discharge: Sonali Bunn [phone] * Verbal permission to speak to the caregivers and representatives has been obtained from the patient. Yes * Community resources currently utilized Home Health * Please name any agencies selected above. [facility] * Additional services required to return to the preadmission environment? Yes * Can the patient safely return to the preadmission environment? Yes * Has this patient been hospitalized within the prior 30 days at any hospital? Yes Coverage Notice Reviewer: [id number] Moses Palacios Notice Issued Date-Time: 04/25/2019 14:02 Notice Type: Patient Choice Letter Notice Delivered To: Patient Relationship to Patient: Self Commercial Cleaner Name: Delivery Method: HAND - Hand Delivered Maddison Days: Prior Verbal Notification: Recipient Understood Notice: Yes Recipient Signature: Yes Med Rec Note Co-signed by Attending: Coverage Notice Comment: [facility] Reviewer: [id number] Moses Palacios Notice Issued Date-Time: 04/25/2019 14:02 Notice Type: IM Discharge Notice Notice Delivered To: Patient Relationship to Patient: Self Commercial Cleaner Name: Delivery Method: HAND - Hand Delivered Maddison Days: Prior Verbal Notification: Recipient Understood Notice: Yes Recipient Signature: Yes Med Rec Note Co-signed by Attending: Coverage Notice Comment: IMM EXPLAINED, SIGNED, GIVEN, COPY PLACED IN MR Last DP export: 04/25/19 1:49 Patient Name: YUMIKO PADILLA Page [phone] at 1415 All edits/amendments must be made on the electronic document DICTATION DATE: 04/26/191413 CLOSING MANAGER: DELIA 04/26/19 141 RPT#: [id number] DC DATE:04/25/19 STATUS: DIS IN [facility] [address] [place] [id number] END OF REPORT
== END 2019-04-25 16:03 | disposition home health service (06) | DRG 193 ==
LOC: D.ER 12:08 → D.MS 14:25
PROVIDERS: Family Medicine; ADMIT Internal Medicine Nephrology; ATTEND Internal Medicine Nephrology
DX: J18.9 Pneumonia, unspecified organism (principal); J96.21 Acute and chronic respiratory failure with hypoxia; J96.22 Acute and chronic respiratory failure with hypercapnia; J44.1 Chronic obstructive pulmonary disease with (acute) exacerbation; J44.0 Chronic obstructive pulmonary disease with (acute) lower respiratory infection; F17.203 Nicotine dependence unspecified, with withdrawal; I10 Essential (primary) hypertension; E78.5 Hyperlipidemia, unspecified; E11.9 Type 2 diabetes mellitus without complications; I25.10 Atherosclerotic heart disease of native coronary artery without angina pectoris; D50.9 Iron deficiency anemia, unspecified; D72.829 Elevated white blood cell count, unspecified; Z99.81 Dependence on supplemental oxygen; J20.9 Acute bronchitis, unspecified

== ENCOUNTER 2019-07-01 16:15 | Inpatient (IN) | payer MEDICARE, MEDICAID ==
[~2019-07-01] VITALS: Ht 172.7 cm; Wt 69.9 kg
[2019-07-01 16:46] LABS: BASOPHILS 0.4 % (0-2); HEMATOCRIT 36.4 % (42.0-54.0); HEMOGLOBIN 11.5 g/dL (13.5-17.5); IMMATURE GRANULOCYTES 0.3 % (0-5); LYMPHOCYTES 36.6 % (15-50); MCH 26.3 pg (26.0-34.0); MCHC 31.6 g/dL (31.0-37.0); MCV 83.1 fL (80.0-100.0); MEAN PLATELET VOLUME 8.3 fL (7.4-10.4); MONOCYTES 11.7 % (2-11); RBC 4.38 10x6/uL (4.20-6.10); RDW 16.8 % (11.5-14.5); WBC 9.5 10x3/uL (4.8-10.8)
[2019-07-01 16:47] LABS: PLATELET COUNT 436 10x3/uL (130-400)
[2019-07-01 16:56] LABS: INR 0.98 (0.85-1.17)
[2019-07-01 17:05] LABS: CALC OSMOLALITY 276 mosm/kg (275-300); CALCIUM 9.1 mg/dL (8.5-10.1); CARBON DIOXIDE 29.7 mmol/L (21.0-32.0); CHLORIDE - SERUM 101 mmol/L (98-107); CREATININE - SERUM 0.9 mg/dL (0.6-1.3); POTASSIUM - SERUM 4.1 mmol/L (3.5-5.1); SODIUM 140 mmol/L (136-145); UREA NITROGEN 11 mg/dL (7-18); eGFR NON AFRICAN AMERICAN 88 mL/min (90-120)
[2019-07-01 17:06] LABS: GLUCOSE 76 mg/dL (74-106)
[2019-07-01 17:13] LABS: ALBUMIN 3.6 g/dL (3.4-5.0); ALKALINE PHOSPHATASE 53 U/L (30-120); ALT (SGPT) 20 U/L (10-68); BILIRUBIN - TOTAL 0.13 mg/dL (0.2-1.3); CREATINE KINASE 69 UL (21-232); PRO BNP 144 pg/mL (0-125); PROTEIN - SERUM 7.3 g/dL (6.4-8.2); TROPONIN-I < 0.017 ng/mL (0.000-0.060)
[2019-07-01 18:06] VITALS: BP 135/74
--- NOTE | 2019-07-01 18:33 | NUR ---
ROCEPHIN ADMINISTRATION COMPLETE
[2019-07-01] MEDS ORDERED: FEXOFENADINE HC60 MG PO (19:46)
[2019-07-01 20:00] VITALS: BP 136/76
--- NOTE | 2019-07-01 20:27 | NUR ---
SECOND PAGE OUT TO ANSWERING SERVICE TO GET INFORMATION TECHNOLOGY SECURITY ANALYST PHYSICIAN/DESKTOP SUPPORT MANAGER TO ORDER PTS HOME MEDS.
[2019-07-02] VITALS: BP 122/74
[2019-07-02 02:00] VITALS: BMI 23.5
--- NOTE | 2019-07-02 02:47 | NUR ---
RESTING WITH EYES CLOSED, RESPERATIONS EVEN, NO S/S DISTRESS NOTED.
[2019-07-02 04:00] VITALS: BP 127/78
[2019-07-02 05:56] LABS: ALBUMIN 3.2 g/dL (3.4-5.0); ALKALINE PHOSPHATASE 48 U/L (30-120); ALT (SGPT) 19 U/L (10-68); BILIRUBIN - TOTAL 0.14 mg/dL (0.2-1.3); CALC OSMOLALITY 282 mosm/kg (275-300); CALCIUM 8.7 mg/dL (8.5-10.1); CARBON DIOXIDE 28.7 mmol/L (21.0-32.0); CHLORIDE - SERUM 103 mmol/L (98-107); CREATININE - SERUM 0.8 mg/dL (0.6-1.3); POTASSIUM - SERUM 4.4 mmol/L (3.5-5.1); PROTEIN - SERUM 6.8 g/dL (6.4-8.2); SODIUM 138 mmol/L (136-145); UREA NITROGEN 13 mg/dL (7-18); eGFR NON AFRICAN AMERICAN > 90 mL/min (90-120)
[2019-07-02 05:57] LABS: GLUCOSE 217 mg/dL (74-106)
[2019-07-02 06:12] LABS: HEMATOCRIT 35.5 % (42.0-54.0); MCH 25.5 pg (26.0-34.0); MCV 82.4 fL (80.0-100.0); MEAN PLATELET VOLUME 8.5 fL (7.4-10.4); PLATELET COUNT 429 10x3/uL (130-400); RBC 4.31 10x6/uL (4.20-6.10); RDW 16.5 % (11.5-14.5)
[2019-07-02 06:18] LABS: WBC 6.4 10x3/uL (4.8-10.8)
--- NOTE | 2019-07-02 07:27 | NUR ---
PT RESTING COMFORTABLY ON THE SIDE OF THE BED. PT A/O X4, RESP EVEN AND REGULAR ON 2L NC. RT FA IV SL.. MONITOR SHOWING SR WITH RATE OF 69. PROVIDED PT WITH CUP OF COFFEE, PT DENIES ANY OTHER NEEDS AT THIS TIME. CALL LIGHT IN REACH, NAD NOTED, WILL CONTINUE PLAN OF CARE.
[2019-07-02 07:58] LABS: BASOPHILS 1 % (0-2); LYMPHOCYTES 21 % (15-50); MONOCYTES 5 % (2-11); NEUTROPHILS 69 % (40-80); PLATELET ESTIMATE NORMAL
[2019-07-02 09:00] VITALS: BP 132/81
--- NOTE | 2019-07-02 09:36 | NUR ---
AM MEDS GIVEN AT THIS TIME. PT UP TO SIDE OF BED, WATCHING TV, DENIES ANY NEEDS AT THIS TIME, CALL LIGHT IN REACH, NAD NOTED, WILL CONTINUE TO MONITOR.
--- NOTE | 2019-07-02 11:43 | NUR ---
BLOOD SUGAR OF 104, NO COVERAGE NEEDED PER S/S. PROVIDED PT A DIET COKE. CALL LIGHT IN REACH.
[2019-07-02 12:00] VITALS: BP 147/66
[2019-07-02 14:47] VITALS: BMI 23.4
[2019-07-02 16:17] VITALS: Ht 172.7 cm; Wt 69.9 kg
--- NOTE | 2019-07-02 16:42 | NUR ---
BLOOD SUGAR OF 113, NO COVERAGE NEEDED PER S/S. PT UP TO CHAIR, DENIES ANY NEEDS AT THIS TIME. CALL LIGHT IN REACH, NAD NOTED, WILL CONTINUE TO MONITOR.
[2019-07-02 17:05] LABS: % SATURATION 8 % (15-55); IRON 35 ug/dl (35-150); TOTAL IRON BIND CAPACITY 423 ug/dl (260-445); UNSAT IRON BIND CAPACITY 388 ug/dl (150-375)
[2019-07-02 18:46] LABS: NITRITE NEGATIVE (NEGATIVE)
[2019-07-02 18:47] LABS: BILIRUBIN NEGATIVE (NEGATIVE); GLUCOSE NEGATIVE (NEGATIVE); KETONE NEGATIVE (NEGATIVE); RED CELLS - URINE OCC /hpf (0-5); UROBILINOGEN NORMAL (NORMAL); WHITE CELLS - URINE 0-5 /hpf (NEGATIVE)
[2019-07-02 18:48] LABS: BACTERIA FEW /hpf (NEGATIVE)
[2019-07-02 20:00] VITALS: BP 133/77
[2019-07-03] VITALS: BP 128/71
--- NOTE | 2019-07-03 02:13 | NUR ---
I have reviewed this patient and I concur with the Shift Assessment completed by the Licensed Practical Nurse today this shift.
[2019-07-03 04:00] VITALS: BP 124/77
[2019-07-03 06:08] LABS: BASOPHILS 0.2 % (0-2); EOSINOPHILS 2.7 % (0-7); HEMATOCRIT 35.1 % (42.0-54.0); HEMOGLOBIN 10.7 g/dL (13.5-17.5); IMMATURE GRANULOCYTES 0.2 % (0-5); LYMPHOCYTES 35.1 % (15-50); MCH 25.5 pg (26.0-34.0); MCHC 30.5 g/dL (31.0-37.0); MCV 83.6 fL (80.0-100.0); MEAN PLATELET VOLUME 8.5 fL (7.4-10.4); MONOCYTES 10.5 % (2-11); NEUTROPHILS 51.3 % (40-80); PLATELET COUNT 405 10x3/uL (130-400); RDW 16.6 % (11.5-14.5)
[2019-07-03 06:13] LABS: WBC 11.8 10x3/uL (4.8-10.8)
[2019-07-03 06:48] LABS: CALC OSMOLALITY 280 mosm/kg (275-300); CALCIUM 8.7 mg/dL (8.5-10.1); CARBON DIOXIDE 29.3 mmol/L (21.0-32.0); CHLORIDE - SERUM 104 mmol/L (98-107); CREATININE - SERUM 0.8 mg/dL (0.6-1.3); POTASSIUM - SERUM 4.4 mmol/L (3.5-5.1); SODIUM 140 mmol/L (136-145); UREA NITROGEN 14 mg/dL (7-18); eGFR NON AFRICAN AMERICAN > 90 mL/min (90-120)
[2019-07-03 07:06] LABS: GLUCOSE 116 mg/dL (74-106)
--- NOTE | 2019-07-03 08:41 | NUR ---
AM MEDS GIVEN AT THIS TIME. PT UP TO CHAIR, A/O X4, RESP EVEN AND NONLABORED ON 2L. RT FA IV SL, PT DENIES ANY OTHER NEEDS AT THIS TIME. CALL LIGHT IN REACH,NAD NOTED,WILL CONTINUE TO MONITOR.
[2019-07-03 09:00] VITALS: BP 154/79
--- NOTE | 2019-07-03 11:54 | NUR ---
BLOOD SUGAR OF 163, 2UNITS GIVEN PER S/S. PT UP TO CHAIR,DENIES ANY NEEDS AT THIS TIME. CALL LIGHT IN REACH,NAD NOTED,WILL CONTINUE TO MONITOR.
[2019-07-03 12:00] VITALS: BP 158/75
[2019-07-03 16:00] VITALS: BP 176/77
--- NOTE | 2019-07-03 16:33 | NUR ---
BLOOD SUGAR OF 130, NO COVERAGE NEEDED PER S/S. PT UP TO CHAIR, VISITING WITH FAMILY, NAD NOTED,W ILL CONTINUE TO MONITOR.
--- NOTE | 2019-07-03 19:27 | NUR ---
ASSESSMENT COMPLETE, PT A&O, RESPERATIONS NON LABORED ON O2 AT 2 LITERS VIA NC. IV TO RIGHT FOREARM SL, SITE CLEAN AND DRY. PT DENIES PAIN OR NEEDS, BED LOW, CL IN REACH.
[2019-07-03 20:00] VITALS: BP 158/76
--- NOTE | 2019-07-04 01:42 | NUR ---
I have reviewed this patient and I concur with the Shift Assessment completed by the Licensed Practical Nurse today this shift.
[2019-07-04 04:00] VITALS: BP 182/79
--- NOTE | 2019-07-04 04:23 | NUR ---
RESTING WITH EYES CLOSED, RESPERATIONS EVEN, NO S/S DISTRESS NOTED.
[2019-07-04 05:13] LABS: BASOPHILS 0.2 % (0-2); EOSINOPHILS 0.2 % (0-7); HEMATOCRIT 36.7 % (42.0-54.0); HEMOGLOBIN 11.2 g/dL (13.5-17.5); IMMATURE GRANULOCYTES 0.2 % (0-5); LYMPHOCYTES 21.2 % (15-50); MCH 25.6 pg (26.0-34.0); MCHC 30.5 g/dL (31.0-37.0); MCV 83.8 fL (80.0-100.0); MEAN PLATELET VOLUME 8.4 fL (7.4-10.4); MONOCYTES 9.6 % (2-11); NEUTROPHILS 68.6 % (40-80); PLATELET COUNT 406 10x3/uL (130-400); RBC 4.38 10x6/uL (4.20-6.10); RDW 16.5 % (11.5-14.5); WBC 12.6 10x3/uL (4.8-10.8)
[2019-07-04 05:33] LABS: CALC OSMOLALITY 285 mosm/kg (275-300); CALCIUM 8.8 mg/dL (8.5-10.1); CARBON DIOXIDE 29.3 mmol/L (21.0-32.0); CHLORIDE - SERUM 104 mmol/L (98-107); CREATININE - SERUM 0.7 mg/dL (0.6-1.3); GLUCOSE 126 mg/dL (74-106); SODIUM 142 mmol/L (136-145); UREA NITROGEN 14 mg/dL (7-18); eGFR NON AFRICAN AMERICAN > 90 mL/min (90-120)
[2019-07-04 10:13] VITALS: BP 165/87
[2019-07-04 14:35] VITALS: BP 160/67
--- NOTE | 2019-07-04 14:37 | NUR ---
Nutrition Follow-up: Eating well. C/o constipation. Diet: Diabetic Cardiac PO intake: 100% x 6 meals No new wt; last wt: 154# (07/02) Labs noted: Glu 126 Meds noted: Prednisone, Protonix, Amaryl, Humulin -Continue current diet as tolerated. -RD following.
--- NOTE | 2019-07-04 16:48 | EC ---
PATIENT:YUMIKO PADILLA DATE OF SERVICE: 07/01/19 SEX: M MEDICAL RECORD: [id number] DATE OF : [birth year] LOCATION:D.M2 D.213 AGE OF PATIENT: 73 ADMISSION DATE: 07/01/19 REFERRING PHYSICIAN: INTERPRETING PHYSICIAN: PEPE GONZALEZ MD ECHOCARDIOGRAM REPORT ECHO CHARGES 4 ECHO COMPLETE Date: 07/03/19 CLINICAL DIAGNOSIS: CHF ECHOCARDIOGRAPHIC MEASUREMENTS (adult normal given) AC root (d.<3.7cm) 3.4 cm LV Septum d (<1.2 cm> 1.4 cm Valve Excursion 1.5 cm LV Septum (systole) 1.9 cm Left Atria (s.<4.0cm> 3.9 cm LVPW d(<1.2cm) 1.5 cm RV (d.<2.3cm) 2.8 cm LVPW (sytole) 1.9 cm LV diastole(<5.6CM) 3.4 cm MV E-F(>70mm/sec) cm LV systole 2.1 cm LVOT Diameter 1.9 cm MV exc.(>10mm) cm Est.ejection fraction (50-75%) % DOPPLER: LVIT cm/sec A 77.0 cm/sec E 106 cm/sec LA cm/sec RVSP mmHg LVOT 104 cm/sec AOP1/2T m/s Asc. Ao 174 cm/sec RVOT 65.0 cm/sec RA cm/sec PA 129 cm/sec AV Gradient Peak 12.1 mmHg AV Mean 6.2 mmHg AV Area 1.8 cm MV Gradient Peak 5.3 mmHg MV Mean 2.0 mmHg MV Area cm COMMENTS: Gem Carver: 1 PETTY REILLYOE Spinning Supervisor: 1 Dr. Gonzalez TAPE# PACS Pericardial Effusion N DATE OF SERVICE: FINDINGS: 1. Left ventricular chamber is within normal limits. Left ventricular systolic function is normal at 55%. 2. Left atrium, right atrium, and right ventricular chamber sizes are within normal limits. 3. Valvular structures have normal structure and motion. 4. Doppler interrogation reveals no significant valvular insufficiency or stenosis. ECHOCARDIOGRAM REPORT [id number] YUMIKO PADILLA 5. No evidence of pericardial effusion or left ventricular thrombus. TRANSINT:[id number] Voice Confirmation ID: [id number] DOCUMENT ID: [id number] PEPE GONZALEZ MD at 1648 CC: [id number] DICTATION DATE: 07/04/19 0748 DISHROOM ATTENDANT: 07/04/19 0938 ADM IN [place] [id number] [facility], [facility]
[2019-07-04 18:10] VITALS: BP 160/88
[2019-07-04 20:00] VITALS: BP 145/79
--- NOTE | 2019-07-04 20:04 | NUR ---
PT ALERT AND ORIENTED DENIES NEEDS AT THIS TIME BED IS LOW AND LOCKED IV SL CALL LIGHT IS IN REACH
[2019-07-05 02:46] VITALS: BP 150/88
--- NOTE | 2019-07-05 03:32 | NUR ---
I have reviewed this patient and I concur with the Shift Assessment completed by the Licensed Practical Nurse today this shift.
[2019-07-05 04:00] VITALS: BP 153/82
[2019-07-05 06:40] LABS: BASOPHILS 0.2 % (0-2); EOSINOPHILS 0.8 % (0-7); HEMOGLOBIN 10.7 g/dL (13.5-17.5); IMMATURE GRANULOCYTES 0.5 % (0-5); LYMPHOCYTES 32.7 % (15-50); MCH 25.6 pg (26.0-34.0); MCHC 30.6 g/dL (31.0-37.0); MCV 83.7 fL (80.0-100.0); MEAN PLATELET VOLUME 8.8 fL (7.4-10.4); NEUTROPHILS 54.8 % (40-80); PLATELET COUNT 424 10x3/uL (130-400); RBC 4.18 10x6/uL (4.20-6.10); RDW 16.7 % (11.5-14.5); WBC 12.7 10x3/uL (4.8-10.8)
[2019-07-05 07:02] LABS: CALC OSMOLALITY 281 mosm/kg (275-300); CALCIUM 8.6 mg/dL (8.5-10.1); CARBON DIOXIDE 28.6 mmol/L (21.0-32.0); CHLORIDE - SERUM 106 mmol/L (98-107); CREATININE - SERUM 0.8 mg/dL (0.6-1.3); GLUCOSE 68 mg/dL (74-106); POTASSIUM - SERUM 3.8 mmol/L (3.5-5.1); SODIUM 142 mmol/L (136-145); UREA NITROGEN 14 mg/dL (7-18); eGFR NON AFRICAN AMERICAN > 90 mL/min (90-120)
[2019-07-05 10:06] VITALS: BP 157/79
--- NOTE | 2019-07-05 11:44 | NUR ---
PT'S BP 184/79 REPORTED TO LUKAS MARCIAL WILL AWAIT ORDERS.
[2019-07-05] MEDS ORDERED: COMBIVENT RESPIM4 GM INH (12:47)
[2019-07-05] MEDS ORDERED: ALBUTEROL0.63 MG/3 INH (12:48)
[2019-07-05 14:01] VITALS: BP 184/79
--- NOTE | 2019-07-05 14:01 | MORECARE ---
CASE MANAGEMENT DISCHARGE SUMMARY PATIENT: YUMIKO PADILLA UNIT: [id number] ADM DATE: 07/01/19 AGE: 73 : [birth year] SEX: M ROOM/BED: D.2134 AUTHOR: DRU YAO PHYSICIAN: REFERRING PHYSICIAN: SOHAN DARLING MD DATE OF SERVICE: 07/05/19 Discharge Plan Patient Name: YUMIKO PADILLA [facility] [facility] 1945 Planned Disposition: Home Hlth Svc w Plan Readm Anticipated Discharge Date: Discharge Date: Expected LOS: Initial Reviewer: [id number] Initial Review Date: 07/05/2019 Generated: 07/05/19 3:01 pm Patient Name: YUMIKO PADILLA Page 95401 at 1401 All edits/amendments must be made on the electronic document DICTATION DATE: 07/05/19 1401 PERCUSSION INSTRUMENT TUNER: DELIA 07/05/19 1401 RPT#: [id number] DC DATE: STATUS: ADM IN [facility] [address] [place] [address] END OF REPORT
--- NOTE | 2019-07-05 14:10 | MORECARE ---
CASE MANAGEMENT DISCHARGE SUMMARY PATIENT: YUMIKO PADILLA UNIT: [id number] ADM DATE: 07/01/19 AGE: 73 : [birth year] SEX: M ROOM/BED: D.2134 AUTHOR: NAJMADOC PHYSICIAN: REFERRING PHYSICIAN: SOHAN DARLING MD DATE OF SERVICE: 07/05/19 Discharge Plan Patient Name: YUMIKO PADILLA Facility: [facility]:[place] : 1945 Planned Disposition: Home Hlth Svc w Plan Readm Anticipated Discharge Date: Discharge Date: Expected LOS: Initial Reviewer: [id number] Initial Review Date: 07/05/2019 Generated: 07/05/19 3:10 pm Comments DCP- Discharge Planning Updated by [email or web address]: Kliey Cid on 07/05/19 1:[address] Patient Name: YUMIKO PADILLA Admission Status: ER Accout number: [id number] Admission Date: 07-01-2019 : 1945 Admission Diagnosis: Attending: SOHAN DARLING Current LOS: 4 Anticipated DC Date: Planned Disposition: Home Hlth Svc w Plan Readm Primary Insurance: [employer] MEDICARE ADV Discharge Planning Comments: CM MET WITH PATIENT AFTER OBTAINING VERBAL CONSENT. PATIENT PLANS TO DC TO HOME TODAY AND [facility]. GHAZALA SIGNED TO [facility]. I WILL FAX DC SUM TO [facility] AT TIME OF DC. Life Skills Consultant: Kiley Cid DCPIA - Discharge Planning Initial Assessment Updated by [id number]: Kiley Cdi on 07/05/19 2:01 pm * Is the patient Alert and Oriented? Yes * PCP BENÍTEZ * Pharmacy [facility] * Preadmission Environment Home with Family * Other Equipment O2 [facility], WITH [employer] * Community resources currently utilized Home Health * Please name any agencies selected above. [facility] * Additional services required to return to the preadmission environment? No * Can the patient safely return to the preadmission environment? Yes * Has this patient been hospitalized within the prior 30 days at any hospital? No External Providers [facility] Next Contact Date: Service Request Date: Service Type: Resolution: Reviewer: Comments: Coverage Notice Reviewer: [id number] - Kiley Cid Notice Issued Date-Time: 07/05/2019 14:02 Notice Type: IM Discharge Notice Notice Delivered To: Patient Relationship to Patient: Senior Mainframe Programmer Analyst Name: Delivery Method: - Maddison Days: Prior Verbal Notification: Recipient Understood Notice: Recipient Signature: Med Rec Note Co-signed by Attending: Coverage Notice Comment: Reviewer: [id number] Moses Cid Notice Issued Date-Time: 07/05/2019 14:02 Notice Type: Patient Choice Letter Notice Delivered To: Patient Relationship to Patient: Senior Mainframe Programmer Analyst Name: Delivery Method: HAND - Hand Delivered Maddison Days: Prior Verbal Notification: Recipient Understood Notice: Yes Recipient Signature: Yes Med Rec Note Co-signed by Attending: Coverage Notice Comment: [facility] Last DP export: 07/05/19 1:01 p Patient Name: YUMIKO PADILLA Page [phone] at 1410 All edits/amendments must be made on the electronic document DICTATION DATE: 07/05/19 1410 MECHANICAL REPAIR WORKER: DELIA 07/05/19 1410 RPT#: [id number] [place] DATE: STATUS: ADM IN [facility] [address] [place] [address] END OF REPORT
--- NOTE | 2019-07-05 15:30 | NUR ---
TELEMTRY DC'D. RIGHT FA 20G IV DC'D WITH CATH INTACT. PT'S BELONGINGS PACKED UP AND READY TO GO. PT STATES HIS SON IN LAW IS ON HIS WAY. DISCHARGE INSTRUCTIONS GIVEN TO PT. PT HAS NO FURTHER QUESTIONS. PORTABLE O2 IN ROOM. CHART COPY SIGNED.
--- NOTE | 2019-07-05 15:54 | NUR ---
PT TAKEN DOWN VIA WC BY [facility]HE[facility] AND LEFT WITH SON IN LAW IN PERSONAL CAR.
--- NOTE | 2019-07-05 18:21 | MORECARE ---
CASE MANAGEMENT DISCHARGE SUMMARY PATIENT: YUMIKO PADILLA UNIT: [id number] ADM DATE: 07/01/19 AGE: 73 : [birth year] SEX: M ROOM/BED: D.2134 AUTHOR: NAJMADOC PHYSICIAN: REFERRING PHYSICIAN: SOHAN DARLING MD DATE OF SERVICE: 07/05/19 Discharge Plan Patient Name: YUMIKO PADILLA Facility: [facility]:[place] : 1945 Planned Disposition: Home Hlth Svc w Plan Readm Anticipated Discharge Date: Discharge Date: 07/05/2019 Expected LOS: Initial Reviewer: [id number] Initial Review Date: 07/05/2019 Generated: 07/05/19 7:20 pm Comments DCP- Discharge Planning Updated by [email or web address]: Kiley Cid on 07/05/19 1:[address] Patient Name: YUMIKO PADILLA Admission Status: ER Accout number: [id number] Admission Date: 07-01-2019 : 1945 Admission Diagnosis: Attending: SOHAN DARLING Current LOS: 4 Anticipated DC Date: Planned Disposition: Home Hlth Svc w Plan Readm Primary Insurance: [employer] MEDICARE ADV Discharge Planning Comments: CM MET WITH PATIENT AFTER OBTAINING VERBAL CONSENT. PATIENT PLANS TO DC TO HOME TODAY AND [facility]. GHAZALA SIGNED TO [facility]. I WILL FAX DC SUM TO [facility] AT TIME OF DC. Clinical Study Manager: Kiley Cid DCPIA - Discharge Planning Initial Assessment Updated by [id number]: Kiley Cid on 07/05/19 2:01 pm * Is the patient Alert and Oriented? Yes * PCP BENÍTEZ * Pharmacy [facility] * Preadmission Environment Home with Family * Other Equipment O2 [facility], WITH [facility] * Community resources currently utilized Home Health * Please name any agencies selected above. [facility] * Additional services required to return to the preadmission environment? No * Can the patient safely return to the preadmission environment? Yes * Has this patient been hospitalized within the prior 30 days at any hospital? No Coverage Notice Reviewer: [id number] - Kiley Cid Notice Issued Date-Time: 07/05/2019 14:02 Notice Type: IM Discharge Notice Notice Delivered To: Patient Relationship to Patient: Mail Technician Name: Delivery Method: - Maddison Days: Prior Verbal Notification: Recipient Understood Notice: Recipient Signature: Med Rec Note Co-signed by Attending: Coverage Notice Comment: Reviewer: [id number] Moses Cid Notice Issued Date-Time: 07/05/2019 14:02 Notice Type: Patient Choice Letter Notice Delivered To: Patient Relationship to Patient: Mail Technician Name: Delivery Method: HAND - Hand Delivered Maddison Days: Prior Verbal Notification: Recipient Understood Notice: Yes Recipient Signature: Yes Med Rec Note Co-signed by Attending: Coverage Notice Comment: NEGRITA RAZA Last DP export: 07/05/19 1:10 p Patient Name: YUMIKO PADILLA Page 60025 at 1821 All edits/amendments must be made on the electronic document DICTATION DATE: 07/05/191820 DIRECTOR FACILITIES MAINTENANCE: DELIA 07/05/191820 RPT#: [id number] DC DATE:07/05/19 STATUS: DIS IN [facility] [address] [place] [address] END OF REPORT
== END 2019-07-05 15:54 | disposition home health service (06) | DRG 193 ==
LOC: D.ER 16:15 → D.M2 17:51
PROVIDERS: Family Medicine; ADMIT Internal Medicine Nephrology; ATTEND Internal Medicine Nephrology
DX: J18.9 Pneumonia, unspecified organism (principal); J96.21 Acute and chronic respiratory failure with hypoxia; I50.33 Acute on chronic diastolic (congestive) heart failure; F17.213 Nicotine dependence, cigarettes, with withdrawal; I11.0 Hypertensive heart disease with heart failure; E78.5 Hyperlipidemia, unspecified; E11.9 Type 2 diabetes mellitus without complications; I25.10 Atherosclerotic heart disease of native coronary artery without angina pectoris; D50.9 Iron deficiency anemia, unspecified; J43.9 Emphysema, unspecified; Z86.73 Personal history of transient ischemic attack (TIA), and cerebral infarction without residual deficits

== ENCOUNTER 2019-07-09 19:04 | Inpatient (IN) | payer MEDICARE, MEDICAID ==
[~2019-07-09] VITALS: Ht 172.7 cm; Wt 72.1 kg
[~2019-07-09 19:04] MED LIST changes: +ALBUTEROL0.63 MG/3 INH
--- NOTE | 2019-07-09 19:25 | NUR ---
CODE SEPSIS CALLED.
--- NOTE | 2019-07-09 19:30 | NUR ---
SPOKE TO DR. SYKES- STATES TO HOLD FLUIDS FOR NOW D/T CHF HX.
[2019-07-09 19:39] LABS: BASOPHILS 0.3 % (0-2); EOSINOPHILS 0.4 % (0-7); HEMATOCRIT 35.2 % (42.0-54.0); IMMATURE GRANULOCYTES 0.4 % (0-5); LYMPHOCYTES 14.1 % (15-50); MCH 26.4 pg (26.0-34.0); MCHC 31.3 g/dL (31.0-37.0); MCV 84.6 fL (80.0-100.0); MEAN PLATELET VOLUME 8.6 fL (7.4-10.4); MONOCYTES 13.6 % (2-11); NEUTROPHILS 71.2 % (40-80); RBC 4.16 10x6/uL (4.20-6.10); RDW 17.1 % (11.5-14.5); WBC 13.8 10x3/uL (4.8-10.8)
[2019-07-09 19:40] LABS: PLATELET COUNT 315 10x3/uL (130-400)
--- NOTE | 2019-07-09 19:42 | NUR ---
FLU SWAB COLLECTED. UPDRAFT IN PROGRESS.
[2019-07-09 19:49] LABS: INR 1.03 (0.85-1.17); PROTIME 13.4 SECONDS (11.6-15.0)
[2019-07-09 19:50] LABS: APTT 27.5 SECONDS (22.8-39.4)
[2019-07-09 19:51] LABS: CALC OSMOLALITY 271 mosm/kg (275-300); CALCIUM 9.1 mg/dL (8.5-10.1); CARBON DIOXIDE 29.7 mmol/L (21.0-32.0); CHLORIDE - SERUM 100 mmol/L (98-107); CREATININE - SERUM 0.9 mg/dL (0.6-1.3); POTASSIUM - SERUM 4.3 mmol/L (3.5-5.1); SODIUM 136 mmol/L (136-145); UREA NITROGEN 10 mg/dL (7-18); eGFR NON AFRICAN AMERICAN 88 mL/min (90-120)
[2019-07-09 19:54] LABS: GLUCOSE 125 mg/dL (74-106)
[2019-07-09 20:08] LABS: ALBUMIN 3.4 g/dL (3.4-5.0); ALKALINE PHOSPHATASE 45 U/L (30-120); ALT (SGPT) 23 U/L (10-68); BILIRUBIN - TOTAL 0.27 mg/dL (0.2-1.3); CKMB 0.3 U/L (0.0-3.6); CREATINE KINASE 32 UL (21-232); PRO BNP 164 pg/mL (0-125); TROPONIN-I < 0.017 ng/mL (0.000-0.060)
[2019-07-09 20:32] VITALS: BP 115/89
--- NOTE | 2019-07-09 21:00 | NUR ---
NO INSULIN NEEDED AT THIS TIME PER SS.
[2019-07-09 21:49] VITALS: BP 113/51
--- NOTE | 2019-07-09 21:49 | NUR ---
PT STATES "FEELING A LITTLE BETTER"- FAMILY IN ROOM. ON O2 AT 2L. CORTNEY CON'T.
--- NOTE | 2019-07-09 22:15 | NUR ---
ARRIVED BY WC TO BED LOW AND LOCKED AND CALL LIGHT PROVIDED AIR MOVMENT VERY DEMINISHED PUT ON 2L NC
[2019-07-09 23:16] VITALS: BMI 25.1
[2019-07-10 00:26] VITALS: BP 107/58
--- NOTE | 2019-07-10 03:08 | NUR ---
ORDERS NOTED FOR SCD PT REFUSES AND IS UP AD [place] ORDERS NOTED FOR BRINK CATH CARE PT HAS NO BRINK AND DOES NOT MEET CRITERIA FOR A BRINK
[2019-07-10 06:00] VITALS: BP 121/78
[2019-07-10 07:42] LABS: ALKALINE PHOSPHATASE 38 U/L (30-120); ALT (SGPT) 19 U/L (10-68); BILIRUBIN - TOTAL 0.25 mg/dL (0.2-1.3); CALC OSMOLALITY 267 mosm/kg (275-300); CALCIUM 8.5 mg/dL (8.5-10.1); CARBON DIOXIDE 26.9 mmol/L (21.0-32.0); CHLORIDE - SERUM 100 mmol/L (98-107); CREATININE - SERUM 0.9 mg/dL (0.6-1.3); MAGNESIUM - SERUM 1.7 mg/dL (1.8-2.4); PHOSPHOROUS 3.6 mg/dL (2.5-4.9); POTASSIUM - SERUM 3.7 mmol/L (3.5-5.1); PROTEIN - SERUM 6.3 g/dL (6.4-8.2); SODIUM 135 mmol/L (136-145); UREA NITROGEN 9 mg/dL (7-18); eGFR NON AFRICAN AMERICAN 88 mL/min (90-120)
[2019-07-10 07:45] LABS: GLUCOSE 75 mg/dL (74-106)
--- NOTE | 2019-07-10 08:05 | NUR ---
PATIENT IS ALERT AND ORIENTED AND DENIES ANY NEEDS AT THIS TIME.
[2019-07-10 08:20] LABS: HEMATOCRIT 32.8 % (42.0-54.0); HEMOGLOBIN 10.3 g/dL (13.5-17.5); MCH 26.4 pg (26.0-34.0); MCHC 31.4 g/dL (31.0-37.0); MCV 84.1 fL (80.0-100.0); MEAN PLATELET VOLUME 9.1 fL (7.4-10.4); PLATELET COUNT 317 10x3/uL (130-400); RDW 17.3 % (11.5-14.5)
[2019-07-10 08:23] LABS: WBC 8.7 10x3/uL (4.8-10.8)
[2019-07-10 08:25] LABS: GLUCOSE NEGATIVE (NEGATIVE); NITRITE NEGATIVE (NEGATIVE)
[2019-07-10 08:26] LABS: BILIRUBIN NEGATIVE (NEGATIVE); KETONE SMALL mg/dL (NEGATIVE); UROBILINOGEN NORMAL (NORMAL)
[2019-07-10 08:28] LABS: BACTERIA FEW /hpf (NEGATIVE); EPITHELIAL CELLS RARE /hpf (0-5)
[2019-07-10 11:29] VITALS: BP 117/57
[2019-07-10 13:22] LABS: LYMPHOCYTES 22 % (15-50); MONOCYTES 24 % (2-11); NEUTROPHILS 54 % (40-80); PLATELET ESTIMATE NORMAL
[2019-07-10 13:24] LABS: ANISOCYTOSIS OCC; CRENATED CELLS OCC; HYPOCHROMASIA OCC
[2019-07-10 15:19] VITALS: BP 121/69
[2019-07-10 15:52] LABS: % SATURATION 8 % (15-55); IRON 26 ug/dl (35-150); TOTAL IRON BIND CAPACITY 303 ug/dl (260-445); UNSAT IRON BIND CAPACITY 277 ug/dl (150-375)
--- NOTE | 2019-07-10 19:19 | NUR ---
EVENING ROUNDS COMPLETE. PT SITTING IN CHAIR. FAMILY AT BEDSIDE. AAOX4. NO SIGNS OF DISTRESS. PT DENIES ANY PAIN OR NEEDS AT THIS TIME. CL IN REACH, BED IN LOWEST POSITION.
[2019-07-10 20:00] VITALS: BP 106/59
[2019-07-11] VITALS: BP 109/69
[2019-07-11 04:00] VITALS: BP 118/68
[2019-07-11 07:21] LABS: BASOPHILS 0.3 % (0-2); EOSINOPHILS 0.1 % (0-7); HEMATOCRIT 33.6 % (42.0-54.0); HEMOGLOBIN 10.3 g/dL (13.5-17.5); IMMATURE GRANULOCYTES 0.3 % (0-5); LYMPHOCYTES 11.6 % (15-50); MCH 26.1 pg (26.0-34.0); MCHC 30.7 g/dL (31.0-37.0); MCV 85.1 fL (80.0-100.0); MEAN PLATELET VOLUME 9.1 fL (7.4-10.4); MONOCYTES 3.9 % (2-11); NEUTROPHILS 83.8 % (40-80); PLATELET COUNT 264 10x3/uL (130-400); RBC 3.95 10x6/uL (4.20-6.10); RDW 17.3 % (11.5-14.5); WBC 7.1 10x3/uL (4.8-10.8)
[2019-07-11 07:26] LABS: CARBON DIOXIDE 25.7 mmol/L (21.0-32.0); CHLORIDE - SERUM 102 mmol/L (98-107); CREATININE - SERUM 0.9 mg/dL (0.6-1.3); MAGNESIUM - SERUM 1.9 mg/dL (1.8-2.4); PHOSPHOROUS 4.4 mg/dL (2.5-4.9); SODIUM 136 mmol/L (136-145); eGFR NON AFRICAN AMERICAN 88 mL/min (90-120)
[2019-07-11 07:28] LABS: CALC OSMOLALITY 277 mosm/kg (275-300); GLUCOSE 190 mg/dL (74-106); POTASSIUM - SERUM 4.4 mmol/L (3.5-5.1); UREA NITROGEN 14 mg/dL (7-18)
[2019-07-11 10:00] VITALS: BP 113/71
--- NOTE | 2019-07-11 10:20 | NUR ---
PATIENT IS SITTING UP AND FINISHED HIS BREAKFAST. HE IS ALERT AND AWAKE. HE IS VERY HARD OF HEARING AND HIS HEARING AIDS DO NOT APPEAR TO BE WORKING. HE REPORTS NO PAIN OR DISCOMFORT AT THIS TIME. FAMILY WAS DISCUSSING HOSPICE YESTERDAY. TURNED IN THE SPUTUM AND STOOL SAMPLES.
[2019-07-11 14:04] VITALS: BP 102/60
[2019-07-11 18:03] VITALS: BP 108/60
--- NOTE | 2019-07-11 19:15 | NUR ---
AWAKE AND ALERT BED LOW AND LOCKED DENIES ANY NEEDS AT THIS TIME
[2019-07-11 20:30] VITALS: BP 116/63
[2019-07-12 00:30] VITALS: BP 128/70
--- NOTE | 2019-07-12 03:41 | NUR ---
I have reviewed this patient and I concur with the Shift Assessment completed by the Licensed Practical Nurse today this shift.
[2019-07-12 04:30] VITALS: BP 108/57
[2019-07-12 06:39] LABS: BASOPHILS 0.1 % (0-2); EOSINOPHILS 0 % (0-7); HEMATOCRIT 32.1 % (42.0-54.0); HEMOGLOBIN 9.7 g/dL (13.5-17.5); IMMATURE GRANULOCYTES 0.4 % (0-5); LYMPHOCYTES 12.1 % (15-50); MCH 25.8 pg (26.0-34.0); MCHC 30.2 g/dL (31.0-37.0); MCV 85.4 fL (80.0-100.0); MONOCYTES 9.3 % (2-11); NEUTROPHILS 78.1 % (40-80); PLATELET COUNT 259 10x3/uL (130-400); RBC 3.76 10x6/uL (4.20-6.10); RDW 17.3 % (11.5-14.5)
[2019-07-12 06:46] LABS: CALC OSMOLALITY 285 mosm/kg (275-300); CALCIUM 8.9 mg/dL (8.5-10.1); CARBON DIOXIDE 28.6 mmol/L (21.0-32.0); CHLORIDE - SERUM 106 mmol/L (98-107); CREATININE - SERUM 0.8 mg/dL (0.6-1.3); GLUCOSE 152 mg/dL (74-106); MAGNESIUM - SERUM 2.1 mg/dL (1.8-2.4); POTASSIUM - SERUM 4.4 mmol/L (3.5-5.1); SODIUM 141 mmol/L (136-145); UREA NITROGEN 17 mg/dL (7-18); eGFR NON AFRICAN AMERICAN > 90 mL/min (90-120)
[2019-07-12 07:13] LABS: WBC 10.2 10x3/uL (4.8-10.8)
--- NOTE | 2019-07-12 09:33 | NUR ---
RIGHT FA 20G IV LEAKING. DC'D WITH CATH INTACT. LEFT FA 20G IV INSERTED ON FOURTH ATTEMPT.
[2019-07-12 10:46] VITALS: BP 126/72
--- NOTE | 2019-07-12 19:52 | NUR ---
I have reviewed this patient and I concur with the Shift Assessment completed by the Licensed Practical Nurse today this shift.
[2019-07-12 20:00] VITALS: BP 119/56
--- NOTE | 2019-07-12 20:45 | NUR ---
WATCHING TV WIHT NO COMPLAITNS VOICED. RESP EVEN AND UNALBORED. NO DISTRESS NOTED. O2 @ 4L PER NC ON. CL IN REACH
[2019-07-13] VITALS: BP 136/71
--- NOTE | 2019-07-13 02:24 | NUR ---
I have reviewed this patient and I concur with the Shift Assessment completed by the Licensed Practical Nurse today this shift.
[2019-07-13 04:00] VITALS: BP 151/73
[2019-07-13 06:11] LABS: BASOPHILS 0 % (0-2); EOSINOPHILS 0 % (0-7); HEMATOCRIT 30.7 % (42.0-54.0); HEMOGLOBIN 9.3 g/dL (13.5-17.5); IMMATURE GRANULOCYTES 0.2 % (0-5); LYMPHOCYTES 9.3 % (15-50); MCH 25.9 pg (26.0-34.0); MCHC 30.3 g/dL (31.0-37.0); MCV 85.5 fL (80.0-100.0); MEAN PLATELET VOLUME 8.6 fL (7.4-10.4); MONOCYTES 8.4 % (2-11); NEUTROPHILS 82.1 % (40-80); PLATELET COUNT 225 10x3/uL (130-400); RBC 3.59 10x6/uL (4.20-6.10); RDW 17.4 % (11.5-14.5); WBC 12.2 10x3/uL (4.8-10.8)
[2019-07-13 06:27] LABS: CALC OSMOLALITY 284 mosm/kg (275-300); CALCIUM 8.5 mg/dL (8.5-10.1); CARBON DIOXIDE 28.8 mmol/L (21.0-32.0); CHLORIDE - SERUM 107 mmol/L (98-107); CREATININE - SERUM 0.7 mg/dL (0.6-1.3); GLUCOSE 132 mg/dL (74-106); MAGNESIUM - SERUM 1.9 mg/dL (1.8-2.4); PHOSPHOROUS 3.4 mg/dL (2.5-4.9); POTASSIUM - SERUM 4.3 mmol/L (3.5-5.1); SODIUM 141 mmol/L (136-145); UREA NITROGEN 19 mg/dL (7-18); eGFR NON AFRICAN AMERICAN > 90 mL/min (90-120)
--- NOTE | 2019-07-13 07:15 | NUR ---
RECEIVED REPORT. ASSUMED CARE OF PATIENT. PATIENT UP AMBULATING IN ROOM TO RESTROOM AT THIS TIME. RESP EVEN AND UNLABORED. NO DISTRESS. CALL LIGHT WITHIN REACH.
[2019-07-13 09:07] VITALS: BP 157/71
--- NOTE | 2019-07-13 09:44 | NUR ---
22 GAUGE IV PLACED TO RIGHT UPPER ARM X 1 STICK. GOOD BLOOD RETURN, EASY FLUSH. TOLERATED IV PLACEMENT WELL.
--- NOTE | 2019-07-13 11:49 | NUR ---
FSBS 196. 2 U NITS HUMULIN ADMINISTERED PER SLIDING SCALE.
[2019-07-13 13:35] VITALS: BP 121/56
--- NOTE | 2019-07-13 14:33 | NUR ---
IV SITE TO LEFT UPPER ARM WOULD NOT FLUSH EASILY. IV REMOVED, CATHETER TIP INTACT. NO BLEEDING FROM SITE. 2X2 GAUZE APPLIED AND SECURED WITH BANDAID. 22 GAUGE IV PLACED TO RIGHT WRIST X 1 STICK, GOOD BLOOD RETURN, EASY FLUSH. TAPED, DATED AND SECURED. TOLERATED IV PLACEMENT WELL.
--- NOTE | 2019-07-13 16:53 | NUR ---
FSBS 208. 4 UNITS HUMULIN ADMINISTERED PER SLIDING SCALE. NO DISTRESS.
--- NOTE | 2019-07-13 19:47 | NUR ---
RECEIVED UP IN BED WITH EYES OPEN AND TV ON. ALERT AND ORIENTED X4. UP AD DAMON. USES URINAL IN BED. O2@ 5 LITERS PER N/C IN PLACE. IV TO RT WRIST SL.. VERY [place]. DENIES ANY NEEDS AT THIS TIME.
[2019-07-13 20:00] VITALS: BP 125/56
[2019-07-14] VITALS: BP 105/69
[2019-07-14 04:00] VITALS: BP 134/62
[2019-07-14 05:49] LABS: BASOPHILS 0.1 % (0-2); EOSINOPHILS 0 % (0-7); HEMATOCRIT 32.1 % (42.0-54.0); HEMOGLOBIN 9.7 g/dL (13.5-17.5); IMMATURE GRANULOCYTES 0.5 % (0-5); LYMPHOCYTES 7.3 % (15-50); MCH 25.9 pg (26.0-34.0); MCHC 30.2 g/dL (31.0-37.0); MCV 85.8 fL (80.0-100.0); MEAN PLATELET VOLUME 8.4 fL (7.4-10.4); MONOCYTES 7.2 % (2-11); NEUTROPHILS 84.9 % (40-80); PLATELET COUNT 207 10x3/uL (130-400); RBC 3.74 10x6/uL (4.20-6.10); RDW 17.4 % (11.5-14.5); WBC 10.3 10x3/uL (4.8-10.8)
[2019-07-14 06:10] LABS: CALC OSMOLALITY 279 mosm/kg (275-300); CALCIUM 8.8 mg/dL (8.5-10.1); CARBON DIOXIDE 29.8 mmol/L (21.0-32.0); CHLORIDE - SERUM 100 mmol/L (98-107); CREATININE - SERUM 0.8 mg/dL (0.6-1.3); GLUCOSE 149 mg/dL (74-106); MAGNESIUM - SERUM 1.8 mg/dL (1.8-2.4); PHOSPHOROUS 3.4 mg/dL (2.5-4.9); POTASSIUM - SERUM 3.7 mmol/L (3.5-5.1); SODIUM 138 mmol/L (136-145); eGFR NON AFRICAN AMERICAN > 90 mL/min (90-120)
[2019-07-14 06:11] LABS: UREA NITROGEN 14 mg/dL (7-18)
[2019-07-14 07:30] VITALS: BP 159/74
[2019-07-14 11:30] VITALS: BP 127/65
[2019-07-14 15:30] VITALS: BP 158/84
--- NOTE | 2019-07-14 19:31 | NUR ---
RECEIVED UP IN BED WITH EYES OPEN. FAMILY AT BEDSIDE. ALERT AND ORIENTED X4. UP AD DAMON TO B/R. O2@ 5 LITERS PER N/C. IV TO LT FA WITH NS AT 15CC/HR. DENIES ANY NEEDS AT THIS TIME.
[2019-07-14 20:00] VITALS: BP 119/75
[2019-07-15 00:01] VITALS: BP 130/75
[2019-07-15 05:22] LABS: BASOPHILS 0.1 % (0-2); EOSINOPHILS 0 % (0-7); HEMATOCRIT 32.5 % (42.0-54.0); HEMOGLOBIN 9.8 g/dL (13.5-17.5); IMMATURE GRANULOCYTES 0.7 % (0-5); LYMPHOCYTES 6.9 % (15-50); MCH 25.8 pg (26.0-34.0); MCHC 30.2 g/dL (31.0-37.0); MCV 85.5 fL (80.0-100.0); MEAN PLATELET VOLUME 9.2 fL (7.4-10.4); MONOCYTES 9.4 % (2-11); NEUTROPHILS 82.9 % (40-80); PLATELET COUNT 223 10x3/uL (130-400); RDW 17.5 % (11.5-14.5); WBC 12.7 10x3/uL (4.8-10.8)
--- NOTE | 2019-07-15 06:45 | NUR ---
PT HAD AN EPISODE OF DESATING DOWN TO 64% O2 SAT WITH O2@ [address] BECAME ANXIOUS AND RT NOTIFIED AND EVENTUALLY GOT HIM TO PUT BIPAP ON. SATS WENT UP TO 94% WITH BIPAP ON. EDUCATED PT ON THE NEED FOR BIPAP. PT AGREEDED IT SCARED HIM AND REQUESTED IT BE PUT BACK ON HIM WHEN HE WOULD GO TO BATHROOM. BECOME VERY SOB UPON ANY EXCERTION AND EVEN WHEN SPEAKING. HE HAS AGREED TO WEAR BIPAP MORE OFTEN.
[2019-07-15 07:26] LABS: CALC OSMOLALITY 281 mosm/kg (275-300); CALCIUM 8.5 mg/dL (8.5-10.1); CARBON DIOXIDE 28.4 mmol/L (21.0-32.0); CHLORIDE - SERUM 103 mmol/L (98-107); CREATININE - SERUM 0.7 mg/dL (0.6-1.3); GLUCOSE 108 mg/dL (74-106); MAGNESIUM - SERUM 1.7 mg/dL (1.8-2.4); PHOSPHOROUS 2.8 mg/dL (2.5-4.9); SODIUM 140 mmol/L (136-145); eGFR NON AFRICAN AMERICAN > 90 mL/min (90-120)
[2019-07-15 07:29] LABS: UREA NITROGEN 18 mg/dL (7-18)
--- NOTE | 2019-07-15 07:40 | NUR ---
IVPB CEFEPIME HUNG AT THIS TIME. PT RESTING COMFORTABLY IN BED. BIPAP IN USE. PT DENIES ANY NEEDS AT THIS TIME. FAMILY AT BEDSIDE, NAD NOTED,W ILL CONTINUE TO MONITOR.
--- NOTE | 2019-07-15 10:17 | NUR ---
IVPB VANC HUNG AT THIS TIME. AMYRYL NOT AVIALABLE PHARMCY AWARE. PT SAT 92% ON 5L. PT DENIES ANY NEEDS AT THIS TIME. CALL LIGHT IN REACH, FAMILY AT BEDSIDE, NAD NOTED,W ILL CONTINUE TO MONITOR.
[2019-07-15 13:58] VITALS: BP 147/74
[2019-07-15 14:41] VITALS: Ht 172.7 cm; Wt 72.1 kg
--- NOTE | 2019-07-15 17:02 | NUR ---
RT WRIST IV INFILTRATED. D/C IV WITH CATHETER TIP INTACT. NEW 22G IV STARTED TO LT FA X2 STICKS. PT RESTING COMFORTABLY IN BED, DENIES ANY NEEDS AT THIS TIME. CALL LIGHT IN REACH, NAD NOTED,W ILL CONTINUE TO MONITOR.
[2019-07-15 17:40] VITALS: BP 150/76
--- NOTE | 2019-07-15 19:19 | NUR ---
RECEIVED SITTING UP ON SIDE OF BED. ALERT AND ORIENTED X4. O2@ 5 LITERS PER N/C IN PLACE. IV TO LT FA WITH NS AT O. DENIES ANY NEEDS AT THIS TIME.
[2019-07-15 22:23] VITALS: BP 153/73
[2019-07-16 00:48] VITALS: BP 180/90
[2019-07-16 06:14] LABS: HEMATOCRIT 32.7 % (42.0-54.0); HEMOGLOBIN 10.1 g/dL (13.5-17.5); MCH 26.2 pg (26.0-34.0); MCHC 30.9 g/dL (31.0-37.0); MCV 84.9 fL (80.0-100.0); MEAN PLATELET VOLUME 9.2 fL (7.4-10.4); PLATELET COUNT 215 10x3/uL (130-400); RBC 3.85 10x6/uL (4.20-6.10); RDW 17.1 % (11.5-14.5)
[2019-07-16 06:37] LABS: CALC OSMOLALITY 281 mosm/kg (275-300); CALCIUM 8.3 mg/dL (8.5-10.1); CARBON DIOXIDE 33.7 mmol/L (21.0-32.0); CHLORIDE - SERUM 100 mmol/L (98-107); CREATININE - SERUM 0.7 mg/dL (0.6-1.3); GLUCOSE 124 mg/dL (74-106); POTASSIUM - SERUM 4.1 mmol/L (3.5-5.1); SODIUM 139 mmol/L (136-145); UREA NITROGEN 20 mg/dL (7-18); eGFR NON AFRICAN AMERICAN > 90 mL/min (90-120)
--- NOTE | 2019-07-16 07:45 | NUR ---
AM ROUNDS, PT RESTING COMFORTABLY IN BED, HELPED PT TO BATHROOM AND BACK TO BED. PT DENIES ANY NEEDS AT THIS TIME. CALL LIGHT IN REACH, NAD NOTED, WILL CONTINUE TO MONITOR.
[2019-07-16 08:31] VITALS: BP 162/92
[2019-07-16 09:04] LABS: ANISOCYTOSIS OCC; LYMPHOCYTES 14 % (15-50); MONOCYTES 8 % (2-11); NEUTROPHILS 75 % (40-80); PLATELET ESTIMATE NORMAL; ROULEAUX OCC; SMUDGE CELLS OCC
[2019-07-16 11:02] VITALS: BP 154/84
[2019-07-16 12:00] VITALS: BP 136/76
--- NOTE | 2019-07-16 15:26 | NUR ---
PT RESTING COMFORTABLY ON BIPAP. DENIES ANY NEEDS AT THIS TIME. CALL LIGHT IN REACH,NAD NOTED,W ILL CONTINUE TO MONITOR.
[2019-07-16 16:00] VITALS: BP 171/90
--- NOTE | 2019-07-16 19:24 | NUR ---
EVENING ROUNDS COMPLETE. PT SITTING UP ON SIDE OF BED. NO SIGNS OF DISTRESS. AAOX4. PT DENIES ANY PAIN OR NEEDS AT THIS TIME. CL IN REACH, BED IN LOWEST POSITION.
[2019-07-16 22:02] VITALS: BP 174/75
[2019-07-17 01:14] VITALS: BP 132/82
[2019-07-17 05:29] LABS: BASOPHILS 0.1 % (0-2); EOSINOPHILS 0 % (0-7); HEMOGLOBIN 9.7 g/dL (13.5-17.5); IMMATURE GRANULOCYTES 0.6 % (0-5); LYMPHOCYTES 10.3 % (15-50); MCH 25.7 pg (26.0-34.0); MCHC 30.3 g/dL (31.0-37.0); MCV 84.9 fL (80.0-100.0); MEAN PLATELET VOLUME 9.2 fL (7.4-10.4); MONOCYTES 7.3 % (2-11); NEUTROPHILS 81.7 % (40-80); PLATELET COUNT 220 10x3/uL (130-400); RBC 3.77 10x6/uL (4.20-6.10); WBC 9.9 10x3/uL (4.8-10.8)
[2019-07-17 05:48] LABS: CALC OSMOLALITY 285 mosm/kg (275-300); CALCIUM 8.5 mg/dL (8.5-10.1); CARBON DIOXIDE 31.2 mmol/L (21.0-32.0); CHLORIDE - SERUM 104 mmol/L (98-107); CREATININE - SERUM 0.8 mg/dL (0.6-1.3); GLUCOSE 169 mg/dL (74-106); POTASSIUM - SERUM 4.1 mmol/L (3.5-5.1); SODIUM 140 mmol/L (136-145); UREA NITROGEN 20 mg/dL (7-18); eGFR NON AFRICAN AMERICAN > 90 mL/min (90-120)
[2019-07-17 06:51] VITALS: BP 129/77
--- NOTE | 2019-07-17 07:18 | NUR ---
AM ROUNDS- PT IN BED, RESTING COMFORTABLY, ASKED FOR CUP OF COFFEE. ENCOURAGE PT TO WEAR HIS BIPAP AFTER BREAKFAST, SICNE HE DID NOT WEAR IT AT ALL LAST NIGHT. PT STATED THAT HE WOULD, DENIES ANY OTHER NEEDS AT THIS TIME. CALL LIGHT IN REACH, NAD NOTED,W ILL CONTINUE PLAN OF CARE.
[2019-07-17 11:25] VITALS: BP 141/72
--- NOTE | 2019-07-17 11:32 | NUR ---
BLOOD SUGAR OF 241, 4UNITS GIVEN PER S/S. PT RESTING COMFORTABLY IN BED, DENIES ANY NEEDS AT THIS TIME. FAMILY AT BEDSIDE, CALL LIGHT IN REACH.
--- NOTE | 2019-07-17 14:00 | NUR ---
WAS INFORMED BY PT'S DAUGHTER THAT PT WAS UPSET BECAUSE DR. CRUMP DID NOT COME SEE HIM TODAY. PT WANTS THIS NURSE TO CALL DR. CRUMP AND ASK HIM IF HE CAN GO HOME ON HOSPICE OR IF HE CAN DISCHARGE HIM TODAY. WENT AND TALKED TO DR. CRUMP AND INFORMED HIM THAT PT AND FAMILY WANT TO TALK TO HIM. DR. CRUMP STATED " HE IS GOING TO HAVE TO BE THE LAST ONE ON MY LIST, BECASUE I AM VERY BUSY. AND WHAT HAPPENED TO THE HOSPICE CONSULT." INFORMED HIM THAT SINCE HE HAD TOLD PT AND PT'S DAUGHTER THAT LONG HE USED THE MASK 4HRS ON AND 4HRS OFF THAT HE DID NOT HAVE TO DO HOSPICE. THE DR. CRUMP STATED " BUT HE DOES NOT WEAR THE BIPAP SO THEN HE NEEDS TO DO HOSPICE. BUT TELL HIM IF HE DOES HOSPICE THAT HE CANNOT BE COMING TO THE HOSPITAL WHEN HE CANNOT BREATH AND REVOKE HOSPICE." WENT AND INFORMED PT AND FAMILY AT BEDSIDE ABOUT WHAT DR. CRUMP HAS STATED. PT FIRST STATED THAT HE WANTED TO GO HOME ON HOSPICE THAT LASHONDA WITH CASE MANAGEMENT HAD ALREADY TALKED TO HIM AND HIS DAUGHTER ABOUT THE HOSPICE OPTIONS. THEN AFTER PT, PT'S DAUGHTER AND PT'S SON TALKED ABOUT IT PT STATED THAT HE WOULD TRY TO WEAR THE BIPAP FOR A COUPLE HOURS DURING THE DAY AND TRY IT FOR A FEW MORE DAYS BEFORE HE MADE UP HIS MIND ABOUT HOSPICE.
[2019-07-17 14:26] VITALS: BP 140/71
--- NOTE | 2019-07-17 17:31 | MORECARE ---
CASE MANAGEMENT DISCHARGE SUMMARY PATIENT: YUMIKO PADILLA UNIT: [id number] ADM DATE: 07/09/19 AGE: 73 : 47 SEX: M ROOM/BED: D.2136 AUTHOR: NAJMA,DOC PHYSICIAN: REFERRING PHYSICIAN: ANDREW MARMOLEJO MD DATE OF SERVICE: 07/17/19 Discharge Plan Patient Name: YUMIKO PADILLA Facility: [facility]:[place] : 1945 Planned Disposition: Home Anticipated Discharge Date: Discharge Date: Expected LOS: Initial Reviewer: [id number] Initial Review Date: 07/16/2019 Generated: 07/17/19 6:30 pm DCPIA - Discharge Planning Initial Assessment Updated by MIYA: Matt Harman on 07/17/19 5:26 pm * Is the patient Alert and Oriented? Yes * How many steps to enter\exit or inside your home? NONE * PCP DR. BENÍTEZ * Pharmacy [facility] * Preadmission Environment Home with Family * ADLs Independent * Equipment Nebulizer Oxygen Walker * Other Equipment HOME AND PORTABLE OXYGEN FROM [facility] * List name and contact numbers for known caregivers / representatives who currently or will assist patient after discharge: ANN READ, DTR, * Verbal permission to speak to the caregivers and representatives has been obtained from the patient. N/A * Community resources currently utilized Home Health * Please name any agencies selected above. [facility] * Additional services required to return to the preadmission environment? No * Can the patient safely return to the preadmission environment? Yes * Has this patient been hospitalized within the prior 30 days at any hospital? Yes Coverage Notice Reviewer: [id number] Moses Harman Notice Issued Date-Time: 07/16/2019 17:15 Notice Type: IM Discharge Notice Notice Delivered To: Patient Relationship to Patient: Biscuit Machine Operator Name: Delivery Method: HAND - Hand Delivered Maddison Days: Prior Verbal Notification: Recipient Understood Notice: Yes Recipient Signature: Yes Med Rec Note Co-signed by Attending: Coverage Notice Comment: Reviewer: [id number] Harman Notice Issued Date-Time: 07/16/2019 17:15 Notice Type: Patient Choice Letter Notice Delivered To: Patient Relationship to Patient: Biscuit Machine Operator Name: Delivery Method: HAND - Hand Delivered Maddison Days: Prior Verbal Notification: Recipient Understood Notice: Yes Recipient Signature: Yes Med Rec Note Co-signed by Attending: Coverage Notice Comment: [facility] Patient Name: YUMIKO PADILLA Page [phone] at 1731 All edits/amendments must be made on the electronic document DICTATION DATE: 07/17/191729 FINANCIAL ADVISER: DELIA 07/17/191729 RPT#: [id number] DC DATE: STATUS: ADM IN [facility] [address] [place] [address] END OF REPORT
--- NOTE | 2019-07-17 17:39 | MORECARE ---
CASE MANAGEMENT DISCHARGE SUMMARY PATIENT: YUMIKO PADILLA UNIT: [id number] ADM DATE: 07/09/19 AGE: 73 : 47 SEX: M ROOM/BED: D.2136 AUTHOR: DRU YAO PHYSICIAN: REFERRING PHYSICIAN: ANDREW MARMOLEJO MD DATE OF SERVICE: 07/17/19 Discharge Plan Patient Name: YUMIKO PADILLA Facility: [facility]:[place] : 1945 Planned Disposition: Home Anticipated Discharge Date: Discharge Date: Expected LOS: Initial Reviewer: [id number] Initial Review Date: 07/16/2019 Generated: 07/17/19 6:39 pm Comments DCP- Discharge Planning Updated by [email or web address]: Matt Harman on 07/17/19 4:[address] Patient Name: YUMIKO PADILLA Admission Status: ER Accout number: [id number] Admission Date: 07-09-2019 : 1945 Admission Diagnosis: Attending: YANDY MARMOLEJO Current LOS: 8 Anticipated DC Date: Planned Disposition: Home WITH HOME HEALTH OR HOME HOSPICE Primary Insurance: [employer] MEDICARE ADV PLANNED EXTERNAL PROVIDER: [facility] OR [facility] Discharge Planning Comments: CM MET WITH PT IN ROOM TO DISCUSS DISCHARGE PLANNING AND NEEDS. PT REPORTS LIVING AT HOME INDEPENDENTLY WITH HIS ADULT DAUGHTER AT [address] [place] [address]. PT HAS HOME AND PORTABLE OXGYEN AND NEBULIZER WELL WALKER FROM [facility]. PT HAS HOME HEALTH WITH [employer]. CM DISCUSSED AVAILABILITY OF HOME HEALTH, REHAB SERVICES AND MEDICAL EQUIPMENT. HAS TALKED TO [facility] ALREADY AND WILL GO HOME TO HIS DAUGHTERS HOME, WITH HOME HEALTH OR HOSPICE FROM [employer]. PT REPORTS HER DAUGHTER WILL PICK HIM UP FOR DISCHARGE HOME. IMPORTANT MESSAGE FROM MEDICARE PROVIDED AND EXPLAINED. PT WANTS TO DISCUSS HIS CARE WITH THE DOCTOR FURTHER BEFORE MAKING FURHTER DECISIONS REGARDING DISCHARGE PLAN. CM CALLED [facility], THEY CAN DO BIPAP WITH HOSPICE CARE, BUT CANNOT DO A TRILOGY MACHINE. CM WAITING ON PT TO MAKE DECISION BETWEEN [facility]. CM IS NOT ABLE TO ARRANGE HOME BIPAP UNTIL PT MAKES THIS DECISION. Home Worker: Matt Harman DCPIA - Discharge Planning Initial Assessment Updated by [email or web address]: Matt Harman on 07/17/19 5:26 pm * Is the patient Alert and Oriented? Yes * How many steps to enter\exit or inside your home? NONE * PCP DR. BENÍTEZ * Pharmacy [facility] * Preadmission Environment Home with Family * ADLs Independent * Equipment Nebulizer Oxygen Walker * Other Equipment HOME AND PORTABLE OXYGEN FROM [facility] * List name and contact numbers for known caregivers / representatives who currently or will assist patient after discharge: ANN READ, DTR, * Verbal permission to speak to the caregivers and representatives has been obtained from the patient. N/A * Community resources currently utilized Home Health * Please name any agencies selected above. [facility] * Additional services required to return to the preadmission environment? No * Can the patient safely return to the preadmission environment? Yes * Has this patient been hospitalized within the prior 30 days at any hospital? Yes Coverage Notice Reviewer: [id number] Moses Harman Notice Issued Date-Time: 07/16/2019 17:15 Notice Type: IM Discharge Notice Notice Delivered To: Patient Relationship to Patient: Paraprofessional Interpreter Name: Delivery Method: HAND - Hand Delivered Maddison Days: Prior Verbal Notification: Recipient Understood Notice: Yes Recipient Signature: Yes Med Rec Note Co-signed by Attending: Coverage Notice Comment: Reviewer: [id number] Moses Harman Notice Issued Date-Time: 07/16/2019 17:15 Notice Type: Patient Choice Letter Notice Delivered To: Patient Relationship to Patient: Paraprofessional Interpreter Name: Delivery Method: HAND - Hand Delivered Maddison Days: Prior Verbal Notification: Recipient Understood Notice: Yes Recipient Signature: Yes Med Rec Note Co-signed by Attending: Coverage Notice Comment: [facility] Last DP export: 07/17/19 4:31 p Patient Name: YUMIKO PADILLA Page [phone] at 1739 All edits/amendments must be made on the electronic document DICTATION DATE: 07/17/191738 ORNAMENTER HAND: DELIA 07/17/191738 RPT#: [id number] DC DATE: STATUS: ADM IN [facility] [address] [place] [address] END OF REPORT
[2019-07-17 18:31] VITALS: BP 127/72
[2019-07-17 20:00] VITALS: BP 154/73
[2019-07-18 01:33] VITALS: BP 142/65
--- NOTE | 2019-07-18 02:03 | NUR ---
PT LYING IN BED RESTING WITH EYES CLOSED. EASILY AWAKEN WITH TOUCH STIMULATION. PT IS HARD OF HEARING. NO SIGNS OF DISTRESS NOTED. RESPIRATRIONS EVEN AND UNLABORED. NO COMPLAINTS AT THIS TIME. PT ENCOURAGED TO CALL FOR HELP WHEN NEEDED. CALL LIGHT WITH IN REACH AND BED IS IN ITS LOWEST POSTION . WILL CONTINUE TO MONITOR
[2019-07-18 04:00] VITALS: BP 141/64
--- NOTE | 2019-07-18 04:04 | NUR ---
LYING IN BED RESTING WITH EYES CLOSED. EASILY AWAKEN WITH TOUCH STIMULATION. PT AMBULATES TO RESTROOM. PT ENCOURAGED TO CALL FOR HELP WHEN GETTING IN AND OUT OF BED. PT REFUSES TO WEAR C-PAP. CALL LIGHT WITH IN REACH AND BED IS INLOWEST POSITON WILL CONTINUE TO MONITOR
--- NOTE | 2019-07-18 04:54 | NUR ---
I have reviewed this patient and I concur with the Shift Assessment completed by the Licensed Practical Nurse today this shift.
[2019-07-18 05:56] LABS: BASOPHILS 0.1 % (0-2); EOSINOPHILS 0 % (0-7); IMMATURE GRANULOCYTES 1.5 % (0-5); LYMPHOCYTES 8.4 % (15-50); MCH 25.6 pg (26.0-34.0); MCHC 30.3 g/dL (31.0-37.0); MCV 84.6 fL (80.0-100.0); MEAN PLATELET VOLUME 8.9 fL (7.4-10.4); MONOCYTES 7.4 % (2-11); NEUTROPHILS 82.6 % (40-80); PLATELET COUNT 219 10x3/uL (130-400); RDW 17.1 % (11.5-14.5)
[2019-07-18 06:09] LABS: CALC OSMOLALITY 285 mosm/kg (275-300); CALCIUM 8.8 mg/dL (8.5-10.1); CARBON DIOXIDE 34.1 mmol/L (21.0-32.0); CHLORIDE - SERUM 104 mmol/L (98-107); CREATININE - SERUM 0.7 mg/dL (0.6-1.3); GLUCOSE 157 mg/dL (74-106); POTASSIUM - SERUM 3.8 mmol/L (3.5-5.1); SODIUM 141 mmol/L (136-145); UREA NITROGEN 17 mg/dL (7-18); eGFR NON AFRICAN AMERICAN > 90 mL/min (90-120)
[2019-07-18 09:35] VITALS: BP 146/77
[2019-07-18 13:42] VITALS: BP 143/60
--- NOTE | 2019-07-18 14:00 | NUR ---
Nutrition Follow-up: Eating well. Diet: Diabetic PO intake: 50-100% Wt: 158.7# (07/15); 165# (admit) Last BM: 07/16 per chart Labs noted: Glu 157 Meds noted: Solumedrol, Amaryl, Glucophage, Lasix, Micro K, Protonix, Humulin -Continue current diet as tolerated. -Need new wt; noted daily wts ordered. -RD following.
--- NOTE | 2019-07-18 16:46 | MORECARE ---
CASE MANAGEMENT DISCHARGE SUMMARY PATIENT: YUMIKO PADILLA UNIT: [id number] ADM DATE: 07/09/19 AGE: 73 : 47 SEX: M ROOM/BED: D.2136 AUTHOR: DRU YAO PHYSICIAN: REFERRING PHYSICIAN: ANDREW MARMOLEJO MD DATE OF SERVICE: 07/18/19 Discharge Plan Patient Name: YUMIKO PADILLA Facility: [facility]:[place] : 1945 Planned Disposition: Home Anticipated Discharge Date: Discharge Date: Expected LOS: Initial Reviewer: [id number] Initial Review Date: 07/16/2019 Generated: 07/18/19 5:45 pm Comments DCP- Discharge Planning Updated by [email or web address]: Matt Harman on 07/17/19 4:[address] Patient Name: YUMIKO PADILLA Admission Status: ER Accout number: [id number] Admission Date: 07-09-2019 : 1945 Admission Diagnosis: Attending: YANDY MARMOLEJO Current LOS: 8 Anticipated DC Date: Planned Disposition: Home WITH HOME HEALTH OR HOME HOSPICE Primary Insurance: WELL[employer] MEDICARE ADV PLANNED EXTERNAL PROVIDER: [facility] OR [facility] Discharge Planning Comments: CM MET WITH PT IN ROOM TO DISCUSS DISCHARGE PLANNING AND NEEDS. PT REPORTS LIVING AT HOME INDEPENDENTLY WITH HIS ADULT DAUGHTER AT [address] [place] [address]. PT HAS HOME AND PORTABLE OXGYEN AND NEBULIZER WELL WALKER FROM [facility]. PT HAS HOME HEALTH WITH [employer]. CM DISCUSSED AVAILABILITY OF HOME HEALTH, REHAB SERVICES AND MEDICAL EQUIPMENT. HAS TALKED TO [facility] ALREADY AND WILL GO HOME TO HIS DAUGHTERS HOME, WITH HOME HEALTH OR HOSPICE FROM [employer]. PT REPORTS HER DAUGHTER WILL PICK HIM UP FOR DISCHARGE HOME. IMPORTANT MESSAGE FROM MEDICARE PROVIDED AND EXPLAINED. PT WANTS TO DISCUSS HIS CARE WITH THE DOCTOR FURTHER BEFORE MAKING FURHTER DECISIONS REGARDING DISCHARGE PLAN. CM CALLED [facility], THEY CAN DO BIPAP WITH HOSPICE CARE, BUT CANNOT DO A TRILOGY MACHINE. CM WAITING ON PT TO MAKE DECISION [facility]WEEN [facility]. CM IS NOT ABLE TO ARRANGE HOME BIPAP UNTIL PT MAKES THIS DECISION. Store Lead: Matt Harman DCPIA - Discharge Planning Initial Assessment Updated by [email or web address]: Matt Harman on 07/17/19 5:26 pm * Is the patient Alert and Oriented? Yes * How many steps to enter\exit or inside your home? NONE * PCP DR. BENÍTEZ * Pharmacy [facility] * Preadmission Environment Home with Family * ADLs Independent * Equipment Nebulizer Oxygen Walker * Other Equipment HOME AND PORTABLE OXYGEN FROM [facility] * List name and contact numbers for known caregivers / representatives who currently or will assist patient after discharge: ANN RORO, DTR, * Verbal permission to speak to the caregivers and representatives has been obtained from the patient. N/A * Community resources currently utilized Home Health * Please name any agencies selected above. [facility] * Additional services required to return to the preadmission environment? No * Can the patient safely return to the preadmission environment? Yes * Has this patient been hospitalized within the prior 30 days at any hospital? Yes External Providers External Provider: [facility] Next Contact Date: 07/18/2019 Service Request Date: Service Type: Resolution: Reviewer: Comments: Coverage Notice Reviewer: [id number] Harman Notice Issued Date-Time: 07/16/2019 17:15 Notice Type: IM Discharge Notice Notice Delivered To: Patient Relationship to Patient: Deicer Repairer Electric Name: Delivery Method: HAND - Hand Delivered Maddison Days: Prior Verbal Notification: Recipient Understood Notice: Yes Recipient Signature: Yes Med Rec Note Co-signed by Attending: Coverage Notice Comment: Reviewer: MIYA Harman Notice Issued Date-Time: 07/16/2019 17:15 Notice Type: Patient Choice Letter Notice Delivered To: Patient Relationship to Patient: Deicer Repairer Electric Name: Delivery Method: HAND - Hand Delivered Maddison Days: Prior Verbal Notification: Recipient Understood Notice: Yes Recipient Signature: Yes Med Rec Note Co-signed by Attending: Coverage Notice Comment: [facility] Last DP export: 07/17/19 4:39 p Patient Name: YUMIKO PADILLA Page [id number] at 1646 All edits/amendments must be made on the electronic document DICTATION DATE: 07/18/191644 SAND CONTROL WORKER: DELIA 07/18/191644 RPT#: [id number] DC DATE: STATUS: ADM IN [facility] [address] [place] [address] END OF REPORT
--- NOTE | 2019-07-18 16:53 | MORECARE ---
CASE MANAGEMENT DISCHARGE SUMMARY PATIENT: YUMIKO PADILLA UNIT: [id number] ADM DATE: 07/09/19 AGE: 73 : 47 SEX: M ROOM/BED: D.2136 AUTHOR: DRU YAO PHYSICIAN: REFERRING PHYSICIAN: ANDREW MARMOLEJO MD DATE OF SERVICE: 07/18/19 Discharge Plan Patient Name: YUMIKO PADILLA Facility: [facility]:[place] : 1945 Planned Disposition: Home with Home Health Anticipated Discharge Date: Discharge Date: Expected LOS: Initial Reviewer: [id number] Initial Review Date: 07/16/2019 Generated: 07/18/19 5:53 pm Comments DCP- Discharge Planning Updated by [id number]: Matt Harman on 07/17/19 4:[address] Patient Name: YUMIKO PADILLA Admission Status: ER Accout number: [id number] Admission Date: 07-09-2019 : 1945 Admission Diagnosis: Attending: YANDY MARMLOEJO Current LOS: 8 Anticipated DC Date: Planned Disposition: Home WITH HOME HEALTH OR HOME HOSPICE Primary Insurance: WELLC[employer] MEDICARE ADV PLANNED EXTERNAL PROVIDER: [facility] OR [facility] Discharge Planning Comments: CM MET WITH PT IN ROOM TO DISCUSS DISCHARGE PLANNING AND NEEDS. PT REPORTS LIVING AT HOME INDEPENDENTLY WITH HIS ADULT DAUGHTER AT [address] [place] [address]. PT HAS HOME AND PORTABLE OXGYEN AND NEBULIZER WELL WALKER FROM [facility]. PT HAS HOME HEALTH WITH [email or web address]. CM DISCUSSED AVAILABILITY OF HOME HEALTH, REHAB SERVICES AND MEDICAL EQUIPMENT. HAS TALKED TO [facility] ALREADY AND WILL GO HOME TO HIS DAUGHTERS HOME, WITH HOME HEALTH OR HOSPICE FROM [email or web address]. PT REPORTS HER DAUGHTER WILL PICK HIM UP FOR DISCHARGE HOME. IMPORTANT MESSAGE FROM MEDICARE PROVIDED AND EXPLAINED. PT WANTS TO DISCUSS HIS CARE WITH THE DOCTOR FURTHER BEFORE MAKING FURHTER DECISIONS REGARDING DISCHARGE PLAN. CM CALLED [facility], THEY CAN DO BIPAP WITH HOSPICE CARE, BUT CANNOT DO A TRILOGY MACHINE. CM WAITING ON PT TO MAKE DECISION [facility]. CM IS NOT ABLE TO ARRANGE HOME BIPAP UNTIL PT MAKES THIS DECISION. Operations Consultant: Matt Harman DCPIA - Discharge Planning Initial Assessment Updated by [id number]: Matt Harman on 07/17/19 5:26 pm * Is the patient Alert and Oriented? Yes * How many steps to enter\exit or inside your home? NONE * PCP DR. BENÍTEZ * Pharmacy [facility] * Preadmission Environment Home with Family * ADLs Independent * Equipment Nebulizer Oxygen Walker * Other Equipment HOME AND PORTABLE OXYGEN FROM [facility] * List name and contact numbers for known caregivers / representatives who currently or will assist patient after discharge: ANN READ, DTR, * Verbal permission to speak to the caregivers and representatives has been obtained from the patient. N/A * Community resources currently utilized Home Health * Please name any agencies selected above. [facility] * Additional services required to return to the preadmission environment? No * Can the patient safely return to the preadmission environment? Yes * Has this patient been hospitalized within the prior 30 days at any hospital? Yes Coverage Notice Reviewer: [id number] Moses Harman Notice Issued Date-Time: 07/16/2019 17:15 Notice Type: IM Discharge Notice Notice Delivered To: Patient Relationship to Patient: Technical Writing Lead/Mgr Name: Delivery Method: HAND - Hand Delivered Maddison Days: Prior Verbal Notification: Recipient Understood Notice: Yes Recipient Signature: Yes Med Rec Note Co-signed by Attending: Coverage Notice Comment: Reviewer: [id number] Moses Harman Notice Issued Date-Time: 07/16/2019 17:15 Notice Type: Patient Choice Letter Notice Delivered To: Patient Relationship to Patient: Technical Writing Lead/Mgr Name: Delivery Method: HAND - Hand Delivered Maddison Days: Prior Verbal Notification: Recipient Understood Notice: Yes Recipient Signature: Yes Med Rec Note Co-signed by Attending: Coverage Notice Comment: [facility] Last DP export: 07/18/19 3:46 p Patient Name: YUMIKO PADILLA Page [id number] at 1653 All edits/amendments must be made on the electronic document DICTATION DATE: 07/18/191652 EDUCATION DIAGNOSTICIAN: DELIA 07/18/191652 RPT#: [id number] DC DATE: STATUS: ADM IN [facility] [address] [place] [address] END OF REPORT
--- NOTE | 2019-07-18 17:01 | MORECARE ---
CASE MANAGEMENT DISCHARGE SUMMARY PATIENT: YUMIKO PADILLA UNIT: [id number] ADM DATE: 07/09/19 AGE: 73 : [birth year] SEX: M ROOM/BED: D.2136 AUTHOR: NAJMA,DOC PHYSICIAN: REFERRING PHYSICIAN: ANDREW MARMOLEJO MD DATE OF SERVICE: 07/18/19 Discharge Plan Patient Name: YUMIKO PADILLA Facility: [facility]:[place] : 1945 Planned Disposition: Home with Home Health Anticipated Discharge Date: Discharge Date: Expected LOS: Initial Reviewer: [id number] Initial Review Date: 07/16/2019 Generated: 07/18/19 6:01 pm Comments DCP- Discharge Planning Updated by [id number]: Matt Harman on 07/18/19 3:[address] Patient Name: YUMIKO PADILLA Encounter No: [id number] : 1945 Primary Insurance: WELL[employer] MEDICARE ADV Anticipated DC Date: Planned Disposition: Home with Home Health External Planned Provider: [facility] DCP follow-up note: CM SPOKE TO DR. DARLING WHO ORDERED BIPAP FOR HOME USE. CM SPOKE TO PT WHO IS WILLING FOR WHATEVER MACHINE THE DOCTOR WANTS HIM TO TRY. PT DECIDED TO GO HOME WITH HOME HEALTH. CHOICE PREVIOUSLY SIGNED FOR [facility] . PT WANTS TO USE [facility] FOR ANY OTHER MEDICAL EQUIPMENT. CM CALLED [facility], , SPOKE TO AMANDA WHO INFORMED CM THAT PT'S INSURANCE WILL NOT COVER BIPAP WITHOUT CURRENT SLEEPSTUDY AND SUGGESTED TRILOGY POSSIBLE ALTERNATIVE. CM SPOKE TO PT WHO INFORMED CM HE HAS NEVER HAD A SLEEP STUDY. CM NOTIFIED GIANA JUAN AND RECEIVED ORDER FOR TRILOGY. CM CALLED AMANDA AT [facility], . CM PROVIDED REFERRAL INFORMATION. CM FAXED REFERRAL FOR TRILOGY, . CM WAITING FOR ORDER PROCESSING AND APPROVAL FOR TRILOGY FROM [facility]. PT WILL RESUME HOME HEALTH WITH [facility] ([place]) FOR DISCHARGE HOME. Matt Harman CASE MANAGEMENT DCP- Discharge Planning Updated by [email or web address]: Matt Harman on 07/17/19 4:[address] Patient Name: YUMIKO PADILLA Admission Status: ER Accout number: [id number] Admission Date: 07-09-2019 : 1945 Admission Diagnosis: Attending: YANDY MARMOLEJO Current LOS: 8 Anticipated DC Date: Planned Disposition: Home WITH HOME HEALTH OR HOME HOSPICE Primary Insurance: WELLCARE MEDICARE ADV PLANNED EXTERNAL PROVIDER: [facility] Discharge Planning Comments: CM MET WITH PT IN ROOM TO DISCUSS DISCHARGE PLANNING AND NEEDS. PT REPORTS LIVING AT HOME INDEPENDENTLY WITH HIS ADULT DAUGHTER AT [address] [place] [address]. PT HAS HOME AND PORTABLE OXGYEN AND NEBULIZER WELL WALKER FROM [facility]. PT HAS HOME HEALTH WITH [facility]. CM DISCUSSED AVAILABILITY OF HOME HEALTH, REHAB SERVICES AND MEDICAL EQUIPMENT. HAS TALKED TO [facility] ALREADY AND WILL GO HOME TO HIS DAUGHTERS HOME, WITH HOME HEALTH OR HOSPICE FROM [facility]. PT REPORTS HER DAUGHTER WILL PICK HIM UP FOR DISCHARGE HOME. IMPORTANT MESSAGE FROM MEDICARE PROVIDED AND EXPLAINED. PT WANTS TO DISCUSS HIS CARE WITH THE DOCTOR FURTHER BEFORE MAKING FURHTER DECISIONS REGARDING DISCHARGE PLAN. CM CALLED [facility], THEY CAN DO BIPAP WITH HOSPICE CARE, BUT CANNOT DO A TRILOGY MACHINE. CM WAITING ON PT TO MAKE DECISION BETWEEN [facility] AND [facility]. CM IS NOT ABLE TO ARRANGE HOME BIPAP UNTIL PT MAKES THIS DECISION. Glost Tile Shader: Matt Harman DCPIA - Discharge Planning Initial Assessment Updated by [email or web address]: Matt Harman on 07/17/19 5:26 pm * Is the patient Alert and Oriented? Yes * How many steps to enter\exit or inside your home? NONE * PCP DR. BENÍTEZ * Pharmacy [facility] * Preadmission Environment Home with Family * ADLs Independent * Equipment Nebulizer Oxygen Walker * Other Equipment HOME AND PORTABLE OXYGEN FROM [facility] * List name and contact numbers for known caregivers / representatives who currently or will assist patient after discharge: ANN READ, JEANINE, * Verbal permission to speak to the caregivers and representatives has been obtained from the patient. N/A * Community resources currently utilized Home Health * Please name any agencies selected above. [facility] * Additional services required to return to the preadmission environment? No * Can the patient safely return to the preadmission environment? Yes * Has this patient been hospitalized within the prior 30 days at any hospital? Yes Coverage Notice Reviewer: [id number] - Matt Harman Notice Issued Date-Time: 07/16/2019 17:15 Notice Type: IM Discharge Notice Notice Delivered To: Patient Relationship to Patient: Bobbin Washer Name: Delivery Method: HAND - Hand Delivered Maddison Days: Prior Verbal Notification: Recipient Understood Notice: Yes Recipient Signature: Yes Med Rec Note Co-signed by Attending: Coverage Notice Comment: Reviewer: [id number] oMses Harman Notice Issued Date-Time: 07/16/2019 17:15 Notice Type: Patient Choice Letter Notice Delivered To: Patient Relationship to Patient: Bobbin Washer Name: Delivery Method: HAND - Hand Delivered Maddison Days: Prior Verbal Notification: Recipient Understood Notice: Yes Recipient Signature: Yes Med Rec Note Co-signed by Attending: Coverage Notice Comment: [facility] Last DP export: 07/18/19 3:54 p Patient Name: YUMIKO PADILLA Page 99818 at 1701 All edits/amendments must be made on the electronic document DICTATION DATE: 07/18/191700 PREPARED FOODS TEAM LEADER: DELIA 07/18/191700 RPT#: [id number] DC DATE: STATUS: ADM IN [facility] [address] [place] [address] END OF REPORT
[2019-07-18 18:32] VITALS: BP 145/81
[2019-07-18 20:00] VITALS: BP 155/70
[2019-07-19] VITALS: BP 143/66
[2019-07-19 06:37] LABS: BASOPHILS 0.1 % (0-2); EOSINOPHILS 0.6 % (0-7); HEMATOCRIT 36.6 % (42.0-54.0); HEMOGLOBIN 11.3 g/dL (13.5-17.5); IMMATURE GRANULOCYTES 1.8 % (0-5); LYMPHOCYTES 24.1 % (15-50); MCH 26.6 pg (26.0-34.0); MCHC 30.9 g/dL (31.0-37.0); MCV 86.1 fL (80.0-100.0); MEAN PLATELET VOLUME 8.7 fL (7.4-10.4); MONOCYTES 11.2 % (2-11); NEUTROPHILS 62.2 % (40-80); PLATELET COUNT 231 10x3/uL (130-400); RBC 4.25 10x6/uL (4.20-6.10); RDW 17.7 % (11.5-14.5)
[2019-07-19 06:41] LABS: WBC 14.4 10x3/uL (4.8-10.8)
[2019-07-19 06:55] LABS: CALC OSMOLALITY 285 mosm/kg (275-300); CALCIUM 9.1 mg/dL (8.5-10.1); CARBON DIOXIDE 37.9 mmol/L (21.0-32.0); CHLORIDE - SERUM 102 mmol/L (98-107); CREATININE - SERUM 0.8 mg/dL (0.6-1.3); POTASSIUM - SERUM 3.9 mmol/L (3.5-5.1); SODIUM 143 mmol/L (136-145); UREA NITROGEN 17 mg/dL (7-18); eGFR NON AFRICAN AMERICAN > 90 mL/min (90-120)
[2019-07-19 06:58] LABS: GLUCOSE 72 mg/dL (74-106)
--- NOTE | 2019-07-19 07:35 | NUR ---
ASSESSMENT DONE. DENIES NEEDS
[2019-07-19 09:10] VITALS: BP 145/71
[2019-07-19] MEDS ORDERED: PREDNISONE20 MG PO (11:22)
--- NOTE | 2019-07-19 11:34 | MORECARE ---
CASE MANAGEMENT DISCHARGE SUMMARY PATIENT: YUMIKO PADILLA UNIT: [id number] ADM DATE: 07/09/19 AGE: 73 : [birth year] SEX: M ROOM/BED: D.2136 AUTHOR: NAJMA,DOC PHYSICIAN: REFERRING PHYSICIAN: ANDREW MARMOLEJO MD DATE OF SERVICE: 07/19/19 Discharge Plan Patient Name: YUMIKO PADILLA Facility: [facility]:[place] : 1945 Planned Disposition: Home with Home Health Anticipated Discharge Date: Discharge Date: Expected LOS: Initial Reviewer: [email or web address] Initial Review Date: 07/16/2019 Generated: 07/19/19 12:34 pm Comments DCP- Discharge Planning Updated by [email or web address]: Matt Harman on 07/19/19 10:[address] Patient Name: YUMIKO PADILLA Encounter No: [id number] : 1945 Primary Insurance: WELL[employer] MEDICARE ADV Anticipated DC Date: Planned Disposition: Home with Home Health External Planned Provider: [email or web address] DCP follow-up note: CM CALLED [facility], , SPOKE TO SUKH WHO INFORMED CM THAT SHE WILL PROCESS ORDER TODAY FOR TRILOGY. CM REFAXED ORDER TO TRILOGY TO [facility] AT [phone]. CM CALLED LUKAS OF [email or web address] [phone] AND NOTIFIED OF POSSIBLE DISCHARGE TODAY FOR HOME HEALTH RESUMPTION. CM FAXED UPDATE TO [email or web address] AT [phone]. CM WAITING FOR ORDER PROCESSING AND APPROVAL FOR TRILOGY FROM [facility]. FOR DISCHARGE HOME, NOTIFY [email or web address] AT [phone], FAX DISCHARGE INFORMATION TO [email or web address] AT [phone]. Matt Harman, CASE MANAGEMENT DCP- Discharge Planning Updated by [email or web address]: Matt Harman on 07/18/19 3:[address] Patient Name: YUMIKO PADILLA Encounter No: [id number] : 1945 Primary Insurance: WELLC[employer] MEDICARE ADV Anticipated DC Date: Planned Disposition: Home with Home Health External Planned Provider: [email or web address] DCP follow-up note: CM SPOKE TO DR. DARLING WHO ORDERED BIPAP FOR HOME USE. CM SPOKE TO PT WHO IS WILLING FOR WHATEVER MACHINE THE DOCTOR WANTS HIM TO TRY. PT DECIDED TO GO HOME WITH HOME HEALTH. CHOICE PREVIOUSLY SIGNED FOR [facility] . PT WANTS TO USE [facility] FOR ANY OTHER MEDICAL EQUIPMENT. CM CALLED [facility], , SPOKE TO AMANDA WHO INFORMED CM THAT PT'S INSURANCE WILL NOT COVER BIPAP WITHOUT CURRENT SLEEPSTUDY AND SUGGESTED TRILOGY POSSIBLE ALTERNATIVE. CM SPOKE TO PT WHO INFORMED CM HE HAS NEVER HAD A SLEEP STUDY. CM NOTIFIED GIANA JUAN AND RECEIVED ORDER FOR TRILOGY. CM CALLED AMANDA AT [facility], . CM PROVIDED REFERRAL INFORMATION. CM FAXED REFERRAL FOR TRILOGY, . CM WAITING FOR ORDER PROCESSING AND APPROVAL FOR TRILOGY FROM [facility]. PT WILL RESUME HOME HEALTH WITH [facility] FOR DISCHARGE HOME. Matt Harman, CASE MANAGEMENT DCP- Discharge Planning Updated by [email or web address]: Matt Harman on 07/17/19 4:[address] Patient Name: YUMIKO PADILLA Admission Status: ER Accout number: [id number] Admission Date: 07-09-2019 : 1945 Admission Diagnosis: Attending: YADNY MARMOLEJO Current LOS: 8 Anticipated DC Date: Planned Disposition: Home WITH HOME HEALTH OR HOME HOSPICE Primary Insurance: WELLCARE MEDICARE ADV PLANNED EXTERNAL PROVIDER: [email or web address] OR [email or web address] Discharge Planning Comments: CM MET WITH PT IN ROOM TO DISCUSS DISCHARGE PLANNING AND NEEDS. PT REPORTS LIVING AT HOME INDEPENDENTLY WITH HIS ADULT DAUGHTER AT [address] [place] [address]. PT HAS HOME AND PORTABLE OXGYEN AND NEBULIZER WELL WALKER FROM [facility]. PT HAS HOME HEALTH WITH [facility]. CM DISCUSSED AVAILABILITY OF HOME HEALTH, REHAB SERVICES AND MEDICAL EQUIPMENT. HAS TALKED TO [facility] ALREADY AND WILL GO HOME TO HIS DAUGHTERS HOME, WITH HOME HEALTH OR HOSPICE FROM [facility]. PT REPORTS HER DAUGHTER WILL PICK HIM UP FOR DISCHARGE HOME. IMPORTANT MESSAGE FROM MEDICARE PROVIDED AND EXPLAINED. PT WANTS TO DISCUSS HIS CARE WITH THE DOCTOR FURTHER BEFORE MAKING FURHTER DECISIONS REGARDING DISCHARGE PLAN. CM CALLED [facility], THEY CAN DO BIPAP WITH HOSPICE CARE, BUT CANNOT DO A TRILOGY MACHINE. CM WAITING ON PT TO MAKE DECISION BETWEEN [facility] AND [facility]. CM IS NOT ABLE TO ARRANGE HOME BIPAP UNTIL PT MAKES THIS DECISION. Supervisor Wire Rope Fabrication: Matt Harman DCPIA - Discharge Planning Initial Assessment Updated by [id number]: Matt Harman on 07/17/19 5:26 pm * Is the patient Alert and Oriented? Yes * How many steps to enter\exit or inside your home? NONE * PCP DR. BENÍTEZ * Pharmacy [facility] * Preadmission Environment Home with Family * ADLs Independent * Equipment Nebulizer Oxygen Walker * Other Equipment HOME AND PORTABLE OXYGEN FROM [facility] * List name and contact numbers for known caregivers / representatives who currently or will assist patient after discharge: ANN READ, DTR, * Verbal permission to speak to the caregivers and representatives has been obtained from the patient. N/A * Community resources currently utilized Home Health * Please name any agencies selected above. [email or web address] * Additional services required to return to the preadmission environment? No * Can the patient safely return to the preadmission environment? Yes * Has this patient been hospitalized within the prior 30 days at any hospital? Yes External Providers External [facility] Next Contact Date: 07/19/2019 Service Request Date: Service Type: Resolution: Reviewer: Comments: Coverage Notice Reviewer: [id number] Moses Harman Notice Issued Date-Time: 07/16/2019 17:15 Notice Type: IM Discharge Notice Notice Delivered To: Patient Relationship to Patient: Patient Services Clerk Name: Delivery Method: HAND - Hand Delivered Maddison Days: Prior Verbal Notification: Recipient Understood Notice: Yes Recipient Signature: Yes Med Rec Note Co-signed by Attending: Coverage Notice Comment: Reviewer: [id number] Moses Harman Notice Issued Date-Time: 07/16/2019 17:15 Notice Type: Patient Choice Letter Notice Delivered To: Patient Relationship to Patient: Patient Services Clerk Name: Delivery Method: HAND - Hand Delivered Maddison Days: Prior Verbal Notification: Recipient Understood Notice: Yes Recipient Signature: Yes Med Rec Note Co-signed by Attending: Coverage Notice Comment: [email or web address] Last DP export: 07/18/19 4:01 p Patient Name: YUMIKO PADILLA Page 70733 at 1134 All edits/amendments must be made on the electronic document DICTATION DATE: 07/19/19 0256 SILVER SOLDERER: DELIA 07/19/19 1134 RPT#: [id number] DC DATE: STATUS: ADM IN [facility] [address] [place] [address] END OF REPORT
[2019-07-19 12:54] VITALS: BP 125/67
--- NOTE | 2019-07-19 15:47 | NUR ---
I have reviewed this patient and I concur with the Shift Assessment completed by the Licensed Practical Nurse today this shift.
--- NOTE | 2019-07-19 16:35 | MORECARE ---
CASE MANAGEMENT DISCHARGE SUMMARY PATIENT: YUMIKO PADILLA UNIT: [id number] ADM DATE: 07/09/19 AGE: 73 : [birth year] SEX: M ROOM/BED: D.2136 AUTHOR: NAJMA,DOC PHYSICIAN: REFERRING PHYSICIAN: ANDREW MARMOLEJO MD DATE OF SERVICE: 07/19/19 Discharge Plan Patient Name: YUMIKO PADILLA Facility: [facility]:[place] : 1945 Planned Disposition: Home with Home Health Anticipated Discharge Date: 07/22/19 Discharge Date: Expected LOS: 13 Initial Reviewer: [email or web address] Initial Review Date: 07/16/2019 Generated: 07/19/19 5:35 pm Comments DCP- Discharge Planning Updated by [id number]: Matt Harman on 07/19/19 3:[address] Patient Name: YUMIKO PADILLA Encounter No: [id number] : 1945 Primary Insurance: WELL[employer] MEDICARE ADV Anticipated DC Date: 07-22-2019 Planned Disposition: Home with Home Health External Planned Provider: [facility] DCP follow-up note: CM CALLED [employer], , SPOKE TO DAISY WHO INFORMED CM THAT THEY ARE WAITING INSURANCE PRIOR AUTHORIZATION AND IT MAY BE MONDAY OR MONDAY OF NEXT WEEK BEFORE THEY GET IT. CM NOTIED DR. DARLING AND PT. IMPORTANT MESSAGE FROM MEDICARE PROVIDED TO PT. CM WAITING FOR INSURANCE APPROVAL FOR TRILOGY FROM [facility]. FOR DISCHARGE HOME, NOTIFY [facility] AT [phone], FAX DISCHARGE INFORMATION TO [facility] AT [phone]. Matt Harman, CASE MANAGEMENT DCP- Discharge Planning Updated by [email or web address]: Matt Harman on 07/19/19 10:[address] Patient Name: YUMIKO PADILLA Encounter No: [id number] : 1945 Primary Insurance: WELL[employer] MEDICARE ADV Anticipated DC Date: Planned Disposition: Home with Home Health External Planned Provider: [facility] DCP follow-up note: CM CALLED [facility], , SPOKE TO SUKH WHO INFORMED CM THAT SHE WILL PROCESS ORDER TODAY FOR TRILOGY. CM REFAXED ORDER TO TRILOGY TO [facility] EFAX AT [phone]. CM CALLED LUKAS OF [facility] [phone] AND NOTIFIED OF POSSIBLE DISCHARGE TODAY FOR HOME HEALTH RESUMPTION. CM FAXED UPDATE TO [facility] AT [phone]. CM WAITING FOR ORDER PROCESSING AND APPROVAL FOR TRILOGY FROM [facility]. FOR DISCHARGE HOME, NOTIFY [facility] AT [phone], FAX DISCHARGE INFORMATION TO [facility] AT [phone]. JOLIE Hale DCP- Discharge Planning Updated by [id number]: Matt Harman on 07/18/19 3:[address] Patient Name: YUMIKO PADILLA Encounter No: [id number] : 1945 Primary Insurance: WELLC[employer] MEDICARE ADV Anticipated DC Date: Planned Disposition: Home with Home Health [facility] follow[facility]: CM SPOKE TO DR. DARLING WHO ORDERED BIPAP FOR HOME USE. CM SPOKE TO PT WHO IS WILLING FOR WHATEVER MACHINE THE DOCTOR WANTS HIM TO TRY. PT DECIDED TO GO HOME WITH [facility]. CHOICE PREVIOUSLY SIGNED FOR [facility] . PT WANTS TO USE [facility] FOR ANY OTHER MEDICAL EQUIPMENT. CM CALLED [facility], , SPOKE TO AMANDA WHO INFORMED CM THAT PT'S INSURANCE WILL NOT COVER BIPAP WITHOUT CURRENT SLEEPSTUDY AND SUGGESTED TRILOGY POSSIBLE ALTERNATIVE. CM SPOKE TO PT WHO INFORMED CM HE HAS NEVER HAD A SLEEP STUDY. CM NOTIFIED GIANA JUAN AND RECEIVED ORDER FOR TRILOGY. CM CALLED AMANDA AT [facility], . CM PROVIDED REFERRAL INFORMATION. CM FAXED REFERRAL FOR TRILOGY, . CM WAITING FOR ORDER PROCESSING AND APPROVAL FOR TRILOGY FROM [facility]. PT WILL RESUME HOME HEALTH WITH [facility] FOR DISCHARGE HOME. JOLIE Hale DCP- Discharge Planning Updated by [id number]: Matt Harman on 07/17/19 4:[address] Patient Name: YUMIKO PADILLA Admission Status: ER Accout number: [id number] Admission Date: 07-09-2019 : 1945 Admission Diagnosis: Attending: YANDY MARMOLEJO Current LOS: 8 Anticipated DC Date: Planned Disposition: Home WITH HOME HEALTH OR HOME HOSPICE Primary Insurance: WELLC[employer] MEDICARE ADV PLANNED EXTERNAL PROVIDER: [facility] OR [facility] Discharge Planning Comments: CM MET WITH PT IN ROOM TO DISCUSS DISCHARGE PLANNING AND NEEDS. PT REPORTS LIVING AT HOME INDEPENDENTLY WITH HIS ADULT DAUGHTER AT [address] [place] [address]. PT HAS HOME AND PORTABLE OXGYEN AND NEBULIZER WELL WALKER FROM [facility]. PT HAS HOME HEALTH WITH [facility]. CM DISCUSSED AVAILABILITY OF HOME HEALTH, REHAB SERVICES AND MEDICAL EQUIPMENT. HAS TALKED TO [facility] ALREADY AND WILL GO HOME TO HIS DAUGHTERS HOME, WITH HOME HEALTH OR HOSPICE FROM [facility]. PT REPORTS HER DAUGHTER WILL PICK HIM UP FOR DISCHARGE HOME. IMPORTANT MESSAGE FROM MEDICARE PROVIDED AND EXPLAINED. PT WANTS TO DISCUSS HIS CARE WITH THE DOCTOR FURTHER BEFORE MAKING FURHTER DECISIONS REGARDING DISCHARGE PLAN. CM CALLED [facility], THEY CAN DO BIPAP WITH HOSPICE CARE, BUT CANNOT DO A TRILOGY MACHINE. CM WAITING ON PT TO MAKE DECISION BETWEEN [facility] AND [facility]. CM IS NOT ABLE TO ARRANGE HOME BIPAP UNTIL PT MAKES THIS DECISION. Airline Security Representative: Matt Harman DCPIA - Discharge Planning Initial Assessment Updated by [id number]: Matt Harman on 07/17/19 5:26 pm * Is the patient Alert and Oriented? Yes * How many steps to enter\exit or inside your home? NONE * PCP DR. BENÍTEZ * Pharmacy [facility] * Preadmission Environment Home with Family * ADLs Independent * Equipment Nebulizer Oxygen Walker * Other Equipment HOME AND PORTABLE OXYGEN FROM [facility] * List name and contact numbers for known caregivers / representatives who currently or will assist patient after discharge: ANN READ, DTR, * Verbal permission to speak to the caregivers and representatives has been obtained from the patient. N/A * Community resources currently utilized Home Health * Please name any agencies selected above. [facility] * Additional services required to return to the preadmission environment? No * Can the patient safely return to the preadmission environment? Yes * Has this patient been hospitalized within the prior 30 days at any hospital? Yes Coverage Notice Reviewer: [id number] - Matt Harman Notice Issued Date-Time: 07/16/2019 17:15 Notice Type: IM Discharge Notice Notice Delivered To: Patient Relationship to Patient: Customer Service Voice Name: Delivery Method: HAND - Hand Delivered Maddison Days: Prior Verbal Notification: Recipient Understood Notice: Yes Recipient Signature: Yes Med Rec Note Co-signed by Attending: Coverage Notice Comment: Reviewer: [id number] - Matt Harman Notice Issued Date-Time: 07/16/2019 17:15 Notice Type: Patient Choice Letter Notice Delivered To: Patient Relationship to Patient: Customer Service Voice Name: Delivery Method: HAND - Hand Delivered Maddison Days: Prior Verbal Notification: Recipient Understood Notice: Yes Recipient Signature: Yes Med Rec Note Co-signed by Attending: Coverage Notice Comment: [facility] Last DP export: 07/19/19 10:34 a Patient Name: YUMIKO PADILLA Page 15923 at 1635 All edits/amendments must be made on the electronic document DICTATION DATE: 07/19/19 163 DOCTOR ASSISTANT: DELIA 07/19/19 1635 RPT#: [id number] DC DATE: STATUS: ADM IN [facility] [address] [place] [address] END OF REPORT
[2019-07-19 17:50] VITALS: BP 161/74
--- NOTE | 2019-07-19 19:49 | NUR ---
PT SITTING IN CHAIR. NO SIGNS OR SYMPTOMS OF DISTRESS NOTED. RESPIRATIONS EVEN AND UNLABORED. NO COMPLAINTS AT THIS TIME. CALL LIGHT WITH IN REACH. WILL CONTINUE TO MONITOR.
[2019-07-19 20:30] VITALS: BP 121/70
[2019-07-20 00:30] VITALS: BP 127/61
--- NOTE | 2019-07-20 00:55 | NUR ---
PT RESTING IN BED WITH EYES CLOSED. EASILY AWAKEN WITH TOUCH. PT IS HARD OF HEARING. NO SIGNS OR SYMPTOMS OF DISTRESS NOTED. RESPIRATIONS EVEN AND UNLABORED. NO COMPLAINTS AT THIS TIME. CALL LIGHT WITH IN REACH. WILL CONTINUE TO MONITOR.
--- NOTE | 2019-07-20 02:00 | NUR ---
I have reviewed this patient and I concur with the Shift Assessment completed by the Licensed Practical Nurse today this shift.
[2019-07-20 04:30] VITALS: BP 156/75
[2019-07-20 06:09] LABS: BASOPHILS 0.2 % (0-2); HEMATOCRIT 36.2 % (42.0-54.0); HEMOGLOBIN 11.2 g/dL (13.5-17.5); IMMATURE GRANULOCYTES 1.9 % (0-5); LYMPHOCYTES 27.8 % (15-50); MCH 26.5 pg (26.0-34.0); MCHC 30.9 g/dL (31.0-37.0); MCV 85.8 fL (80.0-100.0); MEAN PLATELET VOLUME 8.9 fL (7.4-10.4); MONOCYTES 11.2 % (2-11); NEUTROPHILS 57.9 % (40-80); PLATELET COUNT 239 10x3/uL (130-400); RBC 4.22 10x6/uL (4.20-6.10); RDW 17.8 % (11.5-14.5)
[2019-07-20 06:40] LABS: CALC OSMOLALITY 283 mosm/kg (275-300); CARBON DIOXIDE 38.3 mmol/L (21.0-32.0); CHLORIDE - SERUM 101 mmol/L (98-107); CREATININE - SERUM 0.6 mg/dL (0.6-1.3); POTASSIUM - SERUM 3.4 mmol/L (3.5-5.1); SODIUM 141 mmol/L (136-145); UREA NITROGEN 17 mg/dL (7-18); eGFR NON AFRICAN AMERICAN > 90 mL/min (90-120)
[2019-07-20 06:43] LABS: GLUCOSE 111 mg/dL (74-106)
[2019-07-20 08:58] VITALS: BP 185/83
[2019-07-20 12:20] VITALS: BP 137/75
--- NOTE | 2019-07-20 12:44 | NUR ---
I have reviewed this patient and I concur with the Shift Assessment completed by the Licensed Practical Nurse today this shift.
--- NOTE | 2019-07-20 17:05 | NUR ---
PT SITTING UP IN CHAIR A/O X4. NO S/S OF DISTRESS. VSS. BED LOW CALL LIGHT WITHIN REACH. WILL CONTINUE TO MONITOR.
[2019-07-20 17:56] VITALS: BP 136/75
[2019-07-20 20:00] VITALS: BP 117/56
[2019-07-21] VITALS: BP 123/62
[2019-07-21 04:00] VITALS: BP 148/66
[2019-07-21 10:00] VITALS: BP 121/78
[2019-07-21 10:45] LABS: HEMATOCRIT 41.4 % (42.0-54.0); HEMOGLOBIN 12.8 g/dL (13.5-17.5); MCH 27.3 pg (26.0-34.0); MCHC 30.9 g/dL (31.0-37.0); MEAN PLATELET VOLUME 8.9 fL (7.4-10.4); PLATELET COUNT 249 10x3/uL (130-400); RBC 4.69 10x6/uL (4.20-6.10); RDW 18.4 % (11.5-14.5)
[2019-07-21 10:54] LABS: MCV 88.3 fL (80.0-100.0); WBC 14.7 10x3/uL (4.8-10.8)
[2019-07-21 11:03] LABS: CALCIUM 9.3 mg/dL (8.5-10.1); CHLORIDE - SERUM 98 mmol/L (98-107); POTASSIUM - SERUM 3.8 mmol/L (3.5-5.1); SODIUM 140 mmol/L (136-145); UREA NITROGEN 15 mg/dL (7-18)
[2019-07-21 11:10] LABS: CALC OSMOLALITY 286 mosm/kg (275-300); CREATININE - SERUM 0.8 mg/dL (0.6-1.3); GLUCOSE 218 mg/dL (74-106); eGFR NON AFRICAN AMERICAN > 90 mL/min (90-120)
[2019-07-21 11:19] LABS: EOSINOPHILS 1 % (0-7); LYMPHOCYTES 17 % (15-50); MONOCYTES 8 % (2-11); NEUTROPHILS 74 % (40-80)
[2019-07-21 11:20] LABS: PLATELET ESTIMATE NORMAL
[2019-07-21 12:20] VITALS: BP 121/67
[2019-07-21 16:37] VITALS: BP 120/71
--- NOTE | 2019-07-21 19:22 | NUR ---
UP IN CHAIR FINISHING TX PT TOLERATED WELL DENIES NEEDS AT THIS TIME CALL LIGHT IN REACH BED IS LOW AND LOCKED
[2019-07-21 20:00] VITALS: BP 100/56
[2019-07-22 00:30] VITALS: BP 127/75
[2019-07-22 04:00] VITALS: BP 122/68
--- NOTE | 2019-07-22 05:06 | NUR ---
I have reviewed this patient and I concur with the Shift Assessment completed by the Licensed Practical Nurse today this shift.
[2019-07-22 07:20] VITALS: BP 134/73
[2019-07-22 08:28] LABS: BASOPHILS 0.1 % (0-2); EOSINOPHILS 1.3 % (0-7); HEMATOCRIT 39.4 % (42.0-54.0); HEMOGLOBIN 12.2 g/dL (13.5-17.5); IMMATURE GRANULOCYTES 1.1 % (0-5); LYMPHOCYTES 28.5 % (15-50); MCH 27.2 pg (26.0-34.0); MCV 87.8 fL (80.0-100.0); MONOCYTES 8.6 % (2-11); NEUTROPHILS 60.4 % (40-80); PLATELET COUNT 233 10x3/uL (130-400); RBC 4.49 10x6/uL (4.20-6.10); RDW 18.8 % (11.5-14.5); WBC 12.3 10x3/uL (4.8-10.8)
[2019-07-22 08:42] LABS: CALC OSMOLALITY 279 mosm/kg (275-300); CALCIUM 9.1 mg/dL (8.5-10.1); CARBON DIOXIDE 37.4 mmol/L (21.0-32.0); CHLORIDE - SERUM 100 mmol/L (98-107); CREATININE - SERUM 0.7 mg/dL (0.6-1.3); GLUCOSE 118 mg/dL (74-106); POTASSIUM - SERUM 3.8 mmol/L (3.5-5.1); SODIUM 139 mmol/L (136-145); UREA NITROGEN 15 mg/dL (7-18); eGFR NON AFRICAN AMERICAN > 90 mL/min (90-120)
--- NOTE | 2019-07-22 09:43 | MORECARE ---
CASE MANAGEMENT DISCHARGE SUMMARY PATIENT: YUMIKO PADILLA UNIT: [id number] ADM DATE: 07/09/19 AGE: 73 : [birth year] SEX: M ROOM/BED: D.2136 AUTHOR: NAJMA,DOC PHYSICIAN: REFERRING PHYSICIAN: ANDREW MARMOLEJO MD DATE OF SERVICE: 07/22/19 Discharge Plan Patient Name: YUMIKO PADILLA Facility: [facility]:[place] : 1945 Planned Disposition: Home with Home Health Anticipated Discharge Date: 07/22/19 Discharge Date: Expected LOS: 13 Initial Reviewer: [id number] Initial Review Date: 07/16/2019 Generated: 07/22/19 10:42 am Comments DCP- Discharge Planning Updated by [id number]: Matt Harman on 07/22/19 8:[address] Patient Name: YUMIKO PADILLA Encounter No: [id number] : 1945 Primary Insurance: [employer] MEDICARE ADV Anticipated DC Date: 07-22-2019 Planned Disposition: Home with Home Health External Planned Provider: [facility] DCP follow-up note: CM SPOKE TO PT IN ROOM, PT REPORTS WANTING TO GO HOME SOON HE CAN GET THE TRILOGY MACHINE. CM EXPLAINED THAT CM STILL WAITING INSURANCE AUTH PER [facility]. IMPORTANT MESSAGE FROM MEDICARE PROVIDED TO PT. CM WAITING FOR INSURANCE APPROVAL FOR TRILOGY FROM [facility]. FOR DISCHARGE HOME, NOTIFY [facility] AT [phone], FAX DISCHARGE INFORMATION TO [facility] AT [phone]. Matt Harman, CASE MANAGEMENT DCP- Discharge Planning Updated by [id number]: Matt Harman on 07/19/19 3:[address] Patient Name: YUMIKO PADILLA Encounter No: [id number] : 1945 Primary Insurance: [employer] MEDICARE ADV Anticipated DC Date: 07-22-2019 Planned Disposition: Home with Home Health External Planned Provider: [facility] DCP follow-up note: CM CALLED [facility], , SPOKE TO DAISY WHO INFORMED CM THAT THEY ARE WAITING INSURANCE PRIOR AUTHORIZATION AND IT MAY BE MONDAY OR MONDAY OF NEXT WEEK BEFORE THEY GET IT. CM NOTIED DR. DARLING AND PT. IMPORTANT MESSAGE FROM MEDICARE PROVIDED TO PT. CM WAITING FOR INSURANCE APPROVAL FOR TRILOGY FROM [facility]. FOR DISCHARGE HOME, NOTIFY [facility] AT [phone], FAX DISCHARGE INFORMATION TO [facility] AT [phone]. Matt Harman CASE MANAGEMENT DCP- Discharge Planning Updated by [id number]: Matt Harman on 07/19/19 10:[address] Patient Name: YUMIKO PADILLA Encounter No: [id number] : 1945 Primary Insurance: [employer] MEDICARE ADV Anticipated DC Date: Planned Disposition: Home with Home Health External Planned Provider: [facility] DCP follow-up note: CM CALLED [facility], , SPOKE TO SUKH WHO INFORMED CM THAT SHE WILL PROCESS ORDER TODAY FOR TRILOGY. CM REFAXED ORDER TO TRILOGY TO [facility] AT [phone]. CM CALLED LUKAS OF [facility] [phone] AND NOTIFIED OF POSSIBLE DISCHARGE TODAY FOR HOME HEALTH RESUMPTION. CM FAXED UPDATE TO [facility] AT [phone]. CM WAITING FOR ORDER PROCESSING AND APPROVAL FOR TRILOGY FROM [facility]. FOR DISCHARGE HOME, NOTIFY [facility] AT [phone], FAX DISCHARGE INFORMATION TO [facility] AT [phone]. Matt Harman CASE MANAGEMENT DCP- Discharge Planning Updated by [id number]: Matt Harman on 07/18/19 3:[address] Patient Name: YUMIKO PADILLA Encounter No: [id number] : 1945 Primary Insurance: [employer] MED[employer] ADV Anticipated DC Date: Planned Disposition: Home with Home Health External Planned Provider: [facility] DCP follow-up note: CM SPOKE TO DR. DARLING WHO ORDERED BIPAP FOR HOME USE. CM SPOKE TO PT WHO IS WILLING FOR WHATEVER MACHINE THE DOCTOR WANTS HIM TO TRY. PT DECIDED TO GO HOME WITH [facility]. CHOICE PREVIOUSLY SIGNED FOR [facility] . PT WANTS TO USE [facility] FOR ANY OTHER MEDICAL EQUIPMENT. CM CALLED [facility], , SPOKE TO AMANDA WHO INFORMED CM THAT PT'S INSURANCE WILL NOT COVER BIPAP WITHOUT CURRENT SLEEPSTUDY AND SUGGESTED TRILOGY POSSIBLE ALTERNATIVE. CM SPOKE TO PT WHO INFORMED CM HE HAS NEVER HAD A SLEEP STUDY. CM NOTIFIED GIANA JUAN AND RECEIVED ORDER FOR TRILOGY. CM CALLED AMANDA AT [facility], . CM PROVIDED REFERRAL INFORMATION. CM FAXED REFERRAL FOR TRILOGY, . CM WAITING FOR ORDER PROCESSING AND APPROVAL FOR TRILOGY FROM [facility]. PT WILL RESUME HOME HEALTH WITH [facility] FOR DISCHARGE HOME. Matt Harman, CASE MANAGEMENT DCP- Discharge Planning Updated by [id number]: Matt Harman on 07/17/19 4:[address] Patient Name: YUMIKO PADILLA Admission Status: ER Accout number: [id number] Admission Date: 07-09-2019 : 1945 Admission Diagnosis: Attending: YANDY MARMOLEJO Current LOS: 8 Anticipated DC Date: Planned Disposition: Home WITH HOME HEALTH OR HOME HOSPICE Primary Insurance: [employer] MEDICARE ADV PLANNED EXTERNAL PROVIDER: [facility] OR [facility] Discharge Planning Comments: CM MET WITH PT IN ROOM TO DISCUSS DISCHARGE PLANNING AND NEEDS. PT REPORTS LIVING AT HOME INDEPENDENTLY WITH HIS ADULT DAUGHTER AT [address] [place] [address]. PT HAS HOME AND PORTABLE OXGYEN AND NEBULIZER WELL WALKER FROM [facility]. PT HAS HOME HEALTH WITH [facility]. CM DISCUSSED AVAILABILITY OF HOME HEALTH, REHAB SERVICES AND MEDICAL EQUIPMENT. HAS TALKED TO [facility] ALREADY AND WILL GO HOME TO HIS DAUGHTERS HOME, WITH HOME HEALTH OR HOSPICE FROM [facility]. PT REPORTS HER DAUGHTER WILL PICK HIM UP FOR DISCHARGE HOME. IMPORTANT MESSAGE FROM MEDICARE PROVIDED AND EXPLAINED. PT WANTS TO DISCUSS HIS CARE WITH THE DOCTOR FURTHER BEFORE MAKING FURHTER DECISIONS REGARDING DISCHARGE PLAN. CM CALLED [facility], THEY CAN DO BIPAP WITH HOSPICE CARE, BUT CANNOT DO A TRILOGY MACHINE. CM WAITING ON PT TO MAKE DECISION BETWEEN [facility] AND [facility]. CM IS NOT ABLE TO ARRANGE HOME BIPAP UNTIL PT MAKES THIS DECISION. Car Ferry Master: Matt Harman DCPIA - Discharge Planning Initial Assessment Updated by [id number]: Matt Harman on 07/17/19 5:26 pm * Is the patient Alert and Oriented? Yes * How many steps to enter\exit or inside your home? NONE * PCP DR. BENÍTEZ * Pharmacy [facility] * Preadmission Environment Home with Family * ADLs Independent * Equipment Nebulizer Oxygen Walker * Other Equipment HOME AND PORTABLE OXYGEN FROM [facility] * List name and contact numbers for known caregivers / representatives who currently or will assist patient after discharge: ANN RORO, DTR, * Verbal permission to speak to the caregivers and representatives has been obtained from the patient. N/A * Community resources currently utilized Home Health * Please name any agencies selected above. [facility] * Additional services required to return to the preadmission environment? No * Can the patient safely return to the preadmission environment? Yes * Has this patient been hospitalized within the prior 30 days at any hospital? Yes Coverage Notice Reviewer: MIYA Harman Notice Issued Date-Time: 07/16/2019 17:15 Notice Type: IM Discharge Notice Notice Delivered To: Patient Relationship to Patient: Steamtable Attendant Railroad Name: Delivery Method: HAND - Hand Delivered Maddison Days: Prior Verbal Notification: Recipient Understood Notice: Yes Recipient Signature: Yes Med Rec Note Co-signed by Attending: Coverage Notice Comment: Reviewer: MIYA Harman Notice Issued Date-Time: 07/16/2019 17:15 Notice Type: Patient Choice Letter Notice Delivered To: Patient Relationship to Patient: Steamtable Attendant Railroad Name: Delivery Method: HAND - Hand Delivered Maddison Days: Prior Verbal Notification: Recipient Understood Notice: Yes Recipient Signature: Yes Med Rec Note Co-signed by Attending: Coverage Notice Comment: [facility] Reviewer: MIYA Harman Notice Issued Date-Time: 07/19/2019 13:15 Notice Type: IM Discharge Notice Notice Delivered To: Patient Relationship to Patient: Steamtable Attendant Railroad Name: Delivery Method: HAND - Hand Delivered Maddison Days: Prior Verbal Notification: Recipient Understood Notice: Yes Recipient Signature: Yes Med Rec Note Co-signed by Attending: Coverage Notice Comment: Reviewer: MIYA Harman Notice Issued Date-Time: 07/22/2019 9:35 Notice Type: IM Discharge Notice Notice Delivered To: Patient Relationship to Patient: Steamtable Attendant Railroad Name: Delivery Method: HAND - Hand Delivered Maddison Days: Prior Verbal Notification: Recipient Understood Notice: Yes Recipient Signature: Yes Med Rec Note Co-signed by Attending: Coverage Notice Comment: Last DP export: 07/19/19 3:35 p Patient Name: YUMIKO PADILLA Page [phone] at 0943 All edits/amendments must be made on the electronic document DICTATION DATE: 07/22/19941 FEED MILLER: DELIA 07/22/19941 RPT#: [id number] DC DATE: STATUS: ADM IN [facility] [address] [place] [address] END OF REPORT
[2019-07-22 11:00] VITALS: BP 102/70
--- NOTE | 2019-07-22 15:57 | NUR ---
I have reviewed this patient and I concur with the Shift Assessment completed by the Licensed Practical Nurse today this shift.
--- NOTE | 2019-07-22 17:28 | NUR ---
PT SITTING IN RELCINER CHAIR. PT STATES HE HAS NO FURTHER NEEDS AT THIS TIME. BED LOW. CL IN REACH.
--- NOTE | 2019-07-22 19:33 | NUR ---
PT HAS BEEN UP AMBLITORY AROUND ROOM UP IN CHAIR NOW WITH BX TX PT TOLERATED WELL DENIES OTHER NEEDS CALL LIGHT IS IN REACH
[2019-07-22 20:00] VITALS: BP 106/65
[2019-07-23] VITALS: BP 104/53
[2019-07-23 04:00] VITALS: BP 146/88
--- NOTE | 2019-07-23 05:35 | NUR ---
I have reviewed this patient and I concur with the Shift Assessment completed by the Licensed Practical Nurse today this shift.
[2019-07-23 05:38] LABS: BASOPHILS 0.1 % (0-2); EOSINOPHILS 0.8 % (0-7); HEMATOCRIT 37.3 % (42.0-54.0); HEMOGLOBIN 11.1 g/dL (13.5-17.5); IMMATURE GRANULOCYTES 0.8 % (0-5); LYMPHOCYTES 23.8 % (15-50); MCH 26.6 pg (26.0-34.0); MCHC 29.8 g/dL (31.0-37.0); MCV 89.4 fL (80.0-100.0); MEAN PLATELET VOLUME 9.1 fL (7.4-10.4); MONOCYTES 10.4 % (2-11); NEUTROPHILS 64.1 % (40-80); PLATELET COUNT 237 10x3/uL (130-400); RBC 4.17 10x6/uL (4.20-6.10); RDW 18.6 % (11.5-14.5); WBC 11.9 10x3/uL (4.8-10.8)
[2019-07-23 06:25] LABS: CARBON DIOXIDE 36.4 mmol/L (21.0-32.0); CHLORIDE - SERUM 101 mmol/L (98-107); CREATININE - SERUM 0.7 mg/dL (0.6-1.3); POTASSIUM - SERUM 3.7 mmol/L (3.5-5.1); SODIUM 139 mmol/L (136-145); eGFR NON AFRICAN AMERICAN > 90 mL/min (90-120)
[2019-07-23 06:56] LABS: CALC OSMOLALITY 278 mosm/kg (275-300); GLUCOSE 68 mg/dL (74-106); UREA NITROGEN 20 mg/dL (7-18)
[2019-07-23 09:41] VITALS: BP 112/59
[2019-07-23 12:47] VITALS: BP 132/67
--- NOTE | 2019-07-23 13:02 | NUR ---
Nutrition Follow-up: Eating well. Diet: Diabetic PO intake: 100% x 4 meals No new wt; last wt: 158.7# (07/15) Labs noted: Glu 68, 211 Meds noted: Amaryl, Prednisone, Glucophage, Lasix, Micro K, Humulin -Continue current diet as tolerated. -Need new wt; noted daily wts ordered. -RD following.
--- NOTE | 2019-07-23 14:12 | NUR ---
REPORT CALLED TO ABHI GRANT ON MED SURG.
--- NOTE | 2019-07-23 14:27 | NUR ---
PT UPSET AND DOES NOT WANT TO MOVE TO ROOM 2228. HE STATES HE WANTS TO GO HOME. SPOKE WITH DAUGHTER ON THE PHONE AND SHE STATES DR. LOWRY STATED TO THEM LAST NIGHT HE WAS GOING TO ORDER THE MACHINE THAT GOES IN HIS NOSE AND THAT DOES NOT COVER HIS FACE. I STATED I WILL SPEAK WITH HEALTHCARE MARKETER AND DOCTOR. SPOKE WITH LASHONDA HEALTHCARE MARKETER AND THAT DR. LOWRY ORDERED TRILOGY AND NOT THE [employer]. HE STATES TO EDDIE BROOKS. MOLLY BROOKS.
--- NOTE | 2019-07-23 14:58 | NUR ---
PT TO DC AND IF INSURANCE APPROVES [employer]ILATION [place] IT WILL BE DELIVERED TO HIS HOUSE. I VERBALIZED UNDERSTANDING.
--- NOTE | 2019-07-23 15:10 | NUR ---
I have reviewed this patient and I concur with the Shift Assessment completed by the Licensed Practical Nurse today this shift.
--- NOTE | 2019-07-23 15:14 | MORECARE ---
CASE MANAGEMENT DISCHARGE SUMMARY PATIENT: YUMIKO PADILLA UNIT: [id number] ADM DATE: 07/09/19 AGE: 73 : [birth year] SEX: M ROOM/BED: D.2136 AUTHOR: NAJMA,DOC PHYSICIAN: REFERRING PHYSICIAN: ANDREW MARMOLEJO MD DATE OF SERVICE: 07/23/19 Discharge Plan Patient Name: YUMIKO PADILLA Facility: [facility]:[place] : 1945 Planned Disposition: Home with Home Health Anticipated Discharge Date: 07/23/19 Discharge Date: Expected LOS: 14 Initial Reviewer: [id number] Initial Review Date: 07/16/2019 Generated: 07/23/19 4:14 pm DCP- Discharge Planning Updated by [id number]: Matt Harman on 07/22/19 8:[address] Patient Name: YUMIKO PADILLA Encounter No: [id number] : 1945 Primary Insurance: [employer] MEDICARE ADV Anticipated DC Date: 07-22-2019 Planned Disposition: Home with Home Health External Planned Provider: [facility] DCP follow-up note: CM SPOKE TO PT IN ROOM, PT REPORTS WANTING TO GO HOME SOON HE CAN GET THE TRILOGY MACHINE. CM EXPLAINED THAT CM STILL WAITING INSURANCE AUTH PER [facility]. IMPORTANT MESSAGE FROM MEDICARE PROVIDED TO PT. CM WAITING FOR INSURANCE APPROVAL FOR TRILOGY FROM [facility]. FOR DISCHARGE HOME, NOTIFY [facility] AT [phone], FAX DISCHARGE INFORMATION TO [facility] AT [phone]. Matt Harman, CASE MANAGEMENT DCP- Discharge Planning Updated by [email or web address]: Matt Harman on 07/19/19 3:[address] Patient Name: YUMIKO PADILLA Encounter No: [id number] : 1945 Primary Insurance: [employer] MEDICARE ADV Anticipated DC Date: 07-22-2019 Planned Disposition: Home with Home Health External Planned Provider: [facility] DCP follow-up note: CM CALLED [facility], , SPOKE TO DAISY WHO INFORMED CM THAT THEY ARE WAITING INSURANCE PRIOR AUTHORIZATION AND IT MAY BE MONDAY OR MONDAY OF NEXT WEEK BEFORE THEY GET IT. CM NOTIED DR. DARLING AND PT. IMPORTANT MESSAGE FROM MEDICARE PROVIDED TO PT. CM WAITING FOR INSURANCE APPROVAL FOR TRILOGY FROM [facility]. FOR DISCHARGE HOME, NOTIFY [facility] AT [phone], FAX DISCHARGE INFORMATION TO [facility] [facility] AT [phone]. Matt Harman CASE MANAGEMENT DCP- Discharge Planning Updated by [id number]: Matt Harman on 07/19/19 10:[address] Patient Name: YUMIKO PADILLA Encounter No: [id number] : 1945 Primary Insurance: [employer] MEDICARE ADV Anticipated DC Date: Planned Disposition: Home with Home Health External Planned Provider: [facility] DCP follow-up note: CM CALLED [facility], , SPOKE TO SUKH WHO INFORMED CM THAT SHE WILL PROCESS ORDER TODAY FOR TRILOGY. CM REFAXED ORDER TO TRILOGY TO [facility] AT [phone]. CM CALLED LUKAS OF [facility] [phone] AND NOTIFIED OF POSSIBLE DISCHARGE TODAY FOR HOME HEALTH RESUMPTION. CM FAXED UPDATE TO [facility] [facility] AT [phone]. CM WAITING FOR ORDER PROCESSING AND APPROVAL FOR TRILOGY FROM [facility]. FOR DISCHARGE HOME, NOTIFY [facility] AT [phone], FAX DISCHARGE INFORMATION TO [facility] [facility] AT [phone]. Matt Harman CASE MANAGEMENT DCP- Discharge Planning Updated by [id number]: Matt Harman on 07/18/19 3:[address] Patient Name: YUMIKO PADILLA Encounter No: [id number] : 1945 Primary Insurance: [employer] MEDICARE ADV Anticipated DC Date: Planned Disposition: Home with Home Health External Planned Provider: [facility] DCP follow-up note: CM SPOKE TO DR. DARLING WHO ORDERED BIPAP FOR HOME USE. CM SPOKE TO PT WHO IS WILLING FOR WHATEVER MACHINE THE DOCTOR WANTS HIM TO TRY. PT DECIDED TO GO HOME WITH HOME HEALTH. CHOICE PREVIOUSLY SIGNED FOR [facility] . PT WANTS TO USE [facility] [facility] FOR ANY OTHER MEDICAL EQUIPMENT. CM CALLED [employer] [facility], , SPOKE TO AMANDA WHO INFORMED CM THAT PT'S INSURANCE WILL NOT COVER BIPAP WITHOUT CURRENT SLEEPSTUDY AND SUGGESTED TRILOGY POSSIBLE ALTERNATIVE. CM SPOKE TO PT WHO INFORMED CM HE HAS NEVER HAD A SLEEP STUDY. CM NOTIFIED GIANA JUAN AND RECEIVED ORDER FOR TRILOGY. CM CALLED AMANDA AT [facility], . CM PROVIDED REFERRAL INFORMATION. CM FAXED REFERRAL FOR TRILOGY, . CM WAITING FOR ORDER PROCESSING AND APPROVAL FOR TRILOGY FROM [facility]. PT WILL RESUME HOME HEALTH WITH [facility] FOR DISCHARGE HOME. Matt Harman, CASE MANAGEMENT DCP- Discharge Planning Updated by [id number]: Matt Harman on 07/17/19 4:[address] Patient Name: YUMIKO PADILLA Admission Status: ER Accout number: [id number] Admission Date: 07-09-2019 : 1945 Admission Diagnosis: Attending: YANDY MARMOLEJO Current LOS: 8 Anticipated DC Date: Planned Disposition: Home WITH HOME HEALTH OR HOME HOSPICE Primary Insurance: [employer] MEDICARE ADV PLANNED EXTERNAL PROVIDER: [facility] OR [facility] Discharge Planning Comments: CM MET WITH PT IN ROOM TO DISCUSS DISCHARGE PLANNING AND NEEDS. PT REPORTS LIVING AT HOME INDEPENDENTLY WITH HIS ADULT DAUGHTER AT [address] [place] [address]. PT HAS HOME AND PORTABLE OXGYEN AND NEBULIZER WELL WALKER FROM [facility]. PT HAS HOME HEALTH WITH [facility]. CM DISCUSSED AVAILABILITY OF HOME HEALTH, REHAB SERVICES AND MEDICAL EQUIPMENT. HAS TALKED TO [facility] ALREADY AND WILL GO HOME TO HIS DAUGHTERS HOME, WITH HOME HEALTH OR HOSPICE FROM [facility]. PT REPORTS HER DAUGHTER WILL PICK HIM UP FOR DISCHARGE HOME. IMPORTANT MESSAGE FROM MEDICARE PROVIDED AND EXPLAINED. PT WANTS TO DISCUSS HIS CARE WITH THE DOCTOR FURTHER BEFORE MAKING FURHTER DECISIONS REGARDING DISCHARGE PLAN. CM CALLED [facility], THEY CAN DO BIPAP WITH HOSPICE CARE, BUT CANNOT DO A TRILOGY MACHINE. CM WAITING ON PT TO MAKE DECISION BETWEEN [facility] AND [facility]. CM IS NOT ABLE TO ARRANGE HOME BIPAP UNTIL PT MAKES THIS DECISION. Drafter Marine: Matt Harman DCPIA - Discharge Planning Initial Assessment Updated by [id number]: Matt Harman on 07/17/19 5:26 pm * Is the patient Alert and Oriented? Yes * How many steps to enter\exit or inside your home? NONE * PCP DR. BENÍTEZ * Pharmacy [facility] * Preadmission Environment Home with Family * ADLs Independent * Equipment Nebulizer Oxygen Walker * Other Equipment HOME AND PORTABLE OXYGEN FROM [facility] * List name and contact numbers for known caregivers / representatives who currently or will assist patient after discharge: ANN ALANDAVY, DTR, * Verbal permission to speak to the caregivers and representatives has been obtained from the patient. N/A * Community resources currently utilized Home Health * Please name any agencies selected above. [facility] * Additional services required to return to the preadmission environment? No * Can the patient safely return to the preadmission environment? Yes * Has this patient been hospitalized within the prior 30 days at any hospital? Yes Coverage Notice Reviewer: MIYA Harman Notice Issued Date-Time: 07/16/2019 17:15 Notice Type: IM Discharge Notice Notice Delivered To: Patient Relationship to Patient: Group Billing Coordinator Name: Delivery Method: HAND - Hand Delivered Maddison Days: Prior Verbal Notification: Recipient Understood Notice: Yes Recipient Signature: Yes Med Rec Note Co-signed by Attending: Coverage Notice Comment: Reviewer: MIYA Harman Notice Issued Date-Time: 07/16/2019 17:15 Notice Type: Patient Choice Letter Notice Delivered To: Patient Relationship to Patient: Group Billing Coordinator Name: Delivery Method: HAND - Hand Delivered Maddison Days: Prior Verbal Notification: Recipient Understood Notice: Yes Recipient Signature: Yes Med Rec Note Co-signed by Attending: Coverage Notice Comment: [facility] Reviewer: MIYA Harman Notice Issued Date-Time: 07/19/2019 13:15 Notice Type: IM Discharge Notice Notice Delivered To: Patient Relationship to Patient: Group Billing Coordinator Name: Delivery Method: HAND - Hand Delivered Maddison Days: Prior Verbal Notification: Recipient Understood Notice: Yes Recipient Signature: Yes Med Rec Note Co-signed by Attending: Coverage Notice Comment: Reviewer: MIYA Harman Notice Issued Date-Time: 07/22/2019 9:35 Notice Type: IM Discharge Notice Notice Delivered To: Patient Relationship to Patient: Group Billing Coordinator Name: Delivery Method: HAND - Hand Delivered Maddison Days: Prior Verbal Notification: Recipient Understood Notice: Yes Recipient Signature: Yes Med Rec Note Co-signed by Attending: Coverage Notice Comment: Last DP export: 07/22/19 8:43 a Patient Name: YUMIKO PADILLA Page 38737 at 1514 All edits/amendments must be made on the electronic document DICTATION DATE: 07/23/191513 STRIKER OFF: DELIA 07/23/191513 RPT#: [id number] DC DATE: STATUS: ADM IN [facility] [address] [place] [address] END OF REPORT
--- NOTE | 2019-07-23 15:23 | MORECARE ---
CASE MANAGEMENT DISCHARGE SUMMARY PATIENT: YUMIKO PADILLA UNIT: [id number] ADM DATE: 07/09/19 AGE: 73 : [birth year] SEX: M ROOM/BED: D.2136 AUTHOR: NAJMA,DOC PHYSICIAN: REFERRING PHYSICIAN: ANDREW MARMOLEJO MD DATE OF SERVICE: 07/23/19 Discharge Plan Patient Name: YUMIKO PADILLA Facility: [facility]:[place] : 1945 Planned Disposition: Home with Home Health Anticipated Discharge Date: 07/23/19 Discharge Date: Expected LOS: 14 Initial Reviewer: [id number] Initial Review Date: 07/16/2019 Generated: 07/23/19 4:23 pm Comments DCP- Discharge Planning Updated by [id number]: Matt Harman on 07/23/19 2:[address] Patient Name: YUMIKO PADILLA Encounter No: [id number] : 1945 Primary Insurance: WELLCARE MEDICARE ADV Anticipated DC Date: 07-23-2019 Planned Disposition: Home with Home Health External Planned Provider: [facility] DCP follow-up note: MARYAM SPOKE TO DR. LOWRY WHO ORDERED LIFE 2000 VENTILATOR AND CANCELLED TRILOGY PT WILL NOT WEAR THE MASK. DR. LOWRY ADVISED PT CAN DISCHARGE HOME TODAY AND IF APPROVED BY INSURANCE, THEY CAN DELIVER THE LIFE 2000 TO PT AT HOME. MARYAM SPOKE TO PT IN ROOM, PT REPORTS WANTING TO GO HOME SOON POSSIBLE AND IN AGREEMENT WITH PLAN OF HOME TO WAIT ON LIFE 2000 VENTILOATOR AND [facility]. PT REPORTS HE WILL GET READY AND HAVE FAMILY PICK HIM UP. MARYAM NOTIFIED GIANA ZHU. MARYAM CALLED DAISY AT [facility], , NOTIFIED OF NEW ORDER. DAISY WILL ARRANGE HOME DELIVERY OF LIFE 2000 ONCE APPROVED BY INSURANCE. MARYAM FAXED UPDATE TO [facility] AT [phone]. . FOR DISCHARGE HOME, NOTIFY [facility] AT [phone], FAX DISCHARGE INFORMATION TO [facility] AT [phone]. Matt Harman CASE MANAGEMENT DCP- Discharge Planning Updated by [id number]: Matt Harman on 07/22/19 8:[address] Patient Name: YUMIKO PADILLA Encounter No: [id number] : 1945 Primary Insurance: WELLCARE MEDICARE ADV Anticipated DC Date: 07-22-2019 Planned Disposition: Home with Home Health External Planned Provider: [facility] DCP follow-up note: CM SPOKE TO PT IN ROOM, PT REPORTS WANTING TO GO HOME SOON HE CAN GET THE TRILOGY MACHINE. CM EXPLAINED THAT CM STILL WAITING INSURANCE AUTH PER [facility]. IMPORTANT MESSAGE FROM MEDICARE PROVIDED TO PT. CM WAITING FOR INSURANCE APPROVAL FOR TRILOGY FROM [facility]. FOR DISCHARGE HOME, NOTIFY [facility] AT [phone], FAX DISCHARGE INFORMATION TO [facility] AT [phone]. Matt Harman CASE MANAGEMENT DCP- Discharge Planning Updated by [id number]: Matt Harman on 07/19/19 3:[address] Patient Name: YUMIKO PADILLA Encounter No: [id number] : 1945 Primary Insurance: WELLCARE MEDICARE ADV Anticipated DC Date: 07-22-2019 Planned Disposition: Home with Home Health External Planned Provider: [facility] DCP follow-up note: CM CALLED [facility], , SPOKE TO DAISY WHO INFORMED CM THAT THEY ARE WAITING INSURANCE PRIOR AUTHORIZATION AND IT MAY BE MONDAY OR MONDAY OF NEXT WEEK BEFORE THEY GET IT. CM NOTIED DR. DARLING AND PT. IMPORTANT MESSAGE FROM MEDICARE PROVIDED TO PT. CM WAITING FOR INSURANCE APPROVAL FOR TRILOGY FROM [facility]. FOR DISCHARGE HOME, NOTIFY [facility] AT [phone], FAX DISCHARGE INFORMATION TO [facility] AT [phone]. Matt Harman CASE MANAGEMENT DCP- Discharge Planning Updated by [id number]: Matt Harman on 07/19/19 10:[address] Patient Name: YUMIKO PADILLA Encounter No: [id number] : 1945 Primary Insurance: WELLCARE MEDICARE ADV Anticipated DC Date: Planned Disposition: Home with Home Health External Planned Provider: [facility] DCP follow-up note: CM CALLED [facility], , SPOKE TO SUKH WHO INFORMED CM THAT SHE WILL PROCESS ORDER TODAY FOR TRILOGY. CM REFAXED ORDER TO TRILOGY TO [facility] AT [phone]. CM CALLED LUKAS OF [facility] [employer] [facility] [phone] AND NOTIFIED OF POSSIBLE DISCHARGE TODAY FOR HOME HEALTH RESUMPTION. CM FAXED UPDATE TO [facility] AT [phone]. CM WAITING FOR ORDER PROCESSING AND APPROVAL FOR TRILOGY FROM [facility]. FOR DISCHARGE HOME, NOTIFY [facility] AT [phone], FAX DISCHARGE INFORMATION TO [facility] AT [phone]. JOLIE Hale DCP- Discharge Planning Updated by [id number]: Matt Harman on 07/18/19 3:[address] Patient Name: YUMIKO PADILLA Encounter No: [id number] : 1945 Primary Insurance: WELLCARE MEDICARE ADV Anticipated DC Date: Planned Disposition: Home with Home Health External Planned Provider: [facility] DCP follow-up note: CM SPOKE TO DR. DARLING WHO ORDERED BIPAP FOR HOME USE. CM SPOKE TO PT WHO IS WILLING FOR WHATEVER MACHINE THE DOCTOR WANTS HIM TO TRY. PT DECIDED TO GO HOME WITH [facility]. CHOICE PREVIOUSLY SIGNED FOR [facility] . PT WANTS TO USE [employer] FOR ANY OTHER MEDICAL EQUIPMENT. CM CALLED [facility], , SPOKE TO AMANDA WHO INFORMED CM THAT PT'S INSURANCE WILL NOT COVER BIPAP WITHOUT CURRENT SLEEPSTUDY AND SUGGESTED TRILOGY POSSIBLE ALTERNATIVE. CM SPOKE TO PT WHO INFORMED CM HE HAS NEVER HAD A SLEEP STUDY. CM NOTIFIED GIANA JUAN AND RECEIVED ORDER FOR TRILOGY. CM CALLED AMANDA AT [facility], . CM PROVIDED REFERRAL INFORMATION. CM FAXED REFERRAL FOR TRILOGY, . CM WAITING FOR ORDER PROCESSING AND APPROVAL FOR TRILOGY FROM [facility]. PT WILL RESUME HOME HEALTH WITH [facility] FOR DISCHARGE HOME. JOLIE Hale DCP- Discharge Planning Updated by [id number]: Matt Harman on 07/17/19 4:[address] Patient Name: YUMIKO PADILLA Admission Status: ER Accout number: [id number] Admission Date: 07-09-2019 : 1945 Admission Diagnosis: Attending: YANDY MARMOLEJO Current LOS: 8 Anticipated DC Date: Planned Disposition: Home WITH HOME HEALTH OR HOME HOSPICE Primary Insurance: WELLCARE MEDICARE ADV PLANNED EXTERNAL PROVIDER: [facility] OR [facility] Discharge Planning Comments: CM MET WITH PT IN ROOM TO DISCUSS DISCHARGE PLANNING AND NEEDS. PT REPORTS LIVING AT HOME INDEPENDENTLY WITH HIS ADULT DAUGHTER AT [address] [place] [address]. PT HAS HOME AND PORTABLE OXGYEN AND NEBULIZER WELL WALKER FROM [facility]. PT HAS HOME HEALTH WITH [facility]. CM DISCUSSED AVAILABILITY OF HOME HEALTH, REHAB SERVICES AND MEDICAL EQUIPMENT. HAS TALKED TO [facility] ALREADY AND WILL GO HOME TO HIS DAUGHTERS HOME, WITH HOME HEALTH OR HOSPICE FROM [facility]. PT REPORTS HER DAUGHTER WILL PICK HIM UP FOR DISCHARGE HOME. IMPORTANT MESSAGE FROM MEDICARE PROVIDED AND EXPLAINED. PT WANTS TO DISCUSS HIS CARE WITH THE DOCTOR FURTHER BEFORE MAKING FURHTER DECISIONS REGARDING DISCHARGE PLAN. CM CALLED [facility], THEY CAN DO BIPAP WITH HOSPICE CARE, BUT CANNOT DO A TRILOGY MACHINE. CM WAITING ON PT TO MAKE DECISION BETWEEN [facility] AND [facility]. CM IS NOT ABLE TO ARRANGE HOME BIPAP UNTIL PT MAKES THIS DECISION. Farm Equipment Assembler: Matt Harman DCPIA - Discharge Planning Initial Assessment Updated by [id number]: Matt Harman on 07/17/19 5:26 pm * Is the patient Alert and Oriented? Yes * How many steps to enter\exit or inside your home? NONE * PCP DR. BENÍTEZ * Pharmacy [facility] * Preadmission Environment Home with Family * ADLs Independent * Equipment Nebulizer Oxygen Walker * Other Equipment HOME AND PORTABLE OXYGEN FROM [facility] * List name and contact numbers for known caregivers / representatives who currently or will assist patient after discharge: ANN READ, JEANINE, * Verbal permission to speak to the caregivers and representatives has been obtained from the patient. N/A * Community resources currently utilized Home Health * Please name any agencies selected above. [facility] * Additional services required to return to the preadmission environment? No * Can the patient safely return to the preadmission environment? Yes * Has this patient been hospitalized within the prior 30 days at any hospital? Yes Coverage Notice Reviewer: [id number] - Matt Harman Notice Issued Date-Time: 07/16/2019 17:15 Notice Type: Patient Choice Letter Notice Delivered To: Patient Relationship to Patient: Balance Bridge Assembler Name: Delivery Method: HAND - Hand Delivered Maddison Days: Prior Verbal Notification: Recipient Understood Notice: Yes Recipient Signature: Yes Med Rec Note Co-signed by Attending: Coverage Notice Comment: [facility] Reviewer: [id number] Harman Notice Issued Date-Time: 07/22/2019 9:35 Notice Type: IM Discharge Notice Notice Delivered To: Patient Relationship to Patient: Balance Bridge Assembler Name: Delivery Method: HAND - Hand Delivered Maddison Days: Prior Verbal Notification: Recipient Understood Notice: Yes Recipient Signature: Yes Med Rec Note Co-signed by Attending: Coverage Notice Comment: Reviewer: MIYA Harman Notice Issued Date-Time: 07/19/2019 13:15 Notice Type: IM Discharge Notice Notice Delivered To: Patient Relationship to Patient: Balance Bridge Assembler Name: Delivery Method: HAND - Hand Delivered Maddison Days: Prior Verbal Notification: Recipient Understood Notice: Yes Recipient Signature: Yes Med Rec Note Co-signed by Attending: Coverage Notice Comment: Reviewer: MIYA Harman Notice Issued Date-Time: 07/16/2019 17:15 Notice Type: IM Discharge Notice Notice Delivered To: Patient Relationship to Patient: Balance Bridge Assembler Name: Delivery Method: HAND - Hand Delivered Maddison Days: Prior Verbal Notification: Recipient Understood Notice: Yes Recipient Signature: Yes Med Rec Note Co-signed by Attending: Coverage Notice Comment: Last DP export: 07/23/19 2:14 p Patient Name: YUMIKO PADILLA Page 24050 at 1523 All edits/amendments must be made on the electronic document DICTATION DATE: 07/23/19 152 MOUNTER SOUSAPHONES: DELIA 07/23/19 1523 RPT#: [id number] DC DATE: STATUS: ADM IN [facility] [address] [place] [address] END OF REPORT
--- NOTE | 2019-07-23 15:44 | NUR ---
RIGHT WRIST 20G IV DC'D WITH CATH INTACT. TELEMETRY DC'D. DISCHARGE INSTRUCTIONS GIVEN TO PT. PT HAS NO FURTHER QUESTIONS CHART COPY SIGNED.
--- NOTE | 2019-07-23 18:10 | NUR ---
PT TAKEN THROUGH ER ENTRANCE TO DAUGHTER IN HER VEHICLE BY FARM EQUIPMENT MAINTENANCE SUPERVISOR. PT HAS ALL OF BELOGNINGS.
--- NOTE | 2019-07-24 09:01 | MORECARE ---
CASE MANAGEMENT DISCHARGE SUMMARY PATIENT: YUMIKO PADILLA UNIT: [id number] ADM DATE: 07/09/19 AGE: 73 : [birth year] SEX: M ROOM/BED: D.2136 AUTHOR: NAJMA,DOC PHYSICIAN: REFERRING PHYSICIAN: ANDREW MARMOLEJO MD DATE OF SERVICE: 07/24/19 Discharge Plan Patient Name: YUMIKO PADILLA Facility: [facility]:[place] : 1945 Planned Disposition: Home with Home Health Anticipated Discharge Date: 07/23/19 Discharge Date: 07/23/2019 Expected LOS: 14 Initial Reviewer: [id number] Initial Review Date: 07/16/2019 Generated: 07/24/19 10:01 am Comments DCP- Discharge Planning Updated by [id number]: Matt Harman on 07/23/19 2:[address] Patient Name: YUMIKO PADILLA Encounter No: [id number] : 1945 Primary Insurance: WELLCARE MEDICARE ADV Anticipated DC Date: 07-23-2019 Planned Disposition: Home with Home Health External Planned Provider: [facility] DCP follow-up note: CM SPOKE TO DR. LOWRY WHO ORDERED LIFE 2000 VENTILATOR AND CANCELLED TRILOGY PT WILL NOT WEAR THE MASK. DR. LOWRY ADVISED PT CAN DISCHARGE HOME TODAY AND IF APPROVED BY INSURANCE, THEY CAN DELIVER THE LIFE 2000 TO PT AT HOME. CM SPOKE TO PT IN ROOM, PT REPORTS WANTING TO GO HOME SOON POSSIBLE AND IN AGREEMENT WITH PLAN OF HOME TO WAIT ON LIFE 2000 VENTILOATOR AND [facility]. PT REPORTS HE WILL GET READY AND HAVE FAMILY PICK HIM UP. CM NOTIFIED GIANA ZHU. CM CALLED DAISY AT [facility], , NOTIFIED OF NEW ORDER. DAISY WILL ARRANGE HOME DELIVERY OF LIFE 2000 ONCE APPROVED BY INSURANCE. CM FAXED UPDATE TO [facility] AT [phone]. . FOR DISCHARGE HOME, NOTIFY [facility] AT [phone], FAX DISCHARGE INFORMATION TO [facility] AT [phone]. Mtat Harman, CASE MANAGEMENT DCP- Discharge Planning Updated by [id number]: Matt Harman on 07/22/19 8:[address] Patient Name: YUMIKO PADILLA Encounter No: [id number] : 1945 Primary Insurance: WELLCARE MEDICARE ADV Anticipated DC Date: 07-22-2019 Planned Disposition: Home with Home Health External Planned Provider: [facility] DCP follow-up note: CM SPOKE TO PT IN ROOM, PT REPORTS WANTING TO GO HOME SOON HE CAN GET THE TRILOGY MACHINE. CM EXPLAINED THAT CM STILL WAITING INSURANCE AUTH PER [facility]. IMPORTANT MESSAGE FROM MEDICARE PROVIDED TO PT. CM WAITING FOR INSURANCE APPROVAL FOR TRILOGY FROM [facility]. FOR DISCHARGE HOME, NOTIFY [facility] AT [phone], FAX DISCHARGE INFORMATION TO [facility] AT [phone]. Matt Harman CASE MANAGEMENT DCP- Discharge Planning Updated by [id number]: Matt Harman on 07/19/19 3:[address] Patient Name: YUMIKO PADILLA Encounter No: [id number] : 1945 Primary Insurance: WELLCARE MEDICARE ADV Anticipated DC Date: 07-22-2019 Planned Disposition: Home with Home Health External Planned Provider: [facility] DCP follow-up note: CM CALLED [facility], , SPOKE TO DAISY WHO INFORMED CM THAT THEY ARE WAITING INSURANCE PRIOR AUTHORIZATION AND IT MAY BE MONDAY OR MONDAY OF NEXT WEEK BEFORE THEY GET IT. CM NOTIED DR. DARLING AND PT. IMPORTANT MESSAGE FROM MEDICARE PROVIDED TO PT. CM WAITING FOR INSURANCE APPROVAL FOR TRILOGY FROM [facility]. FOR DISCHARGE HOME, NOTIFY [facility] AT [phone], FAX DISCHARGE INFORMATION TO [facility] AT [phone]. Matt Harman CASE MANAGEMENT DCP- Discharge Planning Updated by [id number]: Matt Harman on 07/19/19 10:[address] Patient Name: YUMIKO PADILLA Encounter No: [id number] : 1945 Primary Insurance: WELLCARE MEDICARE ADV Anticipated DC Date: Planned Disposition: Home with Home Health External Planned Provider: [facility] DCP follow-up note: CM CALLED [facility], , SPOKE TO SUKH WHO INFORMED CM THAT SHE WILL PROCESS ORDER TODAY FOR TRILOGY. CM REFAXED ORDER TO TRILOGY TO [facility] AT [phone]. CM CALLED LUKAS OF [facility] [phone] AND NOTIFIED OF POSSIBLE DISCHARGE TODAY FOR HOME HEALTH RESUMPTION. CM FAXED UPDATE TO [facility] AT [phone]. CM WAITING FOR ORDER PROCESSING AND APPROVAL FOR TRILOGY FROM [facility]. FOR DISCHARGE HOME, NOTIFY [facility] AT [phone], FAX DISCHARGE INFORMATION TO [facility] AT [phone]. JOLIE Hale DCP- Discharge Planning Updated by [id number]: Matt Harman on 07/18/19 3:[address] Patient Name: YUMIKO PADILLA Encounter No: [id number] : 1945 Primary Insurance: WELLCARE MEDICARE ADV Anticipated DC Date: Planned Disposition: Home with Home Health External Planned Provider: [facility] DCP follow-up note: CM SPOKE TO DR. DARLING WHO ORDERED BIPAP FOR HOME USE. CM SPOKE TO PT WHO IS WILLING FOR WHATEVER MACHINE THE DOCTOR WANTS HIM TO TRY. PT DECIDED TO GO HOME WITH [facility]. CHOICE PREVIOUSLY SIGNED FOR [facility] . PT WANTS TO USE [employer] FOR ANY OTHER MEDICAL EQUIPMENT. CM CALLED [facility], , SPOKE TO AMANDA WHO INFORMED CM THAT PT'S INSURANCE WILL NOT COVER BIPAP WITHOUT CURRENT SLEEPSTUDY AND SUGGESTED TRILOGY POSSIBLE ALTERNATIVE. CM SPOKE TO PT WHO INFORMED CM HE HAS NEVER HAD A SLEEP STUDY. CM NOTIFIED GIANA JUAN AND RECEIVED ORDER FOR TRILOGY. CM CALLED AMANDA AT [facility], . CM PROVIDED REFERRAL INFORMATION. CM FAXED REFERRAL FOR TRILOGY, . CM WAITING FOR ORDER PROCESSING AND APPROVAL FOR TRILOGY FROM [facility]. PT WILL RESUME HOME HEALTH WITH [facility] FOR DISCHARGE HOME. JOLIE Hale DCP- Discharge Planning Updated by [id number]: Matt Harman on 07/17/19 4:[address] Patient Name: YUMIKO PADILLA Admission Status: ER Accout number: [id number] Admission Date: 07-09-2019 : 1945 Admission Diagnosis: Attending: YANDY MARMOLEJO Current LOS: 8 Anticipated DC Date: Planned Disposition: Home WITH HOME HEALTH OR HOME HOSPICE Primary Insurance: WELLCARE MEDICARE ADV PLANNED EXTERNAL PROVIDER: [facility] OR [facility] Discharge Planning Comments: CM MET WITH PT IN ROOM TO DISCUSS DISCHARGE PLANNING AND NEEDS. PT REPORTS LIVING AT HOME INDEPENDENTLY WITH HIS ADULT DAUGHTER AT [address] [place] [address]. PT HAS HOME AND PORTABLE OXGYEN AND NEBULIZER WELL WALKER FROM [facility]. PT HAS HOME HEALTH WITH [facility]. CM DISCUSSED AVAILABILITY OF HOME HEALTH, REHAB SERVICES AND MEDICAL EQUIPMENT. HAS TALKED TO [facility] ALREADY AND WILL GO HOME TO HIS DAUGHTERS HOME, WITH HOME HEALTH OR HOSPICE FROM [facility]. PT REPORTS HER DAUGHTER WILL PICK HIM UP FOR DISCHARGE HOME. IMPORTANT MESSAGE FROM MEDICARE PROVIDED AND EXPLAINED. PT WANTS TO DISCUSS HIS CARE WITH THE DOCTOR FURTHER BEFORE MAKING FURHTER DECISIONS REGARDING DISCHARGE PLAN. CM CALLED [facility], THEY CAN DO BIPAP WITH HOSPICE CARE, BUT CANNOT DO A TRILOGY MACHINE. CM WAITING ON PT TO MAKE DECISION BETWEEN [facility] AND [facility]. CM IS NOT ABLE TO ARRANGE HOME BIPAP UNTIL PT MAKES THIS DECISION. Medical Assistant Dermatology: Matt Harman DCPIA - Discharge Planning Initial Assessment Updated by [id number]: Matt Harman on 07/17/19 5:26 pm * Is the patient Alert and Oriented? Yes * How many steps to enter\exit or inside your home? NONE * PCP DR. BENÍTEZ * Pharmacy [facility] * Preadmission Environment Home with Family * ADLs Independent * Equipment Nebulizer Oxygen Walker * Other Equipment HOME AND PORTABLE OXYGEN FROM [facility] * List name and contact numbers for known caregivers / representatives who currently or will assist patient after discharge: ANN READ, DTR, * Verbal permission to speak to the caregivers and representatives has been obtained from the patient. N/A * Community resources currently utilized Home Health * Please name any agencies selected above. [facility] * Additional services required to return to the preadmission environment? No * Can the patient safely return to the preadmission environment? Yes * Has this patient been hospitalized within the prior 30 days at any hospital? Yes External Providers External Provider: [facility] Next Contact Date: 07/19/2019 Service Request Date: Service Type: Resolution: Reviewer: Comments: Coverage Notice Reviewer: [id number] - Matt Harman Notice Issued Date-Time: 07/16/2019 17:15 Notice Type: IM Discharge Notice Notice Delivered To: Patient Relationship to Patient: Smt Technician Name: Delivery Method: HAND - Hand Delivered Maddison Days: Prior Verbal Notification: Recipient Understood Notice: Yes Recipient Signature: Yes Med Rec Note Co-signed by Attending: Coverage Notice Comment: Reviewer: MIYA Harman Notice Issued Date-Time: 07/16/2019 17:15 Notice Type: Patient Choice Letter Notice Delivered To: Patient Relationship to Patient: Smt Technician Name: Delivery Method: HAND - Hand Delivered Maddison Days: Prior Verbal Notification: Recipient Understood Notice: Yes Recipient Signature: Yes Med Rec Note Co-signed by Attending: Coverage Notice Comment: [facility] Reviewer: MIYA Harman Notice Issued Date-Time: 07/19/2019 13:15 Notice Type: IM Discharge Notice Notice Delivered To: Patient Relationship to Patient: Smt Technician Name: Delivery Method: HAND - Hand Delivered Maddison Days: Prior Verbal Notification: Recipient Understood Notice: Yes Recipient Signature: Yes Med Rec Note Co-signed by Attending: Coverage Notice Comment: Reviewer: MIYA Harman Notice Issued Date-Time: 07/22/2019 9:35 Notice Type: IM Discharge Notice Notice Delivered To: Patient Relationship to Patient: Smt Technician Name: Delivery Method: HAND - Hand Delivered Maddison Days: Prior Verbal Notification: Recipient Understood Notice: Yes Recipient Signature: Yes Med Rec Note Co-signed by Attending: Coverage Notice Comment: Last DP export: 07/23/19 2:23 p Patient Name: YUMIKO PADILLA Page 35693 at 0901 All edits/amendments must be made on the electronic document DICTATION DATE: 07/24/19900 PASTEURIZING MACHINE OPERATOR: DELIA 07/24/19900 RPT#: [id number] DC DATE:07/23/19 STATUS: DIS IN [facility] [address] [place] [address] END OF REPORT
--- NOTE | 2019-07-24 09:08 | MORECARE ---
CASE MANAGEMENT DISCHARGE SUMMARY PATIENT: YUMIKO PADILLA UNIT: [id number] ADM DATE: 07/09/19 AGE: 73 : [birth year] SEX: M ROOM/BED: D.2136 AUTHOR: NAJMA,DOC PHYSICIAN: REFERRING PHYSICIAN: ANDREW MARMOLEJO MD DATE OF SERVICE: 07/24/19 Discharge Plan Patient Name: YUMIKO PADILLA Facility: [facility]:[place] : 1945 Planned Disposition: Home with Home Health Anticipated Discharge Date: 07/23/19 Discharge Date: 07/23/2019 Expected LOS: 14 Initial Reviewer: [id number] Initial Review Date: 07/16/2019 Generated: 07/24/19 10:07 am Comments DCP- Discharge Planning Updated by [email or web address]: Matt Harman on 07/24/19 8:[address] Patient Name: YUMIKO PADILLA Encounter No: [id number] : 1945 Primary Insurance: [employer] MEDICARE ADV Anticipated DC Date: 07-23-2019 Planned Disposition: Home with Home Health External Planned Provider: [facility] DCP follow-up note: PT DISCHARGED HOME, NOTIFIED RIO [facility] AT [phone], FAXED DISCHARGE INFORMATION TO [facility] AT [phone]. Matt Harman, CASE MANAGEMENT DCP- Discharge Planning Updated by [id number]: Matt Harman on 07/23/19 2:[address] Patient Name: YUMIKO PADILLA Encounter No: [id number] : 1945 Primary Insurance: WELL[employer] MEDICARE ADV Anticipated DC Date: 07-23-2019 Planned Disposition: Home with Home Health External Planned Provider: [facility] DCP follow-up note: CM SPOKE TO DR. LOWRY WHO ORDERED LIFE 2000 VENTILATOR AND CANCELLED TRILOGY PT WILL NOT WEAR THE MASK. DR. LOWRY ADVISED PT CAN DISCHARGE HOME TODAY AND IF APPROVED BY INSURANCE, THEY CAN DELIVER THE LIFE 2000 TO PT AT HOME. CM SPOKE TO PT IN ROOM, PT REPORTS WANTING TO GO HOME SOON POSSIBLE AND IN AGREEMENT WITH PLAN OF HOME TO WAIT ON LIFE 2000 VENTILOATOR AND [facility]. PT REPORTS HE WILL GET READY AND HAVE FAMILY PICK HIM UP. CM NOTIFIED GIANA ZHU. CM CALLED DAISY AT [facility], , NOTIFIED OF NEW ORDER. DAISY WILL ARRANGE HOME DELIVERY OF LIFE 2000 ONCE APPROVED BY INSURANCE. CM FAXED UPDATE TO [facility] AT [phone]. . FOR DISCHARGE HOME, NOTIFY [facility] AT [phone], FAX DISCHARGE INFORMATION TO [facility] AT [phone]. Matt Harman CASE MANAGEMENT DCP- Discharge Planning Updated by [email or web address]: Matt Harman on 07/22/19 8:[address] Patient Name: YUMIKO PADILLA Encounter No: [id number] : 1945 Primary Insurance: WE[employer] MEDICARE ADV Anticipated DC Date: 07-22-2019 Planned Disposition: Home with Home Health External Planned Provider: [facility] DCP follow-up note: CM SPOKE TO PT IN ROOM, PT REPORTS WANTING TO GO HOME SOON HE CAN GET THE TRILOGY MACHINE. CM EXPLAINED THAT CM STILL WAITING INSURANCE AUTH PER [facility]. IMPORTANT MESSAGE FROM MEDICARE PROVIDED TO PT. CM WAITING FOR INSURANCE APPROVAL FOR TRILOGY FROM [facility]. FOR DISCHARGE HOME, NOTIFY [facility] AT [phone], FAX DISCHARGE INFORMATION TO [facility] AT [phone]. Matt Harman CASE MANAGEMENT DCP- Discharge Planning Updated by [id number]: Matt Harman on 07/19/19 3:[address] Patient Name: YUMIKO PADILLA Encounter No: [id number] : 1945 Primary Insurance: WELL[employer]ARE MEDICARE ADV Anticipated DC Date: 07-22-2019 Planned Disposition: Home with Home Health External Planned Provider: [facility] DCP follow-up note: CM CALLED [facility], , SPOKE TO DAISY WHO INFORMED CM THAT THEY ARE WAITING INSURANCE PRIOR AUTHORIZATION AND IT MAY BE MONDAY OR MONDAY OF NEXT WEEK BEFORE THEY GET IT. CM NOTIED DR. DARLING AND PT. IMPORTANT MESSAGE FROM MEDICARE PROVIDED TO PT. CM WAITING FOR INSURANCE APPROVAL FOR TRILOGY FROM [facility]. FOR DISCHARGE HOME, NOTIFY [facility] AT [phone], FAX DISCHARGE INFORMATION TO [facility] AT [phone]. Matt Harman CASE MANAGEMENT DCP- Discharge Planning Updated by [id number]: Matt Harman on 07/19/19 10:[address] Patient Name: YUMIKO PADILLA Encounter No: [id number] : 1945 Primary Insurance: WELL[employer] MEDICARE ADV Anticipated DC Date: Planned Disposition: Home with Home Health External Planned Provider: [facility] DCP follow-up note: CM CALLED [facility], , SPOKE TO SUKH WHO INFORMED CM THAT SHE WILL PROCESS ORDER TODAY FOR TRILOGY. CM REFAXED ORDER TO TRILOGY TO [facility] AT [phone]. CM CALLED LUKAS OF [facility] [phone] AND NOTIFIED OF POSSIBLE DISCHARGE TODAY FOR HOME HEALTH RESUMPTION. CM FAXED UPDATE TO [facility] AT [phone]. CM WAITING FOR ORDER PROCESSING AND APPROVAL FOR TRILOGY FROM [facility]. FOR DISCHARGE HOME, NOTIFY [facility] AT [phone], FAX DISCHARGE INFORMATION TO [facility] AT [phone]. Matt Harman, CASE MANAGEMENT DCP- Discharge Planning Updated by [id number]: Matt Harman on 07/18/19 3:[address] Patient Name: YUMIKO PADILLA Encounter No: [id number] : 1945 Primary Insurance: WELLCARE MEDICARE ADV Anticipated DC Date: Planned Disposition: Home with Home Health External [facility] follow-up note: CM SPOKE TO DR. DARLING WHO ORDERED BIPAP FOR HOME USE. CM SPOKE TO PT WHO IS WILLING FOR WHATEVER MACHINE THE DOCTOR WANTS HIM TO TRY. PT DECIDED TO GO HOME WITH [facility]. CHOICE PREVIOUSLY SIGNED FOR [facility] . PT WANTS TO USE [facility] FOR ANY OTHER MEDICAL EQUIPMENT. CM CALLED [facility], , SPOKE TO AMANDA WHO INFORMED CM THAT PT'S INSURANCE WILL NOT COVER BIPAP WITHOUT CURRENT SLEEPSTUDY AND SUGGESTED TRILOGY POSSIBLE ALTERNATIVE. CM SPOKE TO PT WHO INFORMED CM HE HAS NEVER HAD A SLEEP STUDY. CM NOTIFIED GIANA JUAN AND RECEIVED ORDER FOR TRILOGY. CM CALLED AMANDA AT [facility], . CM PROVIDED REFERRAL INFORMATION. CM FAXED REFERRAL FOR TRILOGY, . CM WAITING FOR ORDER PROCESSING AND APPROVAL FOR TRILOGY FROM [facility]. PT WILL RESUME HOME HEALTH WITH [facility] FOR DISCHARGE HOME. Matt Harman, CASE MANAGEMENT DCP- Discharge Planning Updated by [id number]: Matt Harman on 07/17/19 4:[address] Patient Name: YUMIKO PADILLA Admission Status: ER Accout number: [id number] Admission Date: 07-09-2019 : 1945 Admission Diagnosis: Attending: YANDY MARMOLEJO Current LOS: 8 Anticipated DC Date: Planned Disposition: Home WITH HOME HEALTH OR HOME HOSPICE Primary Insurance: WELLCARE MEDICARE ADV PLANNED EXTERNAL PROVIDER: [facility] OR [facility] Discharge Planning Comments: CM MET WITH PT IN ROOM TO DISCUSS DISCHARGE PLANNING AND NEEDS. PT REPORTS LIVING AT HOME INDEPENDENTLY WITH HIS ADULT DAUGHTER AT [address] [place] [address]. PT HAS HOME AND PORTABLE OXGYEN AND NEBULIZER WELL WALKER FROM [facility]. PT HAS HOME HEALTH WITH [facility]. CM DISCUSSED AVAILABILITY OF HOME HEALTH, REHAB SERVICES AND MEDICAL EQUIPMENT. HAS TALKED TO [facility] ALREADY AND WILL GO HOME TO HIS DAUGHTERS HOME, WITH HOME HEALTH OR HOSPICE FROM [facility]. PT REPORTS HER DAUGHTER WILL PICK HIM UP FOR DISCHARGE HOME. IMPORTANT MESSAGE FROM MEDICARE PROVIDED AND EXPLAINED. PT WANTS TO DISCUSS HIS CARE WITH THE DOCTOR FURTHER BEFORE MAKING FURHTER DECISIONS REGARDING DISCHARGE PLAN. CM CALLED [facility], THEY CAN DO BIPAP WITH HOSPICE CARE, BUT CANNOT DO A TRILOGY MACHINE. CM WAITING ON PT TO MAKE DECISION BETWEEN [facility] AND [facility]. CM IS NOT ABLE TO ARRANGE HOME BIPAP UNTIL PT MAKES THIS DECISION. News Clipping Cutter: Matt Harman DCPIA - Discharge Planning Initial Assessment Updated by [id number]: Matt Harman on 07/17/19 5:26 pm * Is the patient Alert and Oriented? Yes * How many steps to enter\exit or inside your home? NONE * PCP DR. BENÍTEZ * Pharmacy [facility] * Preadmission Environment Home with Family * ADLs Independent * Equipment Nebulizer Oxygen Walker * Other Equipment HOME AND PORTABLE OXYGEN FROM [facility] * List name and contact numbers for known caregivers / representatives who currently or will assist patient after discharge: ANN READ DTR, * Verbal permission to speak to the caregivers and representatives has been obtained from the patient. N/A * Community resources currently utilized Home Health * Please name any agencies selected above. [facility] * Additional services required to return to the preadmission environment? No * Can the patient safely return to the preadmission environment? Yes * Has this patient been hospitalized within the prior 30 days at any hospital? Yes Coverage Notice Reviewer: MIYA Harman Notice Issued Date-Time: 07/16/2019 17:15 Notice Type: Patient Choice Letter Notice Delivered To: Patient Relationship to Patient: Sintering Plant Supervisor Name: Delivery Method: HAND - Hand Delivered Maddison Days: Prior Verbal Notification: Recipient Understood Notice: Yes Recipient Signature: Yes Med Rec Note Co-signed by Attending: Coverage Notice Comment: [facility] Reviewer: MIYA Harman Notice Issued Date-Time: 07/22/2019 9:35 Notice Type: IM Discharge Notice Notice Delivered To: Patient Relationship to Patient: Sintering Plant Supervisor Name: Delivery Method: HAND - Hand Delivered Maddison Days: Prior Verbal Notification: Recipient Understood Notice: Yes Recipient Signature: Yes Med Rec Note Co-signed by Attending: Coverage Notice Comment: Reviewer: MIYA Harman Notice Issued Date-Time: 07/19/2019 13:15 Notice Type: IM Discharge Notice Notice Delivered To: Patient Relationship to Patient: Sintering Plant Supervisor Name: Delivery Method: HAND - Hand Delivered Maddison Days: Prior Verbal Notification: Recipient Understood Notice: Yes Recipient Signature: Yes Med Rec Note Co-signed by Attending: Coverage Notice Comment: Reviewer: MIYA Harman Notice Issued Date-Time: 07/16/2019 17:15 Notice Type: IM Discharge Notice Notice Delivered To: Patient Relationship to Patient: Sintering Plant Supervisor Name: Delivery Method: HAND - Hand Delivered Maddison Days: Prior Verbal Notification: Recipient Understood Notice: Yes Recipient Signature: Yes Med Rec Note Co-signed by Attending: Coverage Notice Comment: Last DP export: 07/24/19 8:01 a Patient Name: YUMIKO PADILLA Page [id number] at 0908 All edits/amendments must be made on the electronic document DICTATION DATE: 07/24/19906 MEDICAL SALES ASSOCIATE: DELIA 07/24/19906 RPT#: [id number] DC DATE:07/23/19 STATUS: DIS IN [id number] [place] [address] END OF REPORT
== END 2019-07-23 18:22 | disposition home health service (06) | DRG 177 ==
LOC: D.ER 19:04 → D.M2 20:37 → D.SDCHOLD 07-11 15:45 → D.M2 07-23 18:22
PROVIDERS: Emergency Medicine; Family Medicine; Internal Medicine Nephrology; ADMIT Emergency Medicine; ATTEND Emergency Medicine
DX: J69.0 Pneumonitis due to inhalation of food and vomit (principal); J96.21 Acute and chronic respiratory failure with hypoxia; J44.1 Chronic obstructive pulmonary disease with (acute) exacerbation; F17.213 Nicotine dependence, cigarettes, with withdrawal; I50.32 Chronic diastolic (congestive) heart failure; D64.9 Anemia, unspecified; I11.0 Hypertensive heart disease with heart failure; I25.10 Atherosclerotic heart disease of native coronary artery without angina pectoris; E11.65 Type 2 diabetes mellitus with hyperglycemia; E78.5 Hyperlipidemia, unspecified; Z86.73 Personal history of transient ischemic attack (TIA), and cerebral infarction without residual deficits

== ENCOUNTER → 2019-11-05 09:26 | Outpatient (CLI) | payer MEDICARE, MEDICAID ==
[2019-07-15 14:41] VITALS: BMI 24.1
[~2019-11-05 09:26] MED LIST changes: +ATIVAN0.5 MG PO
--- NOTE | 2019-11-07 10:50 | EC ---
PATIENT:BEATRIZ PADILLA DATE OF SERVICE: 11/05/19 SEX: M MEDICAL RECORD: [id number] DATE OF : [birth year] LOCATION:D[facility] AGE OF PATIENT: 74 ADMISSION DATE: 11/05/19 REFERRING PHYSICIAN: INTERPRETING PHYSICIAN: GRACE MOORE MD ECHOCARDIOGRAM REPORT ECHO CHARGES 4 ECHO COMPLETE Date: 11/05/19 CLINICAL DIAGNOSIS: CAD HX OF LVH/TRACE TR ECHOCARDIOGRAPHIC MEASUREMENTS (adult normal given) AC root (d.<3.7cm) 3.6 cm LV Septum d (<1.2 cm> 1.2 cm Valve Excursion 1.4 cm LV Septum (systole) 1.3 cm Left Atria (s.<4.0cm> 4.1 cm LVPW d(<1.2cm) 1.2 cm RV (d.<2.3cm) 3.2 cm LVPW (sytole) 1.5 cm LV diastole(<5.6CM) 3.7 cm MV E-F(>70mm/sec) cm LV systole 2.7 cm LVOT Diameter 1.7 cm MV exc.(>10mm) 1.6 cm Est.ejection fraction (50-75%) % DOPPLER: LVIT cm/sec A 80.0 cm/sec E 59.0 cm/sec LA cm/sec RVSP 13 mmHg LVOT 97 cm/sec AOP1/2T m/s Asc. Ao 152 cm/sec RVOT 36 cm/sec RA cm/sec PA 106 cm/sec AV Gradient Peak 9.28 mmHg AV Mean 5.31 mmHg AV Area 1.5 cm MV Gradient Peak 3.51 mmHg MV Mean 1.25 mmHg MV Area cm COMMENTS: Derrick Boat Lever Operator: 2 HEMANT LEON Bondactor Machine Operator: 3 Dr. Galaviz TAPE# PACS Pericardial Effusion N DATE OF SERVICE: Adequate 2D, color flow imaging, spectral Doppler, and M-Mode. Borderline LVH. LV internal dimensions are normal. Wall motion is normal. EF is greater than or equal to 55%. Aortic valve is tricuspid. No evidence of stenosis by Doppler interrogation. Left atrium is upper limits of normal and minimally dilated at 4.1 cm. Mitral valve shows no prolapse. Trace MR. Right-sided chambers are grossly normal. Trace TR. ECHOCARDIOGRAM REPORT [id number] BEATRIZ PADILLA TRANSINT:[id number] Voice Confirmation ID: [id number] DOCUMENT ID: [id number] GRACE MOORE MD at 1050 CC: [id number] DICTATION DATE: 11/06/19 1134 SPINNER CAP FRAME: 11/06/19 1752 DEP CLI 11/05/19 [place] [id number] [place] [id number]
== END | disposition home or self-care (01) ==
LOC: D.HCCECHO 09:26
PROVIDERS: ATTEND Internal Medicine Cardiovascular Disease
DX: I25.10 Atherosclerotic heart disease of native coronary artery without angina pectoris (principal)

== ENCOUNTER 2019-11-07 20:59 | Observation (INO) | payer MEDICARE, MEDICAID ==
[~2019-11-07] VITALS: Ht 172.7 cm; Wt 75.0 kg
--- NOTE | ~2019-11-07 | HEMODYNAMI ---
PATIENT:BEATRIZ PADILLA MEDICAL RECORD: [id number] : 49 LOCATION:[facility] [address] [place], [place] [address]T# [id number] ADMISSION DATE: 11/07/19 Generatedon:11/08/201910:39 Patient name: BAETRIZ PADILLA Patient #: [id number] : 1945 Date of study: 11/08/2019 Page: Of Hemodynamic Procedure Report Patient Data Patient Demographics Procedure consent was obtained First Name: BEATRIZ Gender: Male Last Name: VALERIE : 1945 Middle Initial: MIRTA Age: 74 year(s) Patient #: [id number] Race: SSN: [id number] Additional ID: [id number] Contact details [address]: [address] [place] [address] [place]IL [place]: [place] City: [place] Zip code: [address] Past Medical History History of disease Date Diagnosis Comments CAD Allergies Allergen Reaction Date Comments Reported Penicillins 08/25/2014 Other allergy 08/02/2016 PCN Other allergy 11/08/2019 Pcn/clarithromycin Admission Admission Data Admission Date: 11/07/2019 Admission Time: 21:54 Arrival Date: 11/08/2019 Arrival Time: 0:00 Room #: [facility] Height (in.): 68.11 BSA: 1.89 (m2) Height (cm.): 173 BMI: 25.06 (kg/m2) Weight (lbs.): 165.35 Weight (kg.): 75 Lab Results Lab Result Date: 11/08/2019 Lab Result Time: 0:00 Biochemistry Name Units Result Min Max BUN mg/dl 9 --(*---)-- 7 18 Creatinine mg/dl 0.7 --(*---)-- 0.6 1.3 eGFR ml/min 90 --(*---)-- 90 120 NONAFRICAN CBC Name Units Result Min Max Hematocrit % 38.9 *-(----)-- 42 54 Hemoglobin g/dl 11.9 *-(----)-- 13.5 17.5 Procedure Procedure Types Cath Procedure Diagnostic Procedure [facility] w/Coronaries Sedation Charges Moderate Sedation up to 15 minutes Procedure Description Procedure Date Procedure Date: 11/08/2019 Procedure Start Time: 10:26 Procedure End Time: 10:37 Procedure Staff Name Function Saw Swanson MD Performing Physician Megan Mahmood RT Theater Set Production Designer sAhley Streeter RT Monitor Ann Gabriel RN Nurse Denisse Ingram RT Scrub Procedure Data Cath Procedure Fluoroscopy Diagnostic fluoroscopy Total fluoroscopy Time: 1.1 time: 1.1 min min Diagnostic fluoroscopy Total fluoroscopy dose: 470 dose: 470 mGy mGy Entry Location Entry Primary Successful Side Size Upsize Upsize Entry Closure Succes sful Closure Location (Fr) 1 (Fr) 2 (Fr) Remarks Device Remarks Femoral Right 5 Fr Exoseal artery Estimated blood loss: 10 ml Diagnostic catheters Device Type Used For End Catheter Placement MULTIPACK JL 4.0 5Fr Procedure catheter MULTIPACK 3DRC 5Fr Procedure catheter MULTIPACK Pigtail 5 Fr Ventriculography catheter Procedure Complications No complications Procedure Medications Medication Administration Route Dosage 0.9% NaCl I.V. 100 ml/hr Oxygen etCO2 Nasal cannula 2 l/min Lidocaine 2% added to field 20 Heparin Flush Bag added to field 2 bags (1000units/500ml NS) Versed I.V. 2 mg Fentanyl I.V. 50 mcg Fentanyl I.V. 50 mcg Hemodynamics Rest BSA: 1.89 (m2) HGB: 11.9 (g/dl) O2 Consumption: Estimated: 216.1 (ml/min) O2 Con sumption indexed: Estimated:114.34 (ml/min/m) Heart Rate: 67 (bpm) Pressure Samples Time Site Value (mmHg) Purpose Heart Use Rate(bpm) 10:34 LV 143/5,9 Snapshot 70 Snapshots Pre Cath Intra NCS Post Cath Vital Signs Time Heart Resp SPO2 etCO2 NIBP (mmHg) Rhythm Pain Sedation Rate (ipm) (%) (mmHg) Status Level (bpm) 10:21:41 65 24 97 13 175/89(128) NSR 0 (11) 10(A) , No pain 10:25:59 65 19 98 23.2 162/85(135) NSR 0 (11) 10(A) , No pain 10:30:15 67 16 97 15.7 144/81(124) NSR 0 (11) 10(A) , No pain 10:34:33 69 14 98 18.7 145/76(117) NSR 0 (11) 10(A) , No pain Medications Time Medication Route Dose Verified Delivered Reason Notes Eff ectiveness by by 10:23:18 0.9% NaCl I.V. 100 Saw Ann used for ml/hr [place] procedure RN 10:23:24 Oxygen etCO2 2 Saw Ann used for Nasal l/min [facility] procedure cannula MD GRANT 10:23:29 Lidocaine 2% added 20ml Saw Saw for local to vial [facility] anesthetic field MD FERRELL 10:23:33 Heparin Flush added 2 Saw Saw used for Bag to bags [facility] procedure (1000units/500ml field MD FERRELL NS) 10:23:46 Versed I.V. 2 mg Saw Ann for [place] sedation MD GRANT 10:23:50 Fentanyl I.V. 50 Saw Ann for mcg [place] sedation MD GRANT 10:28:24 Fentanyl I.V. 50 Saw Ann for mcg [place] Harvey sedation lodge officer Log Time Note 10:07:15 Informed consent obtained and on chart 10:07:21 Arrival Date: 11/08/2019 12:00:00 AM 10:07:31 Procedure Status Urgent Heart Cath (IP). 10:07:34 Megan Mahmood RT(R) sent for patient. Start room use. 10:07:43 Time tracking: Call back (After hours or weekends) 10:07:51 Plan of Care:Hemodynamics will remain stable., Cardiac rhythm will remain stable., Comfort level will be maintained., Respiratory function will remain adequate., Patient/ family verbilizes understanding of procedure., Procedure tolerated without complication., Recovers from procedure without complications.. 10:10:07 Patient Height : 68.11 inches 10:10:12 Patient Weight : 165.35 lbs 10:11:04 Lab Result : eGFR NONAFRICAN 90 ml/min 10:11:04 Lab Result : Hemoglobin 11.9 g/dl 10:11:04 Lab Result : BUN 9 mg/dl 10:11:04 Lab Result : Creatinine 0.7 mg/dl 10:11:04 Lab Result : Hematocrit 38.9 % 10:12:41 Patient allergic to Other allergyPcn/clarithromycin 10:15:23 Patient received from Med II to CCL 1 Alert and oriented. Tansferred to table in Supine position. 10:15:25 Warm blankets applied, and oren hugger turned on for patient comfort. 10:15:26 Correct patient and procedure confirmed by team. 10:15:27 ECG and BP/O2 sat monitors applied to patient. 10:15:35 Risk of Mortality: 0.4 10:15:40 Risk of blood transfusion: 1.0 10:15:44 Risk of GERMAN: 3.3 10:18:13 H&P Date Dictated: 11/07/2019 ER History on chart.. 10:18:14 Pre-procedure instructions explained to patient. 10:18:14 Pre-op teaching completed and patient verbalized understanding. 10:18:16 Family in patients room. 10:18:17 Patient NPO since Midnight. 10:18:19 Is patient on blood thinner?Yes 10:18:21 ACC The patient was administered the following blood thiners within the last 24 hours: ACCPlavix 10:18:22 Patient diabetic? Yes. 10:18:23 If diabetic: On Metformin? Yes 10:18:24 If on Metformin: Last Dose? 11/07/2019 10:18:27 Previous problem with sedation/anesthesia? No ? 10:18:28 Snore? Yes 10:18:29 Sleep apnea? No 10:18:32 Deviated septum? No 10:18:33 Opens mouth fully? Yes 10:18:35 Sticks out tongue? Yes 10:18:39 Airway obstruction? Yes COPD 10:18:41 Dentures? No ? 10:18:45 Pre procedure: right dorsailis pedis pulse 1+ Palpable, but thready & weak; easily obliterated 10:18:48 Patient pain scale 0/10 ?. 10:18:55 IV patent on arrival in left hand with 0.9% NaCl at O. 10:18:58 Lab results completed and on chart. 10:19:02 Right groin area was prepped with chlora-prep and draped in sterile fashion 10:19:03 Alarms reviewed by R. N. 10:19:03 Sharps counted by scrub and verified by R.N. 10:19:04 Sharps counted by scrub and verified by R.N. 10:19:55 Use device set Femoral Dx 10:20:16 ACIST Syringe (40691) opened to sterile field. 10:20:16 Bag Decanter (2002S) opened to sterile field. 10:20:17 ACIST Hand Control (35568) opened to sterile field. 10:20:17 ACIST Manifold (78444) opened to sterile field. 10:20:18 Tegaderm 4 x 4 (1626W) opened to sterile field. 10:20:19 Medline Cath Pack ([id number]) opened to sterile field. 10:20:21 DIAGNOSTIC Multipack 5Fr catheter set (QS3689) opened to sterile field. 10:20:22 SHEATH 5FR Peapack (YEL136) opened to sterile field. 10:20:22 EMERALD Guide Wire (948-677) opened to sterile field. 10:20:28 Vital chart was started 10:20:31 Baseline sample Acquired. 10:20:34 Rhythm: sinus rhythm 10:20:36 Full Disclosure recording started 10:22:41 Physician arrived 10:22:42 --------ALL STOP TIME OUT------ 10:22:43 Final Timeout: patient, procedure, and site verified with staff and physician. All members of the team are in agreement. 10:22:56 Right groin site verified by team. 10:23:06 Fire Safety Assessment: A--An alcohol-based skin anteseptic being used preoperatively. 10:23:12 Physical assessment completed. ASA score P 2 - A patient with mild systemic disease as per Saw Swanson MD. 10:23:17 1) 90+ Normal kidney functon but urine findings or structural abnormalities or genetic trait point to kidney disease. 10:23:18 0.9% NaCl 100 ml/hr I.V. was administered by Ann Gabriel RN; used for procedure; Verbal order read back and verified. 10:23:21 Maximum allowable contrast dose (3.7 X eGFR X 0.75)250 ml. 10:23:24 Oxygen 2 l/min etCO2 Nasal cannula was administered by Ann Gabriel RN; used for procedure; Verbal order read back and verified. 10:23:25 Sedation plan: IV Moderate Sedation Medication:Versed, Fentanyl 10:23:29 Lidocaine 2% 20ml vial added to field was administered by Saw Swanson MD; for local anesthetic; Verbal order read back and verified. 10:23:33 Heparin Flush Bag (1000units/500ml NS) 2 bags added to field was administered by Saw Swanson MD; used for procedure; Verbal order read back and verified. 10:23:46 Versed 2 mg I.V. was administered by Ann Gabriel RN; for sedation; Verbal order read back and verified. 10:23:50 Fentanyl 50 mcg I.V. was administered by Ann Gabriel RN; for sedation; Verbal order read back and verified. 10:26:49 Procedure started. 10:26:55 Local anesthetic to right femoral artery with Lidocaine 2% by Saw Swanson MD.INITIAL ACCESS ONLY 10:27:13 A 5 Fr sheath was inserted into the Right Femoral artery 10:28:24 Fentanyl 50 mcg I.V. was administered by Ann Gabriel RN; for sedation; Verbal order read back and verified. 10:28:26 J wire advanced. 10:28:52 A MULTIPACK JL 4.0 5Fr catheter was advanced over the wire and used for Procedure. 10:29:29 LCA angiography performed. 10:32:26 A MULTIPACK 3DRC 5Fr catheter was advanced over the wire and used for Procedure. 10:32:28 RCA angiography performed. 10:33:42 A MULTIPACK Pigtail 5 Fr catheter was advanced over the wire and used for Ventriculography. 10:33:46 LV angiography performed. 10:33:50 EF : 50 % 10:33:50 Catheter removed. 10:33:52 EXOSEAL 5Fr (EX500) opened to sterile field. 10:34:04 Sheath removed intact; hemostasis achieved with Exoseal to the Right Femoral artery. 10:34:25 Procedure ended.(Physican Out) 10:34:29 Fluoroscopy time 01.10 minutes. 10:34:35 Fluoroscopy dose: 470 mGy 10:34:35 Flurop Dose total: 470 10:34:40 Dose Area Product 34820 mGy/cm. 10:35:55 Insertion/operative site no bleeding no hematoma. 10:36:04 Post-op/insertion site Right Femoral artery dressed using a 4 x 4 and Tegaderm. 10:36:07 Post Procedure Pulses reassessed and unchanged 10:36:27 Post-procedure physical assessment completed. ASA score P 2 - A patient with mild systemic disease as per Saw Swanson MD. 10:36:30 Post procedure rhythm: unchanged. 10:36:33 Estimated blood loss: 10 ml 10:36:34 Post procedure instruction explained to patient.Patient verbalizes understanding. 10:36:46 Procedure type changed to Cath procedure, Diagnostic procedure, LHC, LHC w/Coronaries, Sedation Charges, Moderate Sedation up to 15 minutes 10:36:48 Procedure and supply charges have been captured, reviewed, submitted and are correct. 10:37:03 Procedure and supply charges have been captured, reviewed, submitted and are correct. 10:37:18 Procedure Complication : No complications 10:37:21 Vital chart was stopped 10:37:23 [facility] Findings: mild to moderate CAD (<70%) 10:37:31 Report given to Med II. 10:37:37 Patient transfered to Med II with Bed. 10:37:40 Procedure ended. 10:37:40 Full Disclosure recording stopped 10:37:42 End room use (Document Last) Device Usage Item Name Manufacture Quantity Catalog Hospital Part Current Minimal L ot# / Number Charge Number Stock Stock Serial# Code ACIST Acist 1 04580 527626 786791 901200 20 Syringe Medical (59855) Systems Inc Bag Microtek 1 207651 05088 097883 5 Decanter Medical Inc. () ACIST Hand Acist 1 88147 000526 067718 556023 5 Control Medical (99206) Systems Inc ACIST Acist 1 69990 835239 486876 564623 5 Manifold Medical (03266) Systems Inc Tegaderm 4 3M 1 1626W 053514 865169 138792 5 x 4 (1626W) Medline Medline 1 [id number] 630807 43802 707206 5 Cath Pack ([id number]) DIAGNOSTIC Cardinal 1 BV5627 017325 24140 334570 30 MultipRocketmiles 5Fr catheter set (YQ3572) SHEATH 5FR Terumo 1 LAC536 883036 291975 227177 5 Peapack (ALH084) EMERALD Cardinal 1 502-455 845387 441996 919324 5 Guide Wire Certpoint Systems (502-273) MULTIPACK Cardinal 1 153631 5 JL 4.0 5Fr Health catheter MULTIPACK Cardinal 1 595191 5 3DRC 5Fr Health catheter MULTIPACK Cardinal 1 536048 5 Pigtail 5 Health Fr catheter EXOSEAL 5Fr Cardinal 1 EX500 572042 051670 989964 10 (EX500) Health Signature Audit [place] Stage Time Signature Unsigned Intra-Procedure 11/08/2019 Ashley Streeter 10:37:03 AM RT(R) Intra-Procedure 11/08/2019 Ann Gabriel 10:38:49 AM RN Intra-Procedure 11/08/2019 Saw Mcintosh 10:39:14 AM Slava FERRELL [facility] [address] [place] [address]
[~2019-11-07 20:59] MED LIST changes: -ATIVAN0.5 MG PO
[2019-11-07 21:47] VITALS: BP 124/81
[2019-11-07 21:50] LABS: BASOPHILS 0.2 % (0-2); EOSINOPHILS 2.4 % (0-7); HEMATOCRIT 40.4 % (42.0-54.0); HEMOGLOBIN 12.6 g/dL (13.5-17.5); IMMATURE GRANULOCYTES 0.2 % (0-5); LYMPHOCYTES 26.1 % (15-50); MCH 27.6 pg (26.0-34.0); MCHC 31.2 g/dL (31.0-37.0); MCV 88.6 fL (80.0-100.0); MEAN PLATELET VOLUME 8.6 fL (7.4-10.4); MONOCYTES 11.3 % (2-11); NEUTROPHILS 59.8 % (40-80); PLATELET COUNT 263 10x3/uL (130-400); RBC 4.56 10x6/uL (4.20-6.10); RDW 14.4 % (11.5-14.5); WBC 12.3 10x3/uL (4.8-10.8)
[2019-11-07 21:54] LABS: APTT 28.9 SECONDS (22.8-39.4); INR 0.96 (0.85-1.17); PROTIME 12.8 SECONDS (11.6-15.0)
[2019-11-07 21:55] LABS: CALC OSMOLALITY 267 mosm/kg (275-300); CALCIUM 8.9 mg/dL (8.5-10.1); CARBON DIOXIDE 29.2 mmol/L (21.0-32.0); CHLORIDE - SERUM 100 mmol/L (98-107); CREATININE - SERUM 0.8 mg/dL (0.6-1.3); GLUCOSE 125 mg/dL (74-106); POTASSIUM - SERUM 3.7 mmol/L (3.5-5.1); SODIUM 134 mmol/L (136-145); UREA NITROGEN 11 mg/dL (7-18); eGFR NON AFRICAN AMERICAN > 90 mL/min (90-120)
[2019-11-07 21:56] LABS: BILIRUBIN NEGATIVE (NEGATIVE); GLUCOSE NEGATIVE (NEGATIVE); KETONE NEGATIVE (NEGATIVE); NITRITE NEGATIVE (NEGATIVE); SPECIFIC GRAVITY 1.005 (1.005-1.020); UROBILINOGEN NORMAL (NORMAL)
[2019-11-07 22:09] LABS: ALBUMIN 3.7 g/dL (3.4-5.0); ALKALINE PHOSPHATASE 49 U/L (30-120); ALT (SGPT) 17 U/L (10-68); BILIRUBIN - TOTAL 0.19 mg/dL (0.2-1.3); CKMB 0.9 U/L (0.0-3.6); CREATINE KINASE 50 UL (21-232); MAGNESIUM - SERUM 2.2 mg/dL (1.8-2.4); TROPONIN-I < 0.017 ng/mL (0.000-0.060)
[2019-11-08] MEDS ORDERED: ATIVAN0.5 MG PO (00:18)
[2019-11-08 01:42] VITALS: Ht 172.7 cm; Wt 75.0 kg
[2019-11-08 01:55] LABS: CKMB 0.8 U/L (0.0-3.6); CREATINE KINASE 46 UL (21-232); TROPONIN-I < 0.017 ng/mL (0.000-0.060)
[2019-11-08 04:00] VITALS: BP 144/79
[2019-11-08 07:38] LABS: CKMB 0.7 U/L (0.0-3.6); CREATINE KINASE 45 UL (21-232); TROPONIN-I < 0.017 ng/mL (0.000-0.060)
[2019-11-08 09:18] LABS: BASOPHILS 0.4 % (0-2); EOSINOPHILS 3.9 % (0-7); HEMATOCRIT 38.9 % (42.0-54.0); HEMOGLOBIN 11.9 g/dL (13.5-17.5); IMMATURE GRANULOCYTES 0.3 % (0-5); LYMPHOCYTES 27.5 % (15-50); MCH 27.1 pg (26.0-34.0); MCHC 30.6 g/dL (31.0-37.0); MCV 88.6 fL (80.0-100.0); MEAN PLATELET VOLUME 8.9 fL (7.4-10.4); MONOCYTES 13.5 % (2-11); NEUTROPHILS 54.4 % (40-80); PLATELET COUNT 269 10x3/uL (130-400); RBC 4.39 10x6/uL (4.20-6.10); RDW 14.5 % (11.5-14.5)
[2019-11-08 09:20] LABS: ALT (SGPT) 14 U/L (10-68); CALC OSMOLALITY 279 mosm/kg (275-300); CALCIUM 8.8 mg/dL (8.5-10.1); CARBON DIOXIDE 27.9 mmol/L (21.0-32.0); CHLORIDE - SERUM 106 mmol/L (98-107); CHOLESTEROL, TOTAL 99 mg/dL (0-200); CREATININE - SERUM 0.7 mg/dL (0.6-1.3); GLUCOSE 98 mg/dL (74-106); HDL CHOLESTEROL 33 mg/dL (32-96); LDL CHOLESTEROL 48 mg/dL (0-100); LDL-HDL RATIO 1.5 ratio (1.5-3.5); SODIUM 141 mmol/L (136-145); TRIGLYCERIDE 90 mg/dL (30-200); UREA NITROGEN 9 mg/dL (7-18); eGFR NON AFRICAN AMERICAN > 90 mL/min (90-120)
[2019-11-08 09:25] LABS: WBC 7.8 10x3/uL (4.8-10.8)
[2019-11-08 09:26] VITALS: BP 126/59
--- NOTE | 2019-11-08 10:56 | NUR ---
RECEIVED PT FROM [facility] [employer]. PT IS SLEEPING WITH EYES CLOSED AT THIS TIME. NO S/S OF DISTRESS NOTED. RR EVEN AND UNLABORED ON 2L 02. VSS AND WNL. RIGHT FEM SITE IS C/D/I WITH NO S/S OF HEMATOMA PREENT. RIGHT PERIPHERAL PULSE EVEN BILATERALLY AND STRONG. WILL CTM. NS INFUSING @200ML/HR VIA L.WRIST PIV.
[2019-11-08 12:00] VITALS: BP 139/75
--- NOTE | 2019-11-08 15:44 | NUR ---
PT DISCHARGED HOME VIA WHEELCHAIR WITH FAMILY. PIV REMOVED WITH CATHETER TIP FULLY INTACT. TELEMETRY REMOVED AND RETURNED. PT SIGNED PROPER DISCHARGE INSTRUCTIONS AND REMOVED ALL VALUABLES FROM THE ROOM.
--- NOTE | 2019-11-09 10:04 | OP ---
PATIENT NAME: BEATRIZ PADILLA MEDICAL RECORD: [id number] :[birth year] LOCATION:D.M2 D.2121 ADMISSION DATE:11/07/19 SURGEON: GRACE MOORE MD DATE OF OPERATION: 11/08/2019 PROCEDURE: Left heart catheterization, selective coronary angiography, a right femoral artery approach. CATHETERS: A 5-Latvian sheath, 5/4 left and right Elvira, 5/4 pig. The procedure was well tolerated. The patient returned to [place]. Sheath removed. ExoSeal device placed. FINDINGS: Left ventriculography in 30-degree SALCIDO view: Normal wall motion. Normal systolic function. CORONARY ANATOMY: LEFT MAIN: Left main is free of disease. LAD: An area of previous stenting is widely patent. No evidence of restenosis. No progression of newtok disease. CIRCUMFLEX: Small vessel, free of disease. RIGHT CORONARY ARTERY: Large artery, widely patent stents. No evidence of restenosis. No progression of newtok disease. IMPRESSION: Patent stent, no progression of newtok disease. Left ventricular function remains normal. TRANSINT:[id number] Voice Confirmation ID: [id number] DOCUMENT ID: [id number] GRACE MOORE MD at 1004 CC: [id number] DICTATION DATE: 11/08/19 104 STORE FACILITY TECHNICIAN: 11/08/192122 DIS IN 11/08/19 [facility] [address] [place] [address]
== END 2019-11-08 15:45 | disposition home or self-care (01) ==
LOC: D.ER 20:59 → D.M2 21:54 → OBSVTIME 21:54 → D.M2 11-08 15:45
PROVIDERS: Emergency Medicine; Internal Medicine Cardiovascular Disease; ADMIT Family Medicine; ATTEND Family Medicine
DX: I25.110 Atherosclerotic heart disease of native coronary artery with unstable angina pectoris (principal); J44.9 Chronic obstructive pulmonary disease, unspecified; J96.11 Chronic respiratory failure with hypoxia; E11.65 Type 2 diabetes mellitus with hyperglycemia; I11.0 Hypertensive heart disease with heart failure; D64.9 Anemia, unspecified; M19.90 Unspecified osteoarthritis, unspecified site; E78.5 Hyperlipidemia, unspecified; F17.200 Nicotine dependence, unspecified, uncomplicated

== ENCOUNTER 2019-12-01 14:21 | Emergency (ER) | payer MEDICARE, MEDICAID ==
[~2019-12-01] VITALS: Ht 172.7 cm; Wt 72.7 kg
[~2019-12-01 14:21] MED LIST changes: +ATIVAN0.5 MG PO
[2019-12-01 14:53] VITALS: Ht 172.7 cm; Wt 72.7 kg
[2019-12-01 15:24] LABS: BASOPHILS 0.4 % (0-2); EOSINOPHILS 3.3 % (0-7); HEMATOCRIT 44.4 % (42.0-54.0); HEMOGLOBIN 13.8 g/dL (13.5-17.5); IMMATURE GRANULOCYTES 0.1 % (0-5); LYMPHOCYTES 25.9 % (15-50); MCHC 31.1 g/dL (31.0-37.0); MCV 86.7 fL (80.0-100.0); MEAN PLATELET VOLUME 8.9 fL (7.4-10.4); MONOCYTES 10.4 % (2-11); NEUTROPHILS 59.9 % (40-80); PLATELET COUNT 291 10x3/uL (130-400); RBC 5.12 10x6/uL (4.20-6.10); RDW 14.1 % (11.5-14.5); WBC 11.6 10x3/uL (4.8-10.8)
[2019-12-01 15:39] LABS: CALC OSMOLALITY 276 mosm/kg (275-300); CALCIUM 9.8 mg/dL (8.5-10.1); CARBON DIOXIDE 30.5 mmol/L (21.0-32.0); CHLORIDE - SERUM 102 mmol/L (98-107); CREATININE - SERUM 0.9 mg/dL (0.6-1.3); POTASSIUM - SERUM 4.1 mmol/L (3.5-5.1); SODIUM 140 mmol/L (136-145); UREA NITROGEN 12 mg/dL (7-18); eGFR NON AFRICAN AMERICAN 88 mL/min (90-120)
[2019-12-01 15:43] LABS: GLUCOSE 69 mg/dL (74-106)
[2019-12-01 16:07] LABS: ALBUMIN 4.1 g/dL (3.4-5.0); ALKALINE PHOSPHATASE 56 U/L (30-120); ALT (SGPT) 23 U/L (10-68); BILIRUBIN - TOTAL 0.19 mg/dL (0.2-1.3); CKMB 1.5 U/L (0.0-3.6); CREATINE KINASE 59 UL (21-232); MAGNESIUM - SERUM 1.9 mg/dL (1.8-2.4); PRO BNP 252 pg/mL (0-125); PROTEIN - SERUM 7.9 g/dL (6.4-8.2); TROPONIN-I < 0.017 ng/mL (0.000-0.060)
[2019-12-01 18:01] VITALS: BP 122/62
== END 2019-12-01 18:02 | disposition home or self-care (01) ==
LOC: D.ER 14:21
PROVIDERS: Emergency Medicine
DX: J44.1 Chronic obstructive pulmonary disease with (acute) exacerbation (principal); Z86.73 Personal history of transient ischemic attack (TIA), and cerebral infarction without residual deficits; E11.9 Type 2 diabetes mellitus without complications; I11.0 Hypertensive heart disease with heart failure; I50.9 Heart failure, unspecified; I25.2 Old myocardial infarction; Z99.81 Dependence on supplemental oxygen; R06.02 Shortness of breath

== ENCOUNTER 2020-02-08 13:08 | Emergency (ER) | payer MEDICARE, MEDICAID ==
[2020-02-08 13:13] VITALS: Ht 172.7 cm
[2020-02-08 13:54] LABS: CALC OSMOLALITY 270 mosm/kg (275-300); CALCIUM 9.2 mg/dL (8.5-10.1); CHLORIDE - SERUM 102 mmol/L (98-107); CREATININE - SERUM 0.8 mg/dL (0.6-1.3); POTASSIUM - SERUM 4.7 mmol/L (3.5-5.1); SODIUM 137 mmol/L (136-145); UREA NITROGEN 10 mg/dL (7-18); eGFR NON AFRICAN AMERICAN > 90 mL/min (90-120)
[2020-02-08 13:56] LABS: BASOPHILS 0.3 % (0-2); EOSINOPHILS 3.2 % (0-7); HEMATOCRIT 43.5 % (42.0-54.0); HEMOGLOBIN 13.7 g/dL (13.5-17.5); IMMATURE GRANULOCYTES 0.3 % (0-5); LYMPHOCYTES 31.5 % (15-50); MCH 26.5 pg (26.0-34.0); MCHC 31.5 g/dL (31.0-37.0); MCV 84.1 fL (80.0-100.0); MEAN PLATELET VOLUME 8.8 fL (7.4-10.4); MONOCYTES 10.5 % (2-11); NEUTROPHILS 54.2 % (40-80); RBC 5.17 10x6/uL (4.20-6.10); RDW 15.8 % (11.5-14.5)
[2020-02-08 13:57] LABS: GLUCOSE 65 mg/dL (74-106)
[2020-02-08 14:04] LABS: PLATELET COUNT 232 10x3/uL (130-400)
[2020-02-08 14:12] LABS: ALBUMIN 3.8 g/dL (3.4-5.0); ALKALINE PHOSPHATASE 49 U/L (30-120); ALT (SGPT) 14 U/L (10-68); CKMB 1.1 U/L (0.0-3.6); CREATINE KINASE 84 UL (21-232); PRO BNP 371 pg/mL (0-125); PROTEIN - SERUM 7.1 g/dL (6.4-8.2)
[2020-02-08 14:13] LABS: TROPONIN-I < 0.017 ng/mL (0.000-0.060)
[2020-02-08] MEDS ORDERED: MECLIZINE HCL25 MG PO (14:51)
[2020-02-08 15:42] VITALS: BP 128/75
== END 2020-02-08 15:46 | disposition home or self-care (01) ==
LOC: D.ER 13:08
PROVIDERS: Family Medicine
DX: R06.02 Shortness of breath (principal); R07.9 Chest pain, unspecified; E16.2 Hypoglycemia, unspecified; E11.9 Type 2 diabetes mellitus without complications; I10 Essential (primary) hypertension; I50.9 Heart failure, unspecified; I25.2 Old myocardial infarction; Z95.5 Presence of coronary angioplasty implant and graft; J44.9 Chronic obstructive pulmonary disease, unspecified

== ENCOUNTER 2020-07-01 19:17 | Inpatient (IN) | payer MEDICARE, MEDICAID ==
[~2020-07-01] VITALS: Ht 172.7 cm; Wt 72.1 kg
[~2020-07-01 19:17] MED LIST changes: +MECLIZINE HCL25 MG PO
[2020-07-01 19:48] LABS: BASOPHILS 0.5 % (0-2); EOSINOPHILS 4.8 % (0-7); HEMATOCRIT 43.8 % (42.0-54.0); IMMATURE GRANULOCYTES 0.3 % (0-5); LYMPHOCYTE ABS# 3.09 10x3/uL (1.32-3.57); LYMPHOCYTES 29.2 % (15-50); MCH 28.2 pg (26.0-34.0); MCV 88.3 fL (80.0-100.0); MEAN PLATELET VOLUME 8.9 fL (7.4-10.4); MONOCYTES 13.6 % (2-11); NEUTROPHIL ABS# 5.48 10x3/uL (1.78-5.38); NEUTROPHILS 51.6 % (40-80); PLATELET COUNT 214 10x3/uL (130-400); RBC 4.96 10x6/uL (4.20-6.10); RDW 14.8 % (11.5-14.5); WBC 10.6 10x3/uL (4.8-10.8)
[2020-07-01 19:59] LABS: BILIRUBIN NEGATIVE (NEGATIVE); KETONE NEGATIVE (NEGATIVE); NITRITE NEGATIVE (NEGATIVE); UROBILINOGEN NORMAL mg/dL (< 2)
[2020-07-01 19:59] LABS: CALC OSMOLALITY 275 mosm/kg (275-300); CALCIUM 8.9 mg/dL (8.5-10.1); CARBON DIOXIDE 31.9 mmol/L (21.0-32.0); CHLORIDE - SERUM 102 mmol/L (98-107); CREATININE - SERUM 0.8 mg/dL (0.6-1.3); INR 1.07 (0.85-1.17); POTASSIUM - SERUM 4.1 mmol/L (3.5-5.1); PROTIME 12.8 SECONDS (11.6-15.0); SODIUM 138 mmol/L (136-145); UREA NITROGEN 11 mg/dL (7-18); eGFR NON AFRICAN AMERICAN > 90 mL/min (90-120)
[2020-07-01 20:01] LABS: D-DIMER-QUANTITATIVE 0.34 ug/mLFEU (0.20-0.54)
[2020-07-01 20:05] LABS: GLUCOSE 109 mg/dL (74-106)
[2020-07-01 20:15] LABS: ALBUMIN 3.8 g/dL (3.4-5.0); ALKALINE PHOSPHATASE 48 U/L (30-120); ALT (SGPT) 20 U/L (10-68); BILIRUBIN - TOTAL 0.13 mg/dL (0.2-1.3); C-REACTIVE PROTEIN 1.3 mg/dL (0.0-0.9); LIPASE 152 U/L (73-393); MAGNESIUM - SERUM 2.1 mg/dL (1.8-2.4); PRO BNP 163 pg/mL (0-125); PROTEIN - SERUM 7.2 g/dL (6.4-8.2); TROPONIN-I < 0.017 ng/mL (0.000-0.060)
[2020-07-01 21:32] VITALS: BP 140/79
[2020-07-02] VITALS (7 sets, daily range): BP systolic 120–166; BP diastolic 57–77; Ht 172.7 cm; Wt 72.1 kg
--- NOTE | 2020-07-02 03:52 | NUR ---
SUUPPLIED PT WITH INCENTIVE SPIROMETER. PT SOB INCREASED O2-TO 6L FROM 2L TO GET SAT ABOVE 92% PT STATES HE FEELS SMOTHERED. CALLED RT. RT RESPONDING. WILL CONTINUE TO MONITOR
[2020-07-02 08:03] LABS: CKMB 1.1 U/L (0.0-3.6); CREATINE KINASE 77 UL (21-232)
[2020-07-02 08:15] LABS: TROPONIN-I < 0.017 ng/mL (0.000-0.060)
--- NOTE | 2020-07-02 10:45 | NUR ---
PATIENT SITTING UP AT BEDSIDE. AWAKE AND ALERT, ORIENTED X 4. NO DISTRESS NOTED. PATIENT VERY COMFORTABLE BUT GETS WINDED WHEN AMBULTING TO RESTROOM. PATIENT DENIES ANY NEEDS AT THIS TIME. PATIENT ABLE TO EAT BREAKFAST WITHOUT DIFFICULTY. CALL JACK IN REACH, SIDE RAILS UP X 2, BED IN LOW POSITION. SPOKEN WITH DAUGHTER THIS AM TO GIVE GENERAL STATUS UPDATE AND SHE HAS SPOKEN WITH HEIDY VIA CELL PHONE WELL.
--- NOTE | 2020-07-02 15:03 | NUR ---
patient sitting up on side of bed resting. no distress noted. respirations even and unlabored. respiratory at bedside giving treatment. call jordan in reach. side rails up x 2, bed in low position.
--- NOTE | 2020-07-02 22:00 | NUR ---
RECEIVED patient from ED. aaox4, denies pain. no s/s of distress. assessment completed. meds reviewd with patient. bed locked aND LOWERED . CL IN REACH. DENIES ANY NEW NEEDS AT THIS TIME. WILL CONT TO MONITOR.
[2020-07-03 05:24] VITALS: BP 141/76
[2020-07-03 05:32] LABS: BASOPHILS 0.1 % (0-2); EOSINOPHILS 0.1 % (0-7); HEMATOCRIT 41.7 % (42.0-54.0); HEMOGLOBIN 13.3 g/dL (13.5-17.5); IMMATURE GRANULOCYTES 0.3 % (0-5); LYMPHOCYTE ABS# 1.57 10x3/uL (1.32-3.57); LYMPHOCYTES 13.5 % (15-50); MCH 27.7 pg (26.0-34.0); MCHC 31.9 g/dL (31.0-37.0); MCV 86.9 fL (80.0-100.0); MEAN PLATELET VOLUME 9.2 fL (7.4-10.4); MONOCYTES 9.4 % (2-11); NEUTROPHIL ABS# 8.94 10x3/uL (1.78-5.38); NEUTROPHILS 76.6 % (40-80); RDW 14.6 % (11.5-14.5); WBC 11.7 10x3/uL (4.8-10.8)
[2020-07-03 06:06] VITALS: BP 141/76
[2020-07-03 06:10] LABS: PLATELET COUNT 265 10x3/uL (130-400)
[2020-07-03 06:15] LABS: ALBUMIN 3.7 g/dL (3.4-5.0); ALKALINE PHOSPHATASE 45 U/L (30-120); ALT (SGPT) 19 U/L (10-68); BILIRUBIN - TOTAL 0.24 mg/dL (0.2-1.3); CALC OSMOLALITY 278 mosm/kg (275-300); CALCIUM 8.4 mg/dL (8.5-10.1); CARBON DIOXIDE 25.8 mmol/L (21.0-32.0); CHLORIDE - SERUM 102 mmol/L (98-107); GLUCOSE 131 mg/dL (74-106); MAGNESIUM - SERUM 2.4 mg/dL (1.8-2.4); PROTEIN - SERUM 7.1 g/dL (6.4-8.2); SODIUM 138 mmol/L (136-145); eGFR NON AFRICAN AMERICAN 78 mL/min (90-120)
[2020-07-03 06:16] LABS: UREA NITROGEN 16 mg/dL (7-18)
--- NOTE | 2020-07-03 07:10 | NUR ---
SITTING ON SIDE OF BED, AWAKE/ALERT/ORIENTED, T/R SELF AD DAMON, CONT OF B/B WITH BRPs PER SELF, DENIES PAIN/OTHER DISCOMFORT AT THIS TIME, CALL LIGHT/PHONE/WATER WITHIN REACH, NO S/S OF ACUTE DISTRESS OBSERVED.
[2020-07-03 07:48] VITALS: BP 166/80
[2020-07-03 11:20] VITALS: BP 138/69
[2020-07-03 15:35] VITALS: BP 131/89
--- NOTE | 2020-07-03 20:00 | NUR ---
INITIAL ROUNDS AND ASSESSMENT COMPLETED. PT RESTING IN BED. ALERT/ORIENTED. SR PER TELEMETRY. SALINE LOCK TO LFA. REQUESTED SNACK PROVIDED AND PT IS EATING IT AT THIS TIME. NO OTHER NEEDS VOICED.
[2020-07-03 20:30] VITALS: BP 173/69
[2020-07-04 00:30] VITALS: BP 132/111
[2020-07-04 05:28] VITALS: BP 157/64
[2020-07-04 06:59] LABS: BASOPHILS 0 % (0-2); EOSINOPHILS 0 % (0-7); HEMATOCRIT 42.8 % (42.0-54.0); HEMOGLOBIN 13.8 g/dL (13.5-17.5); IMMATURE GRANULOCYTES 0.3 % (0-5); LYMPHOCYTE ABS# 1.26 10x3/uL (1.32-3.57); LYMPHOCYTES 10.7 % (15-50); MCHC 32.2 g/dL (31.0-37.0); MCV 86.8 fL (80.0-100.0); MEAN PLATELET VOLUME 9.3 fL (7.4-10.4); MONOCYTES 7.3 % (2-11); NEUTROPHIL ABS# 9.61 10x3/uL (1.78-5.38); NEUTROPHILS 81.7 % (40-80); PLATELET COUNT 262 10x3/uL (130-400); RBC 4.93 10x6/uL (4.20-6.10); RDW 14.7 % (11.5-14.5); WBC 11.8 10x3/uL (4.8-10.8)
--- NOTE | 2020-07-04 07:16 | NUR ---
AM ROUNDING DONE WITH PATIENT HAVING A RESP BREATHING TREATMENT. ON 3L PER NC. ON HEART MONITOR. LEFT FA SEEN PIV OF SALINE LOCK. ON EP, LABS PENDING. DENIES ANY NEEDS AT THIS TIME.
[2020-07-04 07:30] VITALS: BP 167/64
--- NOTE | 2020-07-04 07:40 | NUR ---
PULLS 1000 ML ON IS.
[2020-07-04 08:20] LABS: ALBUMIN 3.9 g/dL (3.4-5.0); ALKALINE PHOSPHATASE 45 U/L (30-120); ALT (SGPT) 19 U/L (10-68); BILIRUBIN - TOTAL 0.25 mg/dL (0.2-1.3); CALC OSMOLALITY 279 mosm/kg (275-300); CALCIUM 8.8 mg/dL (8.5-10.1); CARBON DIOXIDE 26.2 mmol/L (21.0-32.0); CHLORIDE - SERUM 102 mmol/L (98-107); CREATININE - SERUM 0.8 mg/dL (0.6-1.3); GLUCOSE 117 mg/dL (74-106); MAGNESIUM - SERUM 2.6 mg/dL (1.8-2.4); POTASSIUM - SERUM 4.6 mmol/L (3.5-5.1); PROTEIN - SERUM 6.8 g/dL (6.4-8.2); SODIUM 138 mmol/L (136-145); UREA NITROGEN 20 mg/dL (7-18); eGFR NON AFRICAN AMERICAN > 90 mL/min (90-120)
--- NOTE | 2020-07-04 08:41 | NUR ---
EP LABS ARE BACK AND NO COVERAGE IS NEEDED. SITTING ON SIDE OF BED FOR BREAKFAST.
[2020-07-04] MEDS ORDERED: PREDNISONE10 MG PO (10:55)
[2020-07-04 12:00] VITALS: BP 138/68
--- NOTE | 2020-07-04 14:51 | NUR ---
PATIENT TO TAKE SELF BATH, IN CHAIR AND LINENS CHANGED.
[2020-07-04 16:00] VITALS: BP 138/75
--- NOTE | 2020-07-04 16:24 | MORECARE ---
CASE MANAGEMENT DISCHARGE SUMMARY PATIENT: BEATRIZ PADILLA UNIT: [id number] ADM DATE: 07/02/20 AGE: 74 : [birth year] SEX: M ROOM/BED: D.2105 AUTHOR: NAJMA,DOC PHYSICIAN: REFERRING PHYSICIAN: NANCY OLIVER MD DATE OF SERVICE: 07/04/20 Discharge Plan Patient Name: BEATRIZ PADILLA Facility: [facility]:[place] : 1945 Planned Disposition: Home Anticipated Discharge Date: 07/04/20 Discharge Date: Expected LOS: 2 Initial Reviewer: [email or web address] Initial Review Date: 07/01/2020 Generated: 07/04/20 5:23 pm Comments DCP- Discharge Planning Updated by [email or web address]: Mook Saeed on 07/04/20 3:[address] CM met with patient to complete DC plan and to evaluate needs. At discharge, the patient plans to return home and feels this is a safe discharge. CM discussed availability of home health, rehab services, and medical equipment. Patient declined HHS, SNF, IPR, and DME. Patient voiced no other needs at this time and is satisfied with DC plan. Transportation provider at discharge will be with his son-in-law, Mook Kendall ([phone]). DC IMM delivered, explained, signed by the patient, and placed in chart. Signed form also left with the patient. CM will continue to follow and will assist as needed with dc plans/needs. DCPIA - Discharge Planning Initial Assessment Updated by [email or web address]: Mook Saeed on 07/04/20 4:23 pm * Is the patient Alert and Oriented? Yes * How many steps to enter\exit or inside your home? ramp * PCP Dr. Esteban * Pharmacy [facility] * Preadmission Environment Home with Family * ADLs Independent * Equipment Walker * Other Equipment n/a * List name and contact numbers for known caregivers / representatives who currently or will assist patient after discharge: Jacki Kendall (dtr) [phone] * Verbal permission to speak to the caregivers and representatives has been obtained from the patient. Yes * Community resources currently utilized None * Please name any agencies selected above. n/a * Additional services required to return to the preadmission environment? No * Can the patient safely return to the preadmission environment? Yes * Has this patient been hospitalized within the prior 30 days at any hospital? No Coverage Notice Reviewer: [email or web address] - Mook Saeed Notice Issued Date-Time: 07/04/2020 11:50 Notice Type: IM Discharge Notice Notice Delivered To: Patient Relationship to Patient: Self Motorcycle Subassembler Name: Delivery Method: HAND - Hand Delivered Maddison Days: Prior Verbal Notification: Recipient Understood Notice: Yes Recipient Signature: Yes Med Rec Note Co-signed by Attending: Coverage Notice Comment: DC IMM delivered, explained, signed by the patient, and placed in chart. Patient Name: BEATRIZ PADILLA Page [phone] at 1624 All edits/amendments must be made on the electronic document DICTATION DATE: 07/04/201623 BUZZSAW OPERATOR HELPER: DELIA 07/04/201623 RPT#: [id number] DC DATE: STATUS: ADM IN [facility] [address] [place] [address] END OF REPORT
--- NOTE | 2020-07-04 16:35 | NUR ---
FSBS IS 152, PATIENT DDES NOT WANT TO BE COVERED PER SLIDING SCALE. I TOLD HIM IT WAS PROBABLE R/T THE STEROIDS.
--- NOTE | 2020-07-04 17:34 | NUR ---
NO NEEDS VOIOCED. HAS SAT UP IN THE CHAIR MOST OF THE AFTERNOON. DOES IS EVERY TWO HOURS WITH TIDAL VOLUME OF 1000 ML. CALL LIGHT IS IN USE.
[2020-07-04 20:00] VITALS: BP 152/79
[2020-07-05] VITALS: BP 97/58
--- NOTE | 2020-07-05 04:34 | NUR ---
PT HAS RESTED THIS SHIFT. ALL SCHEDULED MEDS RECIEVED. O2 @ 3L/NC WITH RT WORKING ON WEANING HIM BACK TO HIS HOME O2 LEVEL OF 2L/NC. LFA PIV SALINE LOCKED. PT IS HOPING HE MAY GET RELEASED TO HOME TODAY.
[2020-07-05 06:01] LABS: BASOPHILS 0 % (0-2); EOSINOPHILS 0 % (0-7); HEMATOCRIT 40.5 % (42.0-54.0); HEMOGLOBIN 12.9 g/dL (13.5-17.5); IMMATURE GRANULOCYTES 0.4 % (0-5); LYMPHOCYTE ABS# 1.75 10x3/uL (1.32-3.57); LYMPHOCYTES 16.5 % (15-50); MCH 27.6 pg (26.0-34.0); MCHC 31.9 g/dL (31.0-37.0); MCV 86.7 fL (80.0-100.0); MONOCYTES 12.6 % (2-11); NEUTROPHIL ABS# 7.47 10x3/uL (1.78-5.38); NEUTROPHILS 70.5 % (40-80); PLATELET COUNT 256 10x3/uL (130-400); RBC 4.67 10x6/uL (4.20-6.10); RDW 14.9 % (11.5-14.5); WBC 10.6 10x3/uL (4.8-10.8)
[2020-07-05 06:21] LABS: ALBUMIN 3.3 g/dL (3.4-5.0); ALKALINE PHOSPHATASE 44 U/L (30-120); ALT (SGPT) 21 U/L (10-68); BILIRUBIN - TOTAL 0.23 mg/dL (0.2-1.3); CALC OSMOLALITY 279 mosm/kg (275-300); CALCIUM 8.4 mg/dL (8.5-10.1); CARBON DIOXIDE 30.4 mmol/L (21.0-32.0); CHLORIDE - SERUM 103 mmol/L (98-107); CREATININE - SERUM 0.8 mg/dL (0.6-1.3); GLUCOSE 138 mg/dL (74-106); MAGNESIUM - SERUM 2.6 mg/dL (1.8-2.4); PROTEIN - SERUM 6.3 g/dL (6.4-8.2); SODIUM 138 mmol/L (136-145); UREA NITROGEN 17 mg/dL (7-18); eGFR NON AFRICAN AMERICAN > 90 mL/min (90-120)
[2020-07-05 07:15] VITALS: BP 163/82
[2020-07-05 08:16] VITALS: BP 155/107
--- NOTE | 2020-07-05 11:15 | NUR ---
PT AWAKE AND ORIENTED, SITTING ON SIDE OF BED. DISHCARGING TODAY. TOOK AL MEDICATIONS WITHOUT COMPLICATIONS. NO COMLAINTS OR CONCERNS AT THIS TIME. WILL BE HERE IN ROUGHLY AN HOUR TO PICK PT UP.
--- NOTE | 2020-07-05 12:44 | NUR ---
PT ESCORTED OUT VIA WHEELCHIAR TO POV. DRIVING.
--- NOTE | 2020-07-06 07:41 | MORECARE ---
CASE MANAGEMENT DISCHARGE SUMMARY PATIENT: BEATRIZ PADILLA UNIT: [id number] ADM DATE: 07/02/20 AGE: 74 : [birth year] SEX: M ROOM/BED: D.2105 AUTHOR: NAJMA,DOC PHYSICIAN: REFERRING PHYSICIAN: NANCY OLIVER MD DATE OF SERVICE: 07/06/20 Discharge Plan Patient Name: BEATRIZ PADILLA Facility: [facility]:[place] : 1945 Planned Disposition: Home Anticipated Discharge Date: 07/04/20 Discharge Date: 07/05/2020 Expected LOS: 2 Initial Reviewer: TANISHA Initial Review Date: 07/01/2020 Generated: 07/06/20 8:40 am Comments DCP- Discharge Planning Updated by [email or web address]: Mook Saeed on 07/04/20 3:[address] CM met with patient to complete DC plan and to evaluate needs. At discharge, the patient plans to return home and feels this is a safe discharge. CM discussed availability of home health, rehab services, and medical equipment. Patient declined HHS, SNF, IPR, and DME. Patient voiced no other needs at this time and is satisfied with DC plan. Transportation provider at discharge will be with his son-in-law, Mook Kendall ([phone]). DC IMM delivered, explained, signed by the patient, and placed in chart. Signed form also left with the patient. CM will continue to follow and will assist as needed with dc plans/needs. DCPIA - Discharge Planning Initial Assessment Updated by [id number]: Mook Saeed on 07/04/20 4:23 pm * Is the patient Alert and Oriented? Yes * How many steps to enter\exit or inside your home? ramp * PCP Dr. Esteban * Pharmacy [facility] * Preadmission Environment Home with Family * ADLs Independent * Equipment Walker * Other Equipment n/a * List name and contact numbers for known caregivers / representatives who currently or will assist patient after discharge: Jacki Kendall (dtr) [phone] * Verbal permission to speak to the caregivers and representatives has been obtained from the patient. Yes * Community resources currently utilized None * Please name any agencies selected above. n/a * Additional services required to return to the preadmission environment? No * Can the patient safely return to the preadmission environment? Yes * Has this patient been hospitalized within the prior 30 days at any hospital? No Coverage Notice Reviewer: [email or web address] Moses LouMooknona Saeed Notice Issued Date-Time: 07/04/2020 11:50 Notice Type: IM Discharge Notice Notice Delivered To: Patient Relationship to Patient: Self Hyperbaric Technician Name: Delivery Method: HAND - Hand Delivered Maddison Days: Prior Verbal Notification: Recipient Understood Notice: Yes Recipient Signature: Yes Med Rec Note Co-signed by Attending: Coverage Notice Comment: DC IMM delivered, explained, signed by the patient, and placed in chart. Last DP export: 07/04/20 3:24 p Patient Name: BEATRIZ PADILLA Page [phone] at 0741 All edits/amendments must be made on the electronic document DICTATION DATE: 07/06/20740 FUNERAL WORKERS: DELIA 07/06/20740 RPT#: [id number] DC DATE:07/05/20 STATUS: DIS IN [facility] [address] [place] [address] END OF REPORT
--- NOTE | 2020-07-06 08:50 | CN ---
PATIENT NAME:BEATRIZ PADILLA MEDICAL RECORD: [id number] : 49 LOCATION:D. D.2108 ADMIT DATE: 07/02/20 ACCOUNT: [id number] CONSULTING PHYSICIAN: GRACE MOORE MD REFERRING PHYSICIAN: NANCY OLIVER MD DATE OF CONSULTATION: 07/02/2020 HISTORY OF PRESENT ILLNESS: A 74-year-old gentleman with known history of coronary artery disease, status post intervention. Most recent angiography back in the summer showed patent grafts. He has longstanding obstructive pulmonary disease as well, presented with marked dyspnea, shortness of breath, wheezing and cough over the past 3-4 days, became short of breath to the point of walking to the restroom, some chest pain intermittently as well. This is atypical for his angina from previous. We are asked to see him concerning his cardiovascular status. PAST MEDICAL HISTORY: Includes; 1. History of hypertension. 2. Hyperlipidemia. 3. Obstructive coronary disease. 4. Diabetes mellitus. MEDICATIONS: Include metformin 500 b.i.d., Amaryl 4 mg p.o. every morning, Protonix 40 every day, Daliresp 250 mg p.o. at bedtime, Lasix 20 every day, lorazepam 0.5 every day, aspirin 81 every day, amitriptyline 25 every day, simvastatin 10 every day, Bystolic 10 every day, lisinopril 5 every day, Imdur 30 every day, Plavix 75 every day, Combivent 1 puff q.i.d., albuterol 0.63 mg every 6 hours. SOCIAL HISTORY: Typically, he is able to take care of his ADLs, although has had difficulty over the past week. No set exercise program. REVIEW OF SYSTEMS: The patient reports easy bruising but reports no swollen glands. The patient reports no fever, no night sweats, no significant weight gain, no significant weight loss. No significant exercise tolerance. The patient reports no dry eyes, no irritation, no vision change. Patient reports no difficulty hearing and no ear pain. Patient reports no frequent nose bleeds or nose and sinus problems. Patient reports on arm pain on exertion. No shortness of breath while lying down. No history of heart murmur. Patient reports no cough, no wheezing or coughing up blood. Patient reports no abdominal pain, no vomiting. Normal appetite. No diarrhea and not vomiting blood. No nausea and no constipation. Patient reports no incontinence. No difficulty urinating. No hematuria. No increased frequency. Patient reports no muscle aches. No weakness, no arthralgias, no back pain. No swelling of the extremities. Patient reports no abnormal mole, no jaundice, no rashes. Reports no loss of consciousness. No weakness and no numbness. No seizures, dizziness, or headaches. The patient reports no depression, no sleep disturbance, feeling safe in a relationship and no alcohol abuse. Patient reports on fatigue. Reports no runny nose or sinus pressure. No itching, no hives, and no frequent sneezing. PHYSICAL EXAMINATION: GENERAL: No acute distress, appears stated age. VITAL SIGNS: Blood pressure 165/60, pulse 66 and regular. HEENT: Normocephalic, atraumatic. CONSULT REPORT [id number] BEATRIZ PADILLA NECK: No bruits noted. HEART: Sounds are distant. No obvious gallops. LUNGS: Prolonged expiratory phase with expiratory wheezing are noted. ABDOMEN: Soft and nontender. EXTREMITIES: Pulses are well preserved, 2+, with no edema. NEUROLOGIC: Grossly intact. IMPRESSION: Exacerbation of obstructive pulmonary disease. Chest pain is somewhat atypical. Did have patent stents back in the summer of last year. PLAN: Agree with serial enzymes. Check echocardiographic study. Further recommendations based on the above. TRANSINT:[id number] Voice Confirmation ID: [id number] DOCUMENT ID: [id number] GRACE MOORE MD at 0850 CC: [id number] DICTATION DATE: 07/02/20839 FARMWORKER DIVERSIFIED CROPS: 07/02/20 0944 DIS IN 07/05/20 [facility] [address] [place] [address]
== END 2020-07-05 12:45 | disposition home or self-care (01) | DRG 191 ==
LOC: D.ER 19:17 → OBSVTIME 21:28 → D.EDHOLD 21:28 → D.M2 07-02 20:33
PROVIDERS: Family Medicine; ADMIT Family Medicine; ATTEND Family Medicine
DX: J44.1 Chronic obstructive pulmonary disease with (acute) exacerbation (principal); J96.11 Chronic respiratory failure with hypoxia; E11.65 Type 2 diabetes mellitus with hyperglycemia; I25.10 Atherosclerotic heart disease of native coronary artery without angina pectoris; I11.0 Hypertensive heart disease with heart failure; I50.9 Heart failure, unspecified; Z86.73 Personal history of transient ischemic attack (TIA), and cerebral infarction without residual deficits; Z87.01 Personal history of pneumonia (recurrent); M19.90 Unspecified osteoarthritis, unspecified site

== ENCOUNTER → 2020-10-07 12:50 | Outpatient (CLI) | payer MEDICARE, MEDICAID ==
[2020-07-02 22:44] VITALS: BMI 24.1
== END | disposition home or self-care (01) ==
LOC: D.RT 09-15 10:00
PROVIDERS: ATTEND Internal Medicine Pulmonary Disease
DX: J44.9 Chronic obstructive pulmonary disease, unspecified (principal)

== ENCOUNTER 2020-10-21 18:40 | Inpatient (IN) | payer MEDICARE, MEDICAID ==
[~2020-10-21] VITALS: Ht 172.7 cm; Wt 74.4 kg
[2020-10-21 19:19] VITALS: BP 120/71
[2020-10-21 19:19] LABS: BASOPHILS 0.5 % (0-2); EOSINOPHILS 2.6 % (0-7); HEMATOCRIT 42.5 % (42.0-54.0); LYMPHOCYTES 31.4 % (15-50); MCH 28.1 pg (26.0-34.0); MCHC 32.9 g/dL (31.0-37.0); MCV 85.6 fL (80.0-100.0); MEAN PLATELET VOLUME 7.2 fL (7.4-10.4); MONOCYTES 11.2 % (2-11); NEUTROPHILS 54.3 % (40-80); PLATELET COUNT 252 10x3/uL (130-400); RBC 4.97 10x6/uL (4.20-6.10); RDW 14.8 % (11.5-14.5); WBC 9.7 10x3/uL (4.8-10.8)
[2020-10-21 19:21] LABS: APTT 28.1 SECONDS (22.8-39.4); INR 1.08 (0.85-1.17)
[2020-10-21 19:23] LABS: CALC OSMOLALITY 277 mosm/kg (275-300); CALCIUM 9.2 mg/dL (8.5-10.1); CARBON DIOXIDE 27.4 mmol/L (21.0-32.0); CHLORIDE - SERUM 102 mmol/L (98-107); CREATININE - SERUM 0.8 mg/dL (0.6-1.3); SODIUM 141 mmol/L (136-145); UREA NITROGEN 10 mg/dL (7-18); eGFR NON AFRICAN AMERICAN > 90 mL/min (90-120)
[2020-10-21 19:27] LABS: GLUCOSE 66 mg/dL (74-106)
[2020-10-21 19:41] LABS: ALBUMIN 3.7 g/dL (3.4-5.0); ALKALINE PHOSPHATASE 45 U/L (30-120); ALT (SGPT) 19 U/L (10-68); BILIRUBIN - TOTAL 0.27 mg/dL (0.2-1.3); CKMB 1.2 U/L (0.0-3.6); CREATINE KINASE 58 UL (21-232); PRO BNP 272 pg/mL (0-125); PROTEIN - SERUM 7.2 g/dL (6.4-8.2)
[2020-10-21 19:49] LABS: TROPONIN-I < 0.017 ng/mL (0.000-0.060)
[2020-10-21 20:19] VITALS: BP 127/70
[2020-10-21 21:19] VITALS: BP 117/65
[2020-10-21 22:18] VITALS: BP 109/63
[2020-10-21 23:28] VITALS: BP 103/47
[2020-10-22 00:53] VITALS: BP 138/68
--- NOTE | 2020-10-22 01:04 | NUR ---
RECEIVED PATIENT TO ROOM 2129 VIA STRETCHER. PATIENT IS AAOX4, UP AD DAMON. NO S/S OF DISTRESS OBSERVED, RR EVEN AND UNLABORED ON 4L O2 VIA NC. URINAL PROVIVED. PATIENT DENIES FURTHER NEEDS AT THIS TIME. CL IN REACH, BED LOCKED AND LOWERED. WILL CPOC.
[2020-10-22 02:38] VITALS: BP 136/68; BMI 24.9
[2020-10-22 05:20] VITALS: BP 135/69
--- NOTE | 2020-10-22 06:40 | NUR ---
RECEIVED BEDSIDE REPORT PATIENT RESTING COMFORTABLY, O2 AT 4L NASAL CANNULA. IV TO LEFT FA SALINE LOCKED. NO COMPLAINT.
--- NOTE | 2020-10-22 07:52 | NUR ---
PATIENT AWAKE AND ALERT DOING BREATHING TREATMENT. IV TO L FOREARM SALINE LOCKED. RESP EVEN AND UNLABORED, BREATHING TREATMENT COMPLETED. O2 AT 4L IN USE VIA NASAL CANNULA. WET SOUNDING COUGH NOTED. LUNG SOUNDS WITH CRACKLES TO BILATERAL LOWER LOBES. HEART SOUNDS REGULAR RATE AND RYTHYM. TELE IN PLACE. ABDOMEN SOFT AND TENDER. BOWEL SOUNDS ACTIVE. NO EDEMA NOTED TO BILATERAL LOWER EXTEMITES.
[2020-10-22 07:55] VITALS: BP 152/77
[2020-10-22 12:12] VITALS: Ht 172.7 cm; Wt 74.4 kg
[2020-10-22 16:00] VITALS: BP 116/64; BP 130/75
[2020-10-22 20:39] VITALS: BP 144/69
[2020-10-23 01:14] VITALS: BP 156/66
[2020-10-23 01:33] VITALS: BP 135/55
[2020-10-23 06:32] LABS: BASOPHILS 0.1 % (0-2); EOSINOPHILS 0 % (0-7); HEMATOCRIT 41.9 % (42.0-54.0); HEMOGLOBIN 13.8 g/dL (13.5-17.5); LYMPHOCYTES 11.5 % (15-50); MEAN PLATELET VOLUME 7.5 fL (7.4-10.4); NEUTROPHILS 83.4 % (40-80); PLATELET COUNT 254 10x3/uL (130-400); RBC 4.93 10x6/uL (4.20-6.10); RDW 14.7 % (11.5-14.5); WBC 10.9 10x3/uL (4.8-10.8)
[2020-10-23 06:41] VITALS: BP 149/84
[2020-10-23 06:55] LABS: ALBUMIN 3.8 g/dL (3.4-5.0); ALKALINE PHOSPHATASE 44 U/L (30-120); ALT (SGPT) 16 U/L (10-68); BILIRUBIN - TOTAL 0.28 mg/dL (0.2-1.3); CALCIUM 9.1 mg/dL (8.5-10.1); CARBON DIOXIDE 27.7 mmol/L (21.0-32.0); CHLORIDE - SERUM 102 mmol/L (98-107); CREATININE - SERUM 0.8 mg/dL (0.6-1.3); MAGNESIUM - SERUM 2.2 mg/dL (1.8-2.4); POTASSIUM - SERUM 4.3 mmol/L (3.5-5.1); PROTEIN - SERUM 7.2 g/dL (6.4-8.2); SODIUM 138 mmol/L (136-145); eGFR NON AFRICAN AMERICAN > 90 mL/min (90-120)
[2020-10-23 07:00] LABS: CALC OSMOLALITY 280 mosm/kg (275-300); GLUCOSE 168 mg/dL (74-106); UREA NITROGEN 15 mg/dL (7-18)
[2020-10-23 11:16] VITALS: BP 128/61
[2020-10-23 16:04] VITALS: BP 137/77
--- NOTE | 2020-10-23 19:00 | NUR ---
REPORT RECEIVED. PATIENT IS AAOX4, SITTING UP ON SIDE OF BED. NO S/S OF DISTRESS OBSERVED. RR EVEN AND UNLABORED ON 2L O2 VIA NC. PIV TO LT HAND, SL. PATIENT DENIES NEEDS AT THIS TIME. CL IN REACH, BED LOCKED AND LOWERED. WILL CPOC.
[2020-10-23 20:00] VITALS: BP 139/61
[2020-10-24] VITALS: BP 145/62
[2020-10-24 04:00] VITALS: BP 153/77
[2020-10-24 05:16] LABS: BASOPHILS 0.1 % (0-2); EOSINOPHILS 0 % (0-7); HEMATOCRIT 39.1 % (42.0-54.0); HEMOGLOBIN 12.8 g/dL (13.5-17.5); LYMPHOCYTES 9.6 % (15-50); MCH 27.9 pg (26.0-34.0); MCHC 32.7 g/dL (31.0-37.0); MCV 85.3 fL (80.0-100.0); MEAN PLATELET VOLUME 7.5 fL (7.4-10.4); MONOCYTES 5.1 % (2-11); NEUTROPHILS 85.2 % (40-80); PLATELET COUNT 227 10x3/uL (130-400); RBC 4.59 10x6/uL (4.20-6.10); RDW 14.9 % (11.5-14.5); WBC 11.4 10x3/uL (4.8-10.8)
[2020-10-24 05:21] LABS: ALBUMIN 3.5 g/dL (3.4-5.0); ALKALINE PHOSPHATASE 40 U/L (30-120); ALT (SGPT) 17 U/L (10-68); BILIRUBIN - TOTAL 0.33 mg/dL (0.2-1.3); CALC OSMOLALITY 280 mosm/kg (275-300); CALCIUM 8.7 mg/dL (8.5-10.1); CARBON DIOXIDE 30.6 mmol/L (21.0-32.0); CHLORIDE - SERUM 104 mmol/L (98-107); CREATININE - SERUM 0.9 mg/dL (0.6-1.3); GLUCOSE 125 mg/dL (74-106); MAGNESIUM - SERUM 2.3 mg/dL (1.8-2.4); POTASSIUM - SERUM 4.3 mmol/L (3.5-5.1); PROTEIN - SERUM 6.2 g/dL (6.4-8.2); SODIUM 139 mmol/L (136-145); UREA NITROGEN 18 mg/dL (7-18); eGFR NON AFRICAN AMERICAN 88 mL/min (90-120)
[2020-10-24 07:53] VITALS: BP 157/73
[2020-10-24] MEDS ORDERED: OMNICEF300 MG PO (08:22)
[2020-10-24] MEDS ORDERED: PREDNISONE10 MG PO (08:23)
[2020-10-24] MEDS ORDERED: NICODERM CQ1 EAC3 TOPICAL (08:53)
--- NOTE | 2020-10-24 10:41 | NUR ---
SALINE LOCK TAKEN OUT AND DRESSING APPLIED, DISCHARGE PAPERS DISCUSSED AND TO CAR WITH DAUGHTER VIA W/C
--- NOTE | 2020-10-24 19:22 | MORECARE ---
CASE MANAGEMENT DISCHARGE SUMMARY PATIENT: BEATRIZ PADILLA UNIT: [id number] ADM DATE: 10/21/20 AGE: 74 : 47 SEX: M ROOM/BED: D.2130 AUTHOR: NAJMA,DOC PHYSICIAN: REFERRING PHYSICIAN: DANK FOX DO DATE OF SERVICE: 10/24/20 Case Management Discharge Planning Summary DCP REVIEW SUMMARY ANTICIPATED D/C DATE: 10/24/2020 EXPECTED LOS : 3 CASE STATUS: DCP Initiated INITIAL REVIEW: 10/21/2020 INITIAL REVIEWER: Mook Saeed FINAL DISCHARGE DISPOSITION: : FINAL REVIEWER: FINAL REVIEW DATE: DCP Focus Questions & Answers QUESTION: ANSWER : PATIENT: BEATRIZ PADILLA ENCOUNTER: [id number] MEDICAL RECORD#: [id number] ADMISSION DATE: 10/21/2020 DISCHARGE DATE: 10/24/2020 ATTENDING MD: DANK LENTZ : AGE: 74 MARITAL STATUS: W DC PLAN ID: [id number] FACILITY: [facility] PRINTED ON: 10/24/20 19:22 CT All edits/amendments must be made on the electronic document DICTATION DATE: 10/24/201921 NURSE PRACTITIONER PHYSICIAN ASSISTANT: DELIA 10/24/201921 RPT#: [id number] DC DATE:10/24/20 STATUS: DIS IN [facility] [address] [place] [address] END OF REPORT
--- NOTE | 2020-10-24 19:33 | MORECARE ---
CASE MANAGEMENT DISCHARGE SUMMARY PATIENT: BEATRIZ PADILLA UNIT: [id number] ADM DATE: 10/21/20 AGE: 74 : 47 SEX: M ROOM/BED: D.2130 AUTHOR: DRU YAO PHYSICIAN: REFERRING PHYSICIAN: DANK FOX DO DATE OF SERVICE: 10/24/20 Case Management Discharge Planning Summary COMMENTS ENTERED DATE: 10/24/20 19:28 CT COMMENT TYPE: Discharge Planning REVIEWER: Mook Saeed CM met with patient to complete DC plan and to evaluate needs. Patient lives independently with family, his daughter, Jacki Kendall, . Patient stated that his home is safe and has electricity and running water. Patient stated that the home has a ramp to enter and he is able to manage the steps without difficulty. Patient stated that he has no problems paying for medications and he fills his medications at [facility]. Patient stated that his primary care physician is Dr. Esteban. At discharge, the patient plans to return home and feels this is a safe discharge. CM discussed availability of home health, rehab services, and medical equipment. Patient declined HHS, SNF, IPR, and DME. Patient stated that he has a walker and home oxygen. Patient voiced no other needs at this time and is satisfied with DC plan. Transportation provider at discharge will be with his daughter, Jacki. DC IMM delivered, explained, signed by the patient, and placed in chart. Signed form also left with the patient. CM will continue to follow and will assist as needed with dc plans/needs DCP REVIEW SUMMARY ANTICIPATED D/C DATE: 10/24/2020 EXPECTED LOS : 3 CASE STATUS: DCP Initiated INITIAL REVIEW: 10/21/2020 INITIAL REVIEWER: Mook Saeed FINAL DISCHARGE DISPOSITION: : FINAL REVIEWER: FINAL REVIEW DATE: DCP Focus Questions & Answers DCP Evaluation QUESTION: ANSWER Patient gives permission to discuss discharge plans with: (name, relationship and number) : his daughter, Jacki Kendall, Patient's ability to cope with chronic illness : d. No chronic illness Patient's current cognitive status: : *Oriented to person, place, situation, time and present Family / Caregiver's ability to cope with chronic illness: : a. Adequate (ability to meet patient's medical needs, ensures patient attends medical appts.) Patient and/or caregiver agree upon recommended discharge plan? : Yes Physical Status: : Independent with ADL's Family / Caregiver's ability to cope with chronic illness: : a. Adequate (ability to meet patient's medical needs, ensures patient attends medical appts.) Functional screen assessment: : Basic needs can adequately be met by self Does the patient have the ability to pay for or attain post discharge needs / services? : Yes Living Arrangements: : Home with Extended Family Is there a likelihood that the patient will require additional services to return to the preadmission environment? : No Equipment needed for post hospitalization: : None Baseline cognitive status: : *Oriented to person, place, situation, time and present Patient with capacity for self-care or can be cared for in same environment as prior to hospitalization? : Yes Physical environment modification needed / anticipated for discharge: : No Medication Management: : Patient states can afford medications Medication Management: : Patient states can read and understand medication labels Pharmacy name(s): : [facility] Does Patient have transportation to get home and to follow-up medical appointments when discharged from the hospital? : Yes Would patient like to participate in any Care Coordination programs (if applicable): : Not applicable Does the patient have electricity at home? : Yes Does the patient have running water in their house? : Yes Equipment in use: : Home Oxygen with Nasal Cannula Equipment in use: : Walker - Rolling Mental health screen: : No mental health history DCP Re-evaluation QUESTION: ANSWER Would patient like to participate in any Care Coordination programs (if applicable): : Not applicable PATIENT: BEATRIZ PADILLA ENCOUNTER: [id number] MEDICAL RECORD#: [id number] ADMISSION DATE: 10/21/2020 DISCHARGE DATE: 10/24/2020 ATTENDING MD: DANK LENTZ : AGE: 74 MARITAL STATUS: W DC PLAN ID: [id number] FACILITY: [facility] PRINTED ON: 10/24/20 19:33 CT All edits/amendments must be made on the electronic document DICTATION DATE: 10/24/201932 LINER INSERTER: DELIA 10/24/201932 RPT#: [id number] DC DATE:10/24/20 STATUS: DIS IN [facility] [address] [place] [address] END OF REPORT
--- NOTE | 2020-10-26 15:18 | MORECARE ---
CASE MANAGEMENT DISCHARGE SUMMARY PATIENT: BEATRIZ PADILLA UNIT: [id number] ADM DATE: 10/21/20 AGE: 74 : 47 SEX: M ROOM/BED: D.2130 AUTHOR: DRU YAO PHYSICIAN: REFERRING PHYSICIAN: DANK FOX DO DATE OF SERVICE: 10/26/20 Case Management Discharge Planning Summary COMMENTS ENTERED DATE: 10/24/20 19:28 CT COMMENT TYPE: Discharge Planning REVIEWER: Mook Saeed CM met with patient to complete DC plan and to evaluate needs. Patient lives independently with family, his daughter, Jacki Kendall, . Patient stated that his home is safe and has electricity and running water. Patient stated that the home has a ramp to enter and he is able to manage the steps without difficulty. Patient stated that he has no problems paying for medications and he fills his medications at [facility]. Patient stated that his primary care physician is Dr. Esteban. At discharge, the patient plans to return home and feels this is a safe discharge. CM discussed availability of home health, rehab services, and medical equipment. Patient declined HHS, SNF, IPR, and DME. Patient stated that he has a walker and home oxygen. Patient voiced no other needs at this time and is satisfied with DC plan. Transportation provider at discharge will be with his daughter, Jacki. DC IMM delivered, explained, signed by the patient, and placed in chart. Signed form also left with the patient. CM will continue to follow and will assist as needed with dc plans/needs DCP REVIEW SUMMARY ANTICIPATED D/C DATE: 10/24/2020 EXPECTED LOS : 3 CASE STATUS: DCP Complete INITIAL REVIEW: 10/21/2020 INITIAL REVIEWER: Mook Saeed FINAL DISCHARGE DISPOSITION: : FINAL REVIEWER: FINAL REVIEW DATE: DCP Focus Questions & Answers DCP Evaluation QUESTION: ANSWER Patient gives permission to discuss discharge plans with: (name, relationship and number) : his daughter, Jacki Kendall, Patient's ability to cope with chronic illness : d. No chronic illness Patient's current cognitive status: : *Oriented to person, place, situation, time and present Family / Caregiver's ability to cope with chronic illness: : a. Adequate (ability to meet patient's medical needs, ensures patient attends medical appts.) Patient and/or caregiver agree upon recommended discharge plan? : Yes Physical Status: : Independent with ADL's Family / Caregiver's ability to cope with chronic illness: : a. Adequate (ability to meet patient's medical needs, ensures patient attends medical appts.) Functional screen assessment: : Basic needs can adequately be met by self Does the patient have the ability to pay for or attain post discharge needs / services? : Yes Living Arrangements: : Home with Extended Family Is there a likelihood that the patient will require additional services to return to the preadmission environment? : No Equipment needed for post hospitalization: : None Baseline cognitive status: : *Oriented to person, place, situation, time and present Patient with capacity for self-care or can be cared for in same environment as prior to hospitalization? : Yes Physical environment modification needed / anticipated for discharge: : No Medication Management: : Patient states can afford medications Medication Management: : Patient states can read and understand medication labels Pharmacy name(s): : [facility] Does Patient have transportation to get home and to follow-up medical appointments when discharged from the hospital? : Yes Would patient like to participate in any Care Coordination programs (if applicable): : Not applicable Does the patient have electricity at home? : Yes Does the patient have running water in their house? : Yes Equipment in use: : Home Oxygen with Nasal Cannula Equipment in use: : Walker - Rolling Mental health screen: : No mental health history DCP Re-evaluation QUESTION: ANSWER Would patient like to participate in any Care Coordination programs (if applicable): : Not applicable PATIENT: BEATRIZ PADILLA ENCOUNTER: [id number] MEDICAL RECORD#: [id number] ADMISSION DATE: 10/21/2020 DISCHARGE DATE: 10/24/2020 ATTENDING MD: DANK LENTZ : [id number] AGE: 74 MARITAL STATUS: W DC PLAN ID: [id number] FACILITY: [facility] PRINTED ON: 10/26/20 15:18 CT All edits/amendments must be made on the electronic document DICTATION DATE: 10/26/201517 AIR CONDITIONING MECHANIC INDUSTRIAL: DELIA 10/26/201517 RPT#: [id number] DC DATE:10/24/20 STATUS: DIS IN [facility] [address] [place] [address] END OF REPORT
== END 2020-10-24 10:42 | disposition home or self-care (01) | DRG 189 ==
LOC: D.ER 18:40 → D.M2 19:54 → D.EDHOLD 19:54 → D.M2 22:58
PROVIDERS: Family Medicine; ADMIT Family Medicine; ATTEND Family Medicine
DX: J96.20 Acute and chronic respiratory failure, unspecified whether with hypoxia or hypercapnia (principal); J44.1 Chronic obstructive pulmonary disease with (acute) exacerbation; F17.203 Nicotine dependence unspecified, with withdrawal; I25.10 Atherosclerotic heart disease of native coronary artery without angina pectoris; I11.0 Hypertensive heart disease with heart failure; I50.9 Heart failure, unspecified; E78.5 Hyperlipidemia, unspecified; F41.9 Anxiety disorder, unspecified; E11.649 Type 2 diabetes mellitus with hypoglycemia without coma; J96.21 Acute and chronic respiratory failure with hypoxia; M19.90 Unspecified osteoarthritis, unspecified site; I25.2 Old myocardial infarction; Z87.01 Personal history of pneumonia (recurrent); Z86.73 Personal history of transient ischemic attack (TIA), and cerebral infarction without residual deficits